=== PATIENT | male | born 1955 ===

== ENCOUNTER 2017-02-22 19:00 | Emergency (ER) | payer MEDICARE ==
[2017-02-22] MEDS ORDERED: Sodium Chloride 0.9% 1,000 ML IV STA (20:24)
--- NOTE | 2017-02-22 20:26 | ED PDOC ---
HPI: Neurologic - General Time Seen by Provider: 02/22/17 19:21 Chief Complaint (Nursing): Altered Mental Status Chief Complaint (Provider): Difficulty walking Source: patient, other (friend) Exam Limitations: no limitations - History of Present Illness Timing/Duration: other (5 days) Allergies/Adverse Reactions: Allergies No Known Allergies Allergy (Verified 11/29/15 18:47) Home Medications: Ambulatory Orders hydroCHLOROthiazide [Hydrodiuril] 25 mg PO DAILY #30 tab 11/29/15 Cephalexin [cephalexin] 500 mg PO BID #14 cap 04/05/16 Silver Sulfadiazine 1% (50 gm) [Thermazene] 1 appl TP DAILY #1 jar 04/05/16 Additional Complaint(s): Patient is a 62 y/o male with a past medical history of diabetes presenting to the emergency department for difficulty walking that has persisted for five days with associated shortness of breath, back pain, and a non-productive cough. Reports that due to his difficulty walking, he has not left the house for three days. His friend visited him and upon noticing that he seemed confused , advised him to go to ED but he refused. The following day, the friend visited the patient again and noted that the patient was trying to put both legs in one pant leg and he fell down and hurt his back. His back pain is currently resolved , but he has intractable hiccups. The friend finally convinced him to go to the ED to be evaluated. Denies history of a stroke or heart attack, complaints of chest pain, leg swelling, any focal weaknesses, drug or alcohol abuse, or other complaints. Admits that he hadn't taken his in diabetes meds because he has been feeling sick. PCP: Dr. Bloom (whom he has not seen for three months) Against Medical Advice - AMA Patient Left Against Medical Advice: The patient declines admission to the hospital and wishes to leave the Emergency Department. This action is against my medical advice. This decision was made with informed refusal. The patient was told that admission to the hospital is necessary. Explanation of the reasons why were discussed. The risks of leaving were explained to the patient and include, but are not limited to, worsening of known or currently unknown conditions, permanent disability and from undiagnosed or untreated conditions. The patient has the capacity to make this informed decision and understands my explanation of the current medical problem and risks of leaving. The patient voluntarily accepts these risks and signed an AMA form documenting our conversation. The patient was given the opportunity to ask questions and reconsider. The patient was encouraged to return to the Emergency Department at any time for further care. NIHSS Stroke Scale - Date/Time Evaluation Performed Date Performed: 02/22/17 Time Performed: 19:20 When Was NIHSS Performed: Baseline - How Severe is the Stroke Level of Consciousness: 0=Alert LOC to Questions: 1=One correct LOC to commands: 0=Obeys both correctly Best Gaze: 1=Partial gaze palsy Visual: 0=No visual loss Facial: 0=Normal Motor Arm - Left: 0=No drift Motor Arm - Right: 0=No drift Motor Leg - Left: 0=No drift Motor Leg - Right: 0=No drift Limb Ataxia: 1=Present Upper or Lower Sensory: 0=Normal Best Language: 1=Mild to moderate aphasia Dysarthia: 0=Normal articulation Extinction & Inattention (Neglect): 0=Normal, no object Score: 4 Past Medical History Reviewed: Historical Data, Nursing Documentation, Vital Signs Vital Signs: Last Vital Signs Temp 99.0 F 02/22/17 19:12 Pulse 80 02/22/17 19:12 Resp 16 02/22/17 19:12 BP 122/65 02/22/17 19:12 Pulse Ox 100 02/22/17 19:12 - Medical History PMH: Diabetes, HTN - Surgical History Other surgeries: 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, a colostomy, and then a reversal of the colostomy - Family History Family History: States: Stroke (brother) - Social History Current smoker - smoking cessation education provided: Yes Ex-Smoker (has not smoked in the last 12 months): No Alcohol: None Drugs: Denies - Home Medications Home Medications: Ambulatory Orders Medication Instructions Recorded hydroCHLOROthiazide [Hydrodiuril] 25 mg PO DAILY #30 tab 11/29/15 Cephalexin [cephalexin] 500 mg PO BID #14 cap 04/05/16 Silver Sulfadiazine 1% (50 gm) 1 appl TP DAILY #1 jar 04/05/16 [Thermazene] - Allergies Allergies/Adverse Reactions: Allergies Allergy/AdvReac Type Severity Reaction Status Date / Time No Known Allergies Allergy Verified 11/29/15 18:47 Review of Systems ROS Statement: Except As Marked, All Systems Reviewed And Found Negative Cardiovascular: Negative for: Chest Pain Respiratory: Positive for: Cough (non-productive), Shortness of Breath Musculoskeletal: Positive for: Back Pain (currently resolved). Negative for: Other (leg swelling) Neurological: Positive for: Other (difficulty walking) Physical Exam - Reviewed Nursing Documentation Reviewed: Yes Vital Signs Reviewed: Yes - Physical Exam Appears: Positive for: Uncomfortable, In Acute Distress Head Exam: Positive for: ATRAUMATIC, NORMOCEPHALIC Skin: Positive for: Warm, Dry Eye Exam: Positive for: PERRL. Negative for: EOMI (RIGHT eye: subtle palsy when looking LEFT, reports double vision) ENT: Positive for: Other (tacky mucus membranes) Neck: Positive for: Painless ROM, Supple Cardiovascular/Chest: Positive for: Regular Rate, Rhythm. Negative for: Murmur Respiratory: Positive for: Normal Breath Sounds. Negative for: Respiratory Distress Gastrointestinal/Abdominal: Positive for: Soft. Negative for: Tenderness, Mass , Distended, Guarding Back: Positive for: Normal Inspection. Negative for: Decreased ROM Neurologic/Psych: Positive for: Alert, Oriented (x3), Mood/Affect (mildly anxious), Cerebellar Tests (LEFT side: dysmetria with [id number]), Gait ( steady), Other (RIGHT eye subtle palsy). Negative for: Aphasia, Facial Droop - Laboratory Results Result Diagrams: 02/22/17 20:25 02/22/17 20:25 - ECG ECG Rhythm: Positive for: Sinus Rhythm, Nonspecific Changes O2 Sat by Pulse Oximetry: 100 (RA) Pulse Ox Interpretation: Normal - Critical Care Total Time (In Min): 30 Documented Critical Care: Time excludes all time spent performint seperately billable procedures Medical Decision Making Medical Decision Making: Time: 20:07 Initial Impression: Dystaxia and ocular-motor nerve palsy Differential diagnoses include but are not limited to stroke, metabolic encephalopathy, neuropathy, electrolyte abnormality, acute coronary syndrome, and syncope Initial Plan: Type and Screen Head CT without contrast EKG B-type Natriuretic Protein lab CMP Lipid panel Magnesium Phosphorous Troponin ED Urine Dipstick CBC Chest x-ray Certified Tower Climber IV Insertion Reevaluation EXAM: CT Head Without Intravenous Contrast CLINICAL HISTORY: 62 years old, male; Injury or trauma and signs and symptoms; Fall; Initial encounter; Concussion / head injury; Consciousness not specified; Other: Dystaxia; Additional info: Dystaxia and double vision. Sent phy. Doc. TECHNIQUE: Axial computed tomography images of the head/brain without intravenous contrast. All CT scans at this facility use one or more dose reduction techniques, viz.: automated exposure control; ma/kV adjustment per patient size (including targeted exams where dose is matched to indication; i.e. head); or iterative reconstruction technique. Coronal and sagittal reformatted images were created and reviewed. COMPARISON: No relevant prior studies available. FINDINGS: Brain: Cerebral and cerebellar atrophy. Small vessel ischemic/degenerative changes. Encephalomalacia right occipital lobe consistent with an old infarct. Encephalomalacia left frontal lobe consistent with old infarct. No hemorrhage. Ventricles: Unremarkable. No ventriculomegaly. Bones/joints: Unremarkable. No acute fracture. Soft tissues: Unremarkable. Vasculature: Intracranial arterial calcifications. Sinuses: Mucosal thickening left-sided ethmoid air cell. Mastoid air cells: Unremarkable as visualized. No mastoid effusion. IMPRESSION: 1. Cerebral and cerebellar atrophy. 2. Small vessel ischemic/degenerative changes. Thank you for allowing us to participate in the care of your patient. Dictated and Authenticated by: Roman Kraus MD 02/22/2017 8:57 PM Eastern Time ([place] & [place]) Markedly elevated glucose, with associated deranged electrolytes. IVF and Insulin ordered. DW pt findings and need to stay in hospital for full workup of CVA and to control diabetes. Pt refused. DW pt at length risk of or severe permanent disability if goes home but he wants to leave anyway. Advised that he can return to hospital at any time for the discussed plan. Scribe Attestation: Documented by Diane Thompson, acting as a scribe for Annabella Fabian MD. Provider Scribe Attestation: All medical record entries made by the Scribe were at my direction and personally dictated by me. I have reviewed the chart and agree that the record accurately reflects my personal performance of the history, physical exam, medical decision making, and the department course for this patient. I have also personally directed, reviewed, and agree with the discharge instructions and disposition. Disposition - Clinical Impression Clinical Impression: CVA (cerebral vascular accident), Hyperglycemia - Disposition Disposition: Against Medical Advice Disposition Time: 22:00 Condition: UNKNOWN
[2017-02-22 20:44] LABS: BASO % 0.3 % (0.0-2.0); EOS # 0.1 K/uL (0.0-0.7); EOS % 1.1 % (0.0-4.0); HEMOGLOBIN 14.3 g/dL (12.0-18.0); LYMPH # 1.1 K/uL (1.0-4.3); LYMPH % 11.7 % (20.0-40.0); MEAN CELL VOLUME 85.6 fl (80.0-94.0); MEAN CORPUSCULAR HEMOGLOBIN 28.5 pg (27.0-31.0); MEAN CORPUSCULAR HGB CONC 33.4 g/dL (33.0-37.0); MEAN PLATELET VOLUME 8.4 fl (7.2-11.7); MONO # 0.8 K/uL (0.0-0.8); MONO % 8.6 % (0.0-10.0); NEUT # 7.6 K/uL (1.8-7.0); NEUT % 78.3 % (50.0-75.0); RBC 5.01 Mil/uL (4.40-5.90); RED CELL DISTRIBUTION WIDTH 14.3 % (11.5-14.5); WHITE BLOOD COUNT 9.7 K/uL (4.8-10.8)
[2017-02-22 20:48] LABS: ABG ALLEN TEST YES; ARTERIAL BLOOD GAS HCO3 27.5 mmol/L (21-28); ARTERIAL BLOOD GAS O2 SAT 95.7 % (95-98); ARTERIAL BLOOD GAS PCO2 40 mm/Hg (35-45); ARTERIAL BLOOD GAS PH 7.45 (7.35-7.45); ARTERIAL BLOOD GAS PO2 60 mm/Hg (80-100)
[2017-02-22 20:53] LABS: PROTHROMBIN TIME 11.6 Seconds (9.8-13.1)
[2017-02-22 21:18] LABS: LDL CHOLESTEROL 113 mg/dL (0-129)
[2017-02-22 21:21] LABS: B-TYPE NATRIURETIC PEPTIDE 182 pg/ml (0-900)
[2017-02-22] MEDS ORDERED: Insulin Regular 100 units/ml SC STA (21:23)
[2017-02-22] MEDS ORDERED: Insulin Regular 100 units/ml IVP STA (21:24)
[2017-02-22] MEDS ORDERED: DiphenhydrAMINE 50 mg/ml Inj IVP STA (21:25)
[2017-02-22 21:30] LABS: ALB/GLOB RATIO 0.9 (1.0-2.1); ALBUMIN 3.2 g/dL (3.5-5.0); ALT/SGPT 35 U/L (21-72); AST/SGOT 17 U/L (17-59); BLOOD UREA NITROGEN 27 mg/dl (9-20); CALCIUM 7.9 mg/dL (8.4-10.2); GFR AFRICAN-AMERICAN > 60; GFR NON-AFRICAN AMERICAN > 60; HDL CHOLESTEROL 16 MG/DL (30-70); MAGNESIUM 2.1 MG/DL (1.6-2.3)
[2017-02-22] MEDS ORDERED: DiphenhydrAMINE 50 mg/ml Inj ONE (21:50)
[2017-02-22] MEDS ORDERED: Insulin Regular 100 units/ml ONE (21:53)
[2017-02-22 22:31] VITALS: BP 135/87; PULSE 89; RESP 18; TEMP 98
[2017-02-22 22:34] VITALS: O2SAT 100
--- NOTE | 2017-02-23 07:56 | RAD ---
HISTORY: fall, sob COMPARISON: Chest radiograph 08/03/2012. FINDINGS: LUNGS: An interval infiltrate is appreciate the right base laterally with none on the left. No pleural effusion bilaterally. No pneumothorax. Cardiomediastinal silhouette appears normal and there is no pulmonary vascular derangement appreciated. Trachea is midline. OSSEOUS STRUCTURES: No significant abnormalities. VISUALIZED UPPER ABDOMEN: Normal. OTHER FINDINGS: None. IMPRESSION: Limited infiltrate right base. No pleural effusion bilaterally or left-sided infiltrate.
--- NOTE | 2017-02-23 08:37 | CT ---
PROCEDURE: CT HEAD WITHOUT CONTRAST. HISTORY: dystaxia and double vision COMPARISON: None available. TECHNIQUE: Axial computed tomography images were obtained through the head/brain without intravenous contrast. Radiation dose: Total exam DLP = 926.36 mGy-cm. This CT exam was performed using one or more of the following dose reduction techniques: Automated exposure control, adjustment of the mA and/or kV according to patient size, and/or use of iterative reconstruction technique. FINDINGS: HEMORRHAGE: No intracranial hemorrhage. BRAIN: Chronic lobar infarctions are identified in the left frontal and right temporooccipital distribution medially. No definitive acute cortical edema is identified this time 6 cysts indicate a potential acute or subacute brain infarction. MRI is available for follow-up if clinically warranted however. Chronic right sided infarct described above may account for at least some of the patient's visual disturbance and clinical correlation is recommended further. Diffuse expansion of the ventriculosulcal and cisternal spaces is appreciated with white matter lucency compatible with diffuse cerebral atrophy and chronic microangiopathy. Posterior fossa contents and brainstem appear grossly nonfocal. VENTRICLES: Unremarkable. No hydrocephalus. CALVARIUM: Unremarkable. PARANASAL SINUSES: Multifocal ethmoid sinus disease is minimized to the mucosal surfaces diffusely without suspicious opacification. MASTOID AIR CELLS: Unremarkable as visualized. No inflammatory changes. OTHER FINDINGS: None. IMPRESSION: Chronic lobar infarct identified in the left frontal and right temporooccipital distribution. Clinically correlate as right temporooccipital chronic infarct may be least in part due the patient's visual disturbance. MRI is available follow-up if acute as clinically warranted. No intracranial hemorrhage or mass-effect. No cortical edema is identified at this time. Concordant preliminary report from [facility], 02/22/2017.
--- NOTE | 2017-02-23 18:27 | CARD ---
APPROVED REPORT EKG Measurement Heart [id number] <Conclusion> Normal sinus rhythm Left axis deviation Abnormal ECG
== END 2017-02-22 22:38 | disposition left against medical advice (07) ==
LOC: H.ER 19:00 → UNDOADMIN 21:45 → H.ERHOLD 21:45 → UNDODISIN 22:38
DX: H49.00 Third [oculomotor] nerve palsy, unspecified eye (principal)
CPT/HCPCS: 70450; 71010; 80053; 80061; 82550; 82803; 82948; 83036; 83735; 83880; 84100; 84484; 85025; 85610; 85730; 86850; 86900; 93005; 96374; 96375; 99285; J1200; J2765; J7040

== ENCOUNTER 2017-03-30 16:37 | Emergency (ER) | payer MEDICARE ==
[2017-03-30 16:43] VITALS: TEMP 97
[2017-03-30] MEDS ORDERED: Sodium Chloride 0.9% 1,000 ML IV STA (17:13)
[2017-03-30 17:39] LABS: SQUAMOUS EPITHIAL 1 /hpf (0-5); URINE BILIRUBIN NEGATIVE (NEGATIVE); URINE BLOOD SMALL (NEGATIVE); URINE CLARITY SLIGHTY-CLOUDY (Clear); URINE COLOR YELLOW (YELLOW); URINE GLUCOSE (UA) >=500 mg/dL (Normal); URINE LEUKOCYTE ESTERASE NEG Leu/uL (Negative); URINE NITRATE NEGATIVE (NEGATIVE); URINE PROTEIN 100 mg/dL (NEGATIVE); URINE UROBILINOGEN 0.2-1.0 mg/dL (0.2-1.0)
[2017-03-30 17:45] LABS: BASO # 0.1 K/uL (0.0-0.2); EOS # 0.4 K/uL (0.0-0.7); EOS % 3.8 % (0.0-4.0); HEMOGLOBIN 14.4 g/dL (12.0-18.0); MEAN CELL VOLUME 86.4 fl (80.0-94.0); MEAN CORPUSCULAR HEMOGLOBIN 29.3 pg (27.0-31.0); MEAN CORPUSCULAR HGB CONC 33.9 g/dL (33.0-37.0); MEAN PLATELET VOLUME 8.3 fl (7.2-11.7); MONO # 0.6 K/uL (0.0-0.8); MONO % 6.3 % (0.0-10.0); NEUT # 6.6 K/uL (1.8-7.0); NEUT % 67.9 % (50.0-75.0); NRBC % 0.1 % (0.0-0.0); RBC 4.93 Mil/uL (4.40-5.90); RED CELL DISTRIBUTION WIDTH 15.5 % (11.5-14.5); WHITE BLOOD COUNT 9.7 K/uL (4.8-10.8)
[2017-03-30 17:50] LABS: ALB/GLOB RATIO 1.1 (1.0-2.1); ALBUMIN 4.1 g/dL (3.5-5.0); CALCIUM 9.3 mg/dL (8.4-10.2); GFR AFRICAN-AMERICAN > 60; GFR NON-AFRICAN AMERICAN > 60
[2017-03-30 17:51] LABS: ALT/SGPT 28 U/L (21-72); AST/SGOT 23 U/L (17-59); BLOOD UREA NITROGEN 25 mg/dl (9-20)
--- NOTE | 2017-03-30 18:28 | CT ---
PROCEDURE: CT Lumbar Spine without contrast HISTORY: severe low back Pain. No history of recent/ related trauma provided COMPARISON: 07/14/2012 CT abdomen and pelvis TECHNIQUE: Axial computed tomography images were obtained of the lumbar spine without the use of intravenous contrast. Coronal and sagittal reformatted images were created and reviewed. Radiation dose: Total exam DLP = 1959.59 mGy-cm. This CT exam was performed using one or more of the following dose reduction techniques: Automated exposure control, adjustment of the mA and/or kV according to patient size, and/or use of iterative reconstruction technique. FINDINGS: VERTEBRAE: Loss of height of L2 vertebral body. The vertebral body is sclerotic suggesting pathologic fracture. Review of a prior CT scan the abdomen and pelvis 07/14/2012 and reveals a normal appearing L2 vertebral body at that time. Retropulsed fragments from the superior endplate of the vertebral body arm impressing upon the spinal canal, thecal sac. No additional sclerotic or lytic abnormalities are identified. DISCS/SPINAL CANAL/NEURAL FORAMINA: L1-2: The retropulsed fragment has produced canal stenosis at this level maximum AP diameter 10 mm. L2-3: Unremarkable. L3-4: Unremarkable. L4-5: Unremarkable. L5-S1: Mild bulging annulus. PARASPINAL SOFT TISSUES: UnremarkableNo appreciable paraspinal soft tissue mass associated with the L2 vertebral body abnormality. . OTHER FINDINGS: Multiple small renal cysts bilaterally. 2 mm calculus midpole region left kidney which is nonobstructing. IMPRESSION: L2 vertebral body fracture associate with sclerotic vertebral body. Retropulsed fragment has produced canal stenosis at this level. No additional lytic or sclerotic abnormalities. Additional benign and/or incidental findings described above. Communication of results: I discussed findings with the attending physician in the emergency department Dr. Nelson at the time of this interpretation 18:24.
--- NOTE | 2017-03-30 19:10 | ED PDOC ---
HPI: Back Time Seen by Provider: 03/30/17 17:06 Chief Complaint (Nursing): Back Pain Chief Complaint (Provider): Back Pain History Per: Patient History/Exam Limitations: no limitations Onset/Duration Of Symptoms: Days (x 2 weeks) Current Symptoms Are (Timing): Still Present Additional Complaint(s): 62 year old male iwth a past medical history of diabetes and hypertension presents to the ED complaining of ongoing lower back pain, onset 2 weeks ago. Patient states chronic neuropathy of lower extremities where they feel numb. Reports that he visited Dr. Arana today and was unable to see the physician. Denies urinary symptoms, fever, chest pain, chills, falls, and weakness. PMD: Dr. Jay Arana MD Past Medical History Reviewed: Historical Data, Nursing Documentation, Vital Signs Vital Signs: Last Vital Signs Temp 97 F L 03/30/17 16:40 Pulse 114 H 03/30/17 16:40 Resp 16 03/30/17 16:40 BP 136/91 H 03/30/17 16:40 Pulse Ox 99 03/30/17 16:40 - Medical History PMH: Diabetes, HTN - Surgical History Other surgeries: Colostomy with reversal - Family History Family History: States: Stroke (brother) - Social History Current smoker - smoking cessation education provided: No Alcohol: None Drugs: Denies - Home Medications Home Medications: Ambulatory Orders Medication Instructions Recorded hydroCHLOROthiazide [Hydrodiuril] 25 mg PO DAILY #30 tab 11/29/15 Cephalexin [cephalexin] 500 mg PO BID #14 cap 04/05/16 Silver Sulfadiazine 1% (50 gm) 1 appl TP DAILY #1 jar 04/05/16 [Thermazene] - Allergies Allergies/Adverse Reactions: Allergies Allergy/AdvReac Type Severity Reaction Status Date / Time No Known Allergies Allergy Verified 11/29/15 18:47 Review of Systems ROS Statement: Except As Marked, All Systems Reviewed And Found Negative Constitutional: Negative for: Fever, Chills, Weakness Cardiovascular: Negative for: Chest Pain Genitourinary Male: Negative for: Dysuria, Frequency, Incontinence, Hematuria Musculoskeletal: Positive for: Back Pain Neurological: Positive for: Numbness (lower extremities) Physical Exam - Reviewed Nursing Documentation Reviewed: Yes Vital Signs Reviewed: Yes - Physical Exam Appears: Positive for: Non-toxic, No Acute Distress Head Exam: Positive for: ATRAUMATIC, NORMOCEPHALIC Skin: Positive for: Normal Color, Warm, DRY Eye Exam: Positive for: EOMI, Normal appearance, PERRL Neck: Positive for: Normal, Painless ROM, Supple Cardiovascular/Chest: Positive for: Regular Rate, Rhythm. Negative for: Murmur Respiratory: Positive for: Normal Breath Sounds. Negative for: Respiratory Distress Gastrointestinal/Abdominal: Positive for: Normal Exam, Soft Back: Positive for: Vertebral Tenderness (lower back; including lumbar vertebrae ) Extremity: Positive for: Normal ROM. Negative for: Deformity Neurologic/Psych: Positive for: Alert, Oriented. Negative for: Motor/Sensory Deficits - Laboratory Results Result Diagrams: 03/30/17 17:37 03/30/17 17:37 - ECG O2 Sat by Pulse Oximetry: 99 (RA) Pulse Ox Interpretation: Normal Medical Decision Making Medical Decision Making: Time: 17:12 Impression: Lower back pain Initial Plan: --Lumbar spine CT --CMP --CBC --PSA free and total --Normal saline IV 1,000 mls/hr --Toradol 30 mg IV --Tylenol 650 mg PO --Urinalysis Patient was given Toradol for pain with improvement of symptoms. CT LS spine revealed the possibility of prostate malignancy. PSA added on because of age. Transfer of care endorsed to Dr. Clemens. Scribe Attestation: Documented by Regi Eddy, acting as a scribe for Roman Nelson III DO Provider Scribe Attestation: All medical record entries made by the Scribe were at my direction and personally dictated by me. I have reviewed the chart and agree that the record accurately reflects my personal performance of the history, physical exam, medical decision making, and the department course for this patient. I have also personally directed, reviewed, and agree with the discharge instructions and disposition. Disposition - Disposition
--- NOTE | 2017-03-30 19:42 | ED PDOC ---
- Laboratory Results Result Diagrams: 03/30/17 17:37 03/30/17 17:37 - ECG O2 Sat by Pulse Oximetry: 99 (RA) Pulse Ox Interpretation: Normal Medical Decision Making Medical Decision MakinPM Patient signed out to me by Dr. Nelson pending PSA result, however nurse Evelyn checked with lab and confirmed that PSA will be a send out at this time to [facility] , which will take 3-5 days. Urine shows no evidence of bacteria or ketones. Patient offered admission for condition concerning findings on CT, however patient is declining and wishes to go home and followup with Dr. Tony as outpatient. Patient states that he is feeling much better and admits that in the past 1-2 months he has fallen several times and his current symptoms have been there for over 2 weeks. Will also give patient referral for urology and orthopedics. Patient understands that his back lesion can be fuels sales representative of possible prostate cancer and metastases to the bone. Patient verbally understands this and understands the importance of urgent followup. Discussed need for better glycemic control as well. Discussed return precautions- worsening back pain, loss of bladder/bowel function, acutely worsening numbness/ disability of lower extremities, or other concerning symptoms. Copies of results given to patient. Patient neurologically intact upon discharge. Walking steadily without any issue. Disposition - Clinical Impression Clinical Impression: Vertebral fracture - POA Present On Arrival: None - Disposition Referrals: Jay Arana MD [Medical Doctor] - Armando Barclay III, MD [Staff Provider] - Roman Harrington Jr., MD [Staff Provider] - Disposition: Routine/Home Disposition Time: 19:44 Condition: STABLE Additional Instructions: Please followup with your primary care doctor to have your prostate checked. Please have Dr. Arana followup on your PSA level, as it was a send-out to another facility. Please followup with an orthopedic doctor regarding your vertebral body (spine) fracture. Prescriptions: Naproxen [Naprosyn] 500 mg PO BID #30 tablet Instructions: Thoracolumbar Fracture (ED), Acute Low Back Pain (ED) Forms: [employer] (Bengali)
[2017-03-30 19:55] VITALS: BP 137/84; PULSE 83; RESP 18
[2017-03-30 20:31] VITALS: O2SAT 99
[2017-03-31 10:51] LABS: TOTAL PSA 0.8 ng/mL (< or = 4.0)
== END 2017-03-30 20:10 | disposition home or self-care (01) ==
LOC: H.ER 16:37
DX: S32.029A Unspecified fracture of second lumbar vertebra, initial encounter for closed fracture (principal); Y92.89 Other specified places as the place of occurrence of the external cause; E11.9 Type 2 diabetes mellitus without complications; I10 Essential (primary) hypertension; M48.061 Spinal stenosis, lumbar region without neurogenic claudication
CPT/HCPCS: 72131; 80053; 81003; 82948; 84153; 84154; 85025; 96360; 99282; J1885; J7040

== ENCOUNTER 2017-10-18 14:15 | Inpatient (IN) | payer MEDICARE ==
--- NOTE | 2017-10-18 14:35 | ED PDOC ---
HPI:STROKE - Time Time: 14:25 - Historian Historian: Patient - Chief Complaint Chief Complaint: Weakness - Onset Onset: Days (2-3) - Timing Timing: Currently Symptomatic - Associated Symptoms Associated symptoms:: Dysarthria - Exacerbated by Exacerbated by:: Nothing - Relieved by Relieved by:: Nothing - TPA Positive for Contraindication: Yes Reason tPA is not being Administered: symptoms ongoing >2 days - Notes: Notes:: 62yo male hx DM, HTN, active smoker arrives to hospital via EMS when friend found him altered with facial assymmetry and decreased ability to walk or stand today. Per friend/neighbor, he was last seen [address] where he was also having falls, but did not want to come to hospital. In ED patient communicative denies headache, notes weakness and nausea. NIHSS Stroke Scale - Date/Time Evaluation Performed Date Performed: 10/18/17 Time Performed: 14:34 When Was NIHSS Performed: Baseline - How Severe is the Stroke Level of Consciousness: 0=Alert LOC to Questions: 0=Both comments correct LOC to commands: 0=Obeys both correctly Best Gaze: 0=Normal Visual: 0=No visual loss Facial: 2=Partial (lower face paralysis) Motor Arm - Left: 1=Drift noted before 10 sec Motor Arm - Right: 1=Drift noted before 10 sec Motor Leg - Left: 0=No drift Motor Leg - Right: 0=No drift Limb Ataxia: 0=Absent Sensory: 0=Normal Best Language: 0=No aphasia Dysarthia: 1=Mild to moderate slurring Extinction & Inattention (Neglect): 0=Normal, no object Score: 5 Severity Of Stroke: 5-15 = Moderate Stroke rTPA Inclusion/Exclusion - Refusal of Treatment Patient Refused Treatment: No - Inclusion Criteria for Altepase Patient is 18 years or Older: Yes The Clinical Diagnosis of Ischemic Stroke That is Causing a Potentially Disabling Neurological Deficit: Yes Time of Onset is Well Established to be Less Than 270 Minute Before Treatment Would Begin: No Risk/Benefit Discussed With Patient/Family Member Present: No - Exclusion Criteria for Altepase Evidence of an Intracranial Hemorrhage: No - Warning to TPA With Conditions Following Conditions Weighed Against Anticipated Benefit: Yes Past Medical History Reviewed: Historical Data, Nursing Documentation, Vital Signs Vital Signs: Last Vital Signs Temp 98.2 F 10/18/17 14:19 Pulse 106 H 10/18/17 14:19 Resp 20 10/18/17 14:19 BP 139/91 H 10/18/17 14:19 Pulse Ox 92 L 10/18/17 14:19 - Medical History PMH: Diabetes, HTN - Surgical History Other surgeries: hartmans procedure - Family History Family History: States: Stroke (brother) - Living Arrangements Living Arrangements: Alone - Social History Current smoker - smoking cessation education provided: Yes Alcohol: None - Home Medications Home Medications: Ambulatory Orders Medication Instructions Recorded Finasteride [Proscar] 5 mg PO QPM 10/18/17 Insulin Aspart, Recombinant 18 unit SC ACTID 10/18/17 [Novolog] Insulin Glargine,Hum.rec.anlog 40 unit SC HS 10/18/17 [Toujeo Solostar] MetFORMIN [glucoPHAGE] 1,000 mg PO BID 10/18/17 Pregabalin [Lyrica] 100 mg PO Q8 10/18/17 Tamsulosin [Flomax] 0.4 mg PO QPM 10/18/17 Zolpidem [Ambien] 10 mg PO HS PRN 10/18/17 traMADol [Ultram] 50 mg PO Q8 PRN 10/18/17 - Allergies Allergies/Adverse Reactions: Allergies Allergy/AdvReac Type Severity Reaction Status Date / Time No Known Allergies Allergy Verified 10/18/17 14:17 Review of Systems Review Of Systems: ROS cannot be obtained secondary to pt's inabilty to answer questions. (unrelaible historian) Physical Exam - Reviewed Nursing Documentation Reviewed: Yes Vital Signs Reviewed: Yes - Physical Exam Appears: Positive for: Non-toxic (+vomitus, facial assymetry speech mild dysarthria but fluent) Head Exam: Positive for: ATRAUMATIC, NORMAL INSPECTION, NORMOCEPHALIC Skin: Positive for: Normal Color, Warm, DRY Eye Exam: Positive for: EOMI, Normal appearance, PERRL ENT: Positive for: Normal ENT Inspection Neck: Positive for: Normal, Painless ROM Cardiovascular/Chest: Positive for: Regular Rate, Rhythm Respiratory: Positive for: CNT, Normal Breath Sounds Pulses-Radial (L): 2+ Pulses-Radial (R): 2+ Gastrointestinal/Abdominal: Positive for: Normal Exam, Soft Back: Positive for: Normal Inspection Extremity: Positive for: Normal ROM Neurologic/Psych: Positive for: Alert, Oriented, Motor/Sensory Deficits ( strength L side 4/5; R 5/5), Cerebellar Tests (slow), Gait (unable to assess), Facial Droop. Negative for: Aphasia - Laboratory Results Result Diagrams: 10/19/17 05:40 10/19/17 05:40 - ECG O2 Sat by Pulse Oximetry: 92 Medical Decision Making Medical Decision Making: stroke alert not activated as symptoms ongoing >[address] brain, labs, swallow eval ordered old charts reviewed, no recent visits PMD Bloom? (patient unsure) Accession No. : [id number] Patient Name / ID : FUENTES STARK / [id number] Exam Date : 10/18/2017 15:14:39 ( Approved ) Study Comment : Sex / Age : M / 62Y Creator : Gildardo Rodriguez MD Dictator : Gildardo Rodriguez MD Eviscerator : Supervisor [employer] : Gildardo Rodriguez MD Approver2 : Report Date : 10/18/2017 15:44:43 My Comment : Date of service: 10/18/2017 PROCEDURE: CT HEAD WITHOUT CONTRAST. HISTORY: L facial droop, falls/AMS COMPARISON: Noncontrast head CT 02/22/2017. TECHNIQUE: Axial computed tomography images were obtained through the head/brain without intravenous contrast. Radiation dose: Total exam DLP = 900.52 mGy-cm. This CT exam was performed using one or more of the following dose reduction techniques: Automated exposure control, adjustment of the mA and/or kV according to patient size, and/or use of iterative reconstruction technique. FINDINGS: HEMORRHAGE: No intracranial hemorrhage. BRAIN: There is interval lucency without definite mass effect identified at the right frontal lobe extending to the optic radiations. This may reflect a mid to late subacute ischemic infarct in the interval. Follow-up MRI is strongly advised for additional characterization. Chronic lobar infarctions in the left frontal and right temporooccipital distribution are appreciated as well as diffuse cerebral atrophy chronic microangiopathy. Posterior fossa contents are unremarkable including the brainstem. No suspicious extra-axial fluid collection. 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 CALVARIUM: Unremarkable. PARANASAL SINUSES: Unremarkable as visualized. No significant inflammatory changes. MASTOID AIR CELLS: Unremarkable as visualized. No inflammatory changes. OTHER FINDINGS: None. IMPRESSION: 1. Potential mid to late subacute ischemic infarct right frontal lobe in the interval. No mass-effect however. Follow-up MRI is advised for added characterization. 2. Chronic lobar infarctions left frontal lobe and right temporooccipital regions reiterated. 3. Age related neuro degenerative changes reiterated. ASA ordered rectal Admit sap pp consultant medicine Dr Marmolejo Case d/w Dr Portillo stroke neurologist also Disposition - Clinical Impression Clinical Impression: CVA (cerebral vascular accident), Hyperglycemia - Patient ED Disposition Is Patient to be Admitted: Yes Counseled Patient/Family Regarding: Studies Performed, Diagnosis, Need For Followup - Disposition Disposition Time: 15:35 Condition: GUARDED - Pt Status Changed To: Hospital Disposition Of: Inpatient - Admit Certification Admit to Inpatient:: After my assessment, the patient will require hospitalization for at least two midnights. This is because of the severity of symptoms shown, intensity of services needed, and/or the medical risk in this patient being treated as an outpatient. - POA Present On Arrival: Falls Or Trauma, Poor Glycemic Control
[2017-10-18] MEDS ORDERED: Sodium Chloride 0.9% 1,000 ML IV STA (14:39)
[2017-10-18 15:07] LABS: PROTHROMBIN TIME 10.7 Seconds (9.8-13.1)
[2017-10-18 15:08] LABS: BASO # 0.1 K/uL (0.0-0.2); BASO % 0.7 % (0.0-2.0); EOS # 0.3 K/uL (0.0-0.7); EOS % 3.8 % (0.0-4.0); HEMOGLOBIN 15.1 g/dL (12.0-18.0); LYMPH # 1.7 K/uL (1.0-4.3); LYMPH % 18.5 % (20.0-40.0); MEAN CELL VOLUME 86.3 fl (80.0-94.0); MEAN CORPUSCULAR HEMOGLOBIN 29.7 pg (27.0-31.0); MEAN CORPUSCULAR HGB CONC 34.4 g/dL (33.0-37.0); MEAN PLATELET VOLUME 8.7 fl (7.2-11.7); MONO # 0.6 K/uL (0.0-0.8); MONO % 6.7 % (0.0-10.0); NEUT # 6.3 K/uL (1.8-7.0); NEUT % 70.3 % (50.0-75.0); NRBC % 0.2 % (0.0-0.0); RBC 5.08 Mil/uL (4.40-5.90)
[2017-10-18 15:09] LABS: PARTIAL THROMBOPLASTIN TIME 29.1 Seconds (25.6-37.1)
[2017-10-18 15:14] LABS: ALB/GLOB RATIO 1.3 (1.0-2.1); ALBUMIN 4.3 g/dL (3.5-5.0); ALT/SGPT 26 U/L (21-72); AST/SGOT 15 U/L (17-59); BLOOD UREA NITROGEN 23 mg/dl (9-20); CALCIUM 9.2 mg/dL (8.4-10.2); GFR AFRICAN-AMERICAN > 60; GFR NON-AFRICAN AMERICAN > 60; HDL CHOLESTEROL 38 MG/DL (30-70)
[2017-10-18 15:25] LABS: LDL CHOLESTEROL 165 mg/dL (0-129)
--- NOTE | 2017-10-18 15:30 | RAD ---
Date of service: 10/18/2017 HISTORY: Code Stroke COMPARISON: 02/22/2017. FINDINGS: LUNGS: Resolution right lower lobe infiltrate PLEURA: No significant pleural effusion identified, no pneumothorax apparent. CARDIOVASCULAR: No radiographic findings to suggest acute or significant cardiovascular disease. OSSEOUS STRUCTURES: No significant abnormalities. VISUALIZED UPPER ABDOMEN: Normal. OTHER FINDINGS: None. IMPRESSION: No active disease.
--- NOTE | 2017-10-18 15:46 | CT ---
Date of service: 10/18/2017 PROCEDURE: CT HEAD WITHOUT CONTRAST. HISTORY: L facial droop, falls/AMS COMPARISON: Noncontrast head CT 02/22/2017. TECHNIQUE: Axial computed tomography images were obtained through the head/brain without intravenous contrast. Radiation dose: Total exam DLP = 900.52 mGy-cm. This CT exam was performed using one or more of the following dose reduction techniques: Automated exposure control, adjustment of the mA and/or kV according to patient size, and/or use of iterative reconstruction technique. FINDINGS: HEMORRHAGE: No intracranial hemorrhage. BRAIN: There is interval lucency without definite mass effect identified at the right frontal lobe extending to the optic radiations. This may reflect a mid to late subacute ischemic infarct in the interval. Follow-up MRI is strongly advised for additional characterization. Chronic lobar infarctions in the left frontal and right temporooccipital distribution are appreciated as well as diffuse cerebral atrophy chronic microangiopathy. Posterior fossa contents are unremarkable including the brainstem. No suspicious extra-axial fluid collection. 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 CALVARIUM: Unremarkable. PARANASAL SINUSES: Unremarkable as visualized. No significant inflammatory changes. MASTOID AIR CELLS: Unremarkable as visualized. No inflammatory changes. OTHER FINDINGS: None. IMPRESSION: 1. Potential mid to late subacute ischemic infarct right frontal lobe in the interval. No mass-effect however. Follow-up MRI is advised for added characterization. 2. Chronic lobar infarctions left frontal lobe and right temporooccipital regions reiterated. 3. Age related neuro degenerative changes reiterated.
[2017-10-18] MEDS ORDERED: Insulin Regular 100 units/ml SC ONE (16:05)
[2017-10-18] MEDS: Sodium Chloride 0.9% 1,000 ML IV SCH (22:01)
[2017-10-18] MEDS: Insulin Lispro (humaLOG) 100 Units/ml Inj SC SCH (22:57)
[2017-10-18] MEDS: Insulin Detemir 100 Units/ml Inj SC SCH (22:58)
[2017-10-19] MEDS ORDERED: Pneumococcal 23-Valent Vaccine IM ONE (06:00)
--- NOTE | 2017-10-19 06:11 | CARD ---
APPROVED REPORT Date of service: 10/18/2017 <Conclusion> Normal sinus rhythm Left axis deviation Abnormal ECG
[2017-10-19 06:35] LABS: HEMOGLOBIN 14.3 g/dL (12.0-18.0); MEAN CELL VOLUME 86.3 fl (80.0-94.0); MEAN CORPUSCULAR HEMOGLOBIN 29.8 pg (27.0-31.0); MEAN CORPUSCULAR HGB CONC 34.5 g/dL (33.0-37.0); RBC 4.81 Mil/uL (4.40-5.90); RED CELL DISTRIBUTION WIDTH 13.8 % (11.5-14.5)
[2017-10-19] MEDS: Insulin Lispro (humaLOG) 100 Units/ml Inj SC SCH ×6 (06:36→22:35)
[2017-10-19] MEDS: Sodium Chloride 0.9% 1,000 ML IV SCH ×2 (06:38→12:15)
[2017-10-19 06:57] LABS: LDL CHOLESTEROL 157 mg/dL (0-129)
[2017-10-19 07:20] LABS: ALB/GLOB RATIO 1.2 (1.0-2.1); ALBUMIN 3.8 g/dL (3.5-5.0); ALT/SGPT 27 U/L (21-72); AST/SGOT 19 U/L (17-59); BLOOD UREA NITROGEN 18 mg/dl (9-20); CALCIUM 8.8 mg/dL (8.4-10.2); GFR AFRICAN-AMERICAN > 60; GFR NON-AFRICAN AMERICAN > 60; HDL CHOLESTEROL 34 MG/DL (30-70)
--- NOTE | 2017-10-19 13:27 | CARD ---
APPROVED REPORT Date of service: 10/19/2017 EXAM: Two-dimensional and M-mode echocardiogram with Doppler and color Doppler. Other Information Quality : GoodRhythm : NSR INDICATION CVA/TIA 2D DIMENSIONS IVSd1.10 (0.7-1.1cm)LVDd3.50 (3.9-5.9cm) LVOT Diameter2.57 (1.8-2.4cm)PWd1.13 (0.7-1.1cm) IVSs1.49 (0.8-1.2cm)LVDs3.06 (2.5-4.0cm) FS (%) 9.4 %PWs1.19 (0.8-1.2cm) M-Mode DIMENSIONS Left Atrium (MM)4.20 (2.5-4.0cm)IVSd1.10 (0.7-1.1cm) Aortic Root3.81 (2.2-3.7cm)LVDd5.33 (4.0-5.6cm) Aortic Cusp Exc.2.15 (1.5-2.0cm)PWd1.13 (0.7-1.1cm) IVSs1.95 cmFS (%) 43 % LVDs3.04 (2.0-3.8cm)PWs1.75 cm Aortic Valve AoV Peak Ntckjvlh00.2cm/sAoV VTI15.3cmAO Peak GR.4mmHg LVOT Peak Juiywppm70.0cm/sLVOT VTI11.40cmAO Mean GR.2mmHg Mitral Valve MV E Fbpkyvtq65.7cm/sMV DECEL [id number] A Zdjbvrng88.8cm/s MV RQS83olZ/A ratio0.8MVA (PHT)5.38cm2 TDI Lateral E' Peak V8.56cm/sMedial E' Peak V6.36cm/sE/Lateral E'9.2 E/Medial E'12.4 Pulmonary Valve PV Peak Ikubicwq99.9cm/s LEFT VENTRICLE The left ventricle is normal size. There is normal left ventricular wall thickness. The left ventricular ejection fraction is within the normal range. The Ejection Fraction is 60-65%. No regional wall motion abnormalities noted.. Transmitral Doppler flow pattern is Grade I-abnormal relaxation pattern. No left ventricle thrombus noted on this study. There is no ventricular septal defect visualized. There is no mass noted in the left ventricle. RIGHT VENTRICLE The right ventricle is normal size. There is normal right ventricular wall thickness. The right ventricular systolic function is normal. ATRIA The left atrium size is mildly dilated The right atrium size is normal. The interatrial septum is intact with no evidence for an atrial septal defect. AORTIC VALVE The aortic valve is normal in structure. No aortic regurgitation is present. There is no aortic valvular stenosis. MITRAL VALVE The mitral valve is normal in structure. There is no mitral valve stenosis. There is no mitral valve regurgitation noted. TRICUSPID VALVE The tricuspid valve is normal in structure. There is no tricuspid valve regurgitation noted. PULMONIC VALVE The pulmonary valve is normal in structure. There is no pulmonic valvular regurgitation. GREAT VESSELS The aortic root is mildly dilated The ascending aorta is normal in size. The pulmonary artery is normal. The IVC is normal in size and collapses >50% with inspiration. PERICARDIAL EFFUSION There is no pericardial effusion. <Conclusion> Dilated aortic root Dilated left atrium Normal LV systolic function with doppler hemodynamics consistent with abnormal relaxation The Ejection Fraction is 60-65%. If clinically suspect intracardiac/ascending aortic source of embolus, consideration could be given towards BIPIN
--- NOTE | 2017-10-19 14:10 | CP.PCM.HP ---
History of Present Illness - History of Present Illness History of Present Illness: CC: Neurological deficit. 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 Pt lives alone, as per neighbor, he sawed when Pt fell in the street 2 days [employer]NAGER [employer] DEVEL[employer] and since, he noticed associated weakness, L facial droop, slurred speech and nausea, worsening on DOA. Worsening symptoms: Heavy smoker, decreased ability to walk or stand. Aggravated factor: Limited history 2nd to clinical condition. No: Fever, chills, vomiting, diarrhea, abdominal pain, painful urination, CP, palpitations, SOB, cough, sick contact, recent travel out of [facility]. CT Head: Potential mid to late subacute ischemic infarct R front lobe in the interval. Chronic lobar infarctions Left frontal lobe and right tempooccipital regions reiterated CXR: No active disease. Present on Admission - Present on Admission Any Indicators Present on Admission: No Review of Systems - Review of Systems Systems not reviewed;Unavailable: Acuity of Condition, Other (CVA) Past Patient History - Infectious Disease Hx of Infectious Diseases: None - Past Medical History & Family History Past Medical History?: Yes Pertinent Family History: Unknown - Past Social History Smoking Status: Heavy Smoker > 10 Cigarettes Daily Alcohol: None Drugs: Denies Home Situation {Lives}: Alone - CARDIAC Hx Cardiac Disorders: Yes Hx Hypertension: Yes - PULMONARY Hx Respiratory Disorders: No - NEUROLOGICAL Hx Neurological Disorder: Yes Other/Comment: neuropathy - HEENT Hx HEENT Problems: No - RENAL Hx Chronic Kidney Disease: No - ENDOCRINE/METABOLIC Hx Endocrine Disorders: Yes Hx Diabetes Mellitus Type 2: Yes - HEMATOLOGICAL/ONCOLOGICAL Hx AIDS: No Hx Blood Transfusions: No Hx Human Immunodeficiency Virus (HIV): No - INTEGUMENTARY Hx Dermatological Problems: No - MUSCULOSKELETAL/RHEUMATOLOGICAL Hx Musculoskeletal Disorders: Yes Hx Back Pain: Yes Hx Falls: Yes Hx Fractures: Yes (back) Hx Unsteady Gait: Yes - GASTROINTESTINAL Hx Gastrointestinal Disorders: Yes Hx Colostomy: Yes - GENITOURINARY/GYNECOLOGICAL Hx Genitourinary Disorders: Yes Hx Prostate Problems: Yes - PSYCHIATRIC Hx Substance Use: No - SURGICAL HISTORY Hx Surgeries: Yes Other/Comment: COLOSTOMY 2013 - ANESTHESIA Hx Anesthesia: Yes Hx Anesthesia Reactions: No Meds Allergies/Adverse Reactions: Allergies Allergy/AdvReac Type Severity Reaction Status Date / Time No Known Allergies Allergy Verified 10/18/17 14:17 Physical Exam - Constitutional Appears: No Acute Distress - Head Exam Head Exam: NORMAL INSPECTION - Eye Exam Eye Exam: PERRL - ENT Exam ENT Exam: Normal Exam - Neck Exam Neck exam: Positive for: Normal Inspection - Respiratory Exam Respiratory Exam: NORMAL BREATHING PATTERN - Cardiovascular Exam Cardiovascular Exam: REGULAR RHYTHM - GI/Abdominal Exam GI & Abdominal Exam: Normal Bowel Sounds, Soft - Extremities Exam Extremities exam: Positive for: normal inspection - Back Exam Back exam: NORMAL INSPECTION - Neurological Exam Neurological exam: Alert, Oriented x3 Additional comments: L side facial droop, mild slurring of speech, obeys commands, weakness, - Psychiatric Exam Psychiatric exam: Normal Mood - Skin Skin Exam: Warm Results - Vital Signs Recent Vital Signs: Last Vital Signs Temp 97.4 F L 10/19/17 12:33 Pulse 105 H 10/19/17 12:33 Resp 20 10/19/17 12:33 BP 137/88 10/19/17 12:33 Pulse Ox 96 10/19/17 12:33 reviewed Ban - Labs Result Diagrams: 10/19/17 05:40 10/19/17 05:40 Labs: Laboratory Results - last 24 hr 10/18/17 10/18/17 10/18/17 11:48 14:26 14:50 WBC 9.0 RBC 5.08 Hgb 15.1 Hct 43.8 MCV 86.3 MCH 29.7 MCHC 34.4 RDW 14.0 Plt Count 244 MPV 8.7 Neut % (Auto) 70.3 Lymph % (Auto) 18.5 L Ward % (Auto) 6.7 Eos % (Auto) 3.8 Baso % (Auto) 0.7 Neut # (Auto) 6.3 Lymph # (Auto) 1.7 Ward # (Auto) 0.6 Eos # (Auto) 0.3 Baso # (Auto) 0.1 PT INR APTT Sodium Potassium Chloride Carbon Dioxide Anion Gap BUN Creatinine Est GFR ( Amer) Est GFR (Non-Af Amer) POC Glucose (mg/dL) 336 H Random Glucose Hemoglobin A1c Calcium Total Bilirubin AST ALT Alkaline Phosphatase Total Creatine Kinase Troponin I Total Protein Albumin Globulin Albumin/Globulin Ratio Triglycerides Cholesterol LDL Cholesterol Direct HDL Cholesterol TSH 3rd Generation Blood Type B POSITIVE Antibody Screen Negative BBK History Checked Patient has bt 10/18/17 10/18/17 10/18/17 14:50 14:50 21:53 WBC RBC Hgb Hct MCV MCH MCHC RDW Plt Count MPV Neut % (Auto) Lymph % (Auto) Ward % (Auto) Eos % (Auto) Baso % (Auto) Neut # (Auto) Lymph # (Auto) Ward # (Auto) Eos # (Auto) Baso # (Auto) PT 10.7 INR 1.0 APTT 29.1 Sodium 138 Potassium 4.4 Chloride 102 Carbon Dioxide 23 Anion Gap 17 BUN 23 H Creatinine 1.2 Est GFR ( Amer) > 60 Est GFR (Non-Af Amer) > 60 POC Glucose (mg/dL) 201 H Random Glucose 378 H Hemoglobin A1c Calcium 9.2 Total Bilirubin 0.6 AST 15 L D ALT 26 Alkaline Phosphatase 81 Total Creatine Kinase 112 Troponin I < 0.0120 Total Protein 7.6 Albumin 4.3 Globulin 3.3 Albumin/Globulin Ratio 1.3 Triglycerides 303 H Cholesterol 237 H LDL Cholesterol Direct 165 H HDL Cholesterol 38 TSH 3rd Generation Blood Type Antibody Screen BBK History Checked 10/19/17 10/19/17 10/19/17 05:29 05:40 05:40 WBC 9.0 RBC 4.81 Hgb 14.3 Hct 41.5 MCV 86.3 MCH 29.8 MCHC 34.5 RDW 13.8 Plt Count 244 MPV Neut % (Auto) Lymph % (Auto) Ward % (Auto) Eos % (Auto) Baso % (Auto) Neut # (Auto) Lymph # (Auto) Ward # (Auto) Eos # (Auto) Baso # (Auto) PT INR APTT Sodium Potassium Chloride Carbon Dioxide Anion Gap BUN Creatinine Est GFR ( Amer) Est GFR (Non-Af Amer) POC Glucose (mg/dL) 162 H Random Glucose Hemoglobin A1c 11.8 H Calcium Total Bilirubin AST ALT Alkaline Phosphatase Total Creatine Kinase Troponin I Total Protein Albumin Globulin Albumin/Globulin Ratio Triglycerides Cholesterol LDL Cholesterol Direct HDL Cholesterol TSH 3rd Generation Blood Type Antibody Screen BBK History Checked 10/19/17 05:40 WBC RBC Hgb Hct MCV MCH MCHC RDW Plt Count MPV Neut % (Auto) Lymph % (Auto) Ward % (Auto) Eos % (Auto) Baso % (Auto) Neut # (Auto) Lymph # (Auto) Ward # (Auto) Eos # (Auto) Baso # (Auto) PT INR APTT Sodium 140 Potassium 3.9 Chloride 106 Carbon Dioxide 27 Anion Gap 11 BUN 18 Creatinine 1.0 Est GFR ( Amer) > 60 Est GFR (Non-Af Amer) > 60 POC Glucose (mg/dL) Random Glucose 170 H Hemoglobin A1c Calcium 8.8 Total Bilirubin 0.5 AST 19 ALT 27 Alkaline Phosphatase 64 Total Creatine Kinase Troponin I Total Protein 6.9 Albumin 3.8 Globulin 3.1 Albumin/Globulin Ratio 1.2 Triglycerides 264 H Cholesterol 222 H LDL Cholesterol Direct 157 H HDL Cholesterol 34 TSH 3rd Generation 1.28 Blood Type Antibody Screen BBK History Checked reviewed J.P. - EKG Data EKG comments: reviewed J.P. - Imaging and Cardiology CT scan - head Status: Report reviewed by me (Ban) Chest x-ray Status: Report reviewed by me (Ban) Assessment & Plan (1) CVA (cerebral vascular accident) Status: Acute Priority: High (2) Hyperglycemia due to type 2 diabetes mellitus Status: Acute Priority: High (3) Dyslipidemia Status: Chronic Priority: High (4) BPH (benign prostatic hyperplasia) Status: Chronic Priority: Medium (5) Hx of fall Status: Chronic Priority: High (6) Weakness Status: Chronic Priority: High - Assessment and Plan (Free Text) Plan: F/UEcho, Brain MRI, Neck MRA, Head MRA, continue ASA, Humalog, Levemir, Lipitor , Sodium Chl and rest of Tx. Neurology consult. - Date & Time Date: 10/19/17 Time: 12:00
[2017-10-19] MEDS ORDERED: Sodium Chloride 0.9% 50 ML IV ONE (17:52)
[2017-10-19] MEDS ORDERED: Gadodiamide 287 MG/ML VIAL (15ML) IV ONE (17:52)
[2017-10-19] MEDS: Insulin Detemir 100 Units/ml Inj SC SCH (22:32)
--- NOTE | 2017-10-20 00:06 | CP.PCM.CON ---
History of Present Illness - History of Present Illness History of Present Illness: Mr. Mendosa is a 62yo male hx DM, HTN, who was last seen well about 2 days ago , when he was having frequent falls in the street. Today, he was found to have left sided facial weakness and left leg weakness by his friend, symptoms that patient says have been ongoing for several days. For this reason, he is not a TPA candidate. NIH stroke scale initially was 6/10 and it is still the same on examination today, with no improvement. Patient denies headache, nausea, vomiting, confusion, or visual difficulties. PMH/PSH: as above FH/SH: smokes 1 ppd for many years. No etoh. All: nkda, ON exam: aaox3. PERRL. VFF. Cn 2-12 normal. speech is dysarthric, but naming and repetition are intact. Left facial droop. Left arm is 3/5, left leg is 4/5, right arm and right leg is 5/5. Sensory: intact ft, pin, +2 dtr ull and bll. Gait is hemiplegic. Past Patient History - Infectious Disease Hx of Infectious Diseases: None - Past Medical History & Family History Past Medical History?: Yes - Past Social History Smoking Status: Heavy Smoker > 10 Cigarettes Daily Alcohol: None Drugs: Denies Home Situation {Lives}: Alone - CARDIAC Hx Cardiac Disorders: Yes Hx Hypertension: Yes - PULMONARY Hx Respiratory Disorders: No - NEUROLOGICAL Hx Neurological Disorder: Yes Other/Comment: neuropathy - HEENT Hx HEENT Problems: No - RENAL Hx Chronic Kidney Disease: No - ENDOCRINE/METABOLIC Hx Endocrine Disorders: Yes Hx Diabetes Mellitus Type 2: Yes - HEMATOLOGICAL/ONCOLOGICAL Hx AIDS: No Hx Blood Transfusions: No Hx Human Immunodeficiency Virus (HIV): No - INTEGUMENTARY Hx Dermatological Problems: No - MUSCULOSKELETAL/RHEUMATOLOGICAL Hx Musculoskeletal Disorders: Yes Hx Back Pain: Yes Hx Falls: Yes Hx Fractures: Yes (back) Hx Unsteady Gait: Yes - GASTROINTESTINAL Hx Gastrointestinal Disorders: Yes Hx Colostomy: Yes - GENITOURINARY/GYNECOLOGICAL Hx Genitourinary Disorders: Yes Hx Prostate Problems: Yes - PSYCHIATRIC Hx Substance Use: No - SURGICAL HISTORY Hx Surgeries: Yes Other/Comment: COLOSTOMY 2013 - ANESTHESIA Hx Anesthesia: Yes Hx Anesthesia Reactions: No Meds Allergies/Adverse Reactions: Allergies Allergy/AdvReac Type Severity Reaction Status Date / Time No Known Allergies Allergy Verified 10/18/17 14:17 - Medications Medications: Current Medications Aspirin (Aspirin) 325 mg PO DAILY [facility] Last Admin: 10/19/17 08:14 Dose: 325 mg Atorvastatin Calcium (Lipitor) 40 mg PO DAILY [facility] Last Admin: 10/19/17 22:31 Dose: 40 mg Finasteride (Proscar) 5 mg PO QPM [facility] Last Admin: 10/19/17 17:03 Dose: 5 mg Sodium Chloride (Sodium Chloride 0.9%) 1,000 mls @ 100 mls/hr IV .Q10H [facility] Last Admin: 10/19/17 12:15 Dose: 100 mls/hr Insulin Detemir (Levemir) 40 units SC HS [facility] Last Admin: 10/19/17 22:32 Dose: 40 units Insulin Human Lispro (Humalog) 18 units SC ACTID [facility] Last Admin: 10/19/17 13:23 Dose: 18 units Insulin Human Lispro (Humalog) 0 units SC ACHS [facility] PRN Reason: Protocol Last Admin: 10/19/17 22:35 Dose: Not Given Tamsulosin HCl (Flomax) 0.4 mg PO QPM [facility] Last Admin: 10/19/17 17:03 Dose: 0.4 mg Tramadol HCl (Ultram) 50 mg PO Q8 PRN PRN Reason: Pain, severe (8-10) Zolpidem Tartrate (Ambien) 5 mg PO HS PRN PRN Reason: Insomnia Last Admin: 10/18/17 23:21 Dose: 5 mg Results - Vital Signs Recent Vital Signs: Last Vital Signs Temp 98.3 F 10/19/17 16:02 Pulse 108 H 10/19/17 16:02 Resp 20 10/19/17 16:02 BP 125/83 10/19/17 16:02 Pulse Ox 95 10/19/17 16:02 - Labs Result Diagrams: 10/19/17 05:40 10/19/17 05:40 Labs: Laboratory Results - last 24 hr 10/19/17 10/19/17 10/19/17 05:29 05:40 05:40 WBC 9.0 RBC 4.81 Hgb 14.3 Hct 41.5 MCV 86.3 MCH 29.8 MCHC 34.5 RDW 13.8 Plt Count 244 Sodium Potassium Chloride Carbon Dioxide Anion Gap BUN Creatinine Est GFR ( Amer) Est GFR (Non-Af Amer) POC Glucose (mg/dL) 162 H Random Glucose Hemoglobin A1c 11.8 H Calcium Total Bilirubin AST ALT Alkaline Phosphatase Total Protein Albumin Globulin Albumin/Globulin Ratio Triglycerides Cholesterol LDL Cholesterol Direct HDL Cholesterol TSH 3rd Generation 10/19/17 10/19/17 05:40 11:25 WBC RBC Hgb Hct MCV MCH MCHC RDW Plt Count Sodium 140 Potassium 3.9 Chloride 106 Carbon Dioxide 27 Anion Gap 11 BUN 18 Creatinine 1.0 Est GFR ( Amer) > 60 Est GFR (Non-Af Amer) > 60 POC Glucose (mg/dL) 189 H Random Glucose 170 H Hemoglobin A1c Calcium 8.8 Total Bilirubin 0.5 AST 19 ALT 27 Alkaline Phosphatase 64 Total Protein 6.9 Albumin 3.8 Globulin 3.1 Albumin/Globulin Ratio 1.2 Triglycerides 264 H Cholesterol 222 H LDL Cholesterol Direct 157 H HDL Cholesterol 34 TSH 3rd Generation 1.28 Assessment & Plan - Assessment and Plan (Free Text) Assessment: 62 yr old male with likely new onset right mca stroke, who is now undergoing stroke workup. Plan: 1. Admit to telemetry 2. Keep BP at 180-190/90 3. aspirin 325 mg po day 4. CTA head and neck. 5. MRI brain 6. PT ST OT 7. venodynes 8.Lipid profile Thank you Dr Portillo
[2017-10-20] MEDS: Sodium Chloride 0.9% 1,000 ML IV SCH (03:59)
[2017-10-20] MEDS: Insulin Lispro (humaLOG) 100 Units/ml Inj SC SCH ×8 (09:19→21:36)
[2017-10-20] MEDS ORDERED: Iodixanol 320 MG/ML 100 ML BOTTLE IV ONE (12:15)
--- NOTE | 2017-10-20 19:33 | CP.PCM.PN ---
Subjective - Date & Time of Evaluation Date of Evaluation: 10/20/17 Time of Evaluation: 11:50 - Subjective Subjective: F/U CVA Pt alert, follows commands, tolerating puree diet well. Objective - Vital Signs/Intake and Output Vital Signs (last 24 hours): Temp Pulse Resp BP Pulse Ox 98.2 F 83 20 129/76 96 10/20/17 16:13 10/20/17 16:13 10/20/17 16:13 10/20/17 16:13 10/20/17 16:13 - Medications Medications: Current Medications Aspirin (Aspirin) 325 mg PO DAILY [facility] Last Admin: 10/20/17 09:17 Dose: 325 mg Atorvastatin Calcium (Lipitor) 40 mg PO DAILY [facility] Last Admin: 10/20/17 09:21 Dose: 40 mg Finasteride (Proscar) 5 mg PO QPM [facility] Last Admin: 10/20/17 17:53 Dose: 5 mg Sodium Chloride (Sodium Chloride 0.9%) 1,000 mls @ 100 mls/hr IV .Q10H [facility] Last Admin: 10/20/17 03:59 Dose: 100 mls/hr Insulin Detemir (Levemir) 40 units SC HS [facility] Last Admin: 10/19/17 22:32 Dose: 40 units Insulin Human Lispro (Humalog) 18 units SC ACTID [facility] Last Admin: 10/20/17 17:58 Dose: 18 units Insulin Human Lispro (Humalog) 0 units SC ACHS [facility] PRN Reason: Protocol Last Admin: 10/20/17 17:57 Dose: 20 unit Tamsulosin HCl (Flomax) 0.4 mg PO QPM [facility] Last Admin: 10/20/17 17:53 Dose: 0.4 mg Tramadol HCl (Ultram) 50 mg PO Q8 PRN PRN Reason: Pain, severe (8-10) Zolpidem Tartrate (Ambien) 5 mg PO HS PRN PRN Reason: Insomnia Last Admin: 10/20/17 01:35 Dose: 5 mg - Labs Labs: 10/19/17 05:40 10/19/17 05:40 PT 10.7 Seconds (9.8-13.1) 10/18/17 14:50 INR 1.0 10/18/17 14:50 APTT 29.1 Seconds (25.6-37.1) 10/18/17 14:50 - Constitutional Appears: No Acute Distress - Head Exam Head Exam: NORMAL INSPECTION - Eye Exam Eye Exam: PERRL - ENT Exam ENT Exam: Normal Exam - Neck Exam Neck Exam: Normal Inspection - Respiratory Exam Respiratory Exam: NORMAL BREATHING PATTERN - Cardiovascular Exam Cardiovascular Exam: REGULAR RHYTHM - GI/Abdominal Exam GI & Abdominal Exam: Soft, Normal Bowel Sounds - Extremities Exam Extremities Exam: Normal Inspection - Back Exam Back Exam: NORMAL INSPECTION - Neurological Exam Neurological Exam: Alert, Oriented x3 Additional comments: L facial droop, mild slurring of speech, obeys commands, weakness. - Psychiatric Exam Psychiatric exam: Normal Mood - Skin Skin Exam: Warm Assessment and Plan (1) CVA (cerebral vascular accident) Status: Acute (2) Hyperglycemia due to type 2 diabetes mellitus Status: Acute (3) Dyslipidemia Status: Chronic (4) BPH (benign prostatic hyperplasia) Status: Chronic (5) Hx of fall Status: Chronic (6) Weakness Status: Chronic - Assessment and Plan (Free Text) Plan: Continue ASA, Lipitor, Humalog, Levemir
[2017-10-20] MEDS: Insulin Detemir 100 Units/ml Inj SC SCH (21:37)
--- NOTE | 2017-10-21 07:53 | CP.PCM.PN ---
Subjective - Date & Time of Evaluation Date of Evaluation: 10/21/17 Time of Evaluation: 07:46 - Subjective Subjective: Mr. Mendosa was seen and examined at the bedside. He is alert, oriented in all spheres, but is aware with occassional forgetfullness.. He has dysarythria with left facial droop, left side weakness. He denies any headache, dizziness, lightheadedness, nausea, or vomiting. He further claims of able to tolerate po intake. He is able to follow simple commands. MRI of the brain showed acute infacrtion in the right MCA.There was no untoward events overnight. Objective - Vital Signs/Intake and Output Vital Signs (last 24 hours): Temp Pulse Resp BP Pulse Ox 98 F 89 18 160/91 H 97 10/21/17 01:00 10/21/17 01:00 10/21/17 01:00 10/21/17 01:00 10/21/17 01:00 - Medications Medications: Current Medications Aspirin (Aspirin) 325 mg PO DAILY [facility] Last Admin: 10/20/17 09:17 Dose: 325 mg Atorvastatin Calcium (Lipitor) 40 mg PO DAILY [facility] Last Admin: 10/20/17 09:21 Dose: 40 mg Finasteride (Proscar) 5 mg PO QPM [facility] Last Admin: 10/20/17 17:53 Dose: 5 mg Insulin Detemir (Levemir) 40 units SC HS [facility] Last Admin: 10/20/17 21:37 Dose: 40 units Insulin Human Lispro (Humalog) 18 units SC ACTID [facility] Last Admin: 10/20/17 17:58 Dose: 18 units Insulin Human Lispro (Humalog) 0 units SC ACHS [facility] PRN Reason: Protocol Last Admin: 10/20/17 21:36 Dose: Not Given Tamsulosin HCl (Flomax) 0.4 mg PO QPM [facility] Last Admin: 10/20/17 17:53 Dose: 0.4 mg Tramadol HCl (Ultram) 50 mg PO Q8 PRN PRN Reason: Pain, severe (8-10) Zolpidem Tartrate (Ambien) 5 mg PO HS PRN PRN Reason: Insomnia Last Admin: 10/20/17 22:19 Dose: 5 mg - Labs Labs: 10/19/17 05:40 10/19/17 05:40 PT 10.7 Seconds (9.8-13.1) 10/18/17 14:50 INR 1.0 10/18/17 14:50 APTT 29.1 Seconds (25.6-37.1) 10/18/17 14:50 - Constitutional Appears: No Acute Distress - Head Exam Head Exam: NORMAL INSPECTION - Eye Exam Pupil Exam: PERRL - Neurological Exam Neurological Exam: Alert, Awake, Oriented x3 Neuro motor strength exam: Left Upper Extremity: 3, Right Upper Extremity: 4, Left Lower Extremity: 3, Right Lower Extremity: 4 Additional comments: alert, awake, follows simple commands, sensation is intact. Assessment and Plan (1) CVA (cerebral vascular accident) Assessment & Plan: Case discussed with Dr. Tovar, continue current medical, physical, occupational , and speech therapies. Recommend hydration, blood pressure and glycemic control , keep head of bed elevated at least 30 degrees while in bed, and acute rehab for possible discharge planning. Status: Acute
[2017-10-21] MEDS: Insulin Lispro (humaLOG) 100 Units/ml Inj SC SCH ×7 (09:59→22:35)
--- NOTE | 2017-10-21 13:41 | CP.PCM.PN ---
Subjective - Date & Time of Evaluation Date of Evaluation: 10/21/17 Time of Evaluation: 14:00 - Subjective Subjective: F/U CVA No A/D, n/c. Objective - Vital Signs/Intake and Output Vital Signs (last 24 hours): Temp Pulse Resp BP Pulse Ox 97.8 F 79 18 153/89 H 97 10/21/17 12:00 10/21/17 12:00 10/21/17 12:00 10/21/17 12:00 10/21/17 12:00 - Medications Medications: Current Medications Aspirin (Aspirin Chewable) 81 mg PO DAILY [facility] Last Admin: 10/21/17 09:56 Dose: 81 mg Atorvastatin Calcium (Lipitor) 40 mg PO DAILY [facility] Last Admin: 10/21/17 09:57 Dose: 40 mg Clopidogrel Bisulfate (Plavix) 75 mg PO DAILY [facility] Last Admin: 10/21/17 09:57 Dose: 75 mg Finasteride (Proscar) 5 mg PO QPM [facility] Last Admin: 10/20/17 17:53 Dose: 5 mg Insulin Detemir (Levemir) 40 units SC HS [facility] Last Admin: 10/20/17 21:37 Dose: 40 units Insulin Human Lispro (Humalog) 18 units SC ACTID [facility] Last Admin: 10/21/17 10:00 Dose: 18 units Insulin Human Lispro (Humalog) 0 units SC ACHS [facility] PRN Reason: Protocol Last Admin: 10/21/17 09:59 Dose: 1 unit Tamsulosin HCl (Flomax) 0.4 mg PO QPM [facility] Last Admin: 10/20/17 17:53 Dose: 0.4 mg Tramadol HCl (Ultram) 50 mg PO Q8 PRN PRN Reason: Pain, severe (8-10) Zolpidem Tartrate (Ambien) 5 mg PO HS PRN PRN Reason: Insomnia Last Admin: 10/20/17 22:19 Dose: 5 mg - Labs Labs: 10/19/17 05:40 10/19/17 05:40 PT 10.7 Seconds (9.8-13.1) 10/18/17 14:50 INR 1.0 10/18/17 14:50 APTT 29.1 Seconds (25.6-37.1) 10/18/17 14:50 - Constitutional Appears: No Acute Distress - Head Exam Head Exam: NORMAL INSPECTION - Eye Exam Eye Exam: PERRL - ENT Exam ENT Exam: Normal Exam - Neck Exam Neck Exam: Normal Inspection - Respiratory Exam Respiratory Exam: NORMAL BREATHING PATTERN - Cardiovascular Exam Cardiovascular Exam: REGULAR RHYTHM - GI/Abdominal Exam GI & Abdominal Exam: Soft, Normal Bowel Sounds - Extremities Exam Extremities Exam: Normal Inspection - Back Exam Back Exam: NORMAL INSPECTION - Neurological Exam Neurological Exam: Alert, Awake, Oriented x3 Additional comments: L side facial droop, mild slurring of speech, obeys commands, weakness. - Psychiatric Exam Psychiatric exam: Normal Mood - Skin Skin Exam: Warm Assessment and Plan (1) CVA (cerebral vascular accident) Status: Acute (2) Hyperglycemia due to type 2 diabetes mellitus Status: Acute (3) Dyslipidemia Status: Chronic (4) BPH (benign prostatic hyperplasia) Status: Chronic (5) Hx of fall Status: Chronic (6) Weakness Status: Chronic - Assessment and Plan (Free Text) Plan: Continue ASA, lipitor, Plavix, Insulin and rest of Tx.
--- NOTE | 2017-10-21 17:55 | CT ---
Date of service: 10/20/2017 PROCEDURE: CT Angiography of the neck and brain t with contrast HISTORY: Stroke COMPARISON: Comparison made with prior CT scan brain 10/18/2017 as well as MRI of the brain and MRA neck 10/19/2017. TECHNIQUE: Contiguous helical/transaxial images of the neck were obtained from the level of the skull vertex to the superior mediastinum in the arteriographic phase of enhancement. Coronal and sagittal reformats or also generated. IV contrast dose: 99 cc Visipaque 320 Radiation Dose - DLP: 488.94 mGy-cm This CT exam was performed using one or more of the following dose reduction techniques: Automated exposure control, adjustment of the mA and/or kV according to patient size, and/or use of iterative reconstruction technique. FINDINGS: There are minor partially calcified atherosclerotic plaque changes seen along the aortic arch. Minor calcified and soft plaque seen at the origins of the left subclavian and left carotid artery. There also mild soft plaque changes seen along both common carotid artery's more so on the left side with partially calcified and soft plaque at the level of both carotid bifurcations extending into the proximal margins of both internal carotid artery's. Soft plaque noted along the proximal margin of the right external carotid artery. The remaining internal carotid arteries including the petrous cavernous and supraclinoid segments are patent. Some very minimal calcified plaque seen along the right cavernous carotid segment however no evidence of occlusion or significant stenosis. There is asymmetry of the vertebral arteries of right-sided which is larger in caliber/more dominant than the left side. Basilar artery is patent. There is minor asymmetry of the A1 segments left-sided which is larger in caliber/ more dominant than the right side. There is a minor asymmetry of the distal middle cerebral artery branches on the right side of which is somewhat diminished compared to the left side corresponding to a acute infarct involving branches of the right middle cerebral artery. Note that this infarct is seen to much better advantage on prior MRI of the brain. . No evidence of large aneurysm nor vascular malformation so far as can be seen. IMPRESSION: There are mild soft plaque changes seen both common carotid arteries soft and partially calcified atherosclerotic plaque both carotid bifurcations with some extension into the proximal margins of both internal carotid arteries as well as the right external carotid artery. There is asymmetry of the distal branches of the right middle cerebral artery which exhibits a paucity compared to the left side corresponding to infarct involving distal branches of the right middle cerebral artery. Note that this infarct is seen to much better advantage on prior MRI of the brain.
[2017-10-21] MEDS: Insulin Detemir 100 Units/ml Inj SC SCH (22:37)
[2017-10-22] MEDS ORDERED: Labetalol 5 mg/ml Inj 20ML IVP STA (05:13)
--- NOTE | 2017-10-22 05:22 | PCM.RRT ---
<Zabrina Lovelace - Last Filed: 10/22/17 05:51> AWNING HANGER HELPER Nurse Assessment - Situation AWNING HANGER HELPER Responder Arrival Time: 05:02 I.Reason for AWNING HANGER HELPER - A) Acute Change in Patient: Subjective: AWNING HANGER HELPER: time:5: 02 AM AWNING HANGER HELPER arrival time :5:03 AM AWNING HANGER HELPER vitals: 183/101 HR: 86 S: AWNING HANGER HELPER was called by RN when patient who was admitted for a CVA was found to have elevated blood pressure of 183/101. Patient otherwise has no complaints. Denies any headache, dizziness, chest pain, SOB, palpitation. Patient is seen resting comfortably watching tv. Patient has dysarthria and left sided facial droop and left sided weakness from the stroke. O: Gen: NAD CVS: S1S2 heard no M/R/G ResP CTAB no W/R/R Neuro: AAO x3, patient following simple commands. LEft sided facial droop from before AWNING HANGER HELPER intervention - Labetolol 20 mg IVP [employer]ING [employer]ANGER HELPER end vitals: 151/86 HR:80 A/P 62 yr old male with right mca stroke, had an AWNING HANGER HELPER called because of an elevated BP. 1) Continue telemetry 2) Continue current medical treatment AWNING HANGER HELPER steam cleaner: Dr. Jacklyn Salcedo AWNING HANGER HELPER resident: Michelle Lovelace PGY-3 <Angela Salcedo - Last Filed: 10/22/17 06:45> Attending/Attestation - Attestation I have personally seen and examined this patient.: Yes I have fully participated in the care of the patient.: Yes I have reviewed all pertinent clinical information, including history, physical exam and plan: Yes Notes (Text): 10/22/17 06:45 seen examined discussed with Resident Dr. Lovelace. Agree with findings and plan as above.
[2017-10-22] MEDS: Insulin Lispro (humaLOG) 100 Units/ml Inj SC SCH ×7 (06:38→22:41)
--- NOTE | 2017-10-22 08:41 | CP.PCM.PN ---
Subjective - Date & Time of Evaluation Date of Evaluation: 10/22/17 Time of Evaluation: 08:38 - Subjective Subjective: Mr. Mednosa was seen and examined at the bedside. He is awake, confused, restless with attempts to remove his hospital gown. He is able to answer questions, but with episode of agitation, redirected accordingly. He denies any headache, dizziness, unable to follow simple commands, but able to move his right side spontaneously. He remains with left side weakness and left facial droop. He had episode of hypertension early this am, which [employer] was called. Labetalol was given. Objective - Vital Signs/Intake and Output Vital Signs (last 24 hours): Temp Pulse Resp BP Pulse Ox 96.5 F L 92 H 18 183/101 H 96 10/22/17 05:09 10/22/17 05:09 10/22/17 05:09 10/22/17 05:09 10/22/17 05:09 - Medications Medications: Current Medications Aspirin (Aspirin Chewable) 81 mg PO DAILY [facility] Last Admin: 10/21/17 09:56 Dose: 81 mg Atorvastatin Calcium (Lipitor) 40 mg PO DAILY [facility] Last Admin: 10/21/17 09:57 Dose: 40 mg Clopidogrel Bisulfate (Plavix) 75 mg PO DAILY [facility] Last Admin: 10/21/17 09:57 Dose: 75 mg Finasteride (Proscar) 5 mg PO QPM [facility] Last Admin: 10/21/17 17:45 Dose: 5 mg Insulin Detemir (Levemir) 40 units SC HS [facility] Last Admin: 10/21/17 22:37 Dose: 40 units Insulin Human Lispro (Humalog) 18 units SC ACTID [facility] Last Admin: 10/21/17 17:44 Dose: Not Given Insulin Human Lispro (Humalog) 0 units SC ACHS [facility] PRN Reason: Protocol Last Admin: 10/22/17 06:38 Dose: 1 unit Tamsulosin HCl (Flomax) 0.4 mg PO QPM [facility] Last Admin: 10/21/17 17:45 Dose: 0.4 mg Tramadol HCl (Ultram) 50 mg PO Q8 PRN PRN Reason: Pain, severe (8-10) Zolpidem Tartrate (Ambien) 5 mg PO HS PRN PRN Reason: Insomnia Last Admin: 10/20/17 22:19 Dose: 5 mg - Labs Labs: 10/19/17 05:40 10/19/17 05:40 PT 10.7 Seconds (9.8-13.1) 10/18/17 14:50 INR 1.0 10/18/17 14:50 APTT 29.1 Seconds (25.6-37.1) 10/18/17 14:50 - Constitutional Appears: No Acute Distress - Head Exam Head Exam: NORMAL INSPECTION - Neurological Exam Neurological Exam: Awake Neuro motor strength exam: Left Upper Extremity: 2/1, Right Upper Extremity: 3, Left Lower Extremity: 2/1, Right Lower Extremity: 3 Additional comments: awake, confused, restless, refused to cooperate during assessment. Assessment and Plan (1) CVA (cerebral vascular accident) Assessment & Plan: Case discussed with Dr. Tovar, continue current medical, physical, occupational , and speech therapies. Recommend repeat CT scan of the head due to change of mental status from previous examination, hydration, blood pressure and glycemic control, keep head of bed elevated at least 30 degrees while in bed, and acute rehab for possible discharge planning. Status: Acute
--- NOTE | 2017-10-22 10:34 | MRI ---
Date of service: 10/19/2017 PROCEDURE: MRI BRAIN WITHOUT CONTRAST HISTORY: CVA COMPARISON: Noncontrast head CT from 10/18/2017. TECHNIQUE: Multiplanar, multisequence MR images of the brain were obtained without intravenous contrast enhancement. FINDINGS: HEMORRHAGE: None DWI: There are multifocal areas of restricted diffusion in the right border zone territory and angela radiate are extending to the subinsular white matter. BRAIN PARENCHYMA: There is T2/Flair abnormal signal corresponding to the areas of restricted diffusion. There is cystic encephalomalacia and gliosis in the right occipital lobe. There is an old infarction gliosis in the left anterior parietal lobe. There are moderate chronic microangiopathic changes. There is no mass, mass effect or abnormal extra-axial fluid collection. The midline sagittal structures are normal. VENTRICLES: There is mild age-related global parenchymal volume loss and proportionate enlargement of the ventricles and cortical sulci. CRANIUM: There is normal bone marrow signal pattern. ORBITS: Grossly unremarkable. PARANASAL SINUSES/MASTOIDS: Clear predominantly clear. VASCULAR SYSTEM: There are normal signal voids in the larger intracranial arteries. OTHER FINDINGS: None. IMPRESSION: Multifocal right MCA territory infarctions involving the border zone territory and angela radiata. Cystic encephalomalacia and gliosis in the right occipital lobe, sequela of remote [employer]AR[employer] territory infarction. Old left MCA territory infarction involving the anterior parietal lobe. Moderate chronic microangiopathic changes and mild age-related global parenchymal volume loss. A preliminary report was provided by [facility] services.
--- NOTE | 2017-10-22 10:50 | MRI ---
Date of service: 10/19/2017 PROCEDURE: Magnetic Resonance Angiography Brain HISTORY: weakness COMPARISON: CTA head and neck from 10/20/2017 TECHNIQUE: 3D time of flight MR angiography of the intracranial arteries was performed. Rotating maximum intensity projection images were generated. FINDINGS: INTERNAL CAROTID ARTERIES: Normal flow related signal. The skull base, petrous, cavernous and supraclinoid segments are bilaterally widely patient. ANTERIOR CEREBRAL ARTERIES: The right A1 segment is hypoplastic, an anatomic variant. A1 and A2 segments are widely patent. Smaller distal branches unremarkable, as visualized. MIDDLE CEREBRAL ARTERIES: There is severe segmental narrowing of the distal right M1 segment. There is absent flow related signal in the superior division of the right MCA and in the distal sylvian branches. The left M1 and M2 segments are widely patent. Perisylvian branches grossly symmetric. POSTERIOR CIRCULATION: Basilar Artery: Normal in caliber. Distal Vertebral Arteries: Normal in caliber. Posterior Cerebral Arteries: Normal in caliber. Posterior Inferior Cerebellar Arteries: Normal in caliber. ANEURYSM/ VASCULAR MALFORMATIONS: None. OTHER FINDINGS: None. IMPRESSION: Acute occlusion in the superior division of the right MCA with asymmetric attenuation of distal sylvian branches. Severe segmental narrowing in the distal right M1 segment which may be related to severe stenosis or thrombosis. A preliminary report was provided by [employer].
--- NOTE | 2017-10-22 11:03 | MRI ---
Date of service: 10/19/2017 PROCEDURE: MR Angiography of the neck with and without contrast HISTORY: Weakness COMPARISON: CTA head and neck from 10/20/2017. TECHNIQUE: Contrast enhanced and [id number] angiography of the neck was performed. Rotating 3D maximum intensity projection images of the cervical carotid and vertebral arteries were generated. 20 mL Omniscan was injected intravenously. FINDINGS: RIGHT CAROTID ARTERIES: Common Carotid Artery: Normal. Carotid Bifurcation: Normal. Internal Carotid Artery:There is short-segment approximately 50 % stenosis at the origin. External Carotid Artery (proximal branches): Normal. LEFT CAROTID ARTERIES: Common Carotid Artery: Normal. Carotid Bifurcation: Normal. Internal Carotid Artery:Normal. External Carotid Artery (proximal branches): Normal. VERTEBRAL ARTERIES: Right Vertebral Artery: Normal. Left Vertebral Artery: Patent. Hypoplastic, an anatomic variant. OTHER FINDINGS: None. IMPRESSION: Short-segment approximately 50 % stenosis at the right ICA origin. No evidence of hemodynamically significant stenosis in the internal carotid arteries. Patent bilateral vertebral arteries, the left vertebral artery is hypoplastic, an anatomic variant.
[2017-10-22 11:40] LABS: HEMOGLOBIN 13.2 g/dL (12.0-18.0); MEAN CELL VOLUME 86.3 fl (80.0-94.0); MEAN CORPUSCULAR HEMOGLOBIN 29.4 pg (27.0-31.0); RBC 4.5 Mil/uL (4.40-5.90); RED CELL DISTRIBUTION WIDTH 13.4 % (11.5-14.5); WHITE BLOOD COUNT 8.4 K/uL (4.8-10.8)
[2017-10-22 11:51] LABS: ALB/GLOB RATIO 1.2 (1.0-2.1); ALBUMIN 3.6 g/dL (3.5-5.0); ALT/SGPT 20 U/L (21-72); AST/SGOT 18 U/L (17-59); BLOOD UREA NITROGEN 14 mg/dl (9-20); CALCIUM 8.6 mg/dL (8.4-10.2); GFR AFRICAN-AMERICAN > 60; GFR NON-AFRICAN AMERICAN > 60
--- NOTE | 2017-10-22 15:14 | CP.PCM.PN ---
Subjective - Date & Time of Evaluation Date of Evaluation: 10/22/17 Time of Evaluation: 13:30 - Subjective Subjective: F/U CVA INSEAM LEVELER earlier for high BP, had Labetalol there after BP more stable, confused, restless, on 1:1 Objective - Vital Signs/Intake and Output Vital Signs (last 24 hours): Temp Pulse Resp BP Pulse Ox 97.2 F L 90 18 166/98 H 96 10/22/17 13:00 10/22/17 13:00 10/22/17 13:00 10/22/17 13:00 10/22/17 08:40 - Medications Medications: Current Medications Aspirin (Aspirin Chewable) 81 mg PO DAILY [facility] Last Admin: 10/22/17 09:17 Dose: 81 mg Atorvastatin Calcium (Lipitor) 40 mg PO DAILY [facility] Last Admin: 10/22/17 09:17 Dose: 40 mg Clopidogrel Bisulfate (Plavix) 75 mg PO DAILY [facility] Last Admin: 10/22/17 09:16 Dose: 75 mg Finasteride (Proscar) 5 mg PO QPM [facility] Last Admin: 10/21/17 17:45 Dose: 5 mg Insulin Detemir (Levemir) 40 units SC HS [facility] Last Admin: 10/21/17 22:37 Dose: 40 units Insulin Human Lispro (Humalog) 18 units SC ACTID [facility] Last Admin: 10/22/17 09:17 Dose: 18 units Insulin Human Lispro (Humalog) 0 units SC ACHS [facility] PRN Reason: Protocol Last Admin: 10/22/17 06:38 Dose: 1 unit Tamsulosin HCl (Flomax) 0.4 mg PO QPM [facility] Last Admin: 10/21/17 17:45 Dose: 0.4 mg Tramadol HCl (Ultram) 50 mg PO Q8 PRN PRN Reason: Pain, severe (8-10) Zolpidem Tartrate (Ambien) 5 mg PO HS PRN PRN Reason: Insomnia Last Admin: 10/20/17 22:19 Dose: 5 mg - Labs Labs: 10/22/17 11:16 10/22/17 11:16 PT 10.7 Seconds (9.8-13.1) 10/18/17 14:50 INR 1.0 10/18/17 14:50 APTT 29.1 Seconds (25.6-37.1) 10/18/17 14:50 - Constitutional Appears: No Acute Distress - Head Exam Head Exam: NORMAL INSPECTION - Eye Exam Eye Exam: PERRL - ENT Exam ENT Exam: Normal Exam - Neck Exam Neck Exam: Normal Inspection - Respiratory Exam Respiratory Exam: NORMAL BREATHING PATTERN - Cardiovascular Exam Cardiovascular Exam: REGULAR RHYTHM - GI/Abdominal Exam GI & Abdominal Exam: Soft, Normal Bowel Sounds - Extremities Exam Extremities Exam: Normal Inspection - Back Exam Back Exam: NORMAL INSPECTION - Neurological Exam Neurological Exam: Alert Additional comments: confused, L facial droop, mild slurring of speech, obeys commands, L hemiparesia - Psychiatric Exam Psychiatric exam: Normal Mood - Skin Skin Exam: Warm Assessment and Plan (1) CVA (cerebral vascular accident) Status: Acute (2) Hyperglycemia due to type 2 diabetes mellitus Status: Acute (3) Dyslipidemia Status: Chronic (4) BPH (benign prostatic hyperplasia) Status: Chronic (5) Hx of fall Status: Chronic (6) Weakness Status: Chronic - Assessment and Plan (Free Text) Plan: BP control, f/u CT head, PT, OT, 1:1, Plavix, Lipitor and rest of treatment
[2017-10-22] MEDS: Insulin Detemir 100 Units/ml Inj SC SCH (21:50)
[2017-10-23] MEDS: Insulin Lispro (humaLOG) 100 Units/ml Inj SC SCH ×7 (08:55→21:33)
--- NOTE | 2017-10-23 12:50 | CT ---
Date of service: 10/23/2017 PROCEDURE: CT HEAD WITHOUT CONTRAST. HISTORY: Change in mental status. COMPARISON: 10/19/2017 MRI brain. Summary of findings on the comparison examination: Multifocal right MCA territory infarctions involving the border zone territory and angela radiata. Cystic encephalomalacia and gliosis right occipital lobe. Old left MCA territory infarction. 10/18/2017 CT head TECHNIQUE: Axial computed tomography images were obtained through the head/brain without intravenous contrast. Coronal and sagittal reconstructed images. Radiation dose: Total exam DLP = 926.04 mGy-cm. This CT exam was performed using one or more of the following dose reduction techniques: Automated exposure control, adjustment of the mA and/or kV according to patient size, and/or use of iterative reconstruction technique. FINDINGS: HEMORRHAGE: No intracranial hemorrhage. BRAIN: No mass effect or edema. No acute interval changes. Right occipital and left frontal areas of infarction. Considerable periventricular small vessel disease VENTRICLES: Unremarkable. No hydrocephalus. CALVARIUM: Unremarkable. PARANASAL SINUSES: Unremarkable as visualized. No significant inflammatory changes. MASTOID AIR CELLS: Unremarkable as visualized. No inflammatory changes. . OTHER FINDINGS: None. IMPRESSION: No acute intracranial abnormalities. No interval changes compared to the prior CT 10/18/2017. .
--- NOTE | 2017-10-23 16:51 | CP.PCM.PN ---
Subjective - Date & Time of Evaluation Date of Evaluation: 10/23/17 Time of Evaluation: 11:50 - Subjective Subjective: F/U CVA Patient fell from a chair, confused , on 1:1 Objective - Vital Signs/Intake and Output Vital Signs (last 24 hours): Temp Pulse Resp BP Pulse Ox 97.9 F 93 H 17 133/84 97 10/23/17 16:01 10/23/17 16:01 10/23/17 16:01 10/23/17 16:01 10/23/17 16:01 - Medications Medications: Current Medications Aspirin (Aspirin Chewable) 81 mg PO DAILY [facility] Last Admin: 10/23/17 08:53 Dose: 81 mg Atorvastatin Calcium (Lipitor) 40 mg PO DAILY [facility] Last Admin: 10/23/17 08:57 Dose: 40 mg Clopidogrel Bisulfate (Plavix) 75 mg PO DAILY [facility] Last Admin: 10/23/17 08:58 Dose: 75 mg Finasteride (Proscar) 5 mg PO QPM [facility] Last Admin: 10/22/17 17:32 Dose: 5 mg Insulin Detemir (Levemir) 40 units SC HS [facility] Last Admin: 10/22/17 21:50 Dose: 40 units Insulin Human Lispro (Humalog) 18 units SC ACTID [facility] Last Admin: 10/23/17 08:55 Dose: 18 units Insulin Human Lispro (Humalog) 0 units SC ACHS [facility] PRN Reason: Protocol Last Admin: 10/23/17 08:56 Dose: Not Given Tamsulosin HCl (Flomax) 0.4 mg PO QPM [facility] Last Admin: 10/22/17 17:32 Dose: 0.4 mg Tramadol HCl (Ultram) 50 mg PO Q8 PRN PRN Reason: Pain, severe (8-10) Zolpidem Tartrate (Ambien) 5 mg PO HS PRN PRN Reason: Insomnia Last Admin: 10/20/17 22:19 Dose: 5 mg - Labs Labs: 10/22/17 11:16 10/22/17 11:16 PT 10.7 Seconds (9.8-13.1) 10/18/17 14:50 INR 1.0 10/18/17 14:50 APTT 29.1 Seconds (25.6-37.1) 10/18/17 14:50 - Constitutional Appears: No Acute Distress - Head Exam Head Exam: NORMAL INSPECTION - Eye Exam Eye Exam: PERRL - ENT Exam ENT Exam: Normal Exam - Neck Exam Neck Exam: Normal Inspection - Respiratory Exam Respiratory Exam: NORMAL BREATHING PATTERN - Cardiovascular Exam Cardiovascular Exam: REGULAR RHYTHM - GI/Abdominal Exam GI & Abdominal Exam: Soft, Normal Bowel Sounds - Extremities Exam Extremities Exam: Normal Inspection - Back Exam Back Exam: NORMAL INSPECTION - Neurological Exam Neurological Exam: Alert Additional comments: L facial droop, mild slurring of speech, confused, not following commands, L hemiparesia - Psychiatric Exam Psychiatric exam: Normal Mood - Skin Skin Exam: Warm Assessment and Plan (1) CVA (cerebral vascular accident) Status: Acute (2) Hyperglycemia due to type 2 diabetes mellitus Status: Acute (3) Dyslipidemia Status: Chronic (4) BPH (benign prostatic hyperplasia) Status: Chronic (5) Hx of fall Status: Chronic (6) Weakness Status: Chronic - Assessment and Plan (Free Text) Plan: continue 1:1, Humalog, Levemir, Plavix , Lipitor and rest of treatment, PT recommended LAURIE
[2017-10-23] MEDS: Insulin Detemir 100 Units/ml Inj SC SCH (21:30)
[2017-10-24] MEDS: Insulin Lispro (humaLOG) 100 Units/ml Inj SC SCH ×7 (08:47→21:46)
--- NOTE | 2017-10-24 09:01 | CP.PCM.PN ---
Subjective - Date & Time of Evaluation Date of Evaluation: 10/24/17 Time of Evaluation: 08:58 - Subjective Subjective: Mr. Mendosa was seen and examined at the bedside. He is alert, oriented more coopeartive, denies any headache, dizziness, lightheadedness. He is able to follow simple commands with left side weakness. He remains with left facial droop, but claims of able to tolerate regulate po intake. He had an episode of agitation and restlessness which he was medicated early this am. He remains on 1 :1 sitter for patient safety. Repeat CT scan of the head showed No acute intracranial abnormalities. No interval changes compared to the prior CT 2017. Objective - Vital Signs/Intake and Output Vital Signs (last 24 hours): Temp Pulse Resp BP Pulse Ox 98.1 F 91 H 18 131/81 95 10/24/17 08:00 10/24/17 08:00 10/24/17 08:00 10/24/17 08:00 10/24/17 08:00 - Medications Medications: Current Medications Aspirin (Aspirin Chewable) 81 mg PO DAILY [facility] Last Admin: 10/24/17 08:46 Dose: 81 mg Atorvastatin Calcium (Lipitor) 40 mg PO DAILY [facility] Last Admin: 10/24/17 08:47 Dose: 40 mg Clopidogrel Bisulfate (Plavix) 75 mg PO DAILY [facility] Last Admin: 10/24/17 08:46 Dose: 75 mg Finasteride (Proscar) 5 mg PO QPM [facility] Last Admin: 10/23/17 18:39 Dose: 5 mg Insulin Detemir (Levemir) 40 units SC HS [facility] Last Admin: 10/23/17 21:30 Dose: 40 units Insulin Human Lispro (Humalog) 18 units SC ACTID [facility] Last Admin: 10/24/17 08:48 Dose: 18 units Insulin Human Lispro (Humalog) 0 units SC ACHS [facility] PRN Reason: Protocol Last Admin: 10/24/17 08:47 Dose: Not Given Tamsulosin HCl (Flomax) 0.4 mg PO QPM [facility] Last Admin: 10/23/17 18:35 Dose: 0.4 mg Tramadol HCl (Ultram) 50 mg PO Q8 PRN PRN Reason: Pain, severe (8-10) Zolpidem Tartrate (Ambien) 5 mg PO HS PRN PRN Reason: Insomnia Last Admin: 10/23/17 23:56 Dose: 5 mg - Labs Labs: 10/22/17 11:16 10/22/17 11:16 PT 10.7 Seconds (9.8-13.1) 10/18/17 14:50 INR 1.0 10/18/17 14:50 APTT 29.1 Seconds (25.6-37.1) 10/18/17 14:50 - Constitutional Appears: No Acute Distress - Head Exam Head Exam: NORMAL INSPECTION - Eye Exam Pupil Exam: PERRL - Neurological Exam Neurological Exam: Alert, Awake Neuro motor strength exam: Left Upper Extremity: 3, Right Upper Extremity: 4, Left Lower Extremity: 3, Right Lower Extremity: 4 Additional comments: alert, awake, follows commands with episode of confusion.sensation is intact Assessment and Plan (1) CVA (cerebral vascular accident) Assessment & Plan: Continue all current medical, physical, occupational, and speech therapies. Recommend hydration, blood pressure and glycemic control, and recommend acute rehab for discharge placement. Status: Acute
--- NOTE | 2017-10-24 15:07 | CP.PCM.PN ---
Subjective - Date & Time of Evaluation Date of Evaluation: 10/24/17 Time of Evaluation: 11:10 - Subjective Subjective: F/U CVA confused, off 1:1 Objective - Vital Signs/Intake and Output Vital Signs (last 24 hours): Temp Pulse Resp BP Pulse Ox 98.3 F 96 H 20 153/93 H 96 10/24/17 12:00 10/24/17 12:00 10/24/17 12:00 10/24/17 12:00 10/24/17 12:00 - Medications Medications: Current Medications Aspirin (Aspirin Chewable) 81 mg PO DAILY [facility] Last Admin: 10/24/17 08:46 Dose: 81 mg Atorvastatin Calcium (Lipitor) 40 mg PO DAILY [facility] Last Admin: 10/24/17 08:47 Dose: 40 mg Clopidogrel Bisulfate (Plavix) 75 mg PO DAILY [facility] Last Admin: 10/24/17 08:46 Dose: 75 mg Finasteride (Proscar) 5 mg PO QPM [facility] Last Admin: 10/23/17 18:39 Dose: 5 mg Insulin Detemir (Levemir) 40 units SC HS [facility] Last Admin: 10/23/17 21:30 Dose: 40 units Insulin Human Lispro (Humalog) 18 units SC ACTID [facility] Last Admin: 10/24/17 12:27 Dose: 18 units Insulin Human Lispro (Humalog) 0 units SC ACHS [facility] PRN Reason: Protocol Last Admin: 10/24/17 12:28 Dose: 2 unit Metformin HCl (Glucophage) 1,000 mg PO BIDWM [facility] Tamsulosin HCl (Flomax) 0.4 mg PO QPM [facility] Last Admin: 10/23/17 18:35 Dose: 0.4 mg Tramadol HCl (Ultram) 50 mg PO Q8 PRN PRN Reason: Pain, severe (8-10) Zolpidem Tartrate (Ambien) 5 mg PO HS PRN PRN Reason: Insomnia Last Admin: 10/23/17 23:56 Dose: 5 mg - Labs Labs: 10/22/17 11:16 10/22/17 11:16 PT 10.7 Seconds (9.8-13.1) 10/18/17 14:50 INR 1.0 10/18/17 14:50 APTT 29.1 Seconds (25.6-37.1) 10/18/17 14:50 - Constitutional Appears: No Acute Distress - Head Exam Head Exam: NORMAL INSPECTION - Eye Exam Eye Exam: PERRL - ENT Exam ENT Exam: Normal Exam - Neck Exam Neck Exam: Normal Inspection - Respiratory Exam Respiratory Exam: NORMAL BREATHING PATTERN - Cardiovascular Exam Cardiovascular Exam: REGULAR RHYTHM - GI/Abdominal Exam GI & Abdominal Exam: Soft, Normal Bowel Sounds - Extremities Exam Extremities Exam: Normal Inspection - Back Exam Back Exam: NORMAL INSPECTION - Neurological Exam Neurological Exam: Awake Additional comments: L facial droop/mild slurring of speech, obeys commands, Left hemiparesia - Psychiatric Exam Psychiatric exam: Normal Mood - Skin Skin Exam: Warm Assessment and Plan (1) CVA (cerebral vascular accident) Status: Acute (2) Hyperglycemia due to type 2 diabetes mellitus Status: Acute (3) Dyslipidemia Status: Chronic (4) BPH (benign prostatic hyperplasia) Status: Chronic (5) Hx of fall Assessment & Plan: continue ASA, Lipitor, Plavix , BS controlled , continue Humalog, Levemir , Glucophage and rest of treatment. PT recommended LAURIE Status: Chronic (6) Weakness Status: Chronic
[2017-10-24] MEDS: Insulin Detemir 100 Units/ml Inj SC SCH (21:47)
[2017-10-25] MEDS: Insulin Lispro (humaLOG) 100 Units/ml Inj SC SCH ×5 (07:30→13:12)
[2017-10-25 08:16] VITALS: RESP 20
--- NOTE | 2017-10-25 08:36 | CP.PCM.PN ---
Subjective - Date & Time of Evaluation Date of Evaluation: 10/25/17 Time of Evaluation: 08:36 - Subjective Subjective: Mr. Mendosa was seen and examined at the bedside. He is alert, oriented more cooperative, denies any headache, dizziness, lightheadedness. He is able to follow simple commands with left side weakness. He remains with left facial droop, but claims of able to tolerate regulate po intake. He had an episode of attempting to stand up by himself, but was weak. He was found kneeling bedside his bed, x-ray was done. He is able to move all extremities. He remains on 1:1 sitter for patient safety. Objective - Vital Signs/Intake and Output Vital Signs (last 24 hours): Temp Pulse Resp BP Pulse Ox 98.3 F 100 H 20 138/85 100 10/25/17 08:00 10/25/17 08:00 10/25/17 08:00 10/25/17 08:00 10/25/17 08:00 - Medications Medications: Current Medications Aspirin (Aspirin Chewable) 81 mg PO DAILY [facility] Last Admin: 10/24/17 08:46 Dose: 81 mg Atorvastatin Calcium (Lipitor) 40 mg PO DAILY [facility] Last Admin: 10/24/17 08:47 Dose: 40 mg Clopidogrel Bisulfate (Plavix) 75 mg PO DAILY [facility] Last Admin: 10/24/17 08:46 Dose: 75 mg Finasteride (Proscar) 5 mg PO QPM [facility] Last Admin: 10/24/17 17:04 Dose: 5 mg Insulin Detemir (Levemir) 40 units SC HS [facility] Last Admin: 10/24/17 21:47 Dose: 40 units Insulin Human Lispro (Humalog) 18 units SC ACTID [facility] Last Admin: 10/24/17 16:54 Dose: 18 units Insulin Human Lispro (Humalog) 0 units SC ACHS [facility] PRN Reason: Protocol Last Admin: 10/24/17 21:46 Dose: Not Given Metformin HCl (Glucophage) 1,000 mg PO BIDWM [facility] Last Admin: 10/24/17 16:55 Dose: 1,000 mg Tamsulosin HCl (Flomax) 0.4 mg PO QPM [facility] Last Admin: 10/24/17 17:04 Dose: 0.4 mg Tramadol HCl (Ultram) 50 mg PO Q8 PRN PRN Reason: Pain, severe (8-10) Zolpidem Tartrate (Ambien) 5 mg PO HS PRN PRN Reason: Insomnia Last Admin: 10/24/17 22:08 Dose: 5 mg - Labs Labs: 10/22/17 11:16 10/22/17 11:16 PT 10.7 Seconds (9.8-13.1) 10/18/17 14:50 INR 1.0 10/18/17 14:50 APTT 29.1 Seconds (25.6-37.1) 10/18/17 14:50 - Constitutional Appears: No Acute Distress - Head Exam Head Exam: NORMAL INSPECTION - Eye Exam Pupil Exam: PERRL - Neurological Exam Neurological Exam: Alert, Awake, Oriented x3 Neuro motor strength exam: Left Upper Extremity: 3, Right Upper Extremity: 5, Left Lower Extremity: 3, Right Lower Extremity: 5 Additional comments: neurological unchanged from previous examination. Assessment and Plan (1) CVA (cerebral vascular accident) Assessment & Plan: Continue all current medical, physical, occupational, and speech therapies. Recommend hydration, blood pressure and glycemic control, and recommend acute rehab for discharge placement. Status: Acute
[2017-10-25] MEDS ORDERED: Insulin Lispro (humaLOG) 100 Units/ml Inj SC ONE (09:30)
[2017-10-25 12:19] VITALS: BP 145/89; PULSE 84; TEMP 97.6; O2SAT 96
[2017-10-25 13:59] LABS: BASO # 0.1 K/uL (0.0-0.2); BASO % 0.9 % (0.0-2.0); EOS # 1.2 K/uL (0.0-0.7); EOS % 12.4 % (0.0-4.0); LYMPH # 2.3 K/uL (1.0-4.3); LYMPH % 23.8 % (20.0-40.0); MEAN CELL VOLUME 85.6 fl (80.0-94.0); MEAN CORPUSCULAR HEMOGLOBIN 29.4 pg (27.0-31.0); MEAN CORPUSCULAR HGB CONC 34.3 g/dL (33.0-37.0); MEAN PLATELET VOLUME 8.2 fl (7.2-11.7); MONO # 0.9 K/uL (0.0-0.8); MONO % 9.8 % (0.0-10.0); NEUT % 53.1 % (50.0-75.0); NRBC % 0.1 % (0.0-0.0); RBC 5.1 Mil/uL (4.40-5.90); RED CELL DISTRIBUTION WIDTH 13.7 % (11.5-14.5); WHITE BLOOD COUNT 9.5 K/uL (4.8-10.8)
[2017-10-25 14:27] LABS: LDL CHOLESTEROL 63 mg/dL (0-129)
[2017-10-25 14:31] LABS: T4 7.32 ug/dl (5.5-11.0)
[2017-10-25 14:37] LABS: ALB/GLOB RATIO 1.3 (1.0-2.1); ALBUMIN 4.2 g/dL (3.5-5.0); ALT/SGPT 22 U/L (21-72); AST/SGOT 21 U/L (17-59); BLOOD UREA NITROGEN 20 mg/dl (9-20); CALCIUM 9.3 mg/dL (8.4-10.2); GFR AFRICAN-AMERICAN > 60; GFR NON-AFRICAN AMERICAN > 60; HDL CHOLESTEROL 35 MG/DL (30-70)
== END 2017-10-25 14:59 | DRG 65 ==
LOC: H.ER 14:15 → H.ERHOLD 15:56 → H.TEL 22:29
PROVIDERS: ADMIT Internal Medicine Pulmonary Disease; ATTEND Internal Medicine Pulmonary Disease
PROC: 3E0234Z Introduction of Serum, Toxoid and Vaccine into Muscle, Percutaneous Approach (ICD-10-PCS; principal; 2017-10-19)
DX: I63.511 Cerebral infarction due to unspecified occlusion or stenosis of right middle cerebral artery (principal); G81.94 Hemiplegia, unspecified affecting left nondominant side; E11.65 Type 2 diabetes mellitus with hyperglycemia; E78.5 Hyperlipidemia, unspecified; F17.210 Nicotine dependence, cigarettes, uncomplicated; I10 Essential (primary) hypertension; N40.0 Benign prostatic hyperplasia without lower urinary tract symptoms; R29.810 Facial weakness; E11.42 Type 2 diabetes mellitus with diabetic polyneuropathy; Z23 Encounter for immunization; R47.1 Dysarthria and anarthria; Z93.3 Colostomy status

== ENCOUNTER 2017-12-27 10:25 | Emergency (ER) | payer MEDICARE ==
[2017-12-27 10:29] VITALS: RESP 18; TEMP 98.8; O2SAT 100
--- NOTE | 2017-12-27 11:00 | ED PDOC ---
HPI:Nausea, Vomiting, Diarrhea Time Seen by Provider: 12/27/17 10:52 Chief Complaint (Nursing): Abdominal Pain History Per: Patient Onset/Duration Of Symptoms: Days (1) Current Symptoms Are (Timing): Still Present Pain Scale Rating Of: 0 Associated Symptoms: Nausea, Vomiting. denies: Fever, Diarrhea, Back Pain, Urinary Symptoms Exacerbating Factors: None Alleviating Factors: None Additional Complaint(s): Nausea and vomiting since last night. Denies abd p[ain. No diarrhea. Passing gas per rectum. Denies fever. denies blood in vomitus Past Medical History Vital Signs: Last Vital Signs Temp 98.8 F 12/27/17 10:28 Pulse 78 12/27/17 10:28 Resp 18 12/27/17 10:28 BP 144/84 12/27/17 10:28 Pulse Ox 100 12/27/17 10:28 - Medical History PMH: CVA, Diabetes, Fractures (back), HTN, Hypercholesterolemia Denies: HIV, Chronic Kidney Disease - Family History Family History: States: Stroke (brother) - Home Medications Home Medications: Ambulatory Orders Medication Instructions Recorded Finasteride [Proscar] 5 mg PO QPM 10/18/17 Insulin Aspart, Recombinant 18 unit SC ACTID 10/18/17 [Novolog] Insulin Glargine,Hum.rec.anlog 40 unit SC HS 10/18/17 [Toumaria teresa Solostar] MetFORMIN [glucoPHAGE] 1,000 mg PO BID 10/18/17 Pregabalin [Lyrica] 100 mg PO Q8 10/18/17 Tamsulosin [Flomax] 0.4 mg PO QPM 10/18/17 Zolpidem [Ambien] 10 mg PO HS PRN 10/18/17 traMADol [Ultram] 50 mg PO Q8 PRN 10/18/17 Aspirin [Aspirin Chewable] 81 mg PO DAILY chew 10/25/17 Atorvastatin [Lipitor] 40 mg PO DAILY tab 10/25/17 Clopidogrel [Plavix] 75 mg PO DAILY tab 10/25/17 MetFORMIN [glucoPHAGE] 1,000 mg PO BIDWM tab 10/25/17 Metoclopramide [Reglan] 10 mg PO Q8 #10 tab 12/27/17 Ondansetron [Zofran] 4 mg PO Q8H #10 tab 12/27/17 - Allergies Allergies/Adverse Reactions: Allergies Allergy/AdvReac Type Severity Reaction Status Date / Time No Known Allergies Allergy Verified 10/18/17 14:17 Review of Systems ROS Statement: Except As Marked, All Systems Reviewed And Found Negative Constitutional: Negative for: Fever Gastrointestinal: Positive for: Nausea, Vomiting. Negative for: Abdominal Pain, Diarrhea, Hematochezia, Hematemesis Physical Exam - Reviewed Nursing Documentation Reviewed: Yes Vital Signs Reviewed: Yes - Physical Exam Appears: Positive for: Non-toxic, No Acute Distress Head Exam: Positive for: ATRAUMATIC, NORMAL INSPECTION, NORMOCEPHALIC Skin: Positive for: Normal Color, Warm, DRY Eye Exam: Positive for: EOMI, Normal appearance, PERRL ENT: Positive for: Normal ENT Inspection Neck: Positive for: Normal, Painless ROM Cardiovascular/Chest: Positive for: Regular Rate, Rhythm Respiratory: Positive for: CNT, Normal Breath Sounds Gastrointestinal/Abdominal: Positive for: Bowel Sounds, Soft. Negative for: Tenderness Back: Positive for: Normal Inspection Extremity: Positive for: Normal ROM Neurologic/Psych: Positive for: Alert, Oriented - Laboratory Results Result Diagrams: 12/27/17 11:50 12/27/17 11:50 - ECG O2 Sat by Pulse Oximetry: 100 - Progress Re-evaluation Time: 13:17 Condition: Improved (Tolerated PO) Disposition - Clinical Impression Clinical Impression: Diabetic gastroparesis - Patient ED Disposition Is Patient to be Admitted: No Counseled Patient/Family Regarding: Studies Performed, Diagnosis, Need For Followup, Rx Given - Disposition Referrals: [facility] [Outside] Disposition: Routine/Home Disposition Time: 13:18 Condition: FAIR Prescriptions: Metoclopramide [Reglan] 10 mg PO Q8 #10 tab Ondansetron [Zofran] 4 mg PO Q8H #10 tab Instructions: Gastroparesis (Delayed Gastric Emptying) Forms: [employer] (Italian)
[2017-12-27] MEDS: Sodium Chloride 0.9% 1,000 ML IV STA (11:43)
[2017-12-27 11:53] LABS: BASO # 0.1 K/uL (0.0-0.2); BASO % 0.8 % (0.0-2.0); EOS # 0.3 K/uL (0.0-0.7); HEMOGLOBIN 10.8 g/dL (12.0-18.0); LYMPH # 1.2 K/uL (1.0-4.3); LYMPH % 15.1 % (20.0-40.0); MEAN CELL VOLUME 89.6 fl (80.0-94.0); MEAN CORPUSCULAR HGB CONC 33.5 g/dL (33.0-37.0); MEAN PLATELET VOLUME 7.4 fl (7.2-11.7); MONO # 0.6 K/uL (0.0-0.8); MONO % 7.1 % (0.0-10.0); NEUT # 5.7 K/uL (1.8-7.0); RBC 3.59 Mil/uL (4.40-5.90); RED CELL DISTRIBUTION WIDTH 15.8 % (11.5-14.5); WHITE BLOOD COUNT 7.8 K/uL (4.8-10.8)
[2017-12-27 12:11] LABS: ALBUMIN 3.9 g/dL (3.5-5.0); ALT/SGPT 29 U/L (21-72); AST/SGOT 22 U/L (17-59); BLOOD UREA NITROGEN 14 mg/dl (9-20); CALCIUM 9.1 mg/dL (8.4-10.2); GFR NON-AFRICAN AMERICAN > 60
[2017-12-27 14:45] VITALS: BP 140/80; PULSE 74
--- NOTE | 2017-12-27 17:00 | CARD ---
APPROVED REPORT Date of service: 12/27/2017 EKG Measurement Heart [id number] <Conclusion> Normal sinus rhythm Normal Electrocardiogram
== END 2017-12-27 14:00 | disposition home or self-care (01) ==
LOC: H.ER 10:25
DX: E11.43 Type 2 diabetes mellitus with diabetic autonomic (poly)neuropathy (principal); E78.00 Pure hypercholesterolemia, unspecified; I10 Essential (primary) hypertension; Z79.4 Long term (current) use of insulin; Z86.73 Personal history of transient ischemic attack (TIA), and cerebral infarction without residual deficits
CPT/HCPCS: 80053; 85025; 93005; 96374; 96375; 99283; J2405; J2765; J7030

== ENCOUNTER 2018-06-28 18:20 | Inpatient (IN) | payer MEDICARE ==
--- NOTE | 2018-06-28 19:16 | ED PDOC ---
HPI:STROKE - Time Time: 19:00 - Historian Historian: Patient - Chief Complaint Chief Complaint: Arm weakness (LEFT), Leg weakness (LEFT) - Onset Date: 06/28/18 Time: 08:00 - Timing Timing: Currently Symptomatic - TPA Positive for Contraindication: Yes - Notes: Notes:: Woke up this morning and fell because of severe weakness to LEFT leg. Unable to get up. Finally helped by a friend at 2pm and went to sleep and woke up and tried to walk again and fell. Has h/o weakness of LEFT arm and leg from previous stroke, but seems worse than usual today Admits to feeling very sleepy due to taking gabapentin. PMD Dr Costa NIHSS Stroke Scale - Date/Time Evaluation Performed Date Performed: 06/28/18 Time Performed: 18:45 When Was NIHSS Performed: Baseline - How Severe is the Stroke Level of Consciousness: 0=Alert LOC to Questions: 0=Both comments correct LOC to commands: 0=Obeys both correctly Best Gaze: 0=Normal Visual: 0=No visual loss Facial: 0=Normal Motor Arm - Left: 1=Drift noted before 10 sec Motor Arm - Right: 0=No drift Motor Leg - Left: 1=Drift before 5 sec Motor Leg - Right: 0=No drift Limb Ataxia: 0=Absent Sensory: 0=Normal Best Language: 0=No aphasia Dysarthia: 0=Normal articulation Extinction & Inattention (Neglect): 0=Normal, no object Score: 2 rTPA Inclusion/Exclusion - Refusal of Treatment Patient Refused Treatment: No - Inclusion Criteria for Altepase All of the below criteria for inclusion were reviewed: Yes Patient is 18 years or Older: Yes The Clinical Diagnosis of Ischemic Stroke That is Causing a Potentially Disabling Neurological Deficit: Yes Time of Onset is Well Established to be Less Than 270 Minute Before Treatment Would Begin: Yes Risk/Benefit Discussed With Patient/Family Member Present: Yes Past Medical History Reviewed: Historical Data, Nursing Documentation, Vital Signs Vital Signs: Last Vital Signs Temp 99.6 F 06/28/18 18:21 Pulse 79 06/28/18 18:21 Resp 16 06/28/18 18:21 BP 110/78 06/28/18 18:21 Pulse Ox 100 06/28/18 18:21 - Medical History PMH: CVA, Diabetes, Fractures (back), HTN, Hypercholesterolemia Denies: HIV, Chronic Kidney Disease - Surgical History Other surgeries: "Intestinal gangrene" resection - Family History Family History: States: Stroke (brother) - Living Arrangements Living Arrangements: Alone - Social History Current smoker - smoking cessation education provided: No - Home Medications Home Medications: Ambulatory Orders Medication Instructions Recorded Finasteride [Proscar] 5 mg PO QPM 10/18/17 Insulin Aspart, Recombinant 18 unit SC ACTID 10/18/17 [Novolog] Insulin Glargine,Hum.rec.anlog 40 unit SC HS 10/18/17 [Toujeo Solostar] MetFORMIN [glucoPHAGE] 1,000 mg PO BID 10/18/17 Pregabalin [Lyrica] 100 mg PO Q8 10/18/17 Tamsulosin [Flomax] 0.4 mg PO QPM 10/18/17 Zolpidem [Ambien] 10 mg PO HS PRN 10/18/17 Aspirin [Aspirin Chewable] 81 mg PO DAILY chew 10/25/17 Atorvastatin [Lipitor] 40 mg PO DAILY tab 10/25/17 Melatonin 1 cap PO HS 06/30/18 - Allergies Allergies/Adverse Reactions: Allergies Allergy/AdvReac Type Severity Reaction Status Date / Time No Known Allergies Allergy Verified 10/18/17 14:17 Review of Systems ROS Statement: Except As Marked, All Systems Reviewed And Found Negative (and as per HPI) Constitutional: Positive for: Weakness, Malaise Neurological: Positive for: Weakness, Incoordination, Dizziness Physical Exam - Reviewed Nursing Documentation Reviewed: Yes Vital Signs Reviewed: Yes - Physical Exam Appears: Positive for: No Acute Distress (appears chronically ill) Head Exam: Positive for: ATRAUMATIC, NORMOCEPHALIC Skin: Positive for: Warm, Dry, Pallor Eye Exam: Positive for: EOMI, PERRL ENT: Positive for: Other (dry mucus membranes) Neck: Positive for: Painless ROM, Supple Cardiovascular/Chest: Positive for: Regular Rate, Rhythm. Negative for: Murmur Respiratory: Positive for: Normal Breath Sounds. Negative for: Respiratory Distress Gastrointestinal/Abdominal: Positive for: Soft. Negative for: Tenderness Back: Positive for: Normal Inspection. Negative for: Vertebral Tenderness Extremity: Positive for: Other (LEFT hemiparesis). Negative for: Deformity Lymphatic: Negative for: Adenopathy Neurological/Psych: Positive for: Awake, Alert, Motor/Sensory Deficits - Laboratory Results Result Diagrams: 06/30/18 04:30 06/30/18 04:30 - ECG O2 Sat by Pulse Oximetry: 100 - Progress ED Course And Treament: Name: MI DILL Exam Date: Jun 28, 2018 7:42:23 PM EDT Modality Type: CT Description: CT - BRAIN WITH CORONAL AND SAGITTAL MPRS Gender: M Laterality: Not applicable : 59 Referring Physician: Annabella Fabian EXAM: CT Head Without IV contrast. CLINICAL HISTORY: Left sided weakness h/o cva TECHNIQUE: Axial computed tomography images of the head/brain without intravenous contrast. COMPARISON: CT\\SD\\SR - HEAD W/O CONTRAST - 10/23/2017 09:13 AM EDT FINDINGS: BRAIN: Chronic periventricular and subcortical microvascular disease is seen. Encephalomalacia involving right occipital and left frontal lobes, compatible with old infarcts. No acute intracranial pathology. VENTRICLES: There is generalized parenchymal atrophy noted as demonstrated by symmetrical dilatation of ventricles and sulci. ORBITS: The orbits are unremarkable. SINUSES AND MASTOIDS: The paranasal sinuses and mastoid air cells are clear. BONES: No fracture. SOFT TISSUES: Unremarkable. IMPRESSION: 1. There is generalized parenchymal atrophy noted as demonstrated by symmetrical dilatation of ventricles and sulci. 2. Chronic periventricular and subcortical microvascular disease is seen. 3. Encephalomalacia involving right occipital and left frontal lobes, compatible with old infarcts. 4. No acute intracranial pathology. No significant change. Electronically signed on Jun 28, 2018 8:02:48 PM EDT by: Gildardo Pearson M.D., M.B.A., Certified By [employer] Trained MRI and CT Specialist Re-evaluation Time: 21:00 Condition: Unchanged Disposition - Clinical Impression Clinical Impression: Weakness of one side of body, Hx of fall Discussed With : Gomez Castle Doctor Will See Patient In The: Hospital Counseled Patient/Family Regarding: Studies Performed, Diagnosis - Disposition Disposition Time: 21:00 Condition: FAIR - Pt Status Changed To: Hospital Disposition Of: Inpatient - Admit Certification Admit to Inpatient:: After my assessment, the patient will require hospitalizati on for at least two midnights. This is because of the severity of symptoms shown, intensity of services needed, and/or the medical risk in this patient being treated as an outpatient. - POA Present On Arrival: Falls Or Trauma, Poor Glycemic Control
[2018-06-28] MEDS ORDERED: Sodium Chloride 0.9% 500 ML IV STA (19:17)
[2018-06-28] MEDS ORDERED: Sodium Chloride 0.9% 1,000 ML IV STA (19:18)
[2018-06-28 20:24] LABS: BASO # 0.1 K/uL (0.0-0.2); BASO % 0.7 % (0.0-2.0); EOS # 0.6 K/uL (0.0-0.7); EOS % 7.1 % (0.0-4.0); HEMOGLOBIN 13.8 g/dL (12.0-18.0); LYMPH # 1.7 K/uL (1.0-4.3); LYMPH % 21.3 % (20.0-40.0); MEAN CELL VOLUME 85.4 fl (80.0-94.0); MEAN CORPUSCULAR HGB CONC 33.9 g/dL (33.0-37.0); MEAN PLATELET VOLUME 8.9 fl (7.2-11.7); MONO # 0.7 K/uL (0.0-0.8); MONO % 8.8 % (0.0-10.0); NEUT # 4.8 K/uL (1.8-7.0); NEUT % 62.1 % (50.0-75.0); NRBC % 0.1 % (0.0-0.0); RBC 4.76 Mil/uL (4.40-5.90); RED CELL DISTRIBUTION WIDTH 14.2 % (11.5-14.5); WHITE BLOOD COUNT 7.8 K/uL (4.8-10.8)
[2018-06-28 20:27] LABS: INR 0.9; PROTHROMBIN TIME 10.7 Seconds (9.8-13.1)
[2018-06-28 20:30] LABS: PARTIAL THROMBOPLASTIN TIME 28.1 Seconds (25.6-37.1)
[2018-06-28 20:44] LABS: ALB/GLOB RATIO 1.3 (1.0-2.1); ALBUMIN 4.1 g/dL (3.5-5.0); ALT/SGPT 22 U/L (21-72); AST/SGOT 15 U/L (17-59); BLOOD UREA NITROGEN 22 mg/dl (9-20); CALCIUM 9.5 mg/dL (8.4-10.2); GFR NON-AFRICAN AMERICAN > 60
[2018-06-28 20:45] LABS: B-TYPE NATRIURETIC PEPTIDE 174 pg/ml (0-900)
[2018-06-28] MEDS ORDERED: Insulin Regular 100 units/ml IVP STA (20:50)
[2018-06-28] MEDS ORDERED: Insulin Regular 100 units/ml SC STA (20:50)
[2018-06-28 21:16] LABS: VENOUS BLOOD GAS BASE EXCESS 0.6 mmol/L (0.0-2.0); VENOUS BLOOD GAS PCO2 52 mmHg (40-60); VENOUS BLOOD GAS PO2 40 mm/Hg (30-55); VENOUS BLOOD PH 7.33 (7.32-7.43)
[2018-06-28] MEDS ORDERED: Aspirin 325 mg EC Tablets PO STA (21:50)
[2018-06-28] MEDS ORDERED: Insulin Regular 100 units/ml ONE (21:55)
[2018-06-29 06:47] VITALS: BMI 25.9
[2018-06-29] MEDS ORDERED: Insulin Regular 100 units/ml SC SCH (07:00)
[2018-06-29] MEDS ORDERED: Insulin Lispro (humaLOG) 100 Units/ml Inj SC SCH (07:30)
--- NOTE | 2018-06-29 09:25 | CARD ---
APPROVED REPORT Date of service: 06/28/2018 EKG Measurement Heart [id number] <Conclusion> Normal sinus rhythm Normal ECG
[2018-06-29] MEDS: Enoxaparin 40 mg Syringe SC SCH (10:30)
--- NOTE | 2018-06-29 11:12 | CT ---
Date of service: 06/28/2018 PROCEDURE: CT HEAD WITHOUT CONTRAST. HISTORY: LEFT sided weakness h/o CVA COMPARISON: 10/23/2017 TECHNIQUE: Axial computed tomography images were obtained through the head/brain without intravenous contrast. Radiation dose: Total exam DLP = 924.76 mGy-cm. This CT exam was performed using one or more of the following dose reduction techniques: Automated exposure control, adjustment of the mA and/or kV according to patient size, and/or use of iterative reconstruction technique. FINDINGS: HEMORRHAGE: No appreciable intracranial hemorrhage. BRAIN: Diffuse cerebral cortical atrophy. Chronic areas of encephalomalacia are seen in the right occipital lobe lesser degree in the left frontal lobe. Moderate scattered small vessel changes and other smaller scattered lacunar infarcts are seen elsewhere. No new cortical effacement is seen. VENTRICLES: Stable in size. CALVARIUM: Unremarkable. PARANASAL SINUSES: Unremarkable as visualized. No significant inflammatory changes. MASTOID AIR CELLS: Unremarkable as visualized. No inflammatory changes. OTHER FINDINGS: None. IMPRESSION: No evidence of recent infarct or intracranial hemorrhage. Chronic infarcts and microvascular small-vessel changes elsewhere.
[2018-06-29] MEDS: Insulin Lispro (humaLOG) 100 Units/ml Inj SC SCH ×5 (11:58→21:09)
--- NOTE | 2018-06-29 15:17 | CP.PCM.CON ---
History of Present Illness - History of Present Illness History of Present Illness: Neurology Consultation Note: Consult requested by Dr. Castle Mr. Mendosa is a 63-year-old man with a past medical history of HTN, DM, HLD, previous right parietal/occipital lobe infarct with residual left side weakness, states that he was having left lower extremity pain in the morning yesterday and he took neurontin 300 mg. Afterward, he noted worsening left side weakness and was unable to get out of bed. He is usually able to ambulate, but could not do so any longer. His friend assisted him, and he presented to the ED last night. Today, he continues to be weaker on the left than usual, but has no other notable deficits or new territory weakness. Review of Systems - Constitutional Constitutional: As Per HPI - EENT Eyes: absent: As Per HPI, Blind Spots, Blurred Vision, Change in Vision, Decreased Night Vision, Diplopia, Discharge, Dry Eye, Exophthalmos, Floaters, Irritation, Itchy Eyes, Loss of Peripheral Vision, Pain, Photophobia, Requires Corrective Lenses, Sees Flashes, Spots in Vision, Tunnel Vision, Other Visual Disturbances, Loss of Vision, Other Ears: absent: As Per HPI, Decreased Hearing, Ear Discharge, Ear Pain, Tinnitus, Abnormal Hearing, Disequilibrium, Dizziness, Other Nose/Mouth/Throat: absent: As Per HPI, Epistaxis, Nasal Congestion, Nasal Disc harge, Nasal Obstruction, Nasal Trauma, Nose Pain, Post Nasal Drip, Sinus Pain, Sinus Pressure, Bleeding Gums, Change in Voice, Dental Pain, Dry Mouth, Dysphagia, Halitosis, Hoarsness, Lip Swelling, Mouth Lesions, Mouth Pain, Odynophagia, Sore Throat, Throat Swelling, Tongue Swelling, Facial Pain, Neck Pain, Neck Mass, Other - Cardiovascular Cardiovascular: absent: As Per HPI, Acrocyanosis, Chest Pain, Chest Pain at Rest, Chest Pain with Activity, Claudication, Diaphoresis, Dyspnea, Dyspnea on Exertion, Edema, Irregular Heart Rhythm, Pain Radiating to Arm/Neck/Jaw, Leg Edema, Leg Ulcers, Lightheadedness, Orthopnea, Palpitations, Paroxysmal Nocturnal Dyspnea, Pedal Edema, Radiating Pain, Rapid Heart Rate, Slow Heart Rate, Syncope, Other - Respiratory Respiratory: absent: As Per HPI, Cough, Dyspnea, Hemoptysis, Dyspnea on Exertion, Wheezing, Snoring, Stridor, Pain on Inspiration, Chest Congestion, Excessive Mucous Production, Change in Mucous Color, Pain with Coughing, Other - Gastrointestinal Gastrointestinal: absent: As Per HPI, Abdominal Pain, Belching, Bloating, Change in Bowel Habits, Change in Stool Character, Coffee Ground Emesis, Constipation, Cramping, Diarrhea, Dyspepsia, Dysphagia, Early Satiety, Excessive Flatus, Fecal Incontinence, Heartburn, Hematemesis, Hematochezia, Loose Stools, Melena, Nausea, Odynophagia, Temesmus, Vomiting, Other - Musculoskeletal Musculoskeletal: absent: As Per HPI, Abnormal Gait, Arthralgias, Atrophy, Back Pain, Deformity, Joint Swelling, Limited Range of Motion, Loss of Height, Muscle Cramps, Muscle Weakness, Myalgias, Neck Pain, Numbness, Radiating Pain into Limb, Stiffness, Tingling, Other - Neurological Neurological: As Per HPI - Psychiatric Psychiatric: absent: As Per HPI, Abnormal Sleep Pattern, Anhedonia, Anxiety, Auditory Hallucinations, Behavioral Changes, Change in Appetite, Change in Sosa attila, Confusion, Depression, Difficulty Concentrating, Hallucinations, Homicidal Ideation, Hopelessness, Irritability, Memory Loss, Mood Swings, Panic Attacks, Paranoia, Suicidal Ideation, Visual Hallucinations, Tactile Hallucinations, Other - Endocrine Endocrine: absent: As Per HPI, Change in Body Appearance, Change in Libido, Cold Intolorance, Deepening of Voice, Excessive Sweating, Fatigue, Flushing, Heat Intolorance, Increase in Ring/Shoe/Hat Size, Palpitations, Polydipsia, Polyphagia, Polyuria, Other - Hematologic/Lymphatic Hematologic: absent: As Per HPI, Easy Bleeding, Easy Bruising, Lymphadenopathy, Other Past Patient History - Infectious Disease Hx of Infectious Diseases: None - Past Medical History & Family History Past Medical History?: Yes - Past Social History Smoking Status: Heavy Smoker > 10 Cigarettes Daily - CARDIAC Hx Cardiac Disorders: Yes Hx Hypercholesterolemia: Yes Hx Hypertension: Yes - PULMONARY Hx Respiratory Disorders: No - NEUROLOGICAL Hx Neurological Disorder: Yes HX Cerebrovascular Accident: Yes (10/22/17) Other/Comment: neuropathy - HEENT Hx HEENT Problems: No - RENAL Hx Chronic Kidney Disease: No - ENDOCRINE/METABOLIC Hx Endocrine Disorders: Yes Hx Diabetes Mellitus Type 2: Yes - HEMATOLOGICAL/ONCOLOGICAL Hx Blood Disorders: No Hx Human Immunodeficiency Virus (HIV): No - INTEGUMENTARY Hx Dermatological Problems: No - MUSCULOSKELETAL/RHEUMATOLOGICAL Hx Musculoskeletal Disorders: Yes Hx Falls: Yes Hx Fractures: Yes () - GASTROINTESTINAL Hx Gastrointestinal Disorders: Yes Hx Colostomy: Yes (2012) - GENITOURINARY/GYNECOLOGICAL Hx Genitourinary Disorders: Yes Hx Prostate Problems: Yes - PSYCHIATRIC Hx Psychophysiologic Disorder: No Hx Substance Use: No - SURGICAL HISTORY Hx Surgeries: Yes Other/Comment: COLOSTOMY 2013 - ANESTHESIA Hx Anesthesia: Yes Hx Anesthesia Reactions: No Hx Malignant Hyperthermia: No Meds Allergies/Adverse Reactions: Allergies Allergy/AdvReac Type Severity Reaction Status Date / Time No Known Allergies Allergy Verified 10/18/17 14:17 - Medications Medications: Current Medications Aspirin (Aspirin Chewable) 81 mg PO DAILY [facility] Last Admin: 06/29/18 09:20 Dose: 81 mg Atorvastatin Calcium (Lipitor) 40 mg PO DAILY [facility] Last Admin: 06/29/18 10:30 Dose: 40 mg Enoxaparin Sodium (Lovenox) 40 mg SC DAILY [facility]; Protocol Last Admin: 06/29/18 10:30 Dose: 40 mg Finasteride (Proscar) 5 mg PO QPM [facility] Insulin Detemir (Levemir) 44 units SC HS [facility] Insulin Human Lispro (Humalog) 20 units SC ACTID [facility] Last Admin: 06/29/18 11:58 Dose: 20 units Insulin Human Lispro (Humalog) 0 units SC ACHS [facility] Last Admin: 06/29/18 11:58 Dose: 3 units Metformin HCl (Glucophage) 1,000 mg PO BID [facility] Last Admin: 06/29/18 10:30 Dose: 1,000 mg Pregabalin (Lyrica) 100 mg PO Q8 [facility] Last Admin: 06/29/18 09:20 Dose: 100 mg Tamsulosin HCl (Flomax) 0.4 mg PO QPM [facility] Zolpidem Tartrate (Ambien) 5 mg PO HS PRN PRN Reason: Insomnia Physical Exam - Constitutional Appears: Well - Head Exam Head Exam: ATRAUMATIC, NORMAL INSPECTION, NORMOCEPHALIC - Eye Exam Eye Exam: EOMI, Normal appearance, PERRL Pupil Exam: NORMAL ACCOMODATION, PERRL - ENT Exam ENT Exam: Mucous Membranes Moist, Normal Exam - Neck Exam Neck exam: Positive for: Normal Inspection - Respiratory Exam Respiratory Exam: Clear to Auscultation Bilateral, NORMAL BREATHING PATTERN - Cardiovascular Exam Cardiovascular Exam: REGULAR RHYTHM, +S1, +S2 - GI/Abdominal Exam GI & Abdominal Exam: Normal Bowel Sounds, Soft. absent: Tenderness - Extremities Exam Extremities exam: Positive for: normal inspection - Back Exam Back exam: NORMAL INSPECTION - Neurological Exam Neurological exam: Abnormal Gait, Alert, CN II-XII Intact, Oriented x3 Additional comments: Left facial droop noted, slight dysarthria noted, no aphasia. Reflexes are brisk on the left, sensation is intact to LT/P but decreased on the left relative to the right side, strength is 3/5 in both upper and lower extremities on the left. He is able to maintain both left upper and lower extremities anti-gravity for at least 10 seconds. NIHSS= 4 - Psychiatric Exam Psychiatric exam: Normal Affect, Normal Mood - Skin Skin Exam: Dry, Intact, Normal Color, Warm Results - Vital Signs Recent Vital Signs: Last Vital Signs Temp 97.4 F L 06/29/18 13:49 Pulse 66 06/29/18 13:49 Resp 18 06/29/18 13:49 BP 123/73 06/29/18 13:49 Pulse Ox 97 06/29/18 13:49 - Labs Result Diagrams: 06/28/18 20:10 06/28/18 20:10 Labs: Laboratory Results - last 24 hr 06/28/18 06/28/18 06/28/18 20:10 20:10 20:10 WBC 7.8 RBC 4.76 Hgb 13.8 D Hct 40.6 MCV 85.4 D MCH 29.0 MCHC 33.9 RDW 14.2 Plt Count 249 D MPV 8.9 Neut % (Auto) 62.1 Lymph % (Auto) 21.3 Davis % (Auto) 8.8 Eos % (Auto) 7.1 H Baso % (Auto) 0.7 Neut # (Auto) 4.8 Lymph # (Auto) 1.7 Davis # (Auto) 0.7 Eos # (Auto) 0.6 Baso # (Auto) 0.1 PT 10.7 INR 0.9 APTT 28.1 pO2 VBG pH VBG pCO2 VBG HCO3 VBG Total CO2 VBG O2 Sat (Calc) VBG Base Excess VBG Potassium Glucose Lactate FiO2 Crit Value Called To Crit Value Called By Crit Value Read Back Blood Gas Notified Time Sodium 137 Potassium 4.8 Chloride 99 Carbon Dioxide 32 H Anion Gap 11 BUN 22 H Creatinine 1.2 Est GFR ( Amer) > 60 Est GFR (Non-Af Amer) > 60 POC Glucose (mg/dL) Random Glucose 435 H* D Lactic Acid Calcium 9.5 Phosphorus 4.3 Magnesium 2.0 Total Bilirubin 0.3 AST 15 L D ALT 22 Alkaline Phosphatase 99 Total Creatine Kinase 104 Troponin I < 0.0120 NT-Pro-B Natriuret Pep 174 Total Protein 7.2 Albumin 4.1 Globulin 3.1 Albumin/Globulin Ratio 1.3 Venous Blood Potassium Alcohol, Quantitative < 10 Blood Type Antibody Screen BBK History Checked 06/28/18 06/28/18 06/28/18 20:10 20:10 20:22 WBC RBC Hgb Hct MCV MCH MCHC RDW Plt Count MPV Neut % (Auto) Lymph % (Auto) Davis % (Auto) Eos % (Auto) Baso % (Auto) Neut # (Auto) Lymph # (Auto) Davis # (Auto) Eos # (Auto) Baso # (Auto) PT INR APTT pO2 VBG pH VBG pCO2 VBG HCO3 VBG Total CO2 VBG O2 Sat (Calc) VBG Base Excess VBG Potassium Glucose Lactate FiO2 Crit Value Called To Crit Value Called By Crit Value Read Back Blood Gas Notified Time Sodium Potassium Chloride Carbon Dioxide Anion Gap BUN Creatinine Est GFR ( Amer) Est GFR (Non-Af Amer) POC Glucose (mg/dL) 493 H* Random Glucose Lactic Acid 1.2 Calcium Phosphorus Magnesium Total Bilirubin AST ALT Alkaline Phosphatase Total Creatine Kinase Troponin I NT-Pro-B Natriuret Pep Total Protein Albumin Globulin Albumin/Globulin Ratio Venous Blood Potassium Alcohol, Quantitative Blood Type B POSITIVE Antibody Screen Negative BBK History Checked Patient has bt 06/28/18 06/28/18 06/29/18 21:05 23:39 05:11 WBC RBC Hgb Hct MCV MCH MCHC RDW Plt Count MPV Neut % (Auto) Lymph % (Auto) Davis % (Auto) Eos % (Auto) Baso % (Auto) Neut # (Auto) Lymph # (Auto) Davis # (Auto) Eos # (Auto) Baso # (Auto) PT INR APTT pO2 40 VBG pH 7.33 VBG pCO2 52 VBG HCO3 24.7 VBG Total CO2 29.0 H VBG O2 Sat (Calc) 81.9 H VBG Base Excess 0.6 VBG Potassium 4.6 Glucose 431 H* D Lactate 1.6 FiO2 21.0 Crit Value Called To Dr yolis santos Crit Value Called By Silvia iverson rt Crit Value Read Back Y Blood Gas Notified Time 2115 Sodium 135.0 Potassium Chloride 101.0 Carbon Dioxide Anion Gap BUN Creatinine Est GFR ( Amer) Est GFR (Non-Af Amer) POC Glucose (mg/dL) 230 H 229 H Random Glucose Lactic Acid Calcium Phosphorus Magnesium Total Bilirubin AST ALT Alkaline Phosphatase Total Creatine Kinase Troponin I NT-Pro-B Natriuret Pep Total Protein Albumin Globulin Albumin/Globulin Ratio Venous Blood Potassium 4.6 Alcohol, Quantitative Blood Type Antibody Screen BBK History Checked 06/29/18 11:19 WBC RBC Hgb Hct MCV MCH MCHC RDW Plt Count MPV Neut % (Auto) Lymph % (Auto) Davis % (Auto) Eos % (Auto) Baso % (Auto) Neut # (Auto) Lymph # (Auto) Davis # (Auto) Eos # (Auto) Baso # (Auto) PT INR APTT pO2 VBG pH VBG pCO2 VBG HCO3 VBG Total CO2 VBG O2 Sat (Calc) VBG Base Excess VBG Potassium Glucose Lactate FiO2 Crit Value Called To Crit Value Called By Crit Value Read Back Blood Gas Notified Time Sodium Potassium Chloride Carbon Dioxide Anion Gap BUN Creatinine Est GFR ( Amer) Est GFR (Non-Af Amer) POC Glucose (mg/dL) 342 H Random Glucose Lactic Acid Calcium Phosphorus Magnesium Total Bilirubin AST ALT Alkaline Phosphatase Total Creatine Kinase Troponin I NT-Pro-B Natriuret Pep Total Protein Albumin Globulin Albumin/Globulin Ratio Venous Blood Potassium Alcohol, Quantitative Blood Type Antibody Screen BBK History Checked Assessment & Plan (1) CVA (cerebral vascular accident) Assessment and Plan: The patient may have had resurgence of the previous stroke symptoms due to suppressive effects of Neurontin. However, a new stroke is possible. PT/OT eval is recommended and treat if needed. Continue secondary stroke prevention with aspirin 81 mg daily. Will add plavix 75 mg daily for 21 days. Then, stop aspirin 81 mg daily and continue only Plavix 75 mg daily (monotherapy, indefinitely. Continue lipitor 40 mg daily, and adequate hydration, risk factor modification and management per the primary team. Will order MRI brain and MRA of the head/neck to evaluate for a new infarct or significant cerebrovascular disease. Thank you for this consultation. Status: Acute Priority: High
--- NOTE | 2018-06-29 19:36 | HP ---
CHIEF COMPLAINT: Left-sided weakness. HISTORY OF PRESENT ILLNESS: This is a 63-year-old male with history of CVA with left hemiparesis, who lives at his home, had a fall and was no able to get up from severe weakness and finally after a few hours with the help of the patient's friend, the patient finally woke up but felt extremely weak and slept and then tried to walk again and fell again and was brought to the emergency room and was admitted for further management. PAST MEDICAL HISTORY: Significant for diabetes, hypertension, elevated cholesterol and history of CVA. PAST SURGICAL HISTORY: Remarkable for some intraabdominal intestinal operation. PERSONAL HISTORY: The patient is currently a nonsmoker, nondrinker. No substance abuse. MEDICATIONS: The patient is on multiple medications including Proscar, , Glucophage, Lyrica, Flomax, Ambien, Ultram, aspirin, Lipitor, Plavix, Reglan and Zofran. ALLERGIES: THE PATIENT IS NOT ALLERGIC TO ANY MEDICATIONS. FAMILY HISTORY: Noncontributory. REVIEW OF SYSTEMS: Positive for profound generalized weakness but left-sided weakness according to the patient more than his usual weakness secondary to hemiparesis. PHYSICAL EXAMINATION: GENERAL: Well built, well nourished male in no acute distress.. VITAL SIGNS: Stable. Temperature 97.6, pulse 72, respirations 18, blood pressure 164/85 and saturation 97%. HEENT: Pupils are reacting to light. No JVD. No thyromegaly. No lymphadenopathy. No nystagmus. Normocephalic. Atraumatic skull. HEART: S1 and S2; normal and regular. No significant murmur, gallop, or rub. LUNGS: Shows good bilateral air exchange. No rales or rhonchi. ABDOMEN: Soft, nontender. No organomegaly. No fluid. Bowel sounds are present and normal. EXTREMITIES: No edema, no calf swelling, no tenderness. No acute ischemia. CENTRAL NERVOUS SYSTEM: Examination is consistent with the left hemiparesis, acute changes that is difficult to determine. DIAGNOSTIC DATA: Available diagnostic data reviewed. Telemetry monitoring does not reveal significant edema. WBC 7.8, hemoglobin 13.8, hematocrit 40.6, platelets 249. Sodium 137, potassium 4.8, chloride 99, bicarbonate 32, BUN 22, creatinine 1.2, SMA-12 unremarkable. Accu-Cheks are 435, 493, 230 and 229. Alcohol level is negative. CAT scan does not reveal any acute bleed or any acute territorial stroke. EKG shows normal sinus rhythm without any acute SVT changes. ADMITTING IMPRESSION: Transient ischemic attack versus cerebrovascular accident. Left hemiparesis. Type 2 diabetes with hyperglycemia, hypertension, uncontrolled. Elevated cholesterol. Generalized weakness. PLAN: As ordered. Gomez Castle MD
[2018-06-29] MEDS: Insulin Detemir 100 Units/ml Inj SC SCH (21:10)
[2018-06-29] MEDS ORDERED: [UNRECOGNIZED DRUG - OTHER] SC SCH (22:00)
--- NOTE | 2018-06-30 05:30 | CON ---
DATE: 06/29/2018 ENDOCRINOLOGY CONSULT LOCATION: In room 406. HISTORY OF PRESENT ILLNESS: This is a 63-year-old male with known history of type 2 insulin-requiring diabetes, presenting here with a sudden onset of left-sided weakness and evaluated to have an acute CVA and is now being referred for diabetic evaluation because of hyperglycemic accelerations as noted thereof. PAST MEDICAL HISTORY: As mentioned above, history of type 2 insulin-requiring diabetes, on a combination of Humalog given as 18 units t.i.d. with meals and Toujeo given as basal insulin at 40 units subcu at bedtime daily as given with metformin given as 1 g b.i.d. as ordered. He also has hypertension and dyslipidemia. Moreover, he had a previous CVA with mild left-sided weakness as noted. History of peripheral arterial vasculopathy also was noted. FAMILY HISTORY: Positive for diabetes, hypertension. SOCIAL HISTORY: The patient has a supportive family. No known substance use. REVIEW OF SYSTEMS: Admits to generalized body weakness with sudden onset of dizziness and lightheadedness with bifrontal headaches. No recent visual changes noted. No chest pains or palpitations or PND. His oral intake has been variable with occasional nausea and dyspepsia and vague upper abdominal pains. Also admits to recent polyuria and nocturia with lower extremity paresthesias as noted. PHYSICAL EXAMINATION: GENERAL: This is an average built male in no apparent distress. VITAL SIGNS: Blood pressure 150/90, pulse of 100 beats per minute and regular, temperature 99, respirations 20, height is 5 feet 11 inches. Weight is 186 pounds. HEENT: Head normocephalic. Eyes anicteric with pink conjunctivae. Funduscopy not possible at this time. Ears, nose and throat otherwise normal. NECK: Supple. Thyroid gland is normal in size. No carotid bruits or cervical adenopathy. CARDIOPULMONARY: Some adynamic precordium. S1, S2. Rapid and regular. Lungs are clear to auscultation. ABDOMEN: Flat, soft with positive bowel sounds. EXTREMITIES: No peripheral edema. Pulses are +2 bilaterally. LABORATORY DATA: Chemistries: BUN of 22, sodium 137, potassium 4.7, chloride 99, CO2 of 32, glucose 435 and creatinine 1.2. His glucose levels have ranged from 229 to 493 mg/dL. ASSESSMENT: This is a 63-year-old male with uncontrolled and decompensated type 2 insulin-requiring diabetes with marked hyperglycemic accelerations, presenting here with an acute cerebrovascular accident with left-sided hemiparesis and is now being referred for diabetic evaluation and management. He also has diabetic macrovascular complications of coronary artery disease and peripheral vasculopathy as noted. PLAN OF MANAGEMENT: We will modify his current basal and bolus insulin regimen and switch him to basal insulin given as Levemir 44 units subcu at bedtime daily to start tonight. We will also modify his Humalog to 20 units t.i.d. before meals to start today as ordered. We will modify the coverage scale to a very low-dose algorithm using Humalog insulin to obviate hypoglycemia and detailed orders have been given. We will obtain a hemoglobin A1c to confirm his prior glycemic control and baseline thyroid function studies will be ordered and also a lipid panel will be added. We will follow and advise accordingly. Antonieta Mcarthur MD
[2018-06-30 06:41] LABS: HEMOGLOBIN 13.4 g/dL (12.0-18.0); MEAN CELL VOLUME 85.9 fl (80.0-94.0); MEAN CORPUSCULAR HEMOGLOBIN 29.3 pg (27.0-31.0); MEAN CORPUSCULAR HGB CONC 34.1 g/dL (33.0-37.0); RBC 4.56 Mil/uL (4.40-5.90); RED CELL DISTRIBUTION WIDTH 13.7 % (11.5-14.5); WHITE BLOOD COUNT 8.6 K/uL (4.8-10.8)
[2018-06-30 06:49] LABS: ALB/GLOB RATIO 1.1 (1.0-2.1); ALBUMIN 3.3 g/dL (3.5-5.0); ALT/SGPT 27 U/L (21-72); AST/SGOT 13 U/L (17-59); BLOOD UREA NITROGEN 21 mg/dl (9-20); CALCIUM 8.8 mg/dL (8.4-10.2); GFR NON-AFRICAN AMERICAN > 60
[2018-06-30] MEDS: Insulin Lispro (humaLOG) 100 Units/ml Inj SC SCH ×7 (08:52→22:24)
[2018-06-30] MEDS: Enoxaparin 40 mg Syringe SC SCH (08:53)
--- NOTE | 2018-06-30 09:22 | PN ---
DATE: 06/30/2018 SUBJECTIVE: The patient is seen and examined. Interim events noted. Consults noted and appreciated. The patient remains in progressive care unit on telemetry monitoring. The patient is awake, responsive, feels okay. Denies any specific compliant. No chest pain or shortness of breath. Complains of generalized weakness. PHYSICAL EXAMINATION: GENERAL: The patient is in no acute distress. VITAL SIGNS: Stable. HEART: S1 and S2. Normal and regular. LUNGS: Good bilateral air exchange. ABDOMEN: Soft and nontender. EXTREMITIES: No edema. No calf swelling. No tenderness. No acute ischemia. CENTRAL NERVOUS SYSTEM: Essentially unchanged. DIAGNOSTIC DATA: Available diagnostic data reviewed. Telemetry monitoring does not show any significant arrhythmia. Neurology consult was noted and appreciated. The patient is for MRI and MRA. ASSESSMENT AND PLAN: Overall, the patient is medically stable. Plan as ordered. Case and plan discussed with the patient. Gomez Castle MD
[2018-06-30] MEDS: Insulin Detemir 100 Units/ml Inj SC SCH (22:19)
[2018-07-01 05:28] LABS: HEMOGLOBIN 12.8 g/dL (12.0-18.0); MEAN CELL VOLUME 85.5 fl (80.0-94.0); MEAN CORPUSCULAR HEMOGLOBIN 28.9 pg (27.0-31.0); MEAN CORPUSCULAR HGB CONC 33.8 g/dL (33.0-37.0); RBC 4.41 Mil/uL (4.40-5.90); RED CELL DISTRIBUTION WIDTH 13.8 % (11.5-14.5); WHITE BLOOD COUNT 8.4 K/uL (4.8-10.8)
[2018-07-01 06:02] LABS: ALB/GLOB RATIO 1.1 (1.0-2.1); ALBUMIN 3.2 g/dL (3.5-5.0); ALT/SGPT 17 U/L (21-72); AST/SGOT 13 U/L (17-59); BLOOD UREA NITROGEN 27 mg/dl (9-20); CALCIUM 8.9 mg/dL (8.4-10.2); GFR NON-AFRICAN AMERICAN > 60
[2018-07-01] MEDS: Insulin Lispro (humaLOG) 100 Units/ml Inj SC SCH ×7 (06:41→21:12)
--- NOTE | 2018-07-01 08:13 | CON ---
DATE: 06/30/2018 ENDOCRINOLOGY CONSULT LOCATION: Room 406. HISTORY OF PRESENT ILLNESS: This is a 63-year-old male with recent uncontrolled type 2 insulin-requiring diabetes presenting here with sudden left-sided weakness and evaluate to have an acute CVA and is now being followed closely for metabolic management. His oral intake remains variable and his glycemic levels also have been noted overnight with glucose values ranging from 196-266 mg/dL. It was 111 at bedtime last night. LABORATORY DATA: His chemistry showed a BUN of 21, sodium 138, potassium 3.9, chloride 107, CO2 of 25, glucose 168 and creatinine 1. ASSESSMENT: This is a 63-year-old male with uncontrolled type 2 insulin-requiring diabetes with recent hyperglycemic accelerations and is now being followed closely for metabolic management. He also has significant history of diabetic macrovascular disease with a previous CVA and also concomitant coronary artery disease with peripheral arterial disease and vasculopathy. PLAN OF MANAGEMENT: We will continue the same basal and bolus insulin regimen to allow for dose equilibration and keep him on the Humalog given as 20 units t.i.d. before meals as ordered. We will continue the Levemir given as 44 units subcutaneous at bedtime daily as given. We will titrate incrementally as indicated to optimize metabolic control. We will obtain serial chemistries and supplement accordingly as needed. We will follow. Antonieta Mcarthur MD
[2018-07-01] MEDS: Enoxaparin 40 mg Syringe SC SCH (09:21)
--- NOTE | 2018-07-01 11:27 | MRI ---
Date of service: 07/01/2018 PROCEDURE: MRI BRAIN WITHOUT CONTRAST HISTORY: ischemic stroke COMPARISON: CT head without contrast from 06/28/2018. TECHNIQUE: Multiplanar, multisequence MR images of the brain were obtained without intravenous contrast enhancement. FINDINGS: HEMORRHAGE: None DWI: There is focal restricted diffusion in the right posterior limb of internal capsule. BRAIN PARENCHYMA: There is focal T2/FLAIR hyperintense signal corresponding to the area of restricted diffusion in the right posterior limb of internal capsule. There is cystic encephalomalacia and gliosis in the right occipital lobe with volume loss and ex vacuo dilatation of the right occipital horn of lateral ventricle. There is a chronic infarction in the left posterior frontal and anterior parietal lobe. There are multiple chronic lacunar infarctions in left anterior angela radiata, right angela radiata, right basal ganglia and right posterior thalamus. There are moderate chronic microangiopathic changes. There is no mass, mass effect or abnormal extra-axial fluid collection. VENTRICLES: There is mild age-related global parenchymal volume loss and proportionate enlargement of the ventricles and cortical sulci. CRANIUM: There is normal bone marrow signal pattern. ORBITS: Grossly unremarkable. PARANASAL SINUSES/MASTOIDS: There is mild mucosal thickening in the paranasal sinuses and trace left mastoid effusion. VASCULAR SYSTEM: There are normal signal voids in the larger intracranial arteries. OTHER FINDINGS: None. IMPRESSION: 1. Late acute/early subacute infarction in the right posterior limb of internal capsule. 2. Cystic encephalomalacia and gliosis in the right occipital lobe, sequela of remote ZYGLO INSPECTOR territory infarction. 3. Chronic lacunar infarctions in bilateral angela radiata and right basal ganglia, and chronic left MCA territory infarction in the left frontoparietal lobe. 4. Moderate chronic microangiopathic changes and mild age-related global parenchymal volume loss. Important findings were discussed with Dr. Raman Tovar on 07/01/2018 at 11:20 a.m.
--- NOTE | 2018-07-01 12:32 | MRI ---
Date of service: 07/01/2018 PROCEDURE: Magnetic Resonance Angiography Brain HISTORY: ischemic stroke COMPARISON: MRA 10/19/2017 TECHNIQUE: 3D time of flight MR angiography of the intracranial arteries was performed. Rotating maximum intensity projection images were generated. FINDINGS: INTERNAL CAROTID ARTERIES: Unremarkable. The skull base, petrous, cavernous and supraclinoid segments are bilaterally widely patient. ANTERIOR CEREBRAL ARTERIES: Unremarkable. A1 and A2 segments are widely patent. Smaller distal branches unremarkable, as visualized. MIDDLE CEREBRAL ARTERIES: As noted previously there is absence of flow in the superior branches of the right middle cerebral artery. This pattern is unchanged. The left middle cerebral artery is unremarkable POSTERIOR CIRCULATION: Basilar Artery: Unremarkable. Distal Vertebral Arteries: Unremarkable. Posterior Cerebral Arteries: Unremarkable. Posterior Inferior Cerebellar Arteries: Unremarkable. ANEURYSM/ VASCULAR MALFORMATIONS: None. OTHER FINDINGS: None. IMPRESSION: As noted previously there is absence of flow in the superior branches of the right middle cerebral artery. This pattern is unchanged. The left middle cerebral artery is unremarkable
--- NOTE | 2018-07-01 12:34 | MRI ---
Date of service: 07/01/2018 PROCEDURE: MR Angiography of the neck without contrast HISTORY: ischemic stroke COMPARISON: None available. TECHNIQUE: 3D [id number] angiography of the neck was performed. Rotating maximum intensity projection images of the cervical carotid and vertebral arteries were generated. The origins of the common carotid arteries were not visualized, which is a limitation inherent to the non-contrast time of flight technique. FINDINGS: RIGHT CAROTID ARTERIES: No significant stenosis LEFT CAROTID ARTERIES: No significant stenosis VERTEBRAL ARTERIES: Right Vertebral Artery: Dominant Left Vertebral Artery: Normal. OTHER FINDINGS: None. IMPRESSION: No significant stenosis
--- NOTE | 2018-07-01 12:46 | PCM.STROKE ---
Interval History Stroke Date: 06/28/18 No other interval changes in current, PMHx, FHx, SocHx, ROS: other than on note by: (initial neuro H&P) - Treatment DVT Prophylaxis: Lovenox Antiplatelet: Acetylsalicylic acid (ASA), Plavix Statin: Atrovastatin - Education Written Stroke Education provided regarding: personal risk factors, stroke warning sign/symptoms, how to activate emergency medical services, need to follow up after discharge Hx Atrial Fibrillation: No Hx Atrial Flutter: No - Therapy Notes I have reviewed care of the patient with: Dr. Portillo NIHSS Stroke Scale - Date/Time Evaluation Performed Date Performed: 07/01/18 Time Performed: 12:55 When Was NIHSS Performed: Re-evaluation - How Severe is the Stroke Level of Consciousness: 0=Alert LOC to Questions: 0=Both comments correct LOC to commands: 0=Obeys both correctly Best Gaze: 0=Normal Visual: 0=No visual loss Facial: 0=Normal Motor Arm - Left: 1=Drift noted before 10 sec Motor Arm - Right: 0=No drift Motor Leg - Left: 1=Drift before 5 sec Motor Leg - Right: 0=No drift Limb Ataxia: 0=Absent Sensory: 0=Normal Best Language: 0=No aphasia Dysarthia: 0=Normal articulation Extinction & Inattention (Neglect): 0=Normal, no object Score: 2 Exam - Vital Sign Vital Signs: Temp Pulse Resp BP Pulse Ox 97.1 F L 83 20 131/75 97 07/01/18 11:57 07/01/18 11:57 07/01/18 11:57 07/01/18 11:57 07/01/18 11:57 Constitutional: No distress, Normal appearing Ophthalmoscopic: absent: papilledema, hemorrhage Right Pupil: Reactive Right Pupil Size (in mm): 2 Left Pupil: Reactive Left Pupil Size (in mm): 2 Cardiovascular: Regular rate & rhythm Mental Status: Normal: Orientation, Memory, Attention, Language, Fund of Knowledge Cranial Nerve: Normal: Visual Oliver, Extraocular movement intact, Facial Sensa tion, Facial Strength, Hearing, Palate/Tongue Movement, Shoulder Strength Motor: Tone, Bulk Neuro motor strength exam: Left Upper Extremity: 3 (distal 3/5), Right Upper Extremity: 5 (distal 5/5), Left Lower Extremity: 3 (distal 3/5), Right Lower Extremity: 5 (distal 5/5) Sensation: absent: Intact to pin (decreased sensation to LUE and LLE compared to right side; no facial sensory deficits.) DTR: Patellar Left: 1+, Patellar Right: 1+ Flexor Plantar Reflex: Normal Coordination: absent: Finger/nose (abnormal left), Heel/Massey (abnormal left) Gait: Other (not assessed; pt fall risk) Vascular Risk: Hypertension, Diabetes Mellitus - Data reviewed Laboratory results: 07/01/18 04:55 07/01/18 04:55 Assessment and Plan (1) CVA (cerebral vascular accident) Assessment & Plan: Imaging reviewed: -MRA Neck (07/01/18): No significant stenosis -MRA Head (07/01/18): As noted previously there is absence of flow in the superior branches of the right middle cerebral artery. This pattern is unchanged. The left middle cerebral artery is unremarkable. -MRI Brain (07/01/18): 1. Late acute/early subacute infarction in the right posterior limb of internal capsule. 2. 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 3. Chronic lacunar infarctions in bilateral angela radiata and right basal ganglia, and chronic left MCA territory infarction in the left frontoparietal lobe. 4. Moderate chronic microangiopathic changes and mild age-related global parenchymal volume loss. -CT Head (06/28/18): No evidence of recent infarct or intracranial hemorrhage. Chronic infarcts and microvascular small-vessel changes elsewhere. -ECHO w Bubble study ordered to r/o ASD, PFO---will f/u with results. -CTA Head and Neck ordered to further evaluate Right MCA occlusion---will f/u with results. -Neuro IR to be consulted pending CTA report--I have already notified Dr. Gutierrez of consultation. Will f/u with recommendations. -Continue ASA, Plavix, Statin. -PT/OT/ST -Continue tele. -Will add lipid panel and hgba1c to labs. -Notify neuro of any acute changes in pt's condition. Shannon Chou, DNP, [employer] SCREW[employer] d/w Dr. Portillo Status: Acute
[2018-07-01 13:36] LABS: HDL CHOLESTEROL 29 MG/DL (30-70)
[2018-07-01 13:47] LABS: LDL CHOLESTEROL 87 mg/dL (0-129)
--- NOTE | 2018-07-01 17:31 | PN ---
DATE: 07/01/2018 ENDOCRINOLOGY FOLLOWUP NOTE LOCATION: Room 406. SUBJECTIVE: This is a 63-year-old male with known recent history of uncontrolled type 2 insulin-requiring diabetes, presenting here with an acute CVA with residual left hemiparesis and is now undergoing neurological evaluation and management and also being followed closely for metabolic management. His glycemic levels are fluctuating but improved and the glucose values overnight have been elevated though and range from 175 to 282 and 413 mg/dL. LABORATORY DATA: His chemistry showed a BUN of 27, sodium 139, potassium 3.8, chloride 105, CO2 of 24, glucose 257, and creatinine 1.2. His hemoglobin A1c has not yet been reported as noted. ASSESSMENT: This is a 63-year-old male with uncontrolled and decompensated type 2 insulin-requiring diabetes with marked hyperglycemic accelerations, presenting here with an acute cerebrovascular accident with residual left hemiparesis and is now being followed closely for metabolic management. PLAN OF MANAGEMENT: We will modify once again basal and bolus insulin regimen and increase the Levemir to 50 units subcu at bedtime daily to start tonight. We will titrate incrementally as indicated to optimize metabolic control. We will also continue the low-dose correction scale using Humalog insulin as given. We will increase and titrate his Humalog given for mealtime requirements to a higher dosing of 24 units subcu t.i.d. before meals to start today as ordered. We will obtain serial chemistries and supplement accordingly. We will follow. Antonieta Mcarthur MD
[2018-07-01] MEDS ORDERED: Sodium Chloride 0.9% 50 ML IV ONE (18:14)
[2018-07-01] MEDS ORDERED: Iodixanol 320 MG/ML 100 ML BOTTLE IV ONE (18:14)
--- NOTE | 2018-07-01 19:34 | CARD ---
APPROVED REPORT Date of service: 07/01/2018 EXAM: Two-dimensional and M-mode echocardiogram with Doppler and color Doppler. Other Information Quality : GoodRhythm : NSR INDICATION 2D DIMENSIONS IVSd1.60 (0.7-1.1cm)LVDd3.67 (3.9-5.9cm) LVOT Diameter2.39 (1.8-2.4cm)PWd1.42 (0.7-1.1cm) IVSs1.91 (0.8-1.2cm)LA Nvhmdp57 (18-58mL) LVDs2.63 (2.5-4.0cm)FS (%) 28.3 % PWs0.79 (0.8-1.2cm) M-Mode DIMENSIONS Left Atrium (MM)4.52 (2.5-4.0cm)Aortic Root3.27 (2.2-3.7cm) Aortic Cusp Exc.1.92 (1.5-2.0cm) Aortic Valve AoV Peak Nnurqqro697.1cm/sAoV VTI22.4cmAO Peak GR.7mmHg LVOT Peak Ecqenrmb373.0cm/sLVOT VTI20.11cmAO Mean GR.4mmHg MEAGHAN (VMAX)1.18qt7LQT (VTI)1.97cm2 Mitral Valve MV E Wqczsrng98.1cm/sMV E Peak Gr.28mmHgMV DECEL KVKZ122zz MV A Ftklkkqy06.9cm/sMV KZM36vnD/A ratio1.1 MVA (PHT)2.84cm2 TDI Lateral E' Peak V7.58cm/sMedial E' Peak V6.11cm/sE/Lateral E'10.8 E/Medial E'13.4 Pulmonary Valve PV Peak Ytezafmz64.8cm/s Tricuspid Valve RAP [id number] LEFT VENTRICLE The left ventricle is normal size. There is mild concentric left ventricular hypertrophy. The left ventricular systolic function is normal. The estimated ejection fraction is 55-60% No regional wall motion abnormalities noted.. Transmitral Doppler flow pattern is Grade I-abnormal relaxation pattern. No left ventricle thrombus noted on this study. There is no ventricular septal defect visualized. There is no left ventricular aneurysm. There is no mass noted in the left ventricle. RIGHT VENTRICLE The right ventricle is normal size. There is normal right ventricular wall thickness. The right ventricular systolic function is normal. ATRIA The left atrium size is normal. The right atrium size is normal. The interatrial septum is intact with no evidence for an atrial septal defect. AORTIC VALVE The aortic valve is normal in structure. No aortic regurgitation is present. There is no aortic valvular stenosis. There is no aortic valvular vegetation. MITRAL VALVE The mitral valve is normal in structure. There is no evidence of mitral valve prolapse. There is no mitral valve stenosis. There is mild mitral valve regurgitation noted. TRICUSPID VALVE The tricuspid valve is normal in structure. There is no tricuspid valve regurgitation noted. There is no tricuspid valve prolapse or vegetation. There is no tricuspid valve stenosis. PULMONIC VALVE The pulmonary valve is normal in structure. There is no pulmonic valvular regurgitation. There is no pulmonic valvular stenosis. GREAT VESSELS The aortic root is normal in size. The ascending aorta is normal in size. The pulmonary artery is normal. The IVC is normal in size and collapses >50% with inspiration. PERICARDIAL EFFUSION There is no pericardial effusion. There is no pleural effusion. <Conclusion> Technically difficult study as patient was uncooperative. There is mild concentric left ventricular hypertrophy. The estimated ejection fraction is 55-60% Transmitral Doppler flow pattern is Grade I-abnormal relaxation pattern. The left atrium size is normal. There is mild mitral valve regurgitation noted. There is no tricuspid valve regurgitation noted. The interatrial septum is intact with no evidence for an atrial septal defect on bubble study.
--- NOTE | 2018-07-01 20:15 | PN ---
DATE: 07/01/2018 SUBJECTIVE: The patient seen and examined. Interim events noted. Consults noted and appreciated. Neurology followup and intervention noted and appreciated. The patient remains in progressive care with telemetry monitoring. The patient feels okay. Denies any specific complaint. No chest pain, no shortness of breath, no new weakness. No specific issue reported by nursing staff. PHYSICAL EXAMINATION: GENERAL: The patient is in no acute distress. VITAL SIGNS: Stable. HEART: S1, S2 normal and regular. LUNGS: Good bilateral air exchange. ABDOMEN: Soft, nontender. EXTREMITIES: No edema. No calf swelling. No tenderness. No acute ischemia. CENTRAL NERVOUS SYSTEM: Exam is essentially unchanged. DIAGNOSTIC DATA: Available diagnostic data reviewed. MRI result shows late acute or early subacute infarction in the right posterior limb, cystic encephalomalacia, chronic lacunar infarctions, microangiopathic changes. MRI of head shows absence of flow in superior branches of right middle cerebellar artery, which is essentially unchanged. Neck MRI shows no significant stenosis. Accu-Cheks are 493, triglycerides are 249, cholesterol 142, LDL 87 and HDL 29. WBC 8.4, hemoglobin 12.8, hematocrit 37.7, platelets 213. Sodium 139, potassium 3.8, chloride 105, bicarb 24, BUN 27, creatinine 1.2. ASSESSMENT AND PLAN: Overall, the patient is medically stable. All the Accu-Cheks remain high. Plan as ordered. Gomez Castle MD
[2018-07-01] MEDS ORDERED: Insulin Detemir 100 Units/ml Inj SC SCH (22:00)
[2018-07-01] MEDS ORDERED: MELATONIN PO SCH (22:00)
[2018-07-02 06:05] LABS: HEMOGLOBIN 13.5 g/dL (12.0-18.0); MEAN CELL VOLUME 85.5 fl (80.0-94.0); MEAN CORPUSCULAR HEMOGLOBIN 28.7 pg (27.0-31.0); MEAN CORPUSCULAR HGB CONC 33.6 g/dL (33.0-37.0); RBC 4.71 Mil/uL (4.40-5.90); RED CELL DISTRIBUTION WIDTH 13.9 % (11.5-14.5)
[2018-07-02 06:10] LABS: ALB/GLOB RATIO 1.2 (1.0-2.1); ALBUMIN 3.7 g/dL (3.5-5.0); ALT/SGPT 15 U/L (21-72); AST/SGOT 13 U/L (17-59); BLOOD UREA NITROGEN 19 mg/dl (9-20); CALCIUM 8.6 mg/dL (8.4-10.2); GFR NON-AFRICAN AMERICAN > 60
--- NOTE | 2018-07-02 06:11 | PN ---
DATE: 07/02/2018 ENDOCRINOLOGY FOLLOWUP NOTE LOCATION: Room 403. SUBJECTIVE: This is a 63-year-old male with recent uncontrolled type 2 insulin-requiring diabetes presenting here with an acute CVA and is now being followed closely for metabolic management. His glycemic levels are fluctuating but improved, and the glucose levels have ranged from 126 to 282 mg/dL, it was 303 at bedtime last night. His A1c is a extremely elevated at 11.3% indicative of suboptimal metabolic control of his diabetic condition even prior to this admission. His chemistry showed a BUN of 27, sodium 139, potassium 3.8, chloride 105, CO2 of 24, glucose 257, and creatinine 1.2. ASSESSMENT: This is a 63-year-old with uncontrolled and decompensated type 2 insulin-requiring diabetes with marked hyperglycemic accelerations, presenting here with an acute cerebrovascular accident with left-sided hemiparesis. PLAN OF MANAGEMENT: We will modify the current basal and bolus insulin regimen and increase the Levemir to 50 units subcu at bedtime daily to start tonight. We will also titrate and increase his prandial insulin with Humalog to be given as 24 units subcu t.i.d. before meals as ordered. We will continue the low-dose correction scale using Humalog insulin as given. We will titrate incrementally as indicated to optimize metabolic control. We will follow. Antonieta Mcarthur MD
[2018-07-02] MEDS: Insulin Lispro (humaLOG) 100 Units/ml Inj SC SCH ×4 (09:21→11:33)
[2018-07-02] MEDS: Enoxaparin 40 mg Syringe SC SCH (09:23)
--- NOTE | 2018-07-02 10:52 | PCM.STROKE ---
Interval History Stroke Date: 06/28/18 No other interval changes in current, PMHx, FHx, SocHx, ROS: other than on note by: (initial neuro H&P) - Treatment DVT Prophylaxis: Lovenox Antiplatelet: Acetylsalicylic acid (ASA), Plavix Statin: Atrovastatin - Education Written Stroke Education provided regarding: personal risk factors, stroke warning sign/symptoms, how to activate emergency medical services, need to follow up after discharge Hx Atrial Fibrillation: No Hx Atrial Flutter: No - Therapy Notes Physical therapy notes date reviewed: 07/02/18 Occupational therapy notes date reviewed: 07/02/18 Speech therapy notes date reviewed: 07/02/18 I have reviewed care of the patient with: Dr. Portillo NIHSS Stroke Scale - Date/Time Evaluation Performed Date Performed: 07/02/18 Time Performed: 11:28 When Was NIHSS Performed: Re-evaluation - How Severe is the Stroke Level of Consciousness: 0=Alert LOC to Questions: 0=Both comments correct LOC to commands: 0=Obeys both correctly Best Gaze: 0=Normal Visual: 0=No visual loss Facial: 1=Minor asymmetry (from old CVA; has not worsened since new stroke) Motor Arm - Left: 1=Drift noted before 10 sec Motor Arm - Right: 0=No drift Motor Leg - Left: 1=Drift before 5 sec Motor Leg - Right: 0=No drift Limb Ataxia: 0=Absent Sensory: 0=Normal Best Language: 0=No aphasia Dysarthia: 0=Normal articulation Extinction & Inattention (Neglect): 0=Normal, no object Score: 3 Exam - Vital Sign Vital Signs: Temp Pulse Resp BP Pulse Ox 97.8 F 72 20 139/78 97 07/02/18 08:00 07/02/18 08:00 07/02/18 08:00 07/02/18 08:00 07/02/18 08:00 Constitutional: No distress, Normal appearing Ophthalmoscopic: absent: papilledema, hemorrhage Right Pupil: Reactive Right Pupil Size (in mm): 2 Left Pupil: Reactive Left Pupil Size (in mm): 2 Cardiovascular: Regular rate & rhythm Mental Status: Normal: Orientation, Memory, Attention, Language, Fund of Knowledge Cranial Nerve: Normal: Visual Oliver, Extraocular movement intact, Facial Sensation, Facial Strength, Hearing, Palate/Tongue Movement, Shoulder Strength Motor: Tone, Bulk Neuro motor strength exam: Left Upper Extremity: 3 (distal 4/5), Right Upper Extremity: 5 (distal 5/5), Left Lower Extremity: 3 (distal 3/5), Right Lower Extremity: 5 (distal 5/5) Sensation: absent: Intact to pin (still decreased to LUE and LLE; no deficits to left side face) DTR: Patellar Left: 1+, Patellar Right: 1+ Flexor Plantar Reflex: Normal Coordination: absent: Finger/nose (abnormal left), Heel/Massey (abnormal left) Vascular Risk: Hypertension, Diabetes Mellitus - Data reviewed Laboratory results: 07/02/18 05:15 07/02/18 05:15 Triglycerides 249 mg/DL (0-149) H D 07/01/18 13:03 Cholesterol 142 mg/dL (0-199) 07/01/18 13:03 LDL Cholesterol Direct 87 mg/dL (0-129) 07/01/18 13:03 HDL Cholesterol 29 MG/DL (30-70) L 07/01/18 13:03 Hemoglobin A1c 11.3 % (4.2-6.5) H 07/01/18 13:03 Assessment and Plan (1) CVA (cerebral vascular accident) Assessment & Plan: Imaging reviewed: -CTA Head and neck (prelim report, 07/01/18): Approx 7.0 mm segment of occlusion of the right m1-m2 junction segment of the MCA; distal M3 branches of the right MCA appear diminished; atheromatous calcific plaquing noted posterior carotid bulbs b/l slightly more pronounced on the right; minimal degenerative arthritis noted in the atlanto-dens interval. -Echo w/ Bubble (07/01/18): no ASD, EF 55-60%. -MRA Neck (07/01/18): No significant stenosis -MRA Head (07/01/18): As noted previously there is absence of flow in the superior branches of the right middle cerebral artery. This pattern is unchanged. The left middle cerebral artery is unremarkable. -MRI Brain (07/01/18): 1. Late acute/early subacute infarction in the right posterior limb of internal capsule. 2. Cystic encephalomalacia and gliosis in the right occipital lobe, sequela of remote BREAD WRAPPER territory infarction. 3. Chronic lacunar infarctions in bilateral angela radiata and right basal ganglia, and chronic left MCA territory infarction in the left frontoparietal lobe. 4. Moderate chronic microangiopathic changes and mild age-related global parenchymal volume loss. -CT Head (06/28/18): No evidence of recent infarct or intracranial hemorrhage. Chronic infarcts and microvascular small-vessel changes elsewhere. -CTA Head and Neck prelim report reviewed--will f/u with the official report. -Neuro IR consulted for right MCA occlusion on MRA---will f/u with recommendations. -Continue ASA, Plavix, Statin. -Continue rehab services. -Continue management of risk factors for secondary stroke prevention. -Will order CT head non-contrast for tomorrow morning to r/o hemorrhagic conversion of new stroke. -Notify neuro of any acute changes in pt's condition. Shannon Chou, KARTHIK, MECHANOTHERAPIST d/w Dr. Portillo Status: Acute
--- NOTE | 2018-07-02 11:45 | CP.PCM.DIS ---
Provider - Provider Date of Admission: 06/28/18 21:46 Attending physician: Gomez Castle MD Primary care physician: Dr Costa Consults: 06/28/18 21:47 Neurology Consult Stat Comment: Consulting Provider: Joselito Tovar Consulting Physician: Joselito Tovar Reason for Consult: LEFT sided weakness h/o CVA 06/29/18 05:10 Case Management Referral Routine Comment: Physician Instructions: Reason For Exam: Needs assistance at home. Reason for Referral: Discharge Planning Social Work Referral Routine Comment: Needs asistance Physician Instructions: Reason For Exam: Lives alone 06/29/18 06:17 Endocrinology Consult Routine Comment: Consulting Provider: Antonieta Mcarthur Consulting Physician: Antonieta Mcarthur Reason for Consult: Uncontrolled DM 06/29/18 06:20 Nursing Referral for Wound Care Routine Comment: Physician Instructions: Reason For Exam: wound 07/02/18 10:59 Physician Consult Routine Comment: Consulting Provider: Curt Gutierrez Consulting Physician: Curt Gutierrez Reason for Consult: right mca occlussion on MRA; new cva; 2nd cva w/in 8 months. Additional Comments: pending cta official report. Time Spent in preparation of Discharge (in minutes): 35 Diagnosis - Discharge Diagnosis (1) Left-sided weakness Status: Acute Comment: --Due to acute CVA vs suppressive effects of Neurontin (2) History of CVA with residual deficit Status: Acute (3) Hyperglycemia due to type 2 diabetes mellitus Status: Acute Priority: High Hospital Course - Lab Results Lab Results: Most Recent Lab Values WBC 10.0 K/uL (4.8-10.8) 07/02/18 05:15 RBC 4.71 Mil/uL (4.40-5.90) 07/02/18 05:15 Hgb 13.5 g/dL (12.0-18.0) 07/02/18 05:15 Hct 40.3 % (35.0-51.0) 07/02/18 05:15 MCV 85.5 fl (80.0-94.0) 07/02/18 05:15 MCH 28.7 pg (27.0-31.0) 07/02/18 05:15 MCHC 33.6 g/dL (33.0-37.0) 07/02/18 05:15 RDW 13.9 % (11.5-14.5) 07/02/18 05:15 Plt Count 224 K/uL (130-400) 07/02/18 05:15 MPV 8.9 fl (7.2-11.7) 06/28/18 20:10 Neut % (Auto) 62.1 % (50.0-75.0) 06/28/18 20:10 Lymph % (Auto) 21.3 % (20.0-40.0) 06/28/18 20:10 Pepin % (Auto) 8.8 % (0.0-10.0) 06/28/18 20:10 Eos % (Auto) 7.1 % (0.0-4.0) H 06/28/18 20:10 Baso % (Auto) 0.7 % (0.0-2.0) 06/28/18 20:10 Neut # (Auto) 4.8 K/uL (1.8-7.0) 06/28/18 20:10 Lymph # (Auto) 1.7 K/uL (1.0-4.3) 06/28/18 20:10 Pepin # (Auto) 0.7 K/uL (0.0-0.8) 06/28/18 20:10 Eos # (Auto) 0.6 K/uL (0.0-0.7) 06/28/18 20:10 Baso # (Auto) 0.1 K/uL (0.0-0.2) 06/28/18 20:10 PT 10.7 Seconds (9.8-13.1) 06/28/18 20:10 INR 0.9 06/28/18 20:10 APTT 28.1 Seconds (25.6-37.1) 06/28/18 20:10 pO2 40 mm/Hg (30-55) 06/28/18 21:05 VBG pH 7.33 (7.32-7.43) 06/28/18 21:05 VBG pCO2 52 mmHg (40-60) 06/28/18 21:05 VBG HCO3 24.7 mmol/L 06/28/18 21:05 VBG Total CO2 29.0 mmol/L (22-28) H 06/28/18 21:05 VBG O2 Sat (Calc) 81.9 % (40-65) H 06/28/18 21:05 VBG Base Excess 0.6 mmol/L (0.0-2.0) 06/28/18 21:05 VBG Potassium 4.6 mmol/L (3.6-5.2) 06/28/18 21:05 Sodium 135.0 mmol/L (132-148) 06/28/18 21:05 Chloride 101.0 mmol/L (98-107) 06/28/18 21:05 Glucose 431 mg/dL (75-110) H* D 06/28/18 21:05 Lactate 1.6 mmol/L (0.7-2.1) 06/28/18 21:05 FiO2 21.0 % 06/28/18 21:05 Crit Value Called To Dr yolis santos 06/28/18 21:05 Crit Value Called By Silvia iverson rt 06/28/18 21:05 Crit Value Read Back Y 06/28/18 21:05 Blood Gas Notified Time 211506/28/18 21:05 Sodium 142 mmol/l (132-148) 07/02/18 05:15 Potassium 3.7 MMOL/L (3.6-5.0) 07/02/18 05:15 Chloride 107 mmol/L (98-107) 07/02/18 05:15 Carbon Dioxide 27 mmol/L (22-30) 07/02/18 05:15 Anion Gap 12 (10-20) 07/02/18 05:15 BUN 19 mg/dl (9-20) 07/02/18 05:15 Creatinine 1.0 mg/dl (0.8-1.5) 07/02/18 05:15 Est GFR ( Amer) > 60 07/02/18 05:15 Est GFR (Non-Af Amer) > 60 07/02/18 05:15 POC Glucose (mg/dL) 242 mg/dL (65-110) H 07/02/18 10:54 Random Glucose 160 mg/dL (75-110) H 07/02/18 05:15 Hemoglobin A1c 11.3 % (4.2-6.5) H 07/01/18 13:03 Lactic Acid 1.2 mmol/L (0.7-2.1) 06/28/18 20:10 Calcium 8.6 mg/dL (8.4-10.2) 07/02/18 05:15 Phosphorus 3.8 mg/dl (2.5-4.5) 07/02/18 05:15 Magnesium 1.7 MG/DL (1.6-2.3) 07/02/18 05:15 Total Bilirubin 0.2 mg/dl (0.2-1.3) 07/02/18 05:15 AST 13 U/L (17-59) L 07/02/18 05:15 ALT 15 U/L (21-72) L 07/02/18 05:15 Alkaline Phosphatase 86 U/L (38-126) 07/02/18 05:15 Total Creatine Kinase 104 U/L (55-170) 06/28/18 20:10 Troponin I < 0.0120 ng/mL (0.00-0.120) 06/28/18 20:10 NT-Pro-B Natriuret Pep 174 pg/ml (0-900) 06/28/18 20:10 Total Protein 6.7 G/DL (6.3-8.2) 07/02/18 05:15 Albumin 3.7 g/dL (3.5-5.0) 07/02/18 05:15 Globulin 3.0 gm/dL (2.2-3.9) 07/02/18 05:15 Albumin/Globulin Ratio 1.2 (1.0-2.1) 07/02/18 05:15 Triglycerides 249 mg/DL (0-149) H D 07/01/18 13:03 Cholesterol 142 mg/dL (0-199) 07/01/18 13:03 LDL Cholesterol Direct 87 mg/dL (0-129) 07/01/18 13:03 HDL Cholesterol 29 MG/DL (30-70) L 07/01/18 13:03 Venous Blood Potassium 4.6 mmol/L (3.6-5.2) 06/28/18 21:05 Alcohol, Quantitative < 10 mg/dl (0-10) 06/28/18 20:10 Blood Type B POSITIVE 06/28/18 20:10 Antibody Screen Negative 06/28/18 20:10 BBK History Checked Patient has bt 06/28/18 20:10 - Hospital Course Hospital Course: 63y/o M with a PMHx of HTN, DM, HLD, previous right parietal/occipital lobe infarct with residual left side weakness was admitted for evalaution of aggravating L sided weakness. Pt states that he was having left lower extremity pain in the morning yesterday and he took neurontin 300 mg; the, he noted worsening left side weakness and was unable to get out of bed. Neurology was consulter, Dr Tovar, who recommended to continue aspirin 81 mg daily, add plavix 75 mg daily for 21 days; then, stop aspirin 81 mg daily and continue only Plavix 75 mg daily as monotherapy. Continue lipitor 40 mg daily. --CTA Head and neck (prelim report, 07/01/18): Approx 7.0 mm segment of occlusion of the right m1-m2 junction segment of the MCA; distal M3 branches of the right MCA appear diminished; atheromatous calcific plaquing noted posterior carotid bulbs b/l slightly more pronounced on the right; minimal degenerative arthritis noted in the atlanto-dens interval. --Echo w/ Bubble (07/01/18): no ASD, EF 55-60%. --MRA Neck (07/01/18): No significant stenosis --MRA Head (07/01/18): As noted previously there is absence of flow in the superior branches of the right middle cerebral artery. This pattern is unchanged. The left middle cerebral artery is unremarkable. --MRI Brain (07/01/18): 1. Late acute/early subacute infarction in the right posterior limb of internal capsule. 2. 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 3. Chronic lacunar infarctions in bilateral angela radiata and right basal ganglia, and chronic left MCA territory infarction in the left frontoparietal lobe. 4. Moderate chronic microangiopathic changes and mild age-related global parenchymal volume loss. -CT Head (06/28/18): No evidence of recent infarct or intracranial hemorrhage. Chronic infarcts and microvascular small-vessel changes elsewhere. >Today, pt was seen and examined by bedside with Dr Castle. Pt reported improvement in his symptoms. Pt afebrile, tolerating PO. Pt is stable to be discharged to rehabilitation facility and continue management. Discharge Exam - Head Exam Head Exam: ATRAUMATIC, NORMOCEPHALIC - Eye Exam Eye Exam: EOMI, Normal appearance, PERRL - ENT Exam ENT Exam: Mucous Membranes Moist - Neck Exam Neck exam: Normal Inspection - Respiratory Exam Respiratory Exam: NORMAL BREATHING PATTERN. absent: Rhonchi, Wheezes, Respiratory Distress, Stridor - Cardiovascular Exam Cardiovascular Exam: REGULAR RHYTHM, +S1, +S2 - GI/Abdominal Exam GI & Abdominal Exam: Soft. absent: Distended, Guarding, Rebound, Tenderness - Extremities Exam Extremities exam: normal inspection - Neurological Exam Neurological exam: Alert, Oriented x3 Additional comments: Left sided facial palsy noticed; however, residual from previous CVA. Left extremities: Strenght 3/5, SILT, ROM is limited, not full abduction or flexion of L upper and lower extremities. Discharge Plan - Follow Up Plan Condition: FAIR Disposition: REHAB FACILITY/REHAB UNIT Referrals: Gomez Castle MD [Staff Provider] - Joselito Tovar MD [Medical Doctor] -
--- NOTE | 2018-07-02 13:36 | CT ---
Date of service: 07/01/2018 PROCEDURE: CTA HEAD AND NECK WITH CONTRAST HISTORY: right MCA occlusion on MRA; new stroke COMPARISON: MRA HEAD AND NECK FROM 07/01/2018. TECHNIQUE: Initial noncontrast head CT was performed. Subsequently, CT angiogram of the head and neck were performed after the intravenous administration of 80 mL of Omnipaque 350. Contiguous 1.5mm thick images were obtained in the axial plane of the neck. 2-D coronal and sagittal MPR images were obtained. Imaging postprocessing was performed with 3-D images also obtained. A delayed contrast head CT was also obtained. This CT exam was performed using one or more of the following dose reduction techniques: Automated exposure control, adjustment of the mA and/or kV according to patient size, and/or use of iterative reconstruction technique. Contrast dose: 90 mL Visipaque Radiation dose: Total exam DLP = 446.76 mGy-cm. FINDINGS: HEAD: Right: There is occlusion of the superior division the right M2 segment. The right M1 segment and inferior division are patent. There is attenuation of the superior division perisylvian branches. The intracranial internal carotid artery and anterior cerebral arteries are widely patent. Left: The intracranial internal carotid artery, and anterior and middle cerebral arteries are widely patent. Posterior circulation: The visualized intracranial right vertebral artery, basilar artery and posterior cerebral arteries are widely patent. There is multifocal narrowing in the left V4 segment of the vertebral artery. There is no endoluminal filling defect to suggest thrombus. There is no intracranial saccular aneurysm. NECK: There is a three vessel aortic arch. There is no stenosis at the origins of the great vessels at the level of the aortic arch. There are calcified and noncalcified atherosclerotic plaques in the proximal internal carotid arteries. Right Carotid: On the right, the common carotid, internal carotid and external carotid arteries are widely patent. There is no hemodynamically significant stenosis in the internal carotid artery by NASCET criteria. Left Carotid: On the left, the common carotid, internal carotid and external carotid arteries are widely patent. There is no hemodynamically significant stenosis in the internal carotid artery by NASCET criteria. The vertebral arteries are widely patent. IMPRESSION: 1. Occlusion of superior division of the right middle cerebral artery with attenuation of the distal branches. Patent M1 segment and inferior divisions. 2. Patent bilateral intracranial internal carotid arteries, bilateral anterior cerebral, left middle cerebral, posterior cerebral, basilar and right vertebral arteries. Multifocal narrowing in the left V4 segment of the vertebral artery. 2. No evidence of hemodynamically significant stenosis in the internal carotid arteries. 3. Patent bilateral cervical segment of vertebral arteries. A preliminary report was provided by [facility].
[2018-07-02 16:18] VITALS: BP 119/64; PULSE 80; RESP 16; TEMP 98; O2SAT 95
== END 2018-07-02 16:25 | DRG 65 ==
LOC: H.ER 18:20 → H.ERHOLD 21:46 → H.TEL 23:18
PROVIDERS: ADMIT Internal Medicine; ATTEND Internal Medicine
DX: I63.539 Cerebral infarction due to unspecified occlusion or stenosis of unspecified posterior cerebral artery (principal); I69.354 Hemiplegia and hemiparesis following cerebral infarction affecting left non-dominant side; E11.65 Type 2 diabetes mellitus with hyperglycemia; Z79.82 Long term (current) use of aspirin; E11.51 Type 2 diabetes mellitus with diabetic peripheral angiopathy without gangrene; E78.00 Pure hypercholesterolemia, unspecified; E78.5 Hyperlipidemia, unspecified; G93.89 Other specified disorders of brain; I10 Essential (primary) hypertension; I25.10 Atherosclerotic heart disease of native coronary artery without angina pectoris; Z79.02 Long term (current) use of antithrombotics/antiplatelets; Z79.4 Long term (current) use of insulin; Z79.899 Other long term (current) drug therapy; Z82.3 Family history of stroke; F17.210 Nicotine dependence, cigarettes, uncomplicated; Z93.3 Colostomy status; G62.9 Polyneuropathy, unspecified; Z79.84 Long term (current) use of oral hypoglycemic drugs; R29.704 NIHSS score 4; Z91.81 History of falling

== ENCOUNTER 2018-07-02 12:57 | Inpatient (IN) | payer MEDICARE, OTHER ==
[2018-07-02 16:42] VITALS: BMI 27.0
[2018-07-02] MEDS: Bismuth Subsalicylate 262 mg/15 ml Sus (240 ml) PO PRN (19:01)
[2018-07-02] MEDS ORDERED: Atropine-Diphenoxylate 0.025-2.5 mg Tab PO ONE ×2 (19:51→23:41)
[2018-07-02] MEDS: Insulin Lispro (humaLOG) 100 Units/ml Inj SC SCH (21:49)
[2018-07-02] MEDS: Insulin Detemir 100 Units/ml Inj SC SCH (22:33)
[2018-07-03] MEDS: Nasal Spray(Ocean spray) NAS PRN ×2 (00:26→08:05)
[2018-07-03] MEDS: Insulin Lispro (humaLOG) 100 Units/ml Inj SC SCH ×7 (06:37→22:17)
[2018-07-03] MEDS ORDERED: Atropine-Diphenoxylate 0.025-2.5 mg Tab PO PRN (07:54)
[2018-07-03] MEDS: Enoxaparin 40 mg Syringe SC SCH (07:59)
[2018-07-03] MEDS: Pantoprazole 40 mg EC Tab PO SCH (08:01)
--- NOTE | 2018-07-03 08:28 | CP.PCM.HP ---
<Gil Hendrix - Last Filed: 07/03/18 10:56> History of Present Illness - History of Present Illness History of Present Illness: 63y/o M with a PMHx of HTN, DM, HLD, previous right parietal/occipital lobe infarct with residual left side is admitted to acute rehabilitation after worsening of L side weakness episode on 06/28/18, and possible new stroke. Pt was evaluated and examined by bedside today with Dr Castle. Pt reports feeling OK, eager to complete physical therapy. Watery diarrhea episode overnight. Pt afebrile, tolerating PO. Pt denies headache, dizziness, chest pain, SOB, abdominal pain, N/V/D. PMD: Dr Julissa TAO PMHx: HTN, DM, HLD, CVA PSHx: unspecified abdominal surgery. SHx: Denies tobacco, alcohol or rec drugs. Present on Admission - Present on Admission Any Indicators Present on Admission: No Review of Systems - Constitutional Constitutional: absent: Chills, Fever - EENT Eyes: absent: Change in Vision Nose/Mouth/Throat: absent: Sore Throat, Neck Pain, Neck Mass - Cardiovascular Cardiovascular: absent: Chest Pain, Claudication, Dyspnea - Respiratory Respiratory: absent: Cough, Dyspnea, Hemoptysis - Gastrointestinal Gastrointestinal: absent: Abdominal Pain, Diarrhea, Hematemesis, Nausea, Vomiting - Genitourinary Genitourinary: absent: Difficulty Urinating, Dysuria, Flank Pain, Hematuria, Urinary Incontinence - Musculoskeletal Musculoskeletal: absent: Myalgias Past Patient History - Infectious Disease Hx of Infectious Diseases: None - Past Medical History & Family History Past Medical History?: Yes - Past Social History Smoking Status: Heavy Smoker > 10 Cigarettes Daily - CARDIAC Hx Atrial Fibrillation: No - PULMONARY Hx Respiratory Disorders: No - NEUROLOGICAL Hx Neurological Disorder: Yes HX Cerebrovascular Accident: Yes (10/22/17) Other/Comment: neuropathy - HEENT Hx HEENT Problems: No - RENAL Hx Chronic Kidney Disease: No - ENDOCRINE/METABOLIC Hx Endocrine Disorders: Yes Hx Diabetes Mellitus Type 2: Yes - HEMATOLOGICAL/ONCOLOGICAL Hx Human Immunodeficiency Virus (HIV): No - INTEGUMENTARY Hx Dermatological Problems: No - MUSCULOSKELETAL/RHEUMATOLOGICAL Hx Falls: Yes - GASTROINTESTINAL Hx Gastrointestinal Disorders: Yes Hx Colostomy: Yes (2012) - GENITOURINARY/GYNECOLOGICAL Hx Genitourinary Disorders: Yes Hx Prostate Problems: Yes - PSYCHIATRIC Hx Substance Use: No - SURGICAL HISTORY Hx Surgeries: Yes Other/Comment: COLOSTOMY 2013 - ANESTHESIA Hx Anesthesia: Yes Hx Anesthesia Reactions: No Hx Malignant Hyperthermia: No Meds Allergies/Adverse Reactions: Allergies Allergy/AdvReac Type Severity Reaction Status Date / Time No Known Allergies Allergy Verified 10/18/17 14:17 Physical Exam - Additional Findings Additional findings: - Head Exam Head Exam: ATRAUMATIC, NORMOCEPHALIC - Eye Exam Eye Exam: EOMI, Normal appearance, PERRL - ENT Exam ENT Exam: Mucous Membranes Moist - Neck Exam Neck exam: Normal Inspection - Respiratory Exam Respiratory Exam: NORMAL BREATHING PATTERN. absent: Rhonchi, Wheezes, Respiratory Distress, Stridor - Cardiovascular Exam Cardiovascular Exam: REGULAR RHYTHM, +S1, +S2 - GI/Abdominal Exam GI & Abdominal Exam: Soft. absent: Distended, Guarding, Rebound, Tenderness - Extremities Exam Extremities exam: normal inspection - Neurological Exam Neurological exam: Alert, Oriented x3 Additional comments: Left sided facial palsy noticed; however, residual from previous CVA. Left extremities: Strenght 3/5, SILT, ROM is limited, not full abduction or flexion of L upper and lower extremities. Results - Vital Signs Recent Vital Signs: Last Vital Signs Temp 97.2 F L 07/03/18 07:28 Pulse 91 H 07/03/18 07:28 Resp 20 07/03/18 07:28 BP 139/77 07/03/18 07:28 Pulse Ox 96 07/03/18 07:28 - Labs Labs: Laboratory Results - last 24 hr 07/02/18 07/02/18 07/03/18 18:32 21:05 06:37 POC Glucose (mg/dL) 149 H 158 H 97 Assessment & Plan - Assessment and Plan (Free Text) Assessment: 63y/o M with a PMHx of HTN, DM, HLD, previous CVA with residual left side weakness was admitted to rehabilitation unit due to aggravating L sided weakness. PLAN: >Left sided weakness --Stable, L weakness improved. --Physical therapy as tolerated. --Neurology on board, Dr Portillo. --On secondary prevention: aspirin, clopidogrel ans lipitor. --Continue management as ordered. >Diarrhea --Lomotil ordered PRN --Considering C.Diff antigen test if persistent. >HTN --Home meds resumed --heart healthy diet. >DM --Home meds resumed --Insulin sliding scale and hypoglycemia protocol. >HLD --Home meds resumed. >DVT Prophylaxis --Lovenox Sc daily. Case discussed with Dr Corrine Hendrix PGY-2 <Gomez Castle - Last Filed: 07/03/18 12:23> Results - Vital Signs Recent Vital Signs: Last Vital Signs Temp 97.2 F L 07/03/18 07:28 Pulse 91 H 07/03/18 07:28 Resp 20 07/03/18 07:28 BP 139/77 07/03/18 07:28 Pulse Ox 96 07/03/18 07:28 - Labs Labs: Laboratory Results - last 24 hr 07/02/18 07/02/18 07/03/18 18:32 21:05 06:37 POC Glucose (mg/dL) 149 H 158 H 97 Assessment & Plan - Assessment and Plan (Free Text) Assessment: Patient was personally seen and examined by me in rounds with residents. Available labs and diagnostic data reviewed. Case, Patient's condition and management plan discussed with residents in rounds. Agree with resident's progress note. Plan: As ordered.
[2018-07-03] MEDS ORDERED: Glucagon Recombinant 1 mg Inj IM PRN (11:45)
[2018-07-03] MEDS ORDERED: Dextrose 50% SYRINGE Inj (50 ml) IV PRN (11:45)
--- NOTE | 2018-07-03 17:51 | PCM.OPOC ---
Physiatry Overall Plan of Care - Overall Plan of Care Estimated Length of Stay in Weeks: 3 Rehab Impairment: Mobility, Gait, Cognition, Speech, Balance, Coordination Etiologic Diagnosis: Cerebrovascular Accident Rehab/Medical Prognosis: Fair - Anticipated Interventions Physical Therapy:: Yes Number of Hours: 1.5 Number of times per week: 6 Number of Week(s) Duration: 3 Occupational Therapy:: Yes Number of Hours: 1.5 Number of times per week: 6 Number of Week(s) Duration: 3 Speech Therapy:: Yes Number of Hours: 0.5 Number of times per week: 5 Number of Week(s) Duration: 3 Recreational Therapy:: Yes Number of Hours: 0.5 Number of times per week: 5 Number of Week(s) Duration: 3 - Therapy Goals Bed Mobility: Supervision Ambulation: Minimal Assistance Functional Positional Changes:: Supervision - Functional Status Prior to Admission: independent Current Status: requires assistance for ADLs and ambulation - Functional Outcomes Functional Outcomes: To be assessed - Discharge Plan Identification of Barriers to Discharge: Cognition, Home Situation Discharge Destination: Subacute
--- NOTE | 2018-07-03 17:54 | PCM.CPAPS ---
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 He also appears to have a history of dementia and is noted to shy Review of Systems - Constitutional Constitutional: absent: Chills - EENT Eyes: absent: Change in Vision Ears: absent: Ear Discharge, Ear Pain Nose/Mouth/Throat: absent: Nasal Congestion, Nasal Discharge - Cardiovascular Cardiovascular: absent: Chest Pain - Respiratory Respiratory: absent: Dyspnea, Hemoptysis, Chest Congestion - Gastrointestinal Gastrointestinal: absent: Belching, Constipation - Musculoskeletal Musculoskeletal: absent: Back Pain - Integumentary Integumentary: absent: Bleeding Lesions - Neurological Neurological: absent: Abnormal Movements, Dizziness - Psychiatric Psychiatric: Confusion, Irritability Past Patient History - Infectious Disease Hx of Infectious Diseases: None - Past Medical History & Family History Past Medical History?: Yes - Past Social History Smoking Status: Heavy Smoker > 10 Cigarettes Daily Home Situation {Lives}: Alone (3rd floor) - CARDIAC Hx Atrial Fibrillation: No - PULMONARY Hx Respiratory Disorders: No - NEUROLOGICAL Hx Neurological Disorder: Yes HX Cerebrovascular Accident: Yes (10/22/17) Other/Comment: neuropathy - HEENT Hx HEENT Problems: No - RENAL Hx Chronic Kidney Disease: No - ENDOCRINE/METABOLIC Hx Endocrine Disorders: Yes Hx Diabetes Mellitus Type 2: Yes - HEMATOLOGICAL/ONCOLOGICAL Hx Human Immunodeficiency Virus (HIV): No - INTEGUMENTARY Hx Dermatological Problems: No - MUSCULOSKELETAL/RHEUMATOLOGICAL Hx Falls: Yes - GASTROINTESTINAL Hx Gastrointestinal Disorders: Yes Hx Colostomy: Yes (2012) - GENITOURINARY/GYNECOLOGICAL Hx Genitourinary Disorders: Yes Hx Prostate Problems: Yes - PSYCHIATRIC Hx Substance Use: No - SURGICAL HISTORY Hx Surgeries: Yes Other/Comment: COLOSTOMY 2012 - ANESTHESIA Hx Anesthesia: Yes Hx Anesthesia Reactions: No Hx Malignant Hyperthermia: No Meds Allergies/Adverse Reactions: Allergies Allergy/AdvReac Type Severity Reaction Status Date / Time No Known Allergies Allergy Verified 10/18/17 14:17 - Medications Medications: Current Medications Acetaminophen (Tylenol 325mg Tab) 650 mg PO Q6 PRN PRN Reason: Other Last Admin: 07/02/18 19:02 Dose: 650 mg Aspirin (Aspirin Chewable) 81 mg PO DAILY [facility] Last Admin: 07/03/18 08:01 Dose: 81 mg Atorvastatin Calcium (Lipitor) 40 mg PO DAILY [facility] Last Admin: 07/03/18 08:04 Dose: 40 mg Bismuth Subsalicylate (Pepto-Bismol) 524 mg PO Q6 PRN PRN Reason: Loose stools Last Admin: 07/02/18 19:01 Dose: 524 mg Clopidogrel Bisulfate (Plavix) 75 mg PO DAILY [facility] Last Admin: 07/03/18 08:00 Dose: 75 mg Dextrose (Dextrose 50% Inj) 0 ml IV STAT PRN; Protocol PRN Reason: Hypoglycemia Protocol Dextrose (Glutose 15) 0 gm PO ONCE PRN; Protocol PRN Reason: Hypoglycemia Protocol Diphenoxylate HCl/Atropine (Lomotil 0.025-2.5 Mg Tablet) 1 tab PO Q12 PRN PRN Reason: Diarrhea Enoxaparin Sodium (Lovenox) 40 mg SC DAILY [facility]; Protocol Last Admin: 07/03/18 07:59 Dose: 40 mg Finasteride (Proscar) 5 mg PO QPM [facility] Last Admin: 07/03/18 17:35 Dose: 5 mg Glucagon (Glucagen Diagnostic Kit) 0 mg IM STAT PRN; Protocol PRN Reason: Hypoglycemia Protocol Insulin Detemir (Levemir) 50 units SC HS [facility] Last Admin: 07/02/18 22:33 Dose: 50 units Insulin Human Lispro (Humalog) 24 units SC ACTID [facility] Last Admin: 07/03/18 17:36 Dose: 24 units Insulin Human Lispro (Humalog) 0 units SC ACHS [facility] Last Admin: 07/03/18 17:37 Dose: Not Given Metformin HCl (Glucophage) 1,000 mg PO BID [facility] Last Admin: 07/03/18 17:35 Dose: 1,000 mg Nicotine (Nicoderm Cq) 1 patch TD DAILY [facility] Pantoprazole Sodium (Protonix Ec Tab) 40 mg PO DAILY [facility] Last Admin: 07/03/18 08:01 Dose: 40 mg Pregabalin (Lyrica) 100 mg PO Q8 [facility] Last Admin: 07/03/18 13:49 Dose: 100 mg Sodium Chloride ([place] Nasal [place]) 1 sprays LIANNE Q4 PRN PRN Reason: Nasal congestion Last Admin: 07/03/18 08:05 Dose: 1 spr Tamsulosin HCl (Flomax) 0.4 mg PO QPM [facility] Last Admin: 07/03/18 17:35 Dose: 0.4 mg Zolpidem Tartrate (Ambien) 5 mg PO HS PRN PRN Reason: Insomnia Physical Exam - Constitutional Appears: Non-toxic - Head Exam Head Exam: ATRAUMATIC, NORMAL INSPECTION, NORMOCEPHALIC - Eye Exam Eye Exam: EOMI - ENT Exam ENT Exam: Mucous Membranes Moist - Respiratory Exam Respiratory Exam: NORMAL BREATHING PATTERN - Cardiovascular Exam Cardiovascular Exam: REGULAR RHYTHM - GI/Abdominal Exam GI & Abdominal Exam: absent: Distended - Extremities Exam Extremities exam: Negative for: calf tenderness - Neurological Exam Neurological exam: Alert - Psychiatric Exam Psychiatric exam: Agitated - Skin Skin Exam: Warm Results - Vital Signs Recent Vital Signs: Last Vital Signs Temp 97.2 F L 07/03/18 07:28 Pulse 93 H 07/03/18 11:24 Resp 20 07/03/18 07:28 BP 139/77 07/03/18 07:28 Pulse Ox 98 07/03/18 11:24 - Labs Labs: Laboratory Results - last 24 hr 07/02/18 07/02/18 07/03/18 18:32 21:05 06:37 POC Glucose (mg/dL) 149 H 158 H 97 07/03/18 07/03/18 11:09 16:24 POC Glucose (mg/dL) 135 H 83 Assessment & Plan - Assessment and Plan (Free Text) Assessment: 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 Will get consult Patient is an excellent acute rehabilitation candidate and will have focused speech, PT, OT and recreational therapy to help facilitate a safe and appropriate d/c plan - Functional Status Prior to Admission: independent Current Status: requires assistance with ADLs, ambulating and memory Impairment Code: 01.1
[2018-07-03] MEDS ORDERED: Insulin Detemir 100 Units/ml Inj SC ONE (22:00)
[2018-07-03] MEDS: Insulin Detemir 100 Units/ml Inj SC SCH (22:08)
[2018-07-04] MEDS: Insulin Lispro (humaLOG) 100 Units/ml Inj SC SCH ×7 (06:47→21:47)
--- NOTE | 2018-07-04 08:40 | CP.PCM.PN ---
<Gil Henrdix - Last Filed: 07/04/18 08:34> Subjective - Date & Time of Evaluation Date of Evaluation: 07/04/18 Time of Evaluation: 07:10 - Subjective Subjective: 63 y/o M was seen and examined by bedside with Dr Castle. Pt reports feeling well. Pt afebrile, tolerating PO. Pt had low serum glucose level last night, long-acti ng insulin dose reduced only for last night. This morning's glucose level 205. Objective - Vital Signs/Intake and Output Vital Signs (last 24 hours): Temp Pulse Resp BP Pulse Ox 97.2 F L 79 20 149/86 97 07/04/18 07:57 07/04/18 07:57 07/04/18 07:57 07/04/18 07:57 07/04/18 07:57 - Medications Medications: Current Medications Acetaminophen (Tylenol 325mg Tab) 650 mg PO Q6 PRN PRN Reason: Other Last Admin: 07/02/18 19:02 Dose: 650 mg Aspirin (Aspirin Chewable) 81 mg PO DAILY [facility] Last Admin: 07/03/18 08:01 Dose: 81 mg Atorvastatin Calcium (Lipitor) 40 mg PO DAILY [facility] Last Admin: 07/03/18 08:04 Dose: 40 mg Bismuth Subsalicylate (Pepto-Bismol) 524 mg PO Q6 PRN PRN Reason: Loose stools Last Admin: 07/02/18 19:01 Dose: 524 mg Clopidogrel Bisulfate (Plavix) 75 mg PO DAILY [facility] Last Admin: 07/03/18 08:00 Dose: 75 mg Dextrose (Dextrose 50% Inj) 0 ml IV STAT PRN; Protocol PRN Reason: Hypoglycemia Protocol Dextrose (Glutose 15) 0 gm PO ONCE PRN; Protocol PRN Reason: Hypoglycemia Protocol Diphenoxylate HCl/Atropine (Lomotil 0.025-2.5 Mg Tablet) 1 tab PO Q12 PRN PRN Reason: Diarrhea Enoxaparin Sodium (Lovenox) 40 mg SC DAILY [facility]; Protocol Last Admin: 07/03/18 07:59 Dose: 40 mg Finasteride (Proscar) 5 mg PO QPM [facility] Last Admin: 07/03/18 17:35 Dose: 5 mg Glucagon (Glucagen Diagnostic Kit) 0 mg IM STAT PRN; Protocol PRN Reason: Hypoglycemia Protocol Insulin Detemir (Levemir) 50 units SC HS [facility] Last Admin: 07/03/18 22:08 Dose: Not Given Insulin Human Lispro (Humalog) 24 units SC ACTID [facility] Last Admin: 07/03/18 17:36 Dose: 24 units Insulin Human Lispro (Humalog) 0 units SC ACHS [facility] Last Admin: 07/04/18 06:47 Dose: Not Given Metformin HCl (Glucophage) 1,000 mg PO BID [facility] Last Admin: 07/03/18 17:35 Dose: 1,000 mg Nicotine (Nicoderm Cq) 1 patch TD DAILY [facility] Pantoprazole Sodium (Protonix Ec Tab) 40 mg PO DAILY [facility] Last Admin: 07/03/18 08:01 Dose: 40 mg Pregabalin (Lyrica) 100 mg PO Q8 [facility] Last Admin: 07/04/18 06:41 Dose: 100 mg Sodium Chloride ([place] Nasal [place]) 1 sprays LIANNE Q4 PRN PRN Reason: Nasal congestion Last Admin: 07/03/18 08:05 Dose: 1 spr Tamsulosin HCl (Flomax) 0.4 mg PO QPM [facility] Last Admin: 07/03/18 17:35 Dose: 0.4 mg Zolpidem Tartrate (Ambien) 5 mg PO HS PRN PRN Reason: Insomnia Last Admin: 07/03/18 22:15 Dose: 5 mg - Additional Findings Additional findings: - Head Exam Head Exam: ATRAUMATIC, NORMOCEPHALIC - Eye Exam Eye Exam: EOMI, Normal appearance, PERRL - ENT Exam ENT Exam: Mucous Membranes Moist - Neck Exam Neck exam: Normal Inspection - Respiratory Exam Respiratory Exam: NORMAL BREATHING PATTERN. absent: Rhonchi, Wheezes, Respir atory Distress, Stridor - Cardiovascular Exam Cardiovascular Exam: +S1, +S2 - GI/Abdominal Exam GI & Abdominal Exam: Soft. absent: Distended, Guarding, Rebound, Tenderness - Extremities Exam Extremities exam: normal inspection - Neurological Exam Neurological exam: Alert, Oriented x3 Additional comments: Left sided facial palsy noticed; however, residual from previous CVA. Left extremities: Strenght 3/5, SILT, ROM is limited, not full abduction or flexion of L upper and lower extremities. Assessment and Plan - Assessment and Plan (Free Text) Assessment: 63y/o M with a PMHx of HTN, DM, HLD, previous CVA with residual left side weakness was admitted to rehabilitation unit due to aggravating L sided weakness. PLAN: >Left sided weakness --Stable, L weakness improving. --Continue with physical therapy as tolerated. --Neurology on board, Dr Portillo. --Continue management as ordered. >HTN --Home meds resumed --Heart healthy diet. >DM --Home meds resumed. --Accucheck ACHS --Insulin sliding scale and hypoglycemia protocol. >HLD --Home meds resumed. >Diarrhea --Resolved. --Lomotil ordered PRN >DVT Prophylaxis --Lovenox Sc daily. Case discussed with Dr Corrine Hendrix PGY-2 <Gomez Castle - Last Filed: 07/07/18 11:37> Objective - Vital Signs/Intake and Output Vital Signs (last 24 hours): Temp Pulse Resp BP Pulse Ox 97.2 F L 77 20 132/73 97 07/07/18 07:40 07/07/18 07:40 07/07/18 07:40 07/07/18 07:40 07/07/18 07:40 - Medications Medications: Current Medications Acetaminophen (Tylenol 325mg Tab) 650 mg PO Q6 PRN PRN Reason: Other Last Admin: 07/02/18 19:02 Dose: 650 mg Aspirin (Aspirin Chewable) 81 mg PO DAILY [facility] Last Admin: 07/07/18 08:42 Dose: 81 mg Atorvastatin Calcium (Lipitor) 40 mg PO DAILY [facility] Last Admin: 07/07/18 08:43 Dose: 40 mg Bismuth Subsalicylate (Pepto-Bismol) 524 mg PO Q6 PRN PRN Reason: Loose stools Last Admin: 07/02/18 19:01 Dose: 524 mg Clopidogrel Bisulfate (Plavix) 75 mg PO DAILY [facility] Last Admin: 07/07/18 08:43 Dose: 75 mg Dextrose (Dextrose 50% Inj) 0 ml IV STAT PRN; Protocol PRN Reason: Hypoglycemia Protocol Dextrose (Glutose 15) 0 gm PO ONCE PRN; Protocol PRN Reason: Hypoglycemia Protocol Enoxaparin Sodium (Lovenox) 40 mg SC DAILY [facility]; Protocol Last Admin: 07/07/18 08:43 Dose: 40 mg Finasteride (Proscar) 5 mg PO QPM [facility] Last Admin: 07/06/18 17:05 Dose: 5 mg Glucagon (Glucagen Diagnostic Kit) 0 mg IM STAT PRN; Protocol PRN Reason: Hypoglycemia Protocol Guaifenesin (Robitussin) 100 mg PO Q6 PRN PRN Reason: Cough Insulin Detemir (Levemir) 50 units SC HS [facility] Last Admin: 07/06/18 21:53 Dose: 50 units Insulin Human Lispro (Humalog) 24 units SC ACTID [facility] Last Admin: 07/07/18 08:40 Dose: 24 units Insulin Human Lispro (Humalog) 0 units SC ACHS [facility] Last Admin: 07/07/18 06:30 Dose: Not Given Metformin HCl (Glucophage) 1,000 mg PO BID [facility] Last Admin: 07/07/18 08:42 Dose: 1,000 mg Nicotine (Nicoderm Cq) 1 patch TD DAILY [facility] Last Admin: 07/07/18 08:41 Dose: 1 patch Pantoprazole Sodium (Protonix Ec Tab) 40 mg PO DAILY [facility] Last Admin: 07/07/18 08:43 Dose: 40 mg Pregabalin (Lyrica) 100 mg PO Q8 [facility] Last Admin: 07/07/18 05:46 Dose: 100 mg Sertraline HCl (Zoloft) 25 mg PO DAILY [facility] Last Admin: 07/07/18 08:43 Dose: 25 mg Sodium Chloride ([place] Nasal [place]) 1 sprays LIANNE Q4 PRN PRN Reason: Nasal congestion Last Admin: 07/03/18 08:05 Dose: 1 spr Tamsulosin HCl (Flomax) 0.4 mg PO QPM [facility] Last Admin: 07/06/18 17:04 Dose: 0.4 mg Zolpidem Tartrate (Ambien) 5 mg PO HS PRN PRN Reason: Insomnia Last Admin: 07/05/18 21:59 Dose: 5 mg - Labs Labs: 07/05/18 05:10 07/05/18 05:45 Assessment and Plan - Assessment and Plan (Free Text) Assessment: Patient was personally seen and examined by me in rounds with residents. Available labs and diagnostic data reviewed. Case, Patient's condition and management plan discussed with residents in rounds. Agree with resident's progress note. Plan: As ordered.
[2018-07-04] MEDS: Enoxaparin 40 mg Syringe SC SCH (08:48)
[2018-07-04] MEDS: Pantoprazole 40 mg EC Tab PO SCH (08:48)
[2018-07-04] MEDS ORDERED: POLYETHYLENE GLYCOL 3350 17 GM/Dose PACKET PO ONE (10:00)
--- NOTE | 2018-07-04 10:48 | CP.PCM.CON ---
History of Present Illness - History of Present Illness History of Present Illness: consult requested for depression pt is a 63y/o M with a PMHx of HTN, DM, HLD, is admitted to acute rehabilitation after worsening of L side weakness episode on 06/28/18, and possible new stroke. 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 after he suffered from stroke, since then pt has been increasingly depressed due to feeling bored , missing his work and his limited physical abilities, pt reported he even became more depressed after he lost his mother past august, pt stated since then he has poor sleep with early insomnia, increased appetite , episodes of crying and feelings of worthlessness , low energy and poor motivation, pt reported passive suicidal ideation feeling his life has no meaning but no active suicidal plan, denied perceptual disturbance, denied homicidal ideation Past Patient History - Infectious Disease Hx of Infectious Diseases: None - Past Medical History & Family History Past Medical History?: Yes - Past Social History Smoking Status: Heavy Smoker > 10 Cigarettes Daily Home Situation {Lives}: Alone (3rd floor) - CARDIAC Hx Atrial Fibrillation: No - PULMONARY Hx Respiratory Disorders: No - NEUROLOGICAL Hx Neurological Disorder: Yes HX Cerebrovascular Accident: Yes (10/22/17) Other/Comment: neuropathy - HEENT Hx HEENT Problems: No - RENAL Hx Chronic Kidney Disease: No - ENDOCRINE/METABOLIC Hx Endocrine Disorders: Yes Hx Diabetes Mellitus Type 2: Yes - HEMATOLOGICAL/ONCOLOGICAL Hx Human Immunodeficiency Virus (HIV): No - INTEGUMENTARY Hx Dermatological Problems: No - MUSCULOSKELETAL/RHEUMATOLOGICAL Hx Falls: Yes - GASTROINTESTINAL Hx Gastrointestinal Disorders: Yes Hx Colostomy: Yes (2012) - GENITOURINARY/GYNECOLOGICAL Hx Genitourinary Disorders: Yes Hx Prostate Problems: Yes - PSYCHIATRIC Hx Substance Use: No - SURGICAL HISTORY Hx Surgeries: Yes Other/Comment: COLOSTOMY 2012 - ANESTHESIA Hx Anesthesia: Yes Hx Anesthesia Reactions: No Hx Malignant Hyperthermia: No Meds Allergies/Adverse Reactions: Allergies Allergy/AdvReac Type Severity Reaction Status Date / Time No Known Allergies Allergy Verified 10/18/17 14:17 - Medications Medications: Current Medications Acetaminophen (Tylenol 325mg Tab) 650 mg PO Q6 PRN PRN Reason: Other Last Admin: 07/02/18 19:02 Dose: 650 mg Aspirin (Aspirin Chewable) 81 mg PO DAILY [facility] Last Admin: 07/04/18 08:49 Dose: 81 mg Atorvastatin Calcium (Lipitor) 40 mg PO DAILY [facility] Last Admin: 07/04/18 08:48 Dose: 40 mg Bismuth Subsalicylate (Pepto-Bismol) 524 mg PO Q6 PRN PRN Reason: Loose stools Last Admin: 07/02/18 19:01 Dose: 524 mg Clopidogrel Bisulfate (Plavix) 75 mg PO DAILY [facility] Last Admin: 07/04/18 08:48 Dose: 75 mg Dextrose (Dextrose 50% Inj) 0 ml IV STAT PRN; Protocol PRN Reason: Hypoglycemia Protocol Dextrose (Glutose 15) 0 gm PO ONCE PRN; Protocol PRN Reason: Hypoglycemia Protocol Diphenoxylate HCl/Atropine (Lomotil 0.025-2.5 Mg Tablet) 1 tab PO Q12 PRN PRN Reason: Diarrhea Docusate Sodium (Colace) 100 mg PO BID [facility] Enoxaparin Sodium (Lovenox) 40 mg SC DAILY [facility]; Protocol Last Admin: 07/04/18 08:48 Dose: 40 mg Finasteride (Proscar) 5 mg PO QPM [facility] Last Admin: 07/03/18 17:35 Dose: 5 mg Glucagon (Glucagen Diagnostic Kit) 0 mg IM STAT PRN; Protocol PRN Reason: Hypoglycemia Protocol Insulin Detemir (Levemir) 50 units SC HS [facility] Last Admin: 07/03/18 22:08 Dose: Not Given Insulin Human Lispro (Humalog) 24 units SC ACTID [facility] Last Admin: 07/04/18 08:49 Dose: 24 units Insulin Human Lispro (Humalog) 0 units SC ACHS [facility] Last Admin: 07/04/18 06:47 Dose: Not Given Metformin HCl (Glucophage) 1,000 mg PO BID [facility] Last Admin: 07/04/18 08:48 Dose: 1,000 mg Nicotine (Nicoderm Cq) 1 patch TD DAILY [facility] Last Admin: 07/04/18 08:48 Dose: 1 patch Pantoprazole Sodium (Protonix Ec Tab) 40 mg PO DAILY [facility] Last Admin: 07/04/18 08:48 Dose: 40 mg Pregabalin (Lyrica) 100 mg PO Q8 [facility] Last Admin: 07/04/18 06:41 Dose: 100 mg Sodium Chloride ([place] Nasal [place]) 1 sprays LIANNE Q4 PRN PRN Reason: Nasal congestion Last Admin: 07/03/18 08:05 Dose: 1 spr Tamsulosin HCl (Flomax) 0.4 mg PO QPM [facility] Last Admin: 07/03/18 17:35 Dose: 0.4 mg Zolpidem Tartrate (Ambien) 5 mg PO HS PRN PRN Reason: Insomnia Last Admin: 07/03/18 22:15 Dose: 5 mg Physical Exam - Psychiatric Exam Additional comments: pt seen in bed , good eye contact cooperative , speech normal, thought form coherent reported mood sad and depressed affect tearful, reported passive suicidal ideation without active plan denied homicidal ideation' alert awake oriented x3, good insight and judgment Results - Vital Signs Recent Vital Signs: Last Vital Signs Temp 97.2 F L 07/04/18 07:57 Pulse 79 07/04/18 07:57 Resp 20 07/04/18 07:57 BP 149/86 07/04/18 07:57 Pulse Ox 97 07/04/18 07:57 - Labs Labs: Laboratory Results - last 24 hr 07/03/18 07/03/18 07/03/18 11:09 16:24 20:40 POC Glucose (mg/dL) 135 H 83 86 07/04/18 06:44 POC Glucose (mg/dL) 205 H Assessment & Plan - Assessment and Plan (Free Text) Assessment: post stroke depression Plan: start zoloft 25mg po daily continue with ambien 5mg qhs prn for insomnia pt would benefit from admission to geriatric psychiatry for further stabilization
[2018-07-04] MEDS: Insulin Detemir 100 Units/ml Inj SC SCH (21:53)
[2018-07-05 06:28] LABS: MEAN CELL VOLUME 85.8 fl (80.0-94.0); MEAN CORPUSCULAR HEMOGLOBIN 28.4 pg (27.0-31.0); MEAN CORPUSCULAR HGB CONC 33.1 g/dL (33.0-37.0); RBC 4.57 Mil/uL (4.40-5.90); RED CELL DISTRIBUTION WIDTH 13.7 % (11.5-14.5); WHITE BLOOD COUNT 10.1 K/uL (4.8-10.8)
[2018-07-05] MEDS: Insulin Lispro (humaLOG) 100 Units/ml Inj SC SCH ×7 (06:48→21:00)
[2018-07-05 06:55] LABS: ALB/GLOB RATIO 1.1 (1.0-2.1); ALBUMIN 3.7 g/dL (3.5-5.0); ALT/SGPT 15 U/L (21-72); AST/SGOT 19 U/L (17-59); BLOOD UREA NITROGEN 26 mg/dl (9-20); CALCIUM 9.3 mg/dL (8.4-10.2); GFR NON-AFRICAN AMERICAN 56
[2018-07-05] MEDS: Enoxaparin 40 mg Syringe SC SCH (08:07)
[2018-07-05] MEDS: Pantoprazole 40 mg EC Tab PO SCH (08:08)
--- NOTE | 2018-07-05 09:04 | CP.PCM.PN ---
<Gil Hendrix - Last Filed: 07/05/18 08:59> Subjective - Date & Time of Evaluation Date of Evaluation: 07/05/18 Time of Evaluation: 07:00 - Subjective Subjective: 63 y/o M was seen and examined by bedside with Dr Castle. Pt reports feeling well. Pt afebrile, tolerating PO. No acute events overnight. Some BP measurements were elevated overnight. Some diarrhea late afternoon yesterday. Objective - Vital Signs/Intake and Output Vital Signs (last 24 hours): Temp Pulse Resp BP Pulse Ox 97.3 F L 84 20 130/80 97 07/05/18 07:49 07/05/18 07:49 07/05/18 07:49 07/05/18 07:49 07/05/18 07:49 - Medications Medications: Current Medications Acetaminophen (Tylenol 325mg Tab) 650 mg PO Q6 PRN PRN Reason: Other Last Admin: 07/02/18 19:02 Dose: 650 mg Aspirin (Aspirin Chewable) 81 mg PO DAILY [facility] Last Admin: 07/05/18 08:08 Dose: 81 mg Atorvastatin Calcium (Lipitor) 40 mg PO DAILY [facility] Last Admin: 07/05/18 08:30 Dose: 40 mg Bismuth Subsalicylate (Pepto-Bismol) 524 mg PO Q6 PRN PRN Reason: Loose stools Last Admin: 07/02/18 19:01 Dose: 524 mg Clopidogrel Bisulfate (Plavix) 75 mg PO DAILY [facility] Last Admin: 07/05/18 08:07 Dose: 75 mg Dextrose (Dextrose 50% Inj) 0 ml IV STAT PRN; Protocol PRN Reason: Hypoglycemia Protocol Dextrose (Glutose 15) 0 gm PO ONCE PRN; Protocol PRN Reason: Hypoglycemia Protocol Diphenoxylate HCl/Atropine (Lomotil 0.025-2.5 Mg Tablet) 1 tab PO Q12 PRN PRN Reason: Diarrhea Last Admin: 07/05/18 08:16 Dose: 1 tab Docusate Sodium (Colace) 100 mg PO BID [facility] Last Admin: 07/05/18 08:10 Dose: Not Given Enoxaparin Sodium (Lovenox) 40 mg SC DAILY [facility]; Protocol Last Admin: 07/05/18 08:07 Dose: 40 mg Finasteride (Proscar) 5 mg PO QPM [facility] Last Admin: 07/04/18 17:09 Dose: 5 mg Glucagon (Glucagen Diagnostic Kit) 0 mg IM STAT PRN; Protocol PRN Reason: Hypoglycemia Protocol Insulin Detemir (Levemir) 50 units SC HS [facility] Last Admin: 07/04/18 21:53 Dose: 50 units Insulin Human Lispro (Humalog) 24 units SC ACTID [facility] Last Admin: 07/05/18 08:12 Dose: 24 units Insulin Human Lispro (Humalog) 0 units SC ACHS [facility] Last Admin: 07/05/18 06:48 Dose: Not Given Metformin HCl (Glucophage) 1,000 mg PO BID [facility] Last Admin: 07/05/18 08:07 Dose: 1,000 mg Nicotine (Nicoderm Cq) 1 patch TD DAILY [facility] Last Admin: 07/05/18 08:08 Dose: 1 patch Pantoprazole Sodium (Protonix Ec Tab) 40 mg PO DAILY [facility] Last Admin: 07/05/18 08:08 Dose: 40 mg Pregabalin (Lyrica) 100 mg PO Q8 [facility] Last Admin: 07/05/18 06:05 Dose: 100 mg Sertraline HCl (Zoloft) 25 mg PO DAILY [facility] Last Admin: 07/05/18 08:07 Dose: 25 mg Sodium Chloride ([place] Nasal [place]) 1 sprays LIANNE Q4 PRN PRN Reason: Nasal congestion Last Admin: 07/03/18 08:05 Dose: 1 spr Tamsulosin HCl (Flomax) 0.4 mg PO QPM [facility] Last Admin: 07/04/18 17:10 Dose: 0.4 mg Zolpidem Tartrate (Ambien) 5 mg PO HS PRN PRN Reason: Insomnia Last Admin: 07/04/18 21:46 Dose: 5 mg - Labs Labs: 07/05/18 05:10 07/05/18 05:45 - Constitutional Appears: No Acute Distress - Head Exam Head Exam: ATRAUMATIC, NORMAL INSPECTION - Eye Exam Eye Exam: EOMI - ENT Exam ENT Exam: Mucous Membranes Moist - Neck Exam Neck Exam: Full ROM, Normal Inspection - Respiratory Exam Respiratory Exam: Clear to Ausculation Bilateral, NORMAL BREATHING PATTERN - Cardiovascular Exam Cardiovascular Exam: REGULAR RHYTHM, +S1, +S2 - GI/Abdominal Exam GI & Abdominal Exam: Soft. absent: Firm, Guarding, Rigid, Tenderness - Extremities Exam Extremities Exam: absent: Pedal Edema, Tenderness Additional comments: Left extremities: Strenght 3/5, SILT, ROM is limited, ROM seems to be improving. - Back Exam Back Exam: absent: CVA tenderness (L), CVA tenderness (R) - Neurological Exam Neurological Exam: Alert, Awake Assessment and Plan - Assessment and Plan (Free Text) Assessment: 63y/o M with a PMHx of HTN, DM, HLD, previous CVA with residual left side weakness was admitted to rehabilitation unit due to aggravating L sided weakness. PLAN: >Left sided weakness, Hx of CVA --Stable, L weakness improving. --Continue with physical therapy as tolerated. --Neurology on board, Dr Portillo. --Continue management as ordered. >Post-stroke depression --Psychiatry on board, Dr Wellington --Zoloft was initiated. >HTN --Heart healthy diet. --Due to a few elevated BP, considering starting Ramipril 2.5mg PO daily. >DM --Home meds resumed. --Accucheck ACHS --Insulin sliding scale and hypoglycemia protocol. >HLD --Home meds resumed. >Chronic Diarrhea --Lomotil ordered PRN >DVT Prophylaxis --Lovenox Sc daily. Case discussed with Dr Corrine Hendrix PGY-2 <Gomez Castle - Last Filed: 07/07/18 11:36> Objective - Vital Signs/Intake and Output Vital Signs (last 24 hours): Temp Pulse Resp BP Pulse Ox 97.2 F L 77 20 132/73 97 07/07/18 07:40 07/07/18 07:40 07/07/18 07:40 07/07/18 07:40 07/07/18 07:40 - Medications Medications: Current Medications Acetaminophen (Tylenol 325mg Tab) 650 mg PO Q6 PRN PRN Reason: Other Last Admin: 07/02/18 19:02 Dose: 650 mg Aspirin (Aspirin Chewable) 81 mg PO DAILY [facility] Last Admin: 07/07/18 08:42 Dose: 81 mg Atorvastatin Calcium (Lipitor) 40 mg PO DAILY [facility] Last Admin: 07/07/18 08:43 Dose: 40 mg Bismuth Subsalicylate (Pepto-Bismol) 524 mg PO Q6 PRN PRN Reason: Loose stools Last Admin: 07/02/18 19:01 Dose: 524 mg Clopidogrel Bisulfate (Plavix) 75 mg PO DAILY [facility] Last Admin: 07/07/18 08:43 Dose: 75 mg Dextrose (Dextrose 50% Inj) 0 ml IV STAT PRN; Protocol PRN Reason: Hypoglycemia Protocol Dextrose (Glutose 15) 0 gm PO ONCE PRN; Protocol PRN Reason: Hypoglycemia Protocol Enoxaparin Sodium (Lovenox) 40 mg SC DAILY [facility]; Protocol Last Admin: 07/07/18 08:43 Dose: 40 mg Finasteride (Proscar) 5 mg PO QPM [facility] Last Admin: 07/06/18 17:05 Dose: 5 mg Glucagon (Glucagen Diagnostic Kit) 0 mg IM STAT PRN; Protocol PRN Reason: Hypoglycemia Protocol Guaifenesin (Robitussin) 100 mg PO Q6 PRN PRN Reason: Cough Insulin Detemir (Levemir) 50 units SC HS [facility] Last Admin: 07/06/18 21:53 Dose: 50 units Insulin Human Lispro (Humalog) 24 units SC ACTID [facility] Last Admin: 07/07/18 08:40 Dose: 24 units Insulin Human Lispro (Humalog) 0 units SC ACHS [facility] Last Admin: 07/07/18 06:30 Dose: Not Given Metformin HCl (Glucophage) 1,000 mg PO BID [facility] Last Admin: 07/07/18 08:42 Dose: 1,000 mg Nicotine (Nicoderm Cq) 1 patch TD DAILY [facility] Last Admin: 07/07/18 08:41 Dose: 1 patch Pantoprazole Sodium (Protonix Ec Tab) 40 mg PO DAILY [facility] Last Admin: 07/07/18 08:43 Dose: 40 mg Pregabalin (Lyrica) 100 mg PO Q8 [facility] Last Admin: 07/07/18 05:46 Dose: 100 mg Sertraline HCl (Zoloft) 25 mg PO DAILY [facility] Last Admin: 07/07/18 08:43 Dose: 25 mg Sodium Chloride ([place] Nasal [place]) 1 sprays LIANNE Q4 PRN PRN Reason: Nasal congestion Last Admin: 07/03/18 08:05 Dose: 1 spr Tamsulosin HCl (Flomax) 0.4 mg PO QPM [facility] Last Admin: 07/06/18 17:04 Dose: 0.4 mg Zolpidem Tartrate (Ambien) 5 mg PO HS PRN PRN Reason: Insomnia Last Admin: 07/05/18 21:59 Dose: 5 mg - Labs Labs: 07/05/18 05:10 07/05/18 05:45 Assessment and Plan - Assessment and Plan (Free Text) Assessment: Patient was personally seen and examined by me in rounds with residents. Available labs and diagnostic data reviewed. Case, Patient's condition and management plan discussed with residents in rounds. Agree with resident's progress note. Plan: As ordered.
--- NOTE | 2018-07-05 14:50 | CP.PCM.PN ---
Subjective - Date & Time of Evaluation Date of Evaluation: 07/05/18 Time of Evaluation: 14:49 - Subjective Subjective: Patient seen in the gym now doing ok more calm at this point sundowning is an issue psych involved continue current care Objective - Vital Signs/Intake and Output Vital Signs (last 24 hours): Temp Pulse Resp BP Pulse Ox 97.3 F L 94 H 20 140/84 100 07/05/18 07:49 07/05/18 08:40 07/05/18 07:49 07/05/18 08:40 07/05/18 08:40 - Medications Medications: Current Medications Acetaminophen (Tylenol 325mg Tab) 650 mg PO Q6 PRN PRN Reason: Other Last Admin: 07/02/18 19:02 Dose: 650 mg Aspirin (Aspirin Chewable) 81 mg PO DAILY [facility] Last Admin: 07/05/18 08:08 Dose: 81 mg Atorvastatin Calcium (Lipitor) 40 mg PO DAILY [facility] Last Admin: 07/05/18 08:30 Dose: 40 mg Bismuth Subsalicylate (Pepto-Bismol) 524 mg PO Q6 PRN PRN Reason: Loose stools Last Admin: 07/02/18 19:01 Dose: 524 mg Clopidogrel Bisulfate (Plavix) 75 mg PO DAILY [facility] Last Admin: 07/05/18 08:07 Dose: 75 mg Dextrose (Dextrose 50% Inj) 0 ml IV STAT PRN; Protocol PRN Reason: Hypoglycemia Protocol Dextrose (Glutose 15) 0 gm PO ONCE PRN; Protocol PRN Reason: Hypoglycemia Protocol Diphenoxylate HCl/Atropine (Lomotil 0.025-2.5 Mg Tablet) 1 tab PO Q12 PRN PRN Reason: Diarrhea Last Admin: 07/05/18 08:16 Dose: 1 tab Enoxaparin Sodium (Lovenox) 40 mg SC DAILY [facility]; Protocol Last Admin: 07/05/18 08:07 Dose: 40 mg Finasteride (Proscar) 5 mg PO QPM [facility] Last Admin: 07/04/18 17:09 Dose: 5 mg Glucagon (Glucagen Diagnostic Kit) 0 mg IM STAT PRN; Protocol PRN Reason: Hypoglycemia Protocol Insulin Detemir (Levemir) 50 units SC HS [facility] Last Admin: 07/04/18 21:53 Dose: 50 units Insulin Human Lispro (Humalog) 24 units SC ACTID [facility] Last Admin: 07/05/18 11:51 Dose: 24 units Insulin Human Lispro (Humalog) 0 units SC ACHS [facility] Last Admin: 07/05/18 11:50 Dose: Not Given Metformin HCl (Glucophage) 1,000 mg PO BID [facility] Last Admin: 07/05/18 08:07 Dose: 1,000 mg Nicotine (Nicoderm Cq) 1 patch TD DAILY [facility] Last Admin: 07/05/18 08:08 Dose: 1 patch Pantoprazole Sodium (Protonix Ec Tab) 40 mg PO DAILY [facility] Last Admin: 07/05/18 08:08 Dose: 40 mg Pregabalin (Lyrica) 100 mg PO Q8 [facility] Last Admin: 07/05/18 14:48 Dose: 100 mg Sertraline HCl (Zoloft) 25 mg PO DAILY [facility] Last Admin: 07/05/18 08:07 Dose: 25 mg Sodium Chloride ([place] Nasal [place]) 1 sprays LIANNE Q4 PRN PRN Reason: Nasal congestion Last Admin: 07/03/18 08:05 Dose: 1 spr Tamsulosin HCl (Flomax) 0.4 mg PO QPM [facility] Last Admin: 07/04/18 17:10 Dose: 0.4 mg Zolpidem Tartrate (Ambien) 5 mg PO HS PRN PRN Reason: Insomnia Last Admin: 07/04/18 21:46 Dose: 5 mg - Labs Labs: 07/05/18 05:10 07/05/18 05:45
[2018-07-05] MEDS: Insulin Detemir 100 Units/ml Inj SC SCH (21:53)
[2018-07-06] MEDS: Insulin Lispro (humaLOG) 100 Units/ml Inj SC SCH ×7 (06:30→21:00)
[2018-07-06] MEDS: Enoxaparin 40 mg Syringe SC SCH (08:32)
[2018-07-06] MEDS: Pantoprazole 40 mg EC Tab PO SCH (08:35)
--- NOTE | 2018-07-06 10:00 | PN ---
DATE: 07/06/2018 SUBJECTIVE: The patient seen and examined. Interim events noted. Laserist's intervention noted and appreciated. The patient remains in acute rehab unit, breathing, arousable, denies any specific complaint. . PHYSICAL EXAMINATION: GENERAL: The patient is in no acute distress. VITAL SIGNS: Stable. HEART: S1, S2 normal, regular. LUNGS: Good bilateral air exchange. ABDOMEN: Soft, nontender. EXTREMITIES: No edema. No calf swelling. No tenderness. No acute ischemia. CENTRAL NERVOUS SYSTEM: Essentially unchanged. DIAGNOSTIC DATA: Available diagnostic data reviewed. ASSESSMENT AND PLAN: Overall, the patient's general medical condition is stable. Plan as ordered. Gomez Castle MD
[2018-07-06] MEDS: Insulin Detemir 100 Units/ml Inj SC SCH (21:53)
[2018-07-06] MEDS ORDERED: guaiFENesin 100 mg/5 ml Syrup UD PO ONE (22:11)
[2018-07-07] MEDS: Insulin Lispro (humaLOG) 100 Units/ml Inj SC SCH ×7 (06:30→21:00)
[2018-07-07] MEDS: Pantoprazole 40 mg EC Tab PO SCH (08:43)
[2018-07-07] MEDS: Enoxaparin 40 mg Syringe SC SCH (08:43)
--- NOTE | 2018-07-07 11:30 | PN ---
DATE: 07/07/2018 SUBJECTIVE: The patient seen and examined. Interim events noted. . PHYSICAL EXAMINATION: GENERAL: The patient is in no acute distress. VITAL SIGNS: Stable. Physical exam is essentially unchanged. DIAGNOSTIC DATA: Available diagnostic data reviewed. ASSESSMENT AND PLAN: According to nursing, the patient's diarrhea had stopped. Overall, the patient is clinically stable. Plan as ordered. Gomez Castle MD
[2018-07-07] MEDS: Insulin Detemir 100 Units/ml Inj SC SCH (21:38)
[2018-07-08] MEDS: Nasal Spray(Ocean spray) NAS PRN (04:15)
[2018-07-08] MEDS: guaiFENesin 100 mg/5 ml Syrup UD PO PRN (05:42)
[2018-07-08] MEDS: Insulin Lispro (humaLOG) 100 Units/ml Inj SC SCH ×7 (06:30→21:28)
[2018-07-08 06:56] LABS: HEMOGLOBIN 12.3 g/dL (12.0-18.0); MEAN CELL VOLUME 85.3 fl (80.0-94.0); MEAN CORPUSCULAR HEMOGLOBIN 27.9 pg (27.0-31.0); MEAN CORPUSCULAR HGB CONC 32.8 g/dL (33.0-37.0); RBC 4.4 Mil/uL (4.40-5.90); RED CELL DISTRIBUTION WIDTH 13.8 % (11.5-14.5); WHITE BLOOD COUNT 8.8 K/uL (4.8-10.8)
[2018-07-08 07:07] LABS: BLOOD UREA NITROGEN 23 mg/dl (9-20); CALCIUM 8.7 mg/dL (8.4-10.2); GFR NON-AFRICAN AMERICAN 56
[2018-07-08] MEDS: Enoxaparin 40 mg Syringe SC SCH (08:26)
[2018-07-08] MEDS: Pantoprazole 40 mg EC Tab PO SCH (08:28)
[2018-07-08] MEDS ORDERED: FLUTICASONE PROPION/SALMETEROL 232-14 INHALER INH SCH (09:00)
--- NOTE | 2018-07-08 16:31 | CP.PCM.CON ---
History of Present Illness - History of Present Illness History of Present Illness: Pt is a 63 year old male admitted to [facility] and referred to the medical underwriter for evaluation. Pt known to the medical underwriter from his previous rehab at the [facility] following his first CVA. See medical record for complete medical history and medication list. Social History: pt lives alone. Pt never and has no children. He reported no family support and assistance from one friend in his building who he sees daily. Ed/Voc: pt born in [place], graduated college and has a PH.D in humanities. Pt reported disability since a colostomy years ago. Pt denied a psych history. Pt recalled meeting with the medical underwriter at the [facility]. Pt negative for a history of alc/substance abuse. He reported smoking prior to admission and feeling "Bored and lonely." He spoke of depression since his past CVA with reduction in activity/participation. MSE: Pt alert, oriented x3, relevant/coherent, no psychosis, affect full in range. Staff reports increased irritablity and disregulation in the evening. psych consult completed, no si no hi ideation. Dx: Depression Plan: Continued Sup therapy Past Patient History - Infectious Disease Hx of Infectious Diseases: None - Past Medical History & Family History Past Medical History?: Yes - Past Social History Smoking Status: Heavy Smoker > 10 Cigarettes Daily Home Situation {Lives}: Alone (3rd floor) - CARDIAC Hx Atrial Fibrillation: No - PULMONARY Hx Respiratory Disorders: No - NEUROLOGICAL Hx Neurological Disorder: Yes HX Cerebrovascular Accident: Yes (10/22/17) Other/Comment: neuropathy - HEENT Hx HEENT Problems: No - RENAL Hx Chronic Kidney Disease: No - ENDOCRINE/METABOLIC Hx Endocrine Disorders: Yes Hx Diabetes Mellitus Type 2: Yes - HEMATOLOGICAL/ONCOLOGICAL Hx Human Immunodeficiency Virus (HIV): No - INTEGUMENTARY Hx Dermatological Problems: No - MUSCULOSKELETAL/RHEUMATOLOGICAL Hx Falls: Yes - GASTROINTESTINAL Hx Gastrointestinal Disorders: Yes Hx Colostomy: Yes (2012) - GENITOURINARY/GYNECOLOGICAL Hx Genitourinary Disorders: Yes Hx Prostate Problems: Yes - PSYCHIATRIC Hx Substance Use: No - SURGICAL HISTORY Hx Surgeries: Yes Other/Comment: COLOSTOMY 2012 - ANESTHESIA Hx Anesthesia: Yes Hx Anesthesia Reactions: No Hx Malignant Hyperthermia: No Meds Allergies/Adverse Reactions: Allergies Allergy/AdvReac Type Severity Reaction Status Date / Time No Known Allergies Allergy Verified 10/18/17 14:17 - Medications Medications: Current Medications Acetaminophen (Tylenol 325mg Tab) 650 mg PO Q6 PRN PRN Reason: Other Last Admin: 07/02/18 19:02 Dose: 650 mg Aspirin (Aspirin Chewable) 81 mg PO DAILY [facility] Last Admin: 07/08/18 08:26 Dose: 81 mg Atorvastatin Calcium (Lipitor) 40 mg PO DAILY [facility] Last Admin: 07/08/18 08:25 Dose: 40 mg Bismuth Subsalicylate (Pepto-Bismol) 524 mg PO Q6 PRN PRN Reason: Loose stools Last Admin: 07/02/18 19:01 Dose: 524 mg Clopidogrel Bisulfate (Plavix) 75 mg PO DAILY [facility] Last Admin: 07/08/18 08:25 Dose: 75 mg Dextrose (Dextrose 50% Inj) 0 ml IV STAT PRN; Protocol PRN Reason: Hypoglycemia Protocol Dextrose (Glutose 15) 0 gm PO ONCE PRN; Protocol PRN Reason: Hypoglycemia Protocol Finasteride (Proscar) 5 mg PO QPM [facility] Last Admin: 07/07/18 17:47 Dose: 5 mg Fluticasone Propionate (Flonase) 1 spr LIANNE DAILY [facility] Last Admin: 07/08/18 09:42 Dose: 1 spr Glucagon (Glucagen Diagnostic Kit) 0 mg IM STAT PRN; Protocol PRN Reason: Hypoglycemia Protocol Guaifenesin (Robitussin) 100 mg PO Q6 PRN PRN Reason: Cough Last Admin: 07/08/18 05:42 Dose: 100 mg Insulin Detemir (Levemir) 50 units SC HS [facility] Last Admin: 07/07/18 21:38 Dose: 50 units Insulin Human Lispro (Humalog) 24 units SC ACTID [facility] Last Admin: 07/08/18 12:15 Dose: 24 units Insulin Human Lispro (Humalog) 0 units SC ACHS [facility] Last Admin: 07/08/18 12:04 Dose: Not Given Loratadine (Claritin) 10 mg PO DAILY [facility] Last Admin: 07/08/18 09:41 Dose: 10 mg Metformin HCl (Glucophage) 1,000 mg PO BID [facility] Last Admin: 07/08/18 08:25 Dose: 1,000 mg Nicotine (Nicoderm Cq) 1 patch TD DAILY [facility] Last Admin: 07/08/18 09:45 Dose: 1 patch Pantoprazole Sodium (Protonix Ec Tab) 40 mg PO DAILY [facility] Last Admin: 07/08/18 08:28 Dose: 40 mg Pregabalin (Lyrica) 100 mg PO Q8 [facility] Last Admin: 07/08/18 13:57 Dose: 100 mg Ramipril (Altace) 2.5 mg PO DAILY [facility] Last Admin: 07/08/18 08:25 Dose: 2.5 mg Sertraline HCl (Zoloft) 25 mg PO DAILY [facility] Last Admin: 07/08/18 08:26 Dose: 25 mg Tamsulosin HCl (Flomax) 0.4 mg PO QPM [facility] Last Admin: 07/07/18 17:47 Dose: 0.4 mg Zolpidem Tartrate (Ambien) 5 mg PO HS PRN PRN Reason: Insomnia Last Admin: 07/07/18 21:38 Dose: 5 mg Results - Vital Signs Recent Vital Signs: Last Vital Signs Temp 97.9 F 07/08/18 08:01 Pulse 97 H 07/08/18 15:12 Resp 21 07/08/18 08:01 BP 119/66 07/08/18 08:25 Pulse Ox 95 07/08/18 08:01 - Labs Result Diagrams: 07/08/18 05:50 07/08/18 05:50 Labs: Laboratory Results - last 24 hr 07/07/18 07/08/18 07/08/18 21:00 05:39 05:50 WBC 8.8 RBC 4.40 Hgb 12.3 Hct 37.5 MCV 85.3 MCH 27.9 MCHC 32.8 L RDW 13.8 Plt Count 244 Sodium Potassium Chloride Carbon Dioxide Anion Gap BUN Creatinine Est GFR ( Amer) Est GFR (Non-Af Amer) POC Glucose (mg/dL) 190 H 174 H Random Glucose Calcium 07/08/18 07/08/18 07/08/18 05:50 11:45 15:50 WBC RBC Hgb Hct MCV MCH MCHC RDW Plt Count Sodium 140 Potassium 4.4 Chloride 104 Carbon Dioxide 29 Anion Gap 11 BUN 23 H Creatinine 1.3 Est GFR ( Amer) > 60 Est GFR (Non-Af Amer) 56 POC Glucose (mg/dL) 89 169 H Random Glucose 194 H Calcium 8.7
--- NOTE | 2018-07-08 18:04 | CP.PCM.PN ---
Subjective - Date & Time of Evaluation Date of Evaluation: 07/08/18 Time of Evaluation: 18:03 - Subjective Subjective: Patient has been better behaved conservsant with me now denies GIRARD/CP/SOB HRT: tachy Abd: distended non-tender continue current care Objective - Vital Signs/Intake and Output Vital Signs (last 24 hours): Temp Pulse Resp BP Pulse Ox 97.9 F 97 H 21 119/66 95 07/08/18 08:01 07/08/18 15:12 07/08/18 08:01 07/08/18 08:25 07/08/18 08:01 - Medications Medications: Current Medications Acetaminophen (Tylenol 325mg Tab) 650 mg PO Q6 PRN PRN Reason: Other Last Admin: 07/02/18 19:02 Dose: 650 mg Aspirin (Aspirin Chewable) 81 mg PO DAILY [facility] Last Admin: 07/08/18 08:26 Dose: 81 mg Atorvastatin Calcium (Lipitor) 40 mg PO DAILY [facility] Last Admin: 07/08/18 08:25 Dose: 40 mg Bismuth Subsalicylate (Pepto-Bismol) 524 mg PO Q6 PRN PRN Reason: Loose stools Last Admin: 07/02/18 19:01 Dose: 524 mg Clopidogrel Bisulfate (Plavix) 75 mg PO DAILY [facility] Last Admin: 07/08/18 08:25 Dose: 75 mg Dextrose (Dextrose 50% Inj) 0 ml IV STAT PRN; Protocol PRN Reason: Hypoglycemia Protocol Dextrose (Glutose 15) 0 gm PO ONCE PRN; Protocol PRN Reason: Hypoglycemia Protocol Finasteride (Proscar) 5 mg PO QPM [facility] Last Admin: 07/07/18 17:47 Dose: 5 mg Fluticasone Propionate (Flonase) 1 spr LIANNE DAILY [facility] Last Admin: 07/08/18 09:42 Dose: 1 spr Glucagon (Glucagen Diagnostic Kit) 0 mg IM STAT PRN; Protocol PRN Reason: Hypoglycemia Protocol Guaifenesin (Robitussin) 100 mg PO Q6 PRN PRN Reason: Cough Last Admin: 07/08/18 05:42 Dose: 100 mg Insulin Detemir (Levemir) 50 units SC HS [facility] Last Admin: 07/07/18 21:38 Dose: 50 units Insulin Human Lispro (Humalog) 24 units SC ACTID [facility] Last Admin: 07/08/18 16:25 Dose: 24 units Insulin Human Lispro (Humalog) 0 units SC ACHS [facility] Last Admin: 07/08/18 16:26 Dose: Not Given Loratadine (Claritin) 10 mg PO DAILY [facility] Last Admin: 07/08/18 09:41 Dose: 10 mg Metformin HCl (Glucophage) 1,000 mg PO BID [facility] Last Admin: 07/08/18 16:26 Dose: 1,000 mg Nicotine (Nicoderm Cq) 1 patch TD DAILY [facility] Last Admin: 07/08/18 09:45 Dose: 1 patch Pantoprazole Sodium (Protonix Ec Tab) 40 mg PO DAILY [facility] Last Admin: 07/08/18 08:28 Dose: 40 mg Pregabalin (Lyrica) 100 mg PO Q8 [facility] Last Admin: 07/08/18 13:57 Dose: 100 mg Ramipril (Altace) 2.5 mg PO DAILY [facility] Last Admin: 07/08/18 08:25 Dose: 2.5 mg Sertraline HCl (Zoloft) 25 mg PO DAILY [facility] Last Admin: 07/08/18 08:26 Dose: 25 mg Tamsulosin HCl (Flomax) 0.4 mg PO QPM [facility] Last Admin: 07/07/18 17:47 Dose: 0.4 mg Zolpidem Tartrate (Ambien) 5 mg PO HS PRN PRN Reason: Insomnia Last Admin: 07/07/18 21:38 Dose: 5 mg - Labs Labs: 07/08/18 05:50 07/08/18 05:50
[2018-07-08] MEDS: Atropine-Diphenoxylate 0.025-2.5 mg Tab PO PRN (20:08)
[2018-07-08] MEDS: Insulin Detemir 100 Units/ml Inj SC SCH (21:27)
[2018-07-09] MEDS: Insulin Lispro (humaLOG) 100 Units/ml Inj SC SCH ×7 (08:03→21:17)
[2018-07-09] MEDS: Pantoprazole 40 mg EC Tab PO SCH (08:05)
--- NOTE | 2018-07-09 10:10 | CP.PCM.PN ---
<Gil Hendrix - Last Filed: 07/09/18 10:08> Subjective - Date & Time of Evaluation Date of Evaluation: 07/09/18 Time of Evaluation: 07:17 - Subjective Subjective: 63 y/o M was seen and examined by bedside with Dr Castle. Pt reports feeling well. Pt afebrile, tolerating PO. No acute events overnight. Some BP measurements were elevated overnight. Watery stools yesterday. Objective - Vital Signs/Intake and Output Vital Signs (last 24 hours): Temp Pulse Resp BP Pulse Ox 97.4 F L 79 22 131/68 96 07/09/18 08:21 07/09/18 08:21 07/09/18 08:21 07/09/18 08:21 07/09/18 08:21 - Medications Medications: Current Medications Acetaminophen (Tylenol 325mg Tab) 650 mg PO Q6 PRN PRN Reason: Other Last Admin: 07/02/18 19:02 Dose: 650 mg Aspirin (Aspirin Chewable) 81 mg PO DAILY [facility] Last Admin: 07/09/18 08:06 Dose: 81 mg Atorvastatin Calcium (Lipitor) 40 mg PO DAILY [facility] Last Admin: 07/09/18 08:06 Dose: 40 mg Bismuth Subsalicylate (Pepto-Bismol) 524 mg PO Q6 PRN PRN Reason: Loose stools Last Admin: 07/02/18 19:01 Dose: 524 mg Clopidogrel Bisulfate (Plavix) 75 mg PO DAILY [facility] Last Admin: 07/09/18 08:04 Dose: 75 mg Dextrose (Dextrose 50% Inj) 0 ml IV STAT PRN; Protocol PRN Reason: Hypoglycemia Protocol Dextrose (Glutose 15) 0 gm PO ONCE PRN; Protocol PRN Reason: Hypoglycemia Protocol Diphenoxylate HCl/Atropine (Lomotil 0.025-2.5 Mg Tablet) 1 tab PO Q12 PRN PRN Reason: Diarrhea Last Admin: 07/08/18 20:08 Dose: 1 tab Finasteride (Proscar) 5 mg PO QPM [facility] Last Admin: 07/08/18 18:07 Dose: 5 mg Fluticasone Propionate (Flonase) 1 spr LIANNE DAILY [facility] Last Admin: 07/09/18 08:02 Dose: 1 spr Glucagon (Glucagen Diagnostic Kit) 0 mg IM STAT PRN; Protocol PRN Reason: Hypoglycemia Protocol Guaifenesin (Robitussin) 100 mg PO Q6 PRN PRN Reason: Cough Last Admin: 07/08/18 05:42 Dose: 100 mg Insulin Detemir (Levemir) 50 units SC HS [facility] Last Admin: 07/08/18 21:27 Dose: 50 units Insulin Human Lispro (Humalog) 24 units SC ACTID [facility] Last Admin: 07/09/18 08:04 Dose: 24 units Insulin Human Lispro (Humalog) 0 units SC ACHS [facility] Last Admin: 07/09/18 08:03 Dose: Not Given Loratadine (Claritin) 10 mg PO DAILY [facility] Last Admin: 07/09/18 08:05 Dose: 10 mg Metformin HCl (Glucophage) 1,000 mg PO BID [facility] Last Admin: 07/09/18 08:02 Dose: 1,000 mg Nicotine (Nicoderm Cq) 1 patch TD DAILY [facility] Last Admin: 07/09/18 08:07 Dose: 1 patch Pantoprazole Sodium (Protonix Ec Tab) 40 mg PO DAILY [facility] Last Admin: 07/09/18 08:05 Dose: 40 mg Pregabalin (Lyrica) 100 mg PO Q8 [facility] Last Admin: 07/09/18 06:50 Dose: 100 mg Ramipril (Altace) 2.5 mg PO DAILY [facility] Last Admin: 07/09/18 08:08 Dose: 2.5 mg Sertraline HCl (Zoloft) 25 mg PO DAILY [facility] Last Admin: 07/09/18 08:06 Dose: 25 mg Tamsulosin HCl (Flomax) 0.4 mg PO QPM [facility] Last Admin: 07/08/18 18:07 Dose: 0.4 mg Zolpidem Tartrate (Ambien) 5 mg PO HS PRN PRN Reason: Insomnia Last Admin: 07/08/18 21:55 Dose: 5 mg - Labs Labs: 07/08/18 05:50 07/08/18 05:50 - Constitutional Appears: No Acute Distress, Chronically Ill - Head Exam Head Exam: ATRAUMATIC, NORMAL INSPECTION - Eye Exam Eye Exam: EOMI - Neck Exam Neck Exam: Full ROM, Normal Inspection - Respiratory Exam Respiratory Exam: NORMAL BREATHING PATTERN. absent: Rhonchi, Wheezes, Respiratory Distress - Cardiovascular Exam Cardiovascular Exam: +S1, +S2 - GI/Abdominal Exam GI & Abdominal Exam: Soft. absent: Distended, Guarding, Tenderness - Extremities Exam Extremities Exam: absent: Tenderness - Neurological Exam Neurological Exam: Alert, Awake Assessment and Plan - Assessment and Plan (Free Text) Assessment: 63y/o M with a PMHx of HTN, DM, HLD, previous CVA with residual left side weakness was admitted to rehabilitation unit due to aggravating L sided weakness. PLAN: >Left sided weakness, Hx of CVA --Stable, L weakness improving. --Continue with physical therapy as tolerated. --Neurology on board, Dr Portillo. --Continue management as ordered. >Persistent Diarrhea --Lomotil ordered PRN --Unknown wtiology --GI consult. --Stool studies ordered. >Post-stroke depression --Psychiatry on board, Dr Wellington --On Zoloft. >HTN --Heart healthy diet. --Due to a few elevated BP, considering starting Ramipril 2.5mg PO daily. >DM --Home meds resumed. --Accucheck ACHS --Insulin sliding scale and hypoglycemia protocol. >HLD --Home meds resumed. >DVT Prophylaxis --Lovenox Sc daily. Case discussed with Dr Corrine Hendrix PGY-2 <Gomez Castle - Last Filed: 07/11/18 08:44> Objective - Vital Signs/Intake and Output Vital Signs (last 24 hours): Temp Pulse Resp BP Pulse Ox 97.4 F L 76 20 128/83 98 07/10/18 20:01 07/10/18 20:01 07/10/18 20:01 07/11/18 08:32 07/10/18 20:01 - Medications Medications: Current Medications Acetaminophen (Tylenol 325mg Tab) 650 mg PO Q6 PRN PRN Reason: Other Last Admin: 07/02/18 19:02 Dose: 650 mg Aspirin (Aspirin Chewable) 81 mg PO DAILY [facility] Last Admin: 07/11/18 08:32 Dose: 81 mg Atorvastatin Calcium (Lipitor) 40 mg PO DAILY [facility] Last Admin: 07/11/18 08:32 Dose: 40 mg Bismuth Subsalicylate (Pepto-Bismol) 524 mg PO Q6 PRN PRN Reason: Loose stools Last Admin: 07/02/18 19:01 Dose: 524 mg Clopidogrel Bisulfate (Plavix) 75 mg PO DAILY [facility] Last Admin: 07/11/18 08:32 Dose: 75 mg Dextrose (Dextrose 50% Inj) 0 ml IV STAT PRN; Protocol PRN Reason: Hypoglycemia Protocol Dextrose (Glutose 15) 0 gm PO ONCE PRN; Protocol PRN Reason: Hypoglycemia Protocol Diphenoxylate HCl/Atropine (Lomotil 0.025-2.5 Mg Tablet) 1 tab PO Q6 PRN PRN Reason: Diarrhea Finasteride (Proscar) 5 mg PO QPM [facility] Last Admin: 07/10/18 17:02 Dose: 5 mg Fluticasone Propionate (Flonase) 1 spr LIANNE DAILY [facility] Last Admin: 07/11/18 08:33 Dose: 1 spr Glucagon (Glucagen Diagnostic Kit) 0 mg IM STAT PRN; Protocol PRN Reason: Hypoglycemia Protocol Guaifenesin (Robitussin) 100 mg PO Q6 PRN PRN Reason: Cough Last Admin: 07/08/18 05:42 Dose: 100 mg Insulin Detemir (Levemir) 50 units SC HS [facility] Last Admin: 07/10/18 21:51 Dose: 50 units Insulin Human Lispro (Humalog) 24 units SC ACTID [facility] Last Admin: 07/11/18 08:31 Dose: 24 units Insulin Human Lispro (Humalog) 0 units SC ACHS [facility] Last Admin: 07/11/18 06:30 Dose: Not Given Loratadine (Claritin) 10 mg PO DAILY [facility] Last Admin: 07/11/18 08:32 Dose: 10 mg Metformin HCl (Glucophage) 1,000 mg PO BID [facility] Last Admin: 07/11/18 08:32 Dose: 1,000 mg Nicotine (Nicoderm Cq) 1 patch TD DAILY [facility] Last Admin: 07/11/18 08:33 Dose: 1 patch Pantoprazole Sodium (Protonix Ec Tab) 40 mg PO DAILY [facility] Last Admin: 07/11/18 08:33 Dose: 40 mg Pregabalin (Lyrica) 100 mg PO Q8 [facility] Last Admin: 07/11/18 06:17 Dose: 100 mg Ramipril (Altace) 2.5 mg PO DAILY [facility] Last Admin: 07/11/18 08:32 Dose: 2.5 mg Sertraline HCl (Zoloft) 25 mg PO DAILY [facility] Last Admin: 07/11/18 08:32 Dose: 25 mg Tamsulosin HCl (Flomax) 0.4 mg PO QPM [facility] Last Admin: 07/10/18 17:02 Dose: 0.4 mg Zolpidem Tartrate (Ambien) 5 mg PO HS PRN PRN Reason: Insomnia Last Admin: 07/10/18 21:51 Dose: 5 mg - Labs Labs: 07/11/18 07:00 07/11/18 07:00 Assessment and Plan - Assessment and Plan (Free Text) Assessment: Patient was personally seen and examined by me in rounds with residents. Available labs and diagnostic data reviewed. Case, Patient's condition and management plan discussed with residents in rounds. Agree with resident's progress note. Plan: As ordered.
--- NOTE | 2018-07-09 13:19 | PCM.PSYTMC ---
Acute Rehab Team Conference - - Vital Signs: Vital Signs (Last 8 Hours): Vital Signs 07/09/18 07/09/18 07/09/18 08:08 08:21 11:12 Temperature 97.4 F L 97.4 F L Pulse Rate 79 79 Respiratory 22 22 Rate Blood Pressure 131/68 131/68 131/68 O2 Sat by Pulse 96 Oximetry Pain: 0 - Precautions: Precautions: Fall Prevention - Medications/Other Issues: Comment: c/o watery stools last night none noted this am continue to monitor. GI Consult Dr Mclaughlin ordered stool for O&P. continue to monitor - Consults: Comment: Dr Wellington seen patient started on Zoloft 07/04. was c/o feelingg 'depressesed and frustrated with current status with bouts of irritabilty at night time. Mood since has been better no irrital outbursts. Dr Hernandez for suipportive therapy - Toileting: Toileting: Maximal Assistance - Bladder Management: Bladder Pattern: Normal Voiding Method: Bedside Commode, Urinal Bladder Management: Modified Independent - Transfers: Transfers: Minimal Assistance - ADL's: ADL's: Moderate Assistance - Pain Management: Other Intervention:: No c/o pain reassess every 8 hours and prn - Patient/Family Teaching: Other Intervention:: Medication management/teaching. Safety Precautions. Hand Hygiene - Goals/Time Frame: Comment: as per POC - Provider: Registered Nurse:: Leena Caldwell Physical Therapy - Bed Mobility Bed Mobility: Minimal Assistance - Transfers Wheelchair to Mat: Verbal Cues, Minimal Assistance Sit to Stand: Verbal Cues, Minimal Assistance - Ambulation Level of Assistance: Minimal Assistance Distance (ft.): 75 Assistive Devices: Wide base quad cane Orthoses: L ankle air cast for improved ankle stability - Standing Balance Static Stand: Moderate Assistance - Pain Pain (assessed during therapy session): 0 - Insight/Carryover Insight/Carryover: Good - Patient/Family Education Comment: CVA recovery, safety, POC - Assessment/Plan Assessment: Pt participating in PT tx session focusing on BLE strengthening exercises, endurance activities, and functional mobility training. Pt requires min A for functional transfers; able to progress to CGA/min A for ambulation with WBQC. Pt will continue to benefit from skilled PT interventions to address deficits, reduce fall risk, and maximize funcitonal independence. - Goals Timeframe: 2 weeks Goals: sit < > supine with supervision. All functional transfers with supervision using NBQC. Pt will ambulate 200 ft with NBQC and close S. Pt will negotiate flight of stairs with handrail and min A - Provider Physical Therapist:: Claudia Gee License Number:: [id number] Occupational Therapy - Arousal/Attention/Orientation Level of Consciousness: Awake, Alert, Forgetful Patient Orientation: Person, Place, Time Assessment Comment: +poor safety awareness. +impaired problem solving , executive functioning - ADL/IADL Self Feeding: Supervision, Verbal Cues, Set-up Help Grooming: Supervision, Verbal Cues, Set-up Help Bathing-Upper Ext: Minimal Assistance Bathing-Lower Ext: Minimal Assistance Dressing-Upper Ext: Moderate Assistance Dressing-Lower Ext: Maximum Assistance - Sitting Balance Static Sitting: Supervision Dynamic Sitting: Reaches out of base of support, Requires supervision, Contact Guard Assist - Transfers Wheelchair to Bed Transfers: Minimal Assistance Toilet Transfers: Minimal Assistance Tub Transfers: Minimal Assistance Comment: +L air cast donned during transfers - Wheelchair Management Level of Assistance: Minimal Assistance Distance (ft.): 75 - Upper Extremity Status Right Upper Extremity Comment: WFLs Left Upper Extremity Comment: -impaired gross/FM coordination. -impaired opposition between digits. -impaired grasp stregth. -flexion/synergy pattern - Pain Pain (assessed during therapy session): 0 - Insight/Carryover Insight/Carryover: Fair - Patient/Family Education Comment: CVA recovery, dme/ae education, role of OT, goals of therapy, d/c planning/plan of care - Assessment/Plan Assessment: Patient is a 63 year old male presenting s/p acute CVA. patient presents with impaired strength LUE/LLE, impaired dynamic standing balance/unsteadiness on feet, impaired activity tolerance , impaired safety awareness/insight and impaired knowledge of adaptive/compensatory techniques. These aforementioned defecits impact pt's ability to complete adls, transfers, mobility and iadls safely and effectively. Pt is noted to be making gains in therapy. Pt completed UB ADLs with mod A using samara dressing tech, LB ADLs with max A using samara dressing technique and transfers/mobility with overall min A using LLE air cast. Goal: intermittent at home with adls/iadls - Goals Timeframe: 2 weeks Comment: Goal: intermittent Supervision at home with adls/iadls - Provider Occupational Therapist:: Bridgette Mascorro License Number: [id number] Speech Therapy - Consult Information Patient on Program: No Medical Diagnosis: CVA Treatment Diagnosis: Cognitive Communication Imairment - Assessment Problem Solving Impairment: Moderate Memory Impairment: Moderate - Plan Assessment: Mr Mendosa currently presents with a moderate cognitive communication impairment characterized by deficits in the areas of executive function, memory, problem solving, and recall. No dysphagia noted. Continued ST services warranted to improve ability to complete ADLS at [facility] Plan: Continue Speech/Language Therapy Frequency: 3-5 times per week Duration: 1 week - Provider Therapist: Olga Pop License Number: [id number] Recreational Therapy - Participation Participation: Participates in Individual and/or Group Sessions - Attendance Attendance: 3-5 times per week - Socialization Level of Socialization: Initiates/interacts freely with care givers and peer - Diversional Time Diversional Time: participating in recreation therapy, socializing with peers, reading - Assessment Assessment/Plan: Pt is agreeable to participate in 1:1 and group recreation therapy sessions throughout his stay on unit. Pt requires min-mod A with leisure tasks 2' decrease carryover of problem solving strategies and error recognition cues as pt would initiate same errors repeatedly. Pt is oriented to connect four, jigsaw puzzle task, and bingo. Pt carries over purpose of task rules. Pt attended stroke education group and engaged in discussion with peers. Pt continues to require re-education. Pt's mood is stable-positive and will continue to benefit from participating in recreation therapy sessions throughout stay on unit. Problems Currently Limiting Participation: L side UE and LE weakness, impaired safety awareness, impaired problem solving Goals and Time Frame: Pt will require 50% of verbal cues to complete leisure task at supervision level by date of discharge. - Provider Therapist: Ade Estrada Nutrition - Current Diet Current Diet/Supplement/Feedings: Moderate consistent CHO heart healthy diet - Appetite Percent Meal Consumed: 75-100% - Assessment/Goals/Time Frame Assessments/Goals/Time Frame: Pt at high nutritional risk. goals: 1. Pt to consume 75-100% of meals. 2. Blood glucoses to be between 70-180 mg/dl(HgbA1C to trend downward over next few months). Follow-up due on 07/10/2018 - Provider Provider: Ilda Zambrano Case Management - Psychosocial Assessment Support Systems: Roberto Mendosa (brother) - [phone] Psychological Interventions/Needs: Patient is AAO with intermittent confusion and has been periodically sundowning. Discharge Concerns: Patient was previously living alone with minimal family support. Patient becomes agitated when he experiences episodes of sundowning and can be unsafe. Patient/Family Meeting: CM met with patient and rehab team. Intervention/Goal/Outcome: 1. Goal: 24hr supervision 2. Plan: [facility]? 3. begin referral process for [facility] 4. continued acute rehab auth 5. continued emotional support - Discharge Plan Discharge Plan: Subacute care - Provider Provider: Louisa Casey License Number: [id number] Rehabilitation Plan - Treatment Plan Treatment Plan: Physical Therapy, Occupational Therapy, Speech, Dietary, Patient/Family Education - Discharge Plan Estimated Date of Discharge: 07/25/18 Discharge to: Subacute
--- NOTE | 2018-07-09 13:51 | CP.PCM.PN ---
Subjective - Date & Time of Evaluation Date of Evaluation: 07/09/18 Time of Evaluation: 13:50 - Subjective Subjective: Ranjeet Mendosa, born 1955, who has been admitted to [facility] for acute inpatient rehabilitation following a second CVA with left HP. He also appears to have a history of dementia and is noted to sundown, but this has greatly improved with psych consult and medications. Objective - Vital Signs/Intake and Output Vital Signs (last 24 hours): Temp Pulse Resp BP Pulse Ox 97.4 F L 79 22 131/68 96 07/09/18 11:12 07/09/18 11:12 07/09/18 11:12 07/09/18 11:12 07/09/18 08:21 - Medications Medications: Current Medications Acetaminophen (Tylenol 325mg Tab) 650 mg PO Q6 PRN PRN Reason: Other Last Admin: 07/02/18 19:02 Dose: 650 mg Aspirin (Aspirin Chewable) 81 mg PO DAILY [facility] Last Admin: 07/09/18 08:06 Dose: 81 mg Atorvastatin Calcium (Lipitor) 40 mg PO DAILY [facility] Last Admin: 07/09/18 08:06 Dose: 40 mg Bismuth Subsalicylate (Pepto-Bismol) 524 mg PO Q6 PRN PRN Reason: Loose stools Last Admin: 07/02/18 19:01 Dose: 524 mg Clopidogrel Bisulfate (Plavix) 75 mg PO DAILY [facility] Last Admin: 07/09/18 08:04 Dose: 75 mg Dextrose (Dextrose 50% Inj) 0 ml IV STAT PRN; Protocol PRN Reason: Hypoglycemia Protocol Dextrose (Glutose 15) 0 gm PO ONCE PRN; Protocol PRN Reason: Hypoglycemia Protocol Diphenoxylate HCl/Atropine (Lomotil 0.025-2.5 Mg Tablet) 1 tab PO Q12 PRN PRN Reason: Diarrhea Last Admin: 07/08/18 20:08 Dose: 1 tab Finasteride (Proscar) 5 mg PO QPM [facility] Last Admin: 07/08/18 18:07 Dose: 5 mg Fluticasone Propionate (Flonase) 1 spr LIANNE DAILY [facility] Last Admin: 07/09/18 08:02 Dose: 1 spr Glucagon (Glucagen Diagnostic Kit) 0 mg IM STAT PRN; Protocol PRN Reason: Hypoglycemia Protocol Guaifenesin (Robitussin) 100 mg PO Q6 PRN PRN Reason: Cough Last Admin: 07/08/18 05:42 Dose: 100 mg Insulin Detemir (Levemir) 50 units SC HS [facility] Last Admin: 07/08/18 21:27 Dose: 50 units Insulin Human Lispro (Humalog) 24 units SC ACTID [facility] Last Admin: 07/09/18 12:06 Dose: 24 units Insulin Human Lispro (Humalog) 0 units SC ACHS [facility] Last Admin: 07/09/18 12:06 Dose: Not Given Loratadine (Claritin) 10 mg PO DAILY [facility] Last Admin: 07/09/18 08:05 Dose: 10 mg Metformin HCl (Glucophage) 1,000 mg PO BID [facility] Last Admin: 07/09/18 08:02 Dose: 1,000 mg Nicotine (Nicoderm Cq) 1 patch TD DAILY [facility] Last Admin: 07/09/18 08:07 Dose: 1 patch Pantoprazole Sodium (Protonix Ec Tab) 40 mg PO DAILY [facility] Last Admin: 07/09/18 08:05 Dose: 40 mg Pregabalin (Lyrica) 100 mg PO Q8 [facility] Last Admin: 07/09/18 06:50 Dose: 100 mg Ramipril (Altace) 2.5 mg PO DAILY [facility] Last Admin: 07/09/18 08:08 Dose: 2.5 mg Sertraline HCl (Zoloft) 25 mg PO DAILY [facility] Last Admin: 07/09/18 08:06 Dose: 25 mg Tamsulosin HCl (Flomax) 0.4 mg PO QPM [facility] Last Admin: 07/08/18 18:07 Dose: 0.4 mg Zolpidem Tartrate (Ambien) 5 mg PO HS PRN PRN Reason: Insomnia Last Admin: 07/08/18 21:55 Dose: 5 mg - Labs Labs: 07/08/18 05:50 07/08/18 05:50 - Constitutional Appears: Non-toxic, No Acute Distress - Head Exam Head Exam: ATRAUMATIC, NORMAL INSPECTION, NORMOCEPHALIC - Eye Exam Eye Exam: EOMI - ENT Exam ENT Exam: Mucous Membranes Moist - Respiratory Exam Respiratory Exam: NORMAL BREATHING PATTERN - Cardiovascular Exam Cardiovascular Exam: REGULAR RHYTHM - GI/Abdominal Exam GI & Abdominal Exam: absent: Distended, Guarding - Extremities Exam Extremities Exam: absent: Calf Tenderness - Neurological Exam Neurological Exam: Alert - Psychiatric Exam Psychiatric exam: Normal Affect, Normal Mood - Skin Skin Exam: Warm Assessment and Plan - Assessment and Plan (Free Text) Assessment: PT/OT to continue to help increase functional independence Team conference for d/c planning Pain: controlled Vascular: no evidence of DVT GI: No evidence of constipation or diarrhea Patient continues to be an excellent acute rehabilitation candidate and will have continued focused speech, PT, OT and recreational therapy to help facilitate a safe and appropriate d/c plan The patients plan was discussed in great detail in team conference. This was then discussed with the patient at length. The discussions directly impact on the patients plan of care. Please see the note for more details
[2018-07-09] MEDS: Insulin Detemir 100 Units/ml Inj SC SCH (21:16)
--- NOTE | 2018-07-09 21:56 | CP.PCM.CON ---
History of Present Illness - History of Present Illness History of Present Illness: 63 yo male with h/o DM, HLD, and CVA admitted to rehab after experiencing increased right sided tenderness. Was noted last night to have multiple loose bowel movements last nights. Had been started on prn lomotil yesterday and today bowel movements are normal. Had colonoscopy about a year ago and was told that it was essentially normal. Review of Systems - Constitutional Constitutional: absent: Chills - EENT Eyes: absent: Blurred Vision Ears: absent: Ear Pain Nose/Mouth/Throat: absent: Nasal Congestion - Cardiovascular Cardiovascular: absent: Chest Pain - Respiratory Respiratory: absent: Dyspnea - Gastrointestinal Gastrointestinal: absent: Abdominal Pain - Genitourinary Genitourinary: absent: Change in Urinary Stream Past Patient History - Infectious Disease Hx of Infectious Diseases: None - Past Medical History & Family History Past Medical History?: Yes - Past Social History Smoking Status: Heavy Smoker > 10 Cigarettes Daily Home Situation {Lives}: Alone (3rd floor) - CARDIAC Hx Atrial Fibrillation: No - PULMONARY Hx Respiratory Disorders: No - NEUROLOGICAL Hx Neurological Disorder: Yes HX Cerebrovascular Accident: Yes (10/22/17) Other/Comment: neuropathy - HEENT Hx HEENT Problems: No - RENAL Hx Chronic Kidney Disease: No - ENDOCRINE/METABOLIC Hx Endocrine Disorders: Yes Hx Diabetes Mellitus Type 2: Yes - HEMATOLOGICAL/ONCOLOGICAL Hx Human Immunodeficiency Virus (HIV): No - INTEGUMENTARY Hx Dermatological Problems: No - MUSCULOSKELETAL/RHEUMATOLOGICAL Hx Falls: Yes - GASTROINTESTINAL Hx Gastrointestinal Disorders: Yes Hx Colostomy: Yes (2012) - GENITOURINARY/GYNECOLOGICAL Hx Genitourinary Disorders: Yes Hx Prostate Problems: Yes - PSYCHIATRIC Hx Substance Use: No - SURGICAL HISTORY Hx Surgeries: Yes Other/Comment: COLOSTOMY 2012 - ANESTHESIA Hx Anesthesia: Yes Hx Anesthesia Reactions: No Hx Malignant Hyperthermia: No Meds Allergies/Adverse Reactions: Allergies Allergy/AdvReac Type Severity Reaction Status Date / Time No Known Allergies Allergy Verified 10/18/17 14:17 - Medications Medications: Current Medications Acetaminophen (Tylenol 325mg Tab) 650 mg PO Q6 PRN PRN Reason: Other Last Admin: 07/02/18 19:02 Dose: 650 mg Aspirin (Aspirin Chewable) 81 mg PO DAILY [facility] Last Admin: 07/09/18 08:06 Dose: 81 mg Atorvastatin Calcium (Lipitor) 40 mg PO DAILY [facility] Last Admin: 07/09/18 08:06 Dose: 40 mg Bismuth Subsalicylate (Pepto-Bismol) 524 mg PO Q6 PRN PRN Reason: Loose stools Last Admin: 07/02/18 19:01 Dose: 524 mg Clopidogrel Bisulfate (Plavix) 75 mg PO DAILY [facility] Last Admin: 07/09/18 08:04 Dose: 75 mg Dextrose (Dextrose 50% Inj) 0 ml IV STAT PRN; Protocol PRN Reason: Hypoglycemia Protocol Dextrose (Glutose 15) 0 gm PO ONCE PRN; Protocol PRN Reason: Hypoglycemia Protocol Diphenoxylate HCl/Atropine (Lomotil 0.025-2.5 Mg Tablet) 1 tab PO Q12 PRN PRN Reason: Diarrhea Last Admin: 07/08/18 20:08 Dose: 1 tab Finasteride (Proscar) 5 mg PO QPM [facility] Last Admin: 07/09/18 17:04 Dose: 5 mg Fluticasone Propionate (Flonase) 1 spr LIANNE DAILY [facility] Last Admin: 07/09/18 08:02 Dose: 1 spr Glucagon (Glucagen Diagnostic Kit) 0 mg IM STAT PRN; Protocol PRN Reason: Hypoglycemia Protocol Guaifenesin (Robitussin) 100 mg PO Q6 PRN PRN Reason: Cough Last Admin: 07/08/18 05:42 Dose: 100 mg Insulin Detemir (Levemir) 50 units SC HS [facility] Last Admin: 07/09/18 21:16 Dose: 50 units Insulin Human Lispro (Humalog) 24 units SC ACTID [facility] Last Admin: 07/09/18 17:02 Dose: 24 units Insulin Human Lispro (Humalog) 0 units SC ACHS [facility] Last Admin: 07/09/18 21:17 Dose: Not Given Loratadine (Claritin) 10 mg PO DAILY [facility] Last Admin: 07/09/18 08:05 Dose: 10 mg Metformin HCl (Glucophage) 1,000 mg PO BID [facility] Last Admin: 07/09/18 17:03 Dose: 1,000 mg Nicotine (Nicoderm Cq) 1 patch TD DAILY [facility] Last Admin: 07/09/18 08:07 Dose: 1 patch Pantoprazole Sodium (Protonix Ec Tab) 40 mg PO DAILY [facility] Last Admin: 07/09/18 08:05 Dose: 40 mg Pregabalin (Lyrica) 100 mg PO Q8 [facility] Last Admin: 07/09/18 21:16 Dose: 100 mg Ramipril (Altace) 2.5 mg PO DAILY [facility] Last Admin: 07/09/18 08:08 Dose: 2.5 mg Sertraline HCl (Zoloft) 25 mg PO DAILY [facility] Last Admin: 07/09/18 08:06 Dose: 25 mg Tamsulosin HCl (Flomax) 0.4 mg PO QPM [facility] Last Admin: 07/09/18 17:04 Dose: 0.4 mg Zolpidem Tartrate (Ambien) 5 mg PO HS PRN PRN Reason: Insomnia Last Admin: 07/09/18 21:16 Dose: 5 mg Physical Exam - Constitutional Appears: No Acute Distress - Head Exam Head Exam: NORMAL INSPECTION - Eye Exam Eye Exam: Normal appearance - ENT Exam ENT Exam: Mucous Membranes Moist - Neck Exam Neck exam: Positive for: Normal Inspection - Respiratory Exam Respiratory Exam: Clear to Auscultation Bilateral - Cardiovascular Exam Cardiovascular Exam: REGULAR RHYTHM, +S1, +S2 - GI/Abdominal Exam GI & Abdominal Exam: Normal Bowel Sounds, Soft. absent: Tenderness Results - Vital Signs Recent Vital Signs: Last Vital Signs Temp 97.7 F 07/09/18 20:24 Pulse 79 07/09/18 20:24 Resp 20 07/09/18 20:24 BP 133/70 07/09/18 20:24 Pulse Ox 96 07/09/18 20:24 - Labs Result Diagrams: 07/08/18 05:50 07/08/18 05:50 Labs: Laboratory Results - last 24 hr 07/08/18 07/08/18 07/09/18 18:30 21:20 05:46 POC Glucose (mg/dL) 105 115 H 93 07/09/18 07/09/18 07/09/18 11:00 16:14 19:16 POC Glucose (mg/dL) 112 H 123 H 59 L 07/09/18 20:34 POC Glucose (mg/dL) 110 Assessment & Plan (1) Diarrhea Assessment and Plan: Clnically better today after lomotil started yesterday. Will follow with you. Status: Acute
[2018-07-10] MEDS: Insulin Lispro (humaLOG) 100 Units/ml Inj SC SCH ×7 (06:48→21:14)
[2018-07-10] MEDS: Pantoprazole 40 mg EC Tab PO SCH (08:31)
--- NOTE | 2018-07-10 10:30 | CP.PCM.PN ---
<Keli Lozano - Last Filed: 07/10/18 10:28> Subjective - Date & Time of Evaluation Date of Evaluation: 07/10/18 Time of Evaluation: 07:30 - Subjective Subjective: Patient seen and examined this morning with Dr. Castle. No acute event reported by nursing staff overnight, improved diarrhea, only one normal BM overnight. Denies any pain, reports improved strength. Objective - Vital Signs/Intake and Output Vital Signs (last 24 hours): Temp Pulse Resp BP Pulse Ox 97.0 F L 72 19 128/83 98 07/10/18 08:27 07/10/18 08:27 07/10/18 08:27 07/10/18 08:30 07/10/18 08:27 - Medications Medications: Current Medications Acetaminophen (Tylenol 325mg Tab) 650 mg PO Q6 PRN PRN Reason: Other Last Admin: 07/02/18 19:02 Dose: 650 mg Aspirin (Aspirin Chewable) 81 mg PO DAILY [facility] Last Admin: 07/10/18 08:30 Dose: 81 mg Atorvastatin Calcium (Lipitor) 40 mg PO DAILY [facility] Last Admin: 07/10/18 08:30 Dose: 40 mg Bismuth Subsalicylate (Pepto-Bismol) 524 mg PO Q6 PRN PRN Reason: Loose stools Last Admin: 07/02/18 19:01 Dose: 524 mg Clopidogrel Bisulfate (Plavix) 75 mg PO DAILY [facility] Last Admin: 07/10/18 08:30 Dose: 75 mg Dextrose (Dextrose 50% Inj) 0 ml IV STAT PRN; Protocol PRN Reason: Hypoglycemia Protocol Dextrose (Glutose 15) 0 gm PO ONCE PRN; Protocol PRN Reason: Hypoglycemia Protocol Diphenoxylate HCl/Atropine (Lomotil 0.025-2.5 Mg Tablet) 1 tab PO Q12 PRN PRN Reason: Diarrhea Last Admin: 07/08/18 20:08 Dose: 1 tab Finasteride (Proscar) 5 mg PO QPM [facility] Last Admin: 07/09/18 17:04 Dose: 5 mg Fluticasone Propionate (Flonase) 1 spr LIANNE DAILY [facility] Last Admin: 07/10/18 08:32 Dose: 1 spr Glucagon (Glucagen Diagnostic Kit) 0 mg IM STAT PRN; Protocol PRN Reason: Hypoglycemia Protocol Guaifenesin (Robitussin) 100 mg PO Q6 PRN PRN Reason: Cough Last Admin: 07/08/18 05:42 Dose: 100 mg Insulin Detemir (Levemir) 50 units SC HS [facility] Last Admin: 07/09/18 21:16 Dose: 50 units Insulin Human Lispro (Humalog) 24 units SC ACTID [facility] Last Admin: 07/10/18 08:32 Dose: 24 units Insulin Human Lispro (Humalog) 0 units SC ACHS [facility] Last Admin: 07/10/18 06:48 Dose: Not Given Loratadine (Claritin) 10 mg PO DAILY [facility] Last Admin: 07/10/18 08:30 Dose: 10 mg Metformin HCl (Glucophage) 1,000 mg PO BID [facility] Last Admin: 07/10/18 08:30 Dose: 1,000 mg Nicotine (Nicoderm Cq) 1 patch TD DAILY [facility] Last Admin: 07/10/18 08:31 Dose: 1 patch Pantoprazole Sodium (Protonix Ec Tab) 40 mg PO DAILY [facility] Last Admin: 07/10/18 08:31 Dose: 40 mg Pregabalin (Lyrica) 100 mg PO Q8 [facility] Last Admin: 07/10/18 06:38 Dose: 100 mg Ramipril (Altace) 2.5 mg PO DAILY [facility] Last Admin: 07/10/18 08:30 Dose: 2.5 mg Sertraline HCl (Zoloft) 25 mg PO DAILY [facility] Last Admin: 07/10/18 08:30 Dose: 25 mg Tamsulosin HCl (Flomax) 0.4 mg PO QPM [facility] Last Admin: 07/09/18 17:04 Dose: 0.4 mg Zolpidem Tartrate (Ambien) 5 mg PO HS PRN PRN Reason: Insomnia Last Admin: 07/09/18 21:16 Dose: 5 mg - Labs Labs: 07/08/18 05:50 07/08/18 05:50 - Constitutional Appears: No Acute Distress, Other (Left facial droop ) - Head Exam Head Exam: NORMAL INSPECTION - Eye Exam Eye Exam: Normal appearance - ENT Exam ENT Exam: Mucous Membranes Moist - Respiratory Exam Respiratory Exam: Clear to Ausculation Bilateral, NORMAL BREATHING PATTERN - Cardiovascular Exam Cardiovascular Exam: REGULAR RHYTHM, +S1, +S2 - GI/Abdominal Exam GI & Abdominal Exam: Soft, Normal Bowel Sounds. absent: Tenderness - Extremities Exam Extremities Exam: absent: Pedal Edema, Tenderness - Back Exam Back Exam: NORMAL INSPECTION - Neurological Exam Neurological Exam: Alert, Awake, Oriented x3 Neuro motor strength exam: Left Upper Extremity: 3, Right Upper Extremity: 4, Left Lower Extremity: 3, Right Lower Extremity: 4 - Psychiatric Exam Psychiatric exam: Normal Affect - Skin Skin Exam: Normal Color Assessment and Plan - Assessment and Plan (Free Text) Assessment: A/P: 63y/o M with a PMHx of HTN, DM, HLD, previous CVA with residual left side weakness was admitted to rehabilitation unit due to aggravating L sided weakness. Left sided weakness, Hx of CVA --Neurology on board, Dr Portillo. --Continue PT and management as per acute rehab --c/w ASA and Lipitor Diarrhea --Improved --c/w Lomotil --GI consult, recommendations appreciated --f/u Stool studies Post-stroke depression --Psychiatry on board, Dr Wellington --On Zoloft. HTN --Controlled --Heart healthy diet. --Ramipril 2.5mg PO daily DM --Home meds resumed. --Accucheck ACHS --Insulin sliding scale and hypoglycemia protocol. HLD --Home meds resumed. DVT Prophylaxis --Lovenox Sc daily Case discussed with Dr. Castle, Agrees with plan <Gomez Castle - Last Filed: 07/11/18 08:42> Objective - Vital Signs/Intake and Output Vital Signs (last 24 hours): Temp Pulse Resp BP Pulse Ox 97.4 F L 76 20 128/83 98 07/10/18 20:01 07/10/18 20:01 07/10/18 20:01 07/11/18 08:32 07/10/18 20:01 - Medications Medications: Current Medications Acetaminophen (Tylenol 325mg Tab) 650 mg PO Q6 PRN PRN Reason: Other Last Admin: 07/02/18 19:02 Dose: 650 mg Aspirin (Aspirin Chewable) 81 mg PO DAILY [facility] Last Admin: 07/11/18 08:32 Dose: 81 mg Atorvastatin Calcium (Lipitor) 40 mg PO DAILY [facility] Last Admin: 07/11/18 08:32 Dose: 40 mg Bismuth Subsalicylate (Pepto-Bismol) 524 mg PO Q6 PRN PRN Reason: Loose stools Last Admin: 07/02/18 19:01 Dose: 524 mg Clopidogrel Bisulfate (Plavix) 75 mg PO DAILY [facility] Last Admin: 07/11/18 08:32 Dose: 75 mg Dextrose (Dextrose 50% Inj) 0 ml IV STAT PRN; Protocol PRN Reason: Hypoglycemia Protocol Dextrose (Glutose 15) 0 gm PO ONCE PRN; Protocol PRN Reason: Hypoglycemia Protocol Diphenoxylate HCl/Atropine (Lomotil 0.025-2.5 Mg Tablet) 1 tab PO Q6 PRN PRN Reason: Diarrhea Finasteride (Proscar) 5 mg PO QPM [facility] Last Admin: 07/10/18 17:02 Dose: 5 mg Fluticasone Propionate (Flonase) 1 spr LIANNE DAILY [facility] Last Admin: 07/11/18 08:33 Dose: 1 spr Glucagon (Glucagen Diagnostic Kit) 0 mg IM STAT PRN; Protocol PRN Reason: Hypoglycemia Protocol Guaifenesin (Robitussin) 100 mg PO Q6 PRN PRN Reason: Cough Last Admin: 07/08/18 05:42 Dose: 100 mg Insulin Detemir (Levemir) 50 units SC HS [facility] Last Admin: 07/10/18 21:51 Dose: 50 units Insulin Human Lispro (Humalog) 24 units SC ACTID [facility] Last Admin: 07/11/18 08:31 Dose: 24 units Insulin Human Lispro (Humalog) 0 units SC ACHS [facility] Last Admin: 07/11/18 06:30 Dose: Not Given Loratadine (Claritin) 10 mg PO DAILY [facility] Last Admin: 07/11/18 08:32 Dose: 10 mg Metformin HCl (Glucophage) 1,000 mg PO BID [facility] Last Admin: 07/11/18 08:32 Dose: 1,000 mg Nicotine (Nicoderm Cq) 1 patch TD DAILY [facility] Last Admin: 07/11/18 08:33 Dose: 1 patch Pantoprazole Sodium (Protonix Ec Tab) 40 mg PO DAILY [facility] Last Admin: 07/11/18 08:33 Dose: 40 mg Pregabalin (Lyrica) 100 mg PO Q8 [facility] Last Admin: 07/11/18 06:17 Dose: 100 mg Ramipril (Altace) 2.5 mg PO DAILY [facility] Last Admin: 07/11/18 08:32 Dose: 2.5 mg Sertraline HCl (Zoloft) 25 mg PO DAILY [facility] Last Admin: 07/11/18 08:32 Dose: 25 mg Tamsulosin HCl (Flomax) 0.4 mg PO QPM [facility] Last Admin: 07/10/18 17:02 Dose: 0.4 mg Zolpidem Tartrate (Ambien) 5 mg PO HS PRN PRN Reason: Insomnia Last Admin: 07/10/18 21:51 Dose: 5 mg - Labs Labs: 07/11/18 07:00 07/11/18 07:00 Assessment and Plan - Assessment and Plan (Free Text) Assessment: Patient was personally seen and examined by me in rounds with residents. Available labs and diagnostic data reviewed. Case, Patient's condition and management plan discussed with residents in rounds. Agree with resident's progress note. Plan: As ordered.
[2018-07-10] MEDS: Atropine-Diphenoxylate 0.025-2.5 mg Tab PO PRN (17:31)
[2018-07-10] MEDS: Insulin Detemir 100 Units/ml Inj SC SCH (21:51)
[2018-07-11] MEDS ORDERED: Atropine-Diphenoxylate 0.025-2.5 mg Tab PO ONE (00:06)
[2018-07-11] MEDS: Insulin Lispro (humaLOG) 100 Units/ml Inj SC SCH ×7 (06:30→21:10)
[2018-07-11 07:27] LABS: HEMOGLOBIN 12.3 g/dL (12.0-18.0); MEAN CELL VOLUME 85.7 fl (80.0-94.0); MEAN CORPUSCULAR HGB CONC 32.7 g/dL (33.0-37.0); RBC 4.37 Mil/uL (4.40-5.90); RED CELL DISTRIBUTION WIDTH 13.3 % (11.5-14.5); WHITE BLOOD COUNT 9.2 K/uL (4.8-10.8)
[2018-07-11 07:48] LABS: BLOOD UREA NITROGEN 29 mg/dl (9-20); CALCIUM 8.7 mg/dL (8.4-10.2); GFR NON-AFRICAN AMERICAN > 60
--- NOTE | 2018-07-11 08:08 | CP.PCM.PN ---
<Keli Lozano - Last Filed: 07/11/18 08:11> Subjective - Date & Time of Evaluation Date of Evaluation: 07/11/18 Time of Evaluation: 08:06 - Subjective Subjective: Patient seen and examined this morning with Dr. Castle. Reported worsening diarrhea overnight by nursing staff, patient denies any abdominal pain. + for multiple NB watery loose diarrhea overnight. Objective - Vital Signs/Intake and Output Vital Signs (last 24 hours): Temp Pulse Resp BP Pulse Ox 97.4 F L 76 20 134/76 98 07/10/18 20:01 07/10/18 20:01 07/10/18 20:01 07/10/18 20:01 07/10/18 20:01 - Medications Medications: Current Medications Acetaminophen (Tylenol 325mg Tab) 650 mg PO Q6 PRN PRN Reason: Other Last Admin: 07/02/18 19:02 Dose: 650 mg Aspirin (Aspirin Chewable) 81 mg PO DAILY [facility] Last Admin: 07/10/18 08:30 Dose: 81 mg Atorvastatin Calcium (Lipitor) 40 mg PO DAILY [facility] Last Admin: 07/10/18 08:30 Dose: 40 mg Bismuth Subsalicylate (Pepto-Bismol) 524 mg PO Q6 PRN PRN Reason: Loose stools Last Admin: 07/02/18 19:01 Dose: 524 mg Clopidogrel Bisulfate (Plavix) 75 mg PO DAILY [facility] Last Admin: 07/10/18 08:30 Dose: 75 mg Dextrose (Dextrose 50% Inj) 0 ml IV STAT PRN; Protocol PRN Reason: Hypoglycemia Protocol Dextrose (Glutose 15) 0 gm PO ONCE PRN; Protocol PRN Reason: Hypoglycemia Protocol Diphenoxylate HCl/Atropine (Lomotil 0.025-2.5 Mg Tablet) 1 tab PO Q6 PRN PRN Reason: Diarrhea Finasteride (Proscar) 5 mg PO QPM [facility] Last Admin: 07/10/18 17:02 Dose: 5 mg Fluticasone Propionate (Flonase) 1 spr LIANNE DAILY [facility] Last Admin: 07/10/18 08:32 Dose: 1 spr Glucagon (Glucagen Diagnostic Kit) 0 mg IM STAT PRN; Protocol PRN Reason: Hypoglycemia Protocol Guaifenesin (Robitussin) 100 mg PO Q6 PRN PRN Reason: Cough Last Admin: 07/08/18 05:42 Dose: 100 mg Insulin Detemir (Levemir) 50 units SC HS [facility] Last Admin: 07/10/18 21:51 Dose: 50 units Insulin Human Lispro (Humalog) 24 units SC ACTID [facility] Last Admin: 07/10/18 17:03 Dose: 24 units Insulin Human Lispro (Humalog) 0 units SC ACHS [facility] Last Admin: 07/11/18 06:30 Dose: Not Given Loratadine (Claritin) 10 mg PO DAILY [facility] Last Admin: 07/10/18 08:30 Dose: 10 mg Metformin HCl (Glucophage) 1,000 mg PO BID [facility] Last Admin: 07/10/18 17:02 Dose: 1,000 mg Nicotine (Nicoderm Cq) 1 patch TD DAILY [facility] Last Admin: 07/10/18 08:31 Dose: 1 patch Pantoprazole Sodium (Protonix Ec Tab) 40 mg PO DAILY [facility] Last Admin: 07/10/18 08:31 Dose: 40 mg Pregabalin (Lyrica) 100 mg PO Q8 [facility] Last Admin: 07/11/18 06:17 Dose: 100 mg Ramipril (Altace) 2.5 mg PO DAILY [facility] Last Admin: 07/10/18 08:30 Dose: 2.5 mg Sertraline HCl (Zoloft) 25 mg PO DAILY [facility] Last Admin: 07/10/18 08:30 Dose: 25 mg Tamsulosin HCl (Flomax) 0.4 mg PO QPM [facility] Last Admin: 07/10/18 17:02 Dose: 0.4 mg Zolpidem Tartrate (Ambien) 5 mg PO HS PRN PRN Reason: Insomnia Last Admin: 07/10/18 21:51 Dose: 5 mg - Labs Labs: 07/11/18 07:00 07/11/18 07:00 - Constitutional Appears: No Acute Distress (left facial droop) - Head Exam Head Exam: NORMAL INSPECTION - Eye Exam Eye Exam: Normal appearance - ENT Exam ENT Exam: Mucous Membranes Moist - Respiratory Exam Respiratory Exam: Clear to Ausculation Bilateral, NORMAL BREATHING PATTERN - Cardiovascular Exam Cardiovascular Exam: REGULAR RHYTHM, +S1, +S2 - GI/Abdominal Exam GI & Abdominal Exam: Soft, Normal Bowel Sounds. absent: Tenderness - Extremities Exam Extremities Exam: absent: Tenderness - Back Exam Back Exam: NORMAL INSPECTION - Neurological Exam Neurological Exam: Alert, Awake Neuro motor strength exam: Left Upper Extremity: 3, Right Upper Extremity: 4, Left Lower Extremity: 3, Right Lower Extremity: 4 - Psychiatric Exam Psychiatric exam: Normal Affect - Skin Skin Exam: Normal Color Assessment and Plan - Assessment and Plan (Free Text) Assessment: A/P: 63 y/o M with a PMHx of HTN, DM, HLD, previous CVA with residual left side weakness was admitted to rehabilitation unit due to aggravating L sided weakness. Left sided weakness, Hx of CVA --Neurology on board, Dr Portillo. 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 HTN --Controlled --Heart healthy diet. --Ramipril 2.5mg PO daily DM-II --Home meds resumed. --Accucheck ACHS --Insulin sliding scale and hypoglycemia protocol. HLD --Home meds resumed. DVT Prophylaxis --Lovenox Sc daily Case discussed with Dr. Castle, Agrees with plan <Gomez Castle - Last Filed: 07/11/18 08:40> Objective - Vital Signs/Intake and Output Vital Signs (last 24 hours): Temp Pulse Resp BP Pulse Ox 97.4 F L 76 20 128/83 98 07/10/18 20:01 07/10/18 20:01 07/10/18 20:01 07/11/18 08:32 07/10/18 20:01 - Medications Medications: Current Medications Acetaminophen (Tylenol 325mg Tab) 650 mg PO Q6 PRN PRN Reason: Other Last Admin: 07/02/18 19:02 Dose: 650 mg Aspirin (Aspirin Chewable) 81 mg PO DAILY [facility] Last Admin: 07/11/18 08:32 Dose: 81 mg Atorvastatin Calcium (Lipitor) 40 mg PO DAILY [facility] Last Admin: 07/11/18 08:32 Dose: 40 mg Bismuth Subsalicylate (Pepto-Bismol) 524 mg PO Q6 PRN PRN Reason: Loose stools Last Admin: 07/02/18 19:01 Dose: 524 mg Clopidogrel Bisulfate (Plavix) 75 mg PO DAILY [facility] Last Admin: 07/11/18 08:32 Dose: 75 mg Dextrose (Dextrose 50% Inj) 0 ml IV STAT PRN; Protocol PRN Reason: Hypoglycemia Protocol Dextrose (Glutose 15) 0 gm PO ONCE PRN; Protocol PRN Reason: Hypoglycemia Protocol Diphenoxylate HCl/Atropine (Lomotil 0.025-2.5 Mg Tablet) 1 tab PO Q6 PRN PRN Reason: Diarrhea Finasteride (Proscar) 5 mg PO QPM [facility] Last Admin: 07/10/18 17:02 Dose: 5 mg Fluticasone Propionate (Flonase) 1 spr LIANNE DAILY [facility] Last Admin: 07/11/18 08:33 Dose: 1 spr Glucagon (Glucagen Diagnostic Kit) 0 mg IM STAT PRN; Protocol PRN Reason: Hypoglycemia Protocol Guaifenesin (Robitussin) 100 mg PO Q6 PRN PRN Reason: Cough Last Admin: 07/08/18 05:42 Dose: 100 mg Insulin Detemir (Levemir) 50 units SC HS [facility] Last Admin: 07/10/18 21:51 Dose: 50 units Insulin Human Lispro (Humalog) 24 units SC ACTID [facility] Last Admin: 07/11/18 08:31 Dose: 24 units Insulin Human Lispro (Humalog) 0 units SC ACHS [facility] Last Admin: 07/11/18 06:30 Dose: Not Given Loratadine (Claritin) 10 mg PO DAILY [facility] Last Admin: 07/11/18 08:32 Dose: 10 mg Metformin HCl (Glucophage) 1,000 mg PO BID [facility] Last Admin: 07/11/18 08:32 Dose: 1,000 mg Nicotine (Nicoderm Cq) 1 patch TD DAILY [facility] Last Admin: 07/11/18 08:33 Dose: 1 patch Pantoprazole Sodium (Protonix Ec Tab) 40 mg PO DAILY [facility] Last Admin: 07/11/18 08:33 Dose: 40 mg Pregabalin (Lyrica) 100 mg PO Q8 [facility] Last Admin: 07/11/18 06:17 Dose: 100 mg Ramipril (Altace) 2.5 mg PO DAILY [facility] Last Admin: 07/11/18 08:32 Dose: 2.5 mg Sertraline HCl (Zoloft) 25 mg PO DAILY [facility] Last Admin: 07/11/18 08:32 Dose: 25 mg Tamsulosin HCl (Flomax) 0.4 mg PO QPM [facility] Last Admin: 07/10/18 17:02 Dose: 0.4 mg Zolpidem Tartrate (Ambien) 5 mg PO HS PRN PRN Reason: Insomnia Last Admin: 07/10/18 21:51 Dose: 5 mg - Labs Labs: 07/11/18 07:00 07/11/18 07:00 Assessment and Plan - Assessment and Plan (Free Text) Assessment: Patient was personally seen and examined by me in rounds with residents. Available labs and diagnostic data reviewed. Case, Patient's condition and management plan discussed with residents in rounds. Agree with resident's progress note. Plan: As ordered.
[2018-07-11] MEDS: Pantoprazole 40 mg EC Tab PO SCH (08:33)
[2018-07-11] MEDS: Atropine-Diphenoxylate 0.025-2.5 mg Tab PO PRN ×2 (15:27→21:40)
--- NOTE | 2018-07-11 17:49 | CP.PCM.PN ---
Subjective - Date & Time of Evaluation Date of Evaluation: 07/11/18 Time of Evaluation: 17:49 - Subjective Subjective: Patient is doing well no sob/cp continues with therapies no cyanosis or jaundice continue current care Objective - Vital Signs/Intake and Output Vital Signs (last 24 hours): Temp Pulse Resp BP Pulse Ox 97.8 F 73 19 136/77 99 07/11/18 08:49 07/11/18 08:49 07/11/18 08:49 07/11/18 08:49 07/11/18 08:49 - Medications Medications: Current Medications Acetaminophen (Tylenol 325mg Tab) 650 mg PO Q6 PRN PRN Reason: Other Last Admin: 07/02/18 19:02 Dose: 650 mg Aspirin (Aspirin Chewable) 81 mg PO DAILY [facility] Last Admin: 07/11/18 08:32 Dose: 81 mg Atorvastatin Calcium (Lipitor) 40 mg PO DAILY [facility] Last Admin: 07/11/18 08:32 Dose: 40 mg Bismuth Subsalicylate (Pepto-Bismol) 524 mg PO Q6 PRN PRN Reason: Loose stools Last Admin: 07/02/18 19:01 Dose: 524 mg Clopidogrel Bisulfate (Plavix) 75 mg PO DAILY [facility] Last Admin: 07/11/18 08:32 Dose: 75 mg Dextrose (Dextrose 50% Inj) 0 ml IV STAT PRN; Protocol PRN Reason: Hypoglycemia Protocol Dextrose (Glutose 15) 0 gm PO ONCE PRN; Protocol PRN Reason: Hypoglycemia Protocol Diphenoxylate HCl/Atropine (Lomotil 0.025-2.5 Mg Tablet) 1 tab PO Q6 PRN PRN Reason: Diarrhea Last Admin: 07/11/18 15:27 Dose: 1 tab Finasteride (Proscar) 5 mg PO QPM [facility] Last Admin: 07/10/18 17:02 Dose: 5 mg Fluticasone Propionate (Flonase) 1 spr LIANNE DAILY [facility] Last Admin: 07/11/18 08:33 Dose: 1 spr Glucagon (Glucagen Diagnostic Kit) 0 mg IM STAT PRN; Protocol PRN Reason: Hypoglycemia Protocol Guaifenesin (Robitussin) 100 mg PO Q6 PRN PRN Reason: Cough Last Admin: 07/08/18 05:42 Dose: 100 mg Insulin Detemir (Levemir) 50 units SC HS [facility] Last Admin: 07/10/18 21:51 Dose: 50 units Insulin Human Lispro (Humalog) 24 units SC ACTID [facility] Last Admin: 07/11/18 16:38 Dose: 24 units Insulin Human Lispro (Humalog) 0 units SC ACHS [facility] Last Admin: 07/11/18 16:38 Dose: Not Given Loratadine (Claritin) 10 mg PO DAILY [facility] Last Admin: 07/11/18 08:32 Dose: 10 mg Metformin HCl (Glucophage) 1,000 mg PO BID [facility] Last Admin: 07/11/18 08:32 Dose: 1,000 mg Nicotine (Nicoderm Cq) 1 patch TD DAILY [facility] Last Admin: 07/11/18 08:33 Dose: 1 patch Pantoprazole Sodium (Protonix Ec Tab) 40 mg PO DAILY [facility] Last Admin: 07/11/18 08:33 Dose: 40 mg Pregabalin (Lyrica) 100 mg PO Q8 [facility] Last Admin: 07/11/18 13:53 Dose: 100 mg Ramipril (Altace) 2.5 mg PO DAILY [facility] Last Admin: 07/11/18 08:32 Dose: 2.5 mg Sertraline HCl (Zoloft) 25 mg PO DAILY [facility] Last Admin: 07/11/18 08:32 Dose: 25 mg Tamsulosin HCl (Flomax) 0.4 mg PO QPM [facility] Last Admin: 07/10/18 17:02 Dose: 0.4 mg Zolpidem Tartrate (Ambien) 5 mg PO HS PRN PRN Reason: Insomnia Last Admin: 07/10/18 21:51 Dose: 5 mg - Labs Labs: 07/11/18 07:00 07/11/18 07:00
--- NOTE | 2018-07-11 18:47 | CP.PCM.CON ---
History of Present Illness - History of Present Illness History of Present Illness: Podiatry Consult Note - Dr. Rivera 63M PMHx HTN, DM, HLD, CVA seen and evaluated for elongated nails and left 4th digit redness. Patient requests his nails to be trimmed today as they cause discomfort and get caught in his socks. Patient denies any pain to his feet. Patient states he is unable to trim his nails himself 2/2 hx of CVA. No other lower extremity complaints. Review of Systems - Review of Systems All systems: reviewed and no additional remarkable complaints except (as per HPI) Past Patient History - Infectious Disease Hx of Infectious Diseases: None - Past Medical History & Family History Past Medical History?: Yes - Past Social History Smoking Status: Heavy Smoker > 10 Cigarettes Daily Home Situation {Lives}: Alone (3rd floor) - CARDIAC Hx Atrial Fibrillation: No - PULMONARY Hx Respiratory Disorders: No - NEUROLOGICAL Hx Neurological Disorder: Yes HX Cerebrovascular Accident: Yes (10/22/17) Other/Comment: neuropathy - HEENT Hx HEENT Problems: No - RENAL Hx Chronic Kidney Disease: No - ENDOCRINE/METABOLIC Hx Endocrine Disorders: Yes Hx Diabetes Mellitus Type 2: Yes - HEMATOLOGICAL/ONCOLOGICAL Hx Human Immunodeficiency Virus (HIV): No - INTEGUMENTARY Hx Dermatological Problems: No - MUSCULOSKELETAL/RHEUMATOLOGICAL Hx Falls: Yes - GASTROINTESTINAL Hx Gastrointestinal Disorders: Yes Hx Colostomy: Yes (2012) - GENITOURINARY/GYNECOLOGICAL Hx Genitourinary Disorders: Yes Hx Prostate Problems: Yes - PSYCHIATRIC Hx Substance Use: No - SURGICAL HISTORY Hx Surgeries: Yes Other/Comment: COLOSTOMY 2012 - ANESTHESIA Hx Anesthesia: Yes Hx Anesthesia Reactions: No Hx Malignant Hyperthermia: No Meds Allergies/Adverse Reactions: Allergies Allergy/AdvReac Type Severity Reaction Status Date / Time No Known Allergies Allergy Verified 10/18/17 14:17 - Medications Medications: Current Medications Acetaminophen (Tylenol 325mg Tab) 650 mg PO Q6 PRN PRN Reason: Other Last Admin: 07/02/18 19:02 Dose: 650 mg Aspirin (Aspirin Chewable) 81 mg PO DAILY [facility] Last Admin: 07/11/18 08:32 Dose: 81 mg Atorvastatin Calcium (Lipitor) 40 mg PO DAILY [facility] Last Admin: 07/11/18 08:32 Dose: 40 mg Bismuth Subsalicylate (Pepto-Bismol) 524 mg PO Q6 PRN PRN Reason: Loose stools Last Admin: 07/02/18 19:01 Dose: 524 mg Clopidogrel Bisulfate (Plavix) 75 mg PO DAILY [facility] Last Admin: 07/11/18 08:32 Dose: 75 mg Dextrose (Dextrose 50% Inj) 0 ml IV STAT PRN; Protocol PRN Reason: Hypoglycemia Protocol Dextrose (Glutose 15) 0 gm PO ONCE PRN; Protocol PRN Reason: Hypoglycemia Protocol Diphenoxylate HCl/Atropine (Lomotil 0.025-2.5 Mg Tablet) 1 tab PO Q6 PRN PRN Reason: Diarrhea Last Admin: 07/11/18 15:27 Dose: 1 tab Finasteride (Proscar) 5 mg PO QPM [facility] Last Admin: 07/11/18 18:06 Dose: 5 mg Fluticasone Propionate (Flonase) 1 spr LIANNE DAILY [facility] Last Admin: 07/11/18 08:33 Dose: 1 spr Glucagon (Glucagen Diagnostic Kit) 0 mg IM STAT PRN; Protocol PRN Reason: Hypoglycemia Protocol Guaifenesin (Robitussin) 100 mg PO Q6 PRN PRN Reason: Cough Last Admin: 07/08/18 05:42 Dose: 100 mg Insulin Detemir (Levemir) 50 units SC HS [facility] Last Admin: 07/10/18 21:51 Dose: 50 units Insulin Human Lispro (Humalog) 24 units SC ACTID [facility] Last Admin: 07/11/18 16:38 Dose: 24 units Insulin Human Lispro (Humalog) 0 units SC ACHS [facility] Last Admin: 07/11/18 16:38 Dose: Not Given Loratadine (Claritin) 10 mg PO DAILY [facility] Last Admin: 07/11/18 08:32 Dose: 10 mg Metformin HCl (Glucophage) 1,000 mg PO BID [facility] Last Admin: 07/11/18 18:06 Dose: 1,000 mg Nicotine (Nicoderm Cq) 1 patch TD DAILY [facility] Last Admin: 07/11/18 08:33 Dose: 1 patch Pantoprazole Sodium (Protonix Ec Tab) 40 mg PO DAILY [facility] Last Admin: 07/11/18 08:33 Dose: 40 mg Pregabalin (Lyrica) 100 mg PO Q8 [facility] Last Admin: 07/11/18 13:53 Dose: 100 mg Ramipril (Altace) 2.5 mg PO DAILY [facility] Last Admin: 07/11/18 08:32 Dose: 2.5 mg Sertraline HCl (Zoloft) 25 mg PO DAILY [facility] Last Admin: 07/11/18 08:32 Dose: 25 mg Tamsulosin HCl (Flomax) 0.4 mg PO QPM [facility] Last Admin: 07/11/18 18:06 Dose: 0.4 mg Zolpidem Tartrate (Ambien) 5 mg PO HS PRN PRN Reason: Insomnia Last Admin: 07/10/18 21:51 Dose: 5 mg Physical Exam - Constitutional Appears: Non-toxic, No Acute Distress - Extremities Exam Additional comments: VASC: DP and PT pulses palpable 2/4. CFT <3 seconds to all digits x5 b/l. Temperature gradient warm to warm. No edema noted. NEURO: Light touch and protective sensation diminished b/l. DERM: Nails 1-5 b/l thickened, elongated, and dystrophic with the presence of subungual debris. Erythema noted to 4th digit. No drainage, purulence, fluctuanc e noted to left 4th digit. ORTHO: No gross deformities present. No pain on palpation noted to left 4th digit. - Neurological Exam Neurological exam: Alert, Oriented x3 - Psychiatric Exam Psychiatric exam: Normal Affect, Normal Mood Results - Vital Signs Recent Vital Signs: Last Vital Signs Temp 97.8 F 07/11/18 08:49 Pulse 73 07/11/18 08:49 Resp 19 07/11/18 08:49 BP 136/77 07/11/18 08:49 Pulse Ox 99 07/11/18 08:49 - Labs Result Diagrams: 07/11/18 07:00 07/11/18 07:00 Labs: Laboratory Results - last 24 hr 07/10/18 07/11/18 07/11/18 21:14 06:05 07:00 WBC 9.2 RBC 4.37 L Hgb 12.3 Hct 37.5 MCV 85.7 MCH 28.0 MCHC 32.7 L RDW 13.3 Plt Count 236 Sodium Potassium Chloride Carbon Dioxide Anion Gap BUN Creatinine Est GFR ( Amer) Est GFR (Non-Af Amer) POC Glucose (mg/dL) 155 H 169 H Random Glucose Calcium 07/11/18 07/11/18 07/11/18 07:00 11:35 16:09 WBC RBC Hgb Hct MCV MCH MCHC RDW Plt Count Sodium 138 Potassium 4.2 Chloride 103 Carbon Dioxide 26 Anion Gap 13 BUN 29 H Creatinine 1.2 Est GFR ( Amer) > 60 Est GFR (Non-Af Amer) > 60 POC Glucose (mg/dL) 183 H 89 Random Glucose 173 H Calcium 8.7 Assessment & Plan - Assessment and Plan (Free Text) Assessment: 63M PMHx HTN, DM, HLD, CVA with onychomycosis Plan: Patient seen and evaluated Nails debrided in thickness and length Erythema noted to 4th digit likely due to irritation from long 4th digit nail, will continue to monitor Podiatry will continue to follow Further recs per Dr. Rivera Thank you for the consult
[2018-07-11] MEDS: Insulin Detemir 100 Units/ml Inj SC SCH (22:23)
[2018-07-12] MEDS: Atropine-Diphenoxylate 0.025-2.5 mg Tab PO PRN (05:09)
[2018-07-12] MEDS: Insulin Lispro (humaLOG) 100 Units/ml Inj SC SCH ×7 (06:30→21:00)
--- NOTE | 2018-07-12 08:06 | CP.PCM.CON ---
History of Present Illness - History of Present Illness History of Present Illness: Pt seen for supportive therapy today 7:42-8. Pt spoke of plan for LAURIE, discussed comfort with the above and understanding of need for continued rehab with living situation. Pt spoke of optimism, denied depression, denied anxiety, spoke of positive treatment by others and positive care helpful to his mood. Pt denied distress at present, adjusting incresingly well. plan: continued Sup therapy Past Patient History - Infectious Disease Hx of Infectious Diseases: None - Past Medical History & Family History Past Medical History?: Yes - Past Social History Smoking Status: Heavy Smoker > 10 Cigarettes Daily Home Situation {Lives}: Alone (3rd floor) - CARDIAC Hx Atrial Fibrillation: No - PULMONARY Hx Respiratory Disorders: No - NEUROLOGICAL Hx Neurological Disorder: Yes HX Cerebrovascular Accident: Yes (10/22/17) Other/Comment: neuropathy - HEENT Hx HEENT Problems: No - RENAL Hx Chronic Kidney Disease: No - ENDOCRINE/METABOLIC Hx Endocrine Disorders: Yes Hx Diabetes Mellitus Type 2: Yes - HEMATOLOGICAL/ONCOLOGICAL Hx Human Immunodeficiency Virus (HIV): No - INTEGUMENTARY Hx Dermatological Problems: No - MUSCULOSKELETAL/RHEUMATOLOGICAL Hx Falls: Yes - GASTROINTESTINAL Hx Gastrointestinal Disorders: Yes Hx Colostomy: Yes (2012) - GENITOURINARY/GYNECOLOGICAL Hx Genitourinary Disorders: Yes Hx Prostate Problems: Yes - PSYCHIATRIC Hx Substance Use: No - SURGICAL HISTORY Hx Surgeries: Yes Other/Comment: COLOSTOMY 2012 - ANESTHESIA Hx Anesthesia: Yes Hx Anesthesia Reactions: No Hx Malignant Hyperthermia: No Meds Allergies/Adverse Reactions: Allergies Allergy/AdvReac Type Severity Reaction Status Date / Time No Known Allergies Allergy Verified 10/18/17 14:17 - Medications Medications: Current Medications Acetaminophen (Tylenol 325mg Tab) 650 mg PO Q6 PRN PRN Reason: Other Last Admin: 07/02/18 19:02 Dose: 650 mg Aspirin (Aspirin Chewable) 81 mg PO DAILY [facility] Last Admin: 07/11/18 08:32 Dose: 81 mg Atorvastatin Calcium (Lipitor) 40 mg PO DAILY [facility] Last Admin: 07/11/18 08:32 Dose: 40 mg Bismuth Subsalicylate (Pepto-Bismol) 524 mg PO Q6 PRN PRN Reason: Loose stools Last Admin: 07/02/18 19:01 Dose: 524 mg Clopidogrel Bisulfate (Plavix) 75 mg PO DAILY [facility] Last Admin: 07/11/18 08:32 Dose: 75 mg Dextrose (Dextrose 50% Inj) 0 ml IV STAT PRN; Protocol PRN Reason: Hypoglycemia Protocol Dextrose (Glutose 15) 0 gm PO ONCE PRN; Protocol PRN Reason: Hypoglycemia Protocol Diphenoxylate HCl/Atropine (Lomotil 0.025-2.5 Mg Tablet) 1 tab PO Q6 PRN PRN Reason: Diarrhea Last Admin: 07/12/18 05:09 Dose: 1 tab Finasteride (Proscar) 5 mg PO QPM [facility] Last Admin: 07/11/18 18:06 Dose: 5 mg Fluticasone Propionate (Flonase) 1 spr LIANNE DAILY [facility] Last Admin: 07/11/18 08:33 Dose: 1 spr Glucagon (Glucagen Diagnostic Kit) 0 mg IM STAT PRN; Protocol PRN Reason: Hypoglycemia Protocol Guaifenesin (Robitussin) 100 mg PO Q6 PRN PRN Reason: Cough Last Admin: 07/08/18 05:42 Dose: 100 mg Insulin Detemir (Levemir) 50 units SC HS [facility] Last Admin: 07/11/18 22:23 Dose: 50 units Insulin Human Lispro (Humalog) 24 units SC ACTID [facility] Last Admin: 07/11/18 16:38 Dose: 24 units Insulin Human Lispro (Humalog) 0 units SC ACHS [facility] Last Admin: 07/12/18 06:30 Dose: Not Given Loratadine (Claritin) 10 mg PO DAILY [facility] Last Admin: 07/11/18 08:32 Dose: 10 mg Metformin HCl (Glucophage) 500 mg PO BID [facility] Nicotine (Nicoderm Cq) 1 patch TD DAILY [facility] Last Admin: 07/11/18 08:33 Dose: 1 patch Pantoprazole Sodium (Protonix Ec Tab) 40 mg PO DAILY [facility] Last Admin: 07/11/18 08:33 Dose: 40 mg Pregabalin (Lyrica) 100 mg PO Q8 [facility] Last Admin: 07/12/18 05:09 Dose: 100 mg Ramipril (Altace) 2.5 mg PO DAILY [facility] Last Admin: 07/11/18 08:32 Dose: 2.5 mg Sertraline HCl (Zoloft) 25 mg PO DAILY [facility] Last Admin: 07/11/18 08:32 Dose: 25 mg Tamsulosin HCl (Flomax) 0.4 mg PO QPM [facility] Last Admin: 07/11/18 18:06 Dose: 0.4 mg Zolpidem Tartrate (Ambien) 5 mg PO HS PRN PRN Reason: Insomnia Last Admin: 07/10/18 21:51 Dose: 5 mg Results - Vital Signs Recent Vital Signs: Last Vital Signs Temp 96.4 F L 07/12/18 07:33 Pulse 66 07/12/18 07:33 Resp 18 07/12/18 07:33 BP 126/72 07/12/18 07:33 Pulse Ox 97 07/12/18 07:33 - Labs Result Diagrams: 07/11/18 07:00 07/11/18 07:00 Labs: Laboratory Results - last 24 hr 07/11/18 07/11/18 07/11/18 11:35 16:09 21:10 POC Glucose (mg/dL) 183 H 89 136 H 07/12/18 06:00 POC Glucose (mg/dL) 131 H
[2018-07-12] MEDS: Pantoprazole 40 mg EC Tab PO SCH (08:50)
--- NOTE | 2018-07-12 09:21 | CP.PCM.PN ---
<Keli Lozano - Last Filed: 07/12/18 09:24> Subjective - Date & Time of Evaluation Date of Evaluation: 07/12/18 Time of Evaluation: 07:10 - Subjective Subjective: Patient seen and examined this morning with Dr. Castle. Improved diarrhea overnight. Reports good progress with PT/Exercise. Objective - Vital Signs/Intake and Output Vital Signs (last 24 hours): Temp Pulse Resp BP Pulse Ox 96.4 F L 78 18 103/60 99 07/12/18 07:33 07/12/18 09:09 07/12/18 07:33 07/12/18 08:49 07/12/18 09:09 - Medications Medications: Current Medications Acetaminophen (Tylenol 325mg Tab) 650 mg PO Q6 PRN PRN Reason: Other Last Admin: 07/02/18 19:02 Dose: 650 mg Aspirin (Aspirin Chewable) 81 mg PO DAILY [facility] Last Admin: 07/12/18 08:51 Dose: 81 mg Atorvastatin Calcium (Lipitor) 40 mg PO DAILY [facility] Last Admin: 07/12/18 08:52 Dose: 40 mg Bismuth Subsalicylate (Pepto-Bismol) 524 mg PO Q6 PRN PRN Reason: Loose stools Last Admin: 07/02/18 19:01 Dose: 524 mg Clopidogrel Bisulfate (Plavix) 75 mg PO DAILY [facility] Last Admin: 07/12/18 08:48 Dose: 75 mg Dextrose (Dextrose 50% Inj) 0 ml IV STAT PRN; Protocol PRN Reason: Hypoglycemia Protocol Dextrose (Glutose 15) 0 gm PO ONCE PRN; Protocol PRN Reason: Hypoglycemia Protocol Diphenoxylate HCl/Atropine (Lomotil 0.025-2.5 Mg Tablet) 1 tab PO Q6 PRN PRN Reason: Diarrhea Last Admin: 07/12/18 05:09 Dose: 1 tab Finasteride (Proscar) 5 mg PO QPM [facility] Last Admin: 07/11/18 18:06 Dose: 5 mg Fluticasone Propionate (Flonase) 1 spr LIANNE DAILY [facility] Last Admin: 07/12/18 08:49 Dose: 1 spr Glucagon (Glucagen Diagnostic Kit) 0 mg IM STAT PRN; Protocol PRN Reason: Hypoglycemia Protocol Guaifenesin (Robitussin) 100 mg PO Q6 PRN PRN Reason: Cough Last Admin: 07/08/18 05:42 Dose: 100 mg Insulin Detemir (Levemir) 50 units SC HS [facility] Last Admin: 07/11/18 22:23 Dose: 50 units Insulin Human Lispro (Humalog) 24 units SC ACTID [facility] Last Admin: 07/12/18 08:51 Dose: 24 units Insulin Human Lispro (Humalog) 0 units SC ACHS [facility] Last Admin: 07/12/18 06:30 Dose: Not Given Loratadine (Claritin) 10 mg PO DAILY [facility] Last Admin: 07/12/18 08:50 Dose: 10 mg Metformin HCl (Glucophage) 500 mg PO BID [facility] Last Admin: 07/12/18 08:49 Dose: 500 mg Nicotine (Nicoderm Cq) 1 patch TD DAILY [facility] Last Admin: 07/12/18 08:53 Dose: 1 patch Pantoprazole Sodium (Protonix Ec Tab) 40 mg PO DAILY [facility] Last Admin: 07/12/18 08:50 Dose: 40 mg Pregabalin (Lyrica) 100 mg PO Q8 [facility] Last Admin: 07/12/18 05:09 Dose: 100 mg Ramipril (Altace) 2.5 mg PO DAILY [facility] Last Admin: 07/12/18 08:49 Dose: 2.5 mg Sertraline HCl (Zoloft) 25 mg PO DAILY [facility] Last Admin: 07/12/18 08:50 Dose: 25 mg Tamsulosin HCl (Flomax) 0.4 mg PO QPM [facility] Last Admin: 07/11/18 18:06 Dose: 0.4 mg Zolpidem Tartrate (Ambien) 5 mg PO HS PRN PRN Reason: Insomnia Last Admin: 07/10/18 21:51 Dose: 5 mg - Labs Labs: 07/11/18 07:00 07/11/18 07:00 - Constitutional Appears: No Acute Distress (left facial droop ) - Head Exam Head Exam: NORMAL INSPECTION - Eye Exam Eye Exam: Normal appearance - ENT Exam ENT Exam: Mucous Membranes Moist - Neck Exam Neck Exam: Normal Inspection - Respiratory Exam Respiratory Exam: Clear to Ausculation Bilateral, NORMAL BREATHING PATTERN - Cardiovascular Exam Cardiovascular Exam: REGULAR RHYTHM, +S1, +S2 - GI/Abdominal Exam GI & Abdominal Exam: Soft, Normal Bowel Sounds. absent: Tenderness - Extremities Exam Extremities Exam: absent: Tenderness - Back Exam Back Exam: NORMAL INSPECTION - Neurological Exam Neurological Exam: Alert, Awake, Oriented x3 Neuro motor strength exam: Left Upper Extremity: 3, Right Upper Extremity: 4, Left Lower Extremity: 3, Right Lower Extremity: 4 - Psychiatric Exam Psychiatric exam: Normal Affect - Skin Skin Exam: Normal Color Assessment and Plan - Assessment and Plan (Free Text) Assessment: A/P: 63 y/o M with a PMHx of HTN, DM, HLD, previous CVA with residual left side weakness was admitted to rehabilitation unit due to aggravating L sided weakness. Left sided weakness, Hx of CVA --Neurology on board, Dr Portillo. 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 HTN --Controlled --Heart healthy diet. --Ramipril 2.5mg PO daily DM-II --Home meds resumed. --Accucheck ACHS --Insulin sliding scale and hypoglycemia protocol. HLD --Home meds resumed. DVT Prophylaxis --Lovenox Sc daily Case discussed with Dr. Castle, Agrees with plan <Gomez Castle - Last Filed: 07/13/18 10:36> Objective - Vital Signs/Intake and Output Vital Signs (last 24 hours): Temp Pulse Resp BP Pulse Ox 97.3 F L 67 19 128/64 95 07/13/18 08:08 07/13/18 08:08 07/13/18 08:08 07/13/18 08:08 07/13/18 08:08 - Medications Medications: Current Medications Acetaminophen (Tylenol 325mg Tab) 650 mg PO Q6 PRN PRN Reason: Other Last Admin: 07/02/18 19:02 Dose: 650 mg Aspirin (Aspirin Chewable) 81 mg PO DAILY [facility] Last Admin: 07/13/18 08:01 Dose: 81 mg Atorvastatin Calcium (Lipitor) 40 mg PO DAILY [facility] Last Admin: 07/12/18 08:52 Dose: 40 mg Bismuth Subsalicylate (Pepto-Bismol) 524 mg PO Q6 PRN PRN Reason: Loose stools Last Admin: 07/02/18 19:01 Dose: 524 mg Clopidogrel Bisulfate (Plavix) 75 mg PO DAILY [facility] Last Admin: 07/13/18 08:00 Dose: 75 mg Dextrose (Dextrose 50% Inj) 0 ml IV STAT PRN; Protocol PRN Reason: Hypoglycemia Protocol Dextrose (Glutose 15) 0 gm PO ONCE PRN; Protocol PRN Reason: Hypoglycemia Protocol Diphenoxylate HCl/Atropine (Lomotil 0.025-2.5 Mg Tablet) 1 tab PO Q6 PRN PRN Reason: Diarrhea Last Admin: 07/12/18 05:09 Dose: 1 tab Finasteride (Proscar) 5 mg PO QPM [facility] Last Admin: 07/12/18 18:01 Dose: 5 mg Fluticasone Propionate (Flonase) 1 spr LIANNE DAILY [facility] Last Admin: 07/13/18 08:02 Dose: 1 spr Glucagon (Glucagen Diagnostic Kit) 0 mg IM STAT PRN; Protocol PRN Reason: Hypoglycemia Protocol Guaifenesin (Robitussin) 100 mg PO Q6 PRN PRN Reason: Cough Last Admin: 07/08/18 05:42 Dose: 100 mg Insulin Detemir (Levemir) 50 units SC HS [facility] Last Admin: 07/12/18 21:31 Dose: Not Given Insulin Human Lispro (Humalog) 24 units SC ACTID [facility] Last Admin: 07/12/18 17:56 Dose: 24 units Insulin Human Lispro (Humalog) 0 units SC ACHS [facility] Last Admin: 07/13/18 06:33 Dose: Not Given Loratadine (Claritin) 10 mg PO DAILY [facility] Last Admin: 07/13/18 08:00 Dose: 10 mg Metformin HCl (Glucophage) 500 mg PO BID [facility] Last Admin: 07/13/18 07:59 Dose: 500 mg Nicotine (Nicoderm Cq) 1 patch TD DAILY [facility] Last Admin: 07/13/18 07:59 Dose: 1 patch Pantoprazole Sodium (Protonix Ec Tab) 40 mg PO DAILY [facility] Last Admin: 07/13/18 07:59 Dose: 40 mg Pregabalin (Lyrica) 100 mg PO Q8 [facility] Last Admin: 07/13/18 06:46 Dose: 100 mg Ramipril (Altace) 2.5 mg PO DAILY [facility] Last Admin: 07/13/18 08:00 Dose: 2.5 mg Sertraline HCl (Zoloft) 25 mg PO DAILY [facility] Last Admin: 07/13/18 08:01 Dose: 25 mg Tamsulosin HCl (Flomax) 0.4 mg PO QPM [facility] Last Admin: 07/12/18 17:50 Dose: 0.4 mg Zolpidem Tartrate (Ambien) 5 mg PO HS PRN PRN Reason: Insomnia Last Admin: 07/10/18 21:51 Dose: 5 mg - Labs Labs: 07/11/18 07:00 07/11/18 07:00 Assessment and Plan - Assessment and Plan (Free Text) Assessment: Patient was personally seen and examined by me in rounds with residents. Available labs and diagnostic data reviewed. Case, Patient's condition and management plan discussed with residents in rounds. Agree with resident's progress note. Plan: As ordered.
--- NOTE | 2018-07-12 16:05 | CP.PCM.PN ---
Subjective - Date & Time of Evaluation Date of Evaluation: 07/12/18 Time of Evaluation: 09:00 - Subjective Subjective: Patient with multiple loose bowel movements yesterday. Has been better this morning Objective - Vital Signs/Intake and Output Vital Signs (last 24 hours): Temp Pulse Resp BP Pulse Ox 96.4 F L 78 18 103/60 99 07/12/18 07:33 07/12/18 09:09 07/12/18 07:33 07/12/18 08:49 07/12/18 09:09 - Medications Medications: Current Medications Acetaminophen (Tylenol 325mg Tab) 650 mg PO Q6 PRN PRN Reason: Other Last Admin: 07/02/18 19:02 Dose: 650 mg Aspirin (Aspirin Chewable) 81 mg PO DAILY [facility] Last Admin: 07/12/18 08:51 Dose: 81 mg Atorvastatin Calcium (Lipitor) 40 mg PO DAILY [facility] Last Admin: 07/12/18 08:52 Dose: 40 mg Bismuth Subsalicylate (Pepto-Bismol) 524 mg PO Q6 PRN PRN Reason: Loose stools Last Admin: 07/02/18 19:01 Dose: 524 mg Clopidogrel Bisulfate (Plavix) 75 mg PO DAILY [facility] Last Admin: 07/12/18 08:48 Dose: 75 mg Dextrose (Dextrose 50% Inj) 0 ml IV STAT PRN; Protocol PRN Reason: Hypoglycemia Protocol Dextrose (Glutose 15) 0 gm PO ONCE PRN; Protocol PRN Reason: Hypoglycemia Protocol Diphenoxylate HCl/Atropine (Lomotil 0.025-2.5 Mg Tablet) 1 tab PO Q6 PRN PRN Reason: Diarrhea Last Admin: 07/12/18 05:09 Dose: 1 tab Finasteride (Proscar) 5 mg PO QPM [facility] Last Admin: 07/11/18 18:06 Dose: 5 mg Fluticasone Propionate (Flonase) 1 spr LIANNE DAILY [facility] Last Admin: 07/12/18 08:49 Dose: 1 spr Glucagon (Glucagen Diagnostic Kit) 0 mg IM STAT PRN; Protocol PRN Reason: Hypoglycemia Protocol Guaifenesin (Robitussin) 100 mg PO Q6 PRN PRN Reason: Cough Last Admin: 07/08/18 05:42 Dose: 100 mg Insulin Detemir (Levemir) 50 units SC HS [facility] Last Admin: 07/11/18 22:23 Dose: 50 units Insulin Human Lispro (Humalog) 24 units SC ACTID [facility] Last Admin: 07/12/18 08:51 Dose: 24 units Insulin Human Lispro (Humalog) 0 units SC ACHS [facility] Last Admin: 07/12/18 06:30 Dose: Not Given Loratadine (Claritin) 10 mg PO DAILY [facility] Last Admin: 07/12/18 08:50 Dose: 10 mg Metformin HCl (Glucophage) 500 mg PO BID [facility] Last Admin: 07/12/18 08:49 Dose: 500 mg Nicotine (Nicoderm Cq) 1 patch TD DAILY [facility] Last Admin: 07/12/18 08:53 Dose: 1 patch Pantoprazole Sodium (Protonix Ec Tab) 40 mg PO DAILY [facility] Last Admin: 07/12/18 08:50 Dose: 40 mg Pregabalin (Lyrica) 100 mg PO Q8 [facility] Last Admin: 07/12/18 05:09 Dose: 100 mg Ramipril (Altace) 2.5 mg PO DAILY [facility] Last Admin: 07/12/18 08:49 Dose: 2.5 mg Sertraline HCl (Zoloft) 25 mg PO DAILY [facility] Last Admin: 07/12/18 08:50 Dose: 25 mg Tamsulosin HCl (Flomax) 0.4 mg PO QPM [facility] Last Admin: 07/11/18 18:06 Dose: 0.4 mg Zolpidem Tartrate (Ambien) 5 mg PO HS PRN PRN Reason: Insomnia Last Admin: 07/10/18 21:51 Dose: 5 mg - Labs Labs: 07/11/18 07:00 07/11/18 07:00 - Head Exam Head Exam: ATRAUMATIC - Eye Exam Eye Exam: Normal appearance - ENT Exam ENT Exam: Mucous Membranes Moist - Neck Exam Neck Exam: Full ROM - Respiratory Exam Respiratory Exam: Clear to Ausculation Bilateral - Cardiovascular Exam Cardiovascular Exam: REGULAR RHYTHM - GI/Abdominal Exam GI & Abdominal Exam: Soft. absent: Tenderness Assessment and Plan (1) Diarrhea Assessment & Plan: Stool studies so far negative. Better now. Will reduce metformin to 500 mg BID and reduce fat and lactose in diet. Status: Acute
[2018-07-12] MEDS ORDERED: Insulin Detemir 100 Units/ml Inj SC ONE (21:00)
[2018-07-12] MEDS: Insulin Detemir 100 Units/ml Inj SC SCH (21:31)
[2018-07-13] MEDS: Insulin Lispro (humaLOG) 100 Units/ml Inj SC SCH ×7 (06:33→21:33)
[2018-07-13] MEDS: Pantoprazole 40 mg EC Tab PO SCH (07:59)
--- NOTE | 2018-07-13 10:38 | CP.PCM.PN ---
Subjective - Date & Time of Evaluation Date of Evaluation: 07/13/18 Time of Evaluation: 10:36 - Subjective Subjective: Podiatry progress note - Dr. Rivera 63M seen and evaluated at bedside for left fourth digit redness. Patients nails were cut two days ago by podiatry team. Denies pain to LEs and has no acute complaints today. Resting comfortably in wheelchair at bedside, will be partaking in PT today. Denies n/v/f/c/sob. Objective - Vital Signs/Intake and Output Vital Signs (last 24 hours): Temp Pulse Resp BP Pulse Ox 97.3 F L 67 19 128/64 95 07/13/18 08:08 07/13/18 08:08 07/13/18 08:08 07/13/18 08:08 07/13/18 08:08 - Medications Medications: Current Medications Acetaminophen (Tylenol 325mg Tab) 650 mg PO Q6 PRN PRN Reason: Other Last Admin: 07/02/18 19:02 Dose: 650 mg Aspirin (Aspirin Chewable) 81 mg PO DAILY [facility] Last Admin: 07/13/18 08:01 Dose: 81 mg Atorvastatin Calcium (Lipitor) 40 mg PO DAILY [facility] Last Admin: 07/12/18 08:52 Dose: 40 mg Bismuth Subsalicylate (Pepto-Bismol) 524 mg PO Q6 PRN PRN Reason: Loose stools Last Admin: 07/02/18 19:01 Dose: 524 mg Clopidogrel Bisulfate (Plavix) 75 mg PO DAILY [facility] Last Admin: 07/13/18 08:00 Dose: 75 mg Dextrose (Dextrose 50% Inj) 0 ml IV STAT PRN; Protocol PRN Reason: Hypoglycemia Protocol Dextrose (Glutose 15) 0 gm PO ONCE PRN; Protocol PRN Reason: Hypoglycemia Protocol Diphenoxylate HCl/Atropine (Lomotil 0.025-2.5 Mg Tablet) 1 tab PO Q6 PRN PRN Reason: Diarrhea Last Admin: 07/12/18 05:09 Dose: 1 tab Finasteride (Proscar) 5 mg PO QPM [facility] Last Admin: 07/12/18 18:01 Dose: 5 mg Fluticasone Propionate (Flonase) 1 spr LIANNE DAILY [facility] Last Admin: 07/13/18 08:02 Dose: 1 spr Glucagon (Glucagen Diagnostic Kit) 0 mg IM STAT PRN; Protocol PRN Reason: Hypoglycemia Protocol Guaifenesin (Robitussin) 100 mg PO Q6 PRN PRN Reason: Cough Last Admin: 07/08/18 05:42 Dose: 100 mg Insulin Detemir (Levemir) 50 units SC HS [facility] Last Admin: 07/12/18 21:31 Dose: Not Given Insulin Human Lispro (Humalog) 24 units SC ACTID [facility] Last Admin: 07/12/18 17:56 Dose: 24 units Insulin Human Lispro (Humalog) 0 units SC ACHS [facility] Last Admin: 07/13/18 06:33 Dose: Not Given Loratadine (Claritin) 10 mg PO DAILY [facility] Last Admin: 07/13/18 08:00 Dose: 10 mg Metformin HCl (Glucophage) 500 mg PO BID [facility] Last Admin: 07/13/18 07:59 Dose: 500 mg Nicotine (Nicoderm Cq) 1 patch TD DAILY [facility] Last Admin: 07/13/18 07:59 Dose: 1 patch Pantoprazole Sodium (Protonix Ec Tab) 40 mg PO DAILY [facility] Last Admin: 07/13/18 07:59 Dose: 40 mg Pregabalin (Lyrica) 100 mg PO Q8 [facility] Last Admin: 07/13/18 06:46 Dose: 100 mg Ramipril (Altace) 2.5 mg PO DAILY [facility] Last Admin: 07/13/18 08:00 Dose: 2.5 mg Sertraline HCl (Zoloft) 25 mg PO DAILY [facility] Last Admin: 07/13/18 08:01 Dose: 25 mg Tamsulosin HCl (Flomax) 0.4 mg PO QPM [facility] Last Admin: 07/12/18 17:50 Dose: 0.4 mg Zolpidem Tartrate (Ambien) 5 mg PO HS PRN PRN Reason: Insomnia Last Admin: 07/10/18 21:51 Dose: 5 mg - Labs Labs: 07/11/18 07:00 07/11/18 07:00 - Constitutional Appears: Non-toxic - Head Exam Head Exam: ATRAUMATIC - Extremities Exam Additional comments: VASC: DP and PT pulses palpable 2/4. CFT <3 seconds to all digits x5 b/l. Temperature gradient warm to warm. No edema noted. NEURO: Light touch and protective sensation diminished b/l. DERM: Erythema noted to be greatly improved to 4th digit. No drainage, purulence, fluctuance noted to left 4th digit. ORTHO: No gross deformities present. No pain on palpation noted to left 4th digit. - Neurological Exam Neurological Exam: Alert, Awake, Oriented x3 - Psychiatric Exam Psychiatric exam: Normal Affect Assessment and Plan - Assessment and Plan (Free Text) Assessment: 63M with left fourth digit erythema, resolved Plan: Patient seen and evaluated Discussed with Dr. Rivera Patients left fourth digit erythema resolved No other podiatric intervention necessary Podiatry to sign off on patient Please reconsult if other acute problems present
--- NOTE | 2018-07-13 11:27 | CP.PCM.PN ---
Subjective - Date & Time of Evaluation Date of Evaluation: 07/13/18 Time of Evaluation: 09:10 - Subjective Subjective: no acute complaints at present Objective - Vital Signs/Intake and Output Vital Signs (last 24 hours): Temp Pulse Resp BP Pulse Ox 97.3 F L 67 19 128/64 95 07/13/18 08:08 07/13/18 08:08 07/13/18 08:08 07/13/18 08:08 07/13/18 08:08 - Medications Medications: Current Medications Acetaminophen (Tylenol 325mg Tab) 650 mg PO Q6 PRN PRN Reason: Other Last Admin: 07/02/18 19:02 Dose: 650 mg Aspirin (Aspirin Chewable) 81 mg PO DAILY [facility] Last Admin: 07/13/18 08:01 Dose: 81 mg Atorvastatin Calcium (Lipitor) 40 mg PO DAILY [facility] Last Admin: 07/12/18 08:52 Dose: 40 mg Bismuth Subsalicylate (Pepto-Bismol) 524 mg PO Q6 PRN PRN Reason: Loose stools Last Admin: 07/02/18 19:01 Dose: 524 mg Clopidogrel Bisulfate (Plavix) 75 mg PO DAILY [facility] Last Admin: 07/13/18 08:00 Dose: 75 mg Dextrose (Dextrose 50% Inj) 0 ml IV STAT PRN; Protocol PRN Reason: Hypoglycemia Protocol Dextrose (Glutose 15) 0 gm PO ONCE PRN; Protocol PRN Reason: Hypoglycemia Protocol Diphenoxylate HCl/Atropine (Lomotil 0.025-2.5 Mg Tablet) 1 tab PO Q6 PRN PRN Reason: Diarrhea Last Admin: 07/12/18 05:09 Dose: 1 tab Finasteride (Proscar) 5 mg PO QPM [facility] Last Admin: 07/12/18 18:01 Dose: 5 mg Fluticasone Propionate (Flonase) 1 spr LIANNE DAILY [facility] Last Admin: 07/13/18 08:02 Dose: 1 spr Glucagon (Glucagen Diagnostic Kit) 0 mg IM STAT PRN; Protocol PRN Reason: Hypoglycemia Protocol Guaifenesin (Robitussin) 100 mg PO Q6 PRN PRN Reason: Cough Last Admin: 07/08/18 05:42 Dose: 100 mg Insulin Detemir (Levemir) 50 units SC [facility] Last Admin: 07/12/18 21:31 Dose: Not Given Insulin Human Lispro (Humalog) 24 units SC ACTID [facility] Last Admin: 07/12/18 17:56 Dose: 24 units Insulin Human Lispro (Humalog) 0 units SC ACHS [facility] Last Admin: 07/13/18 06:33 Dose: Not Given Loratadine (Claritin) 10 mg PO DAILY [facility] Last Admin: 07/13/18 08:00 Dose: 10 mg Metformin HCl (Glucophage) 500 mg PO BID [facility] Last Admin: 07/13/18 07:59 Dose: 500 mg Nicotine (Nicoderm Cq) 1 patch TD DAILY [facility] Last Admin: 07/13/18 07:59 Dose: 1 patch Pantoprazole Sodium (Protonix Ec Tab) 40 mg PO DAILY [facility] Last Admin: 07/13/18 07:59 Dose: 40 mg Pregabalin (Lyrica) 100 mg PO Q8 [facility] Last Admin: 07/13/18 06:46 Dose: 100 mg Ramipril (Altace) 2.5 mg PO DAILY [facility] Last Admin: 07/13/18 08:00 Dose: 2.5 mg Sertraline HCl (Zoloft) 25 mg PO DAILY [facility] Last Admin: 07/13/18 08:01 Dose: 25 mg Tamsulosin HCl (Flomax) 0.4 mg PO QPM [facility] Last Admin: 07/12/18 17:50 Dose: 0.4 mg Zolpidem Tartrate (Ambien) 5 mg PO HS PRN PRN Reason: Insomnia Last Admin: 07/10/18 21:51 Dose: 5 mg - Labs Labs: 07/11/18 07:00 07/11/18 07:00 - Constitutional Appears: Well - Head Exam Head Exam: ATRAUMATIC, NORMAL INSPECTION, NORMOCEPHALIC - Eye Exam Eye Exam: EOMI, Normal appearance, PERRL Pupil Exam: NORMAL ACCOMODATION, PERRL - ENT Exam ENT Exam: Mucous Membranes Moist, Normal Exam - Neck Exam Neck Exam: Full ROM - Respiratory Exam Respiratory Exam: Clear to Ausculation Bilateral, NORMAL BREATHING PATTERN - Cardiovascular Exam Cardiovascular Exam: REGULAR RHYTHM - GI/Abdominal Exam GI & Abdominal Exam: Soft, Normal Bowel Sounds - Rectal Exam Rectal Exam: NORMAL INSPECTION - Exam External exam: NORMAL EXTERNAL EXAM - Extremities Exam Extremities Exam: Full ROM, Normal Capillary Refill - Back Exam Back Exam: NORMAL INSPECTION - Neurological Exam Neurological Exam: Alert - Psychiatric Exam Psychiatric exam: Normal Affect - Skin Skin Exam: Normal Color Assessment and Plan (1) CVA (cerebral vascular accident) Assessment & Plan: covering for Dr Trevino, to continue with physical, occupational, rec therapy. Status: Acute (2) Diabetic gastroparesis Status: Acute (3) Headache Status: Acute (4) History of CVA with residual deficit Status: Acute (5) Hyperglycemia due to type 2 diabetes mellitus Status: Acute (6) Left-sided weakness Status: Acute
--- NOTE | 2018-07-13 13:54 | PN ---
DATE: 07/13/2018 SUBJECTIVE: The patient seen and examined. Interim events noted. The patient remains in acute rehab unit, consults noted and appreciated. Gastroenterology followup and intervention noted and appreciated. The patient also had episodes of hypoglycemia and telephone orders were given. Currently, the patient feels okay. Denies any chest pain, shortness of breath, abdominal pain. No diarrhea. PHYSICAL EXAMINATION: GENERAL: The patient is in no acute distress. VITAL SIGNS: Stable. HEART: S1, S2 normal, regular. LUNGS: Good bilateral air exchange. ABDOMEN: Soft, nontender. EXTREMITIES: No edema. No calf swelling. No tenderness. No acute ischemia. CENTRAL NERVOUS SYSTEM: Essentially unchanged and the patient . DIAGNOSTIC DATA: Available diagnostic data reviewed. Accu-Cheks are acceptable. ASSESSMENT AND PLAN: Overall, the patient's general medical condition is stable. Plan as ordered. Gomez Castle MD
[2018-07-13] MEDS: Atropine-Diphenoxylate 0.025-2.5 mg Tab PO PRN (21:32)
[2018-07-13] MEDS: Insulin Detemir 100 Units/ml Inj SC SCH (21:32)
[2018-07-14] MEDS: Insulin Lispro (humaLOG) 100 Units/ml Inj SC SCH ×7 (06:57→21:20)
[2018-07-14] MEDS: Pantoprazole 40 mg EC Tab PO SCH (08:13)
[2018-07-14 08:45] LABS: HEMOGLOBIN 12.9 g/dL (12.0-18.0); MEAN CELL VOLUME 86.1 fl (80.0-94.0); MEAN CORPUSCULAR HGB CONC 32.6 g/dL (33.0-37.0); RBC 4.61 Mil/uL (4.40-5.90); RED CELL DISTRIBUTION WIDTH 13.9 % (11.5-14.5)
[2018-07-14 08:53] LABS: BLOOD UREA NITROGEN 27 mg/dl (9-20); CALCIUM 8.8 mg/dL (8.4-10.2); GFR NON-AFRICAN AMERICAN > 60
--- NOTE | 2018-07-14 10:33 | PN ---
DATE: 07/14/2018 SUBJECTIVE: The patient is seen and examined. Interim events noted. The patient remains in acute rehab unit. Feels okay. Denies any specific complaints other than recurrence of diarrhea. Nursing staff also reported the same issue. No abdominal pain. No nausea. No vomiting. PHYSICAL EXAMINATION: GENERAL: The patient is in no acute distress. VITAL SIGNS: Stable. HEART: S1, S2, normal and regular. LUNGS: Good bilateral air exchange. ABDOMEN: Soft, nontender. No organomegaly. No fluid. Bowel sounds are present and normal. No sign of acute abdomen. No guarding. No rigidity. No rebound. EXTREMITIES: No edema. No calf swelling. No tenderness. No acute ischemia. CENTRAL NERVOUS SYSTEM: Essentially unchanged. The patient verbalizes that in the past, similar diarrheal episode, was better controlled with Imodium. We will try the Imodium tablets. DIAGNOSTIC DATA: Available diagnostic data reviewed. ASSESSMENT AND PLAN: Overall, the patient is getting acute rehab, but still has persistent diarrhea. Plan as ordered. Case and plan discussed with the patient. Gomez Castle MD
--- NOTE | 2018-07-14 13:17 | CP.PCM.PN ---
Subjective - Date & Time of Evaluation Date of Evaluation: 07/14/18 Time of Evaluation: 13:15 - Subjective Subjective: Patient with multple watery BMs overnight. Stools now are soft brown. On prn Lomotil Objective - Vital Signs/Intake and Output Vital Signs (last 24 hours): Temp Pulse Resp BP Pulse Ox 97.0 F L 75 22 141/85 96 07/14/18 08:48 07/14/18 08:48 07/14/18 08:48 07/14/18 08:48 07/14/18 08:48 - Medications Medications: Current Medications Acetaminophen (Tylenol 325mg Tab) 650 mg PO Q6 PRN PRN Reason: Other Last Admin: 07/13/18 12:17 Dose: 650 mg Aspirin (Aspirin Chewable) 81 mg PO DAILY [facility] Last Admin: 07/14/18 08:13 Dose: 81 mg Atorvastatin Calcium (Lipitor) 40 mg PO DAILY [facility] Last Admin: 07/14/18 08:12 Dose: 40 mg Bismuth Subsalicylate (Pepto-Bismol) 524 mg PO Q6 PRN PRN Reason: Loose stools Last Admin: 07/02/18 19:01 Dose: 524 mg Clopidogrel Bisulfate (Plavix) 75 mg PO DAILY [facility] Last Admin: 07/14/18 08:12 Dose: 75 mg Dextrose (Dextrose 50% Inj) 0 ml IV STAT PRN; Protocol PRN Reason: Hypoglycemia Protocol Dextrose (Glutose 15) 0 gm PO ONCE PRN; Protocol PRN Reason: Hypoglycemia Protocol Finasteride (Proscar) 5 mg PO QPM [facility] Last Admin: 07/13/18 17:49 Dose: 5 mg Fluticasone Propionate (Flonase) 1 spr LIANNE DAILY [facility] Last Admin: 07/14/18 08:15 Dose: 1 spr Glucagon (Glucagen Diagnostic Kit) 0 mg IM STAT PRN; Protocol PRN Reason: Hypoglycemia Protocol Guaifenesin (Robitussin) 100 mg PO Q6 PRN PRN Reason: Cough Last Admin: 07/08/18 05:42 Dose: 100 mg Insulin Detemir (Levemir) 50 units SC HS [facility] Last Admin: 07/13/18 21:32 Dose: 50 units Insulin Human Lispro (Humalog) 24 units SC ACTID [facility] Last Admin: 07/14/18 11:35 Dose: 24 units Insulin Human Lispro (Humalog) 0 units SC ACHS [facility] Last Admin: 07/14/18 11:36 Dose: Not Given Loperamide HCl (Imodium) 2 mg PO BID [facility] Stop: 07/17/18 09:01 Last Admin: 07/14/18 08:13 Dose: 2 mg Loratadine (Claritin) 10 mg PO DAILY [facility] Last Admin: 07/14/18 08:13 Dose: 10 mg Metformin HCl (Glucophage) 500 mg PO BID [facility] Last Admin: 07/14/18 08:12 Dose: 500 mg Nicotine (Nicoderm Cq) 1 patch TD DAILY [facility] Last Admin: 07/14/18 08:48 Dose: 1 patch Pantoprazole Sodium (Protonix Ec Tab) 40 mg PO DAILY [facility] Last Admin: 07/14/18 08:13 Dose: 40 mg Pregabalin (Lyrica) 100 mg PO Q8 [facility] Last Admin: 07/14/18 06:26 Dose: 100 mg Ramipril (Altace) 2.5 mg PO DAILY [facility] Last Admin: 07/14/18 08:14 Dose: 2.5 mg Sertraline HCl (Zoloft) 25 mg PO DAILY [facility] Last Admin: 07/14/18 08:13 Dose: 25 mg Tamsulosin HCl (Flomax) 0.4 mg PO QPM [facility] Last Admin: 07/13/18 17:49 Dose: 0.4 mg Zolpidem Tartrate (Ambien) 5 mg PO HS PRN PRN Reason: Insomnia Last Admin: 07/13/18 21:47 Dose: 5 mg - Labs Labs: 07/14/18 08:30 07/14/18 08:30 - Head Exam Head Exam: ATRAUMATIC - Eye Exam Eye Exam: Normal appearance - ENT Exam ENT Exam: Mucous Membranes Moist - Neck Exam Neck Exam: Full ROM - Respiratory Exam Respiratory Exam: Clear to Ausculation Bilateral - Cardiovascular Exam Cardiovascular Exam: REGULAR RHYTHM - GI/Abdominal Exam GI & Abdominal Exam: Distended, Soft Additional comments: somewhat distended. Assessment and Plan (1) Diarrhea Assessment & Plan: Has had another episode of loose stools. C. diff remains negative. Will get KUB. Status: Acute
--- NOTE | 2018-07-14 16:41 | RAD ---
Date of service: 07/14/2018 HISTORY: abdominal distention COMPARISON: None available. TECHNIQUE: 1 view obtained. FINDINGS: BOWEL: Multiple air-filled loops of small bowel with air seen throughout the large bowel is well. Findings likely represent ileus however repeat radiographs in 12-24 hours recommended to assess for improvement and to exclude the possibility of early small-bowel obstruction BONES: Normal. OTHER FINDINGS: None. IMPRESSION: Multiple air-filled loops of small bowel with air seen throughout the large bowel is well. Findings likely represent ileus however repeat radiographs in 12-24 hours recommended to assess for improvement and to exclude the possibility of early small-bowel obstruction
[2018-07-14] MEDS: guaiFENesin 100 mg/5 ml Syrup UD PO PRN (18:44)
[2018-07-14] MEDS: Insulin Detemir 100 Units/ml Inj SC SCH (21:19)
[2018-07-15] MEDS: Insulin Lispro (humaLOG) 100 Units/ml Inj SC SCH ×7 (06:39→21:28)
[2018-07-15] MEDS: Pantoprazole 40 mg EC Tab PO SCH (08:05)
--- NOTE | 2018-07-15 09:37 | PN ---
DATE: 07/15/2018 SUBJECTIVE: The patient seen and examined. Interim events noted. Consults noted and appreciated. Gastroenterology followup and interventions noted and appreciated. The patient remains in acute rehab unit, awake, responsive, feels okay. Denies any specific complaint. Diarrhea resolved. No bowel movement overnight. PHYSICAL EXAMINATION: GENERAL: The patient is in no acute distress. VITAL SIGNS: Stable. HEART: S1 and S2 normal and regular. LUNGS: Good bilateral air exchange. ABDOMEN: Soft, nontender. No sign of acute abdomen. No guarding, no rigidity, no rebound. Bowel sounds are present and normal. EXTREMITIES: No edema, no calf swelling. No tenderness, no acute ischemia. CENTRAL NERVOUS SYSTEM: Essentially unchanged. DIAGNOSTIC DATA: Available diagnostic data reviewed. Stool for C. difficile is negative. Overall, the patient is clinically improving. Diarrhea resolved. Plan as ordered. Gomez Castle MD
--- NOTE | 2018-07-15 17:34 | CP.PCM.PN ---
Subjective - Date & Time of Evaluation Date of Evaluation: 07/15/18 Time of Evaluation: 17:32 - Subjective Subjective: Ranjeet Mendosa, born 1955, who has been admitted to [facility] for acute inpatient rehabilitation following a second CVA with left HP. He also appears to have a history of dementia and had sundowning initially that responded well to medication. He remains much better with compliance and behaviour Objective - Vital Signs/Intake and Output Vital Signs (last 24 hours): Temp Pulse Resp BP Pulse Ox 96.6 F L 64 18 119/77 98 07/15/18 07:31 07/15/18 07:31 07/15/18 07:31 07/15/18 08:04 07/15/18 07:31 - Medications Medications: Current Medications Acetaminophen (Tylenol 325mg Tab) 650 mg PO Q6 PRN PRN Reason: Other Last Admin: 07/13/18 12:17 Dose: 650 mg Aspirin (Aspirin Chewable) 81 mg PO DAILY [facility] Last Admin: 07/15/18 08:05 Dose: 81 mg Atorvastatin Calcium (Lipitor) 40 mg PO DAILY [facility] Last Admin: 07/15/18 08:04 Dose: 40 mg Bismuth Subsalicylate (Pepto-Bismol) 524 mg PO Q6 PRN PRN Reason: Loose stools Last Admin: 07/02/18 19:01 Dose: 524 mg Clopidogrel Bisulfate (Plavix) 75 mg PO DAILY [facility] Last Admin: 07/15/18 08:05 Dose: 75 mg Dextrose (Dextrose 50% Inj) 0 ml IV STAT PRN; Protocol PRN Reason: Hypoglycemia Protocol Dextrose (Glutose 15) 0 gm PO ONCE PRN; Protocol PRN Reason: Hypoglycemia Protocol Finasteride (Proscar) 5 mg PO QPM [facility] Last Admin: 07/15/18 17:04 Dose: 5 mg Fluticasone Propionate (Flonase) 1 spr LIANNE DAILY [facility] Last Admin: 07/15/18 08:06 Dose: 1 spr Glucagon (Glucagen Diagnostic Kit) 0 mg IM STAT PRN; Protocol PRN Reason: Hypoglycemia Protocol Guaifenesin (Robitussin) 100 mg PO Q6 PRN PRN Reason: Cough Last Admin: 07/14/18 18:44 Dose: 100 mg Insulin Detemir (Levemir) 50 units SC [facility] Last Admin: 07/14/18 21:19 Dose: 50 units Insulin Human Lispro (Humalog) 0 units SC ACHS [facility] Last Admin: 07/15/18 17:02 Dose: Not Given Insulin Human Lispro (Humalog) 20 units SC ACTID [facility] Last Admin: 07/15/18 17:06 Dose: 20 u Loperamide HCl (Imodium) 2 mg PO BID [facility] Stop: 07/17/18 09:01 Last Admin: 07/15/18 17:05 Dose: 2 mg Loratadine (Claritin) 10 mg PO DAILY [facility] Last Admin: 07/15/18 08:06 Dose: 10 mg Metformin HCl (Glucophage) 500 mg PO BID [facility] Last Admin: 07/15/18 17:04 Dose: 500 mg Nicotine (Nicoderm Cq) 1 patch TD DAILY [facility] Last Admin: 07/15/18 08:14 Dose: 1 patch Pantoprazole Sodium (Protonix Ec Tab) 40 mg PO DAILY [facility] Last Admin: 07/15/18 08:05 Dose: 40 mg Pregabalin (Lyrica) 100 mg PO Q8 [facility] Last Admin: 07/15/18 13:59 Dose: 100 mg Ramipril (Altace) 2.5 mg PO DAILY [facility] Last Admin: 07/15/18 08:04 Dose: 2.5 mg Sertraline HCl (Zoloft) 25 mg PO DAILY [facility] Last Admin: 07/15/18 08:08 Dose: 25 mg Tamsulosin HCl (Flomax) 0.4 mg PO QPM [facility] Last Admin: 07/15/18 17:04 Dose: 0.4 mg Zolpidem Tartrate (Ambien) 5 mg PO HS PRN PRN Reason: Insomnia Last Admin: 07/13/18 21:47 Dose: 5 mg - Labs Labs: 07/14/18 08:30 07/14/18 08:30 - Constitutional Appears: Non-toxic, No Acute Distress - Head Exam Head Exam: ATRAUMATIC, NORMAL INSPECTION, NORMOCEPHALIC - Eye Exam Eye Exam: EOMI - ENT Exam ENT Exam: Mucous Membranes Moist - Respiratory Exam Respiratory Exam: NORMAL BREATHING PATTERN. absent: Rales, Respiratory Distress - Cardiovascular Exam Cardiovascular Exam: REGULAR RHYTHM - GI/Abdominal Exam GI & Abdominal Exam: absent: Distended, Firm - Extremities Exam Extremities Exam: absent: Calf Tenderness - Neurological Exam Neurological Exam: Alert Neuro motor strength exam: Left Upper Extremity: 3 (3-/5), Right Upper Extremity: 5, Right Lower Extremity: 5 - Psychiatric Exam Psychiatric exam: Flat Affect - Skin Skin Exam: Warm Assessment and Plan - Assessment and Plan (Free Text) Assessment: PT/OT to continue to help increase functional independence Team conference for d/c planning Pain: controlled Vascular: no evidence of DVT GI: No evidence of constipation or diarrhea Patient continues to be an excellent acute rehabilitation candidate and will have continued focused speech, PT, OT and recreational therapy to help facilitate a safe and appropriate d/c plan
[2018-07-15] MEDS: Insulin Detemir 100 Units/ml Inj SC SCH (21:21)
--- NOTE | 2018-07-15 22:03 | CP.PCM.PN ---
Subjective - Date & Time of Evaluation Date of Evaluation: 07/15/18 Time of Evaluation: 12:00 - Subjective Subjective: Patient w/o complaint. No BMs since yesteday. Objective - Vital Signs/Intake and Output Vital Signs (last 24 hours): Temp Pulse Resp BP Pulse Ox 97.9 F 92 H 20 138/82 100 07/15/18 20:10 07/15/18 20:10 07/15/18 20:10 07/15/18 20:10 07/15/18 20:10 - Medications Medications: Current Medications Acetaminophen (Tylenol 325mg Tab) 650 mg PO Q6 PRN PRN Reason: Other Last Admin: 07/13/18 12:17 Dose: 650 mg Aspirin (Aspirin Chewable) 81 mg PO DAILY [facility] Last Admin: 07/15/18 08:05 Dose: 81 mg Atorvastatin Calcium (Lipitor) 40 mg PO DAILY [facility] Last Admin: 07/15/18 08:04 Dose: 40 mg Bismuth Subsalicylate (Pepto-Bismol) 524 mg PO Q6 PRN PRN Reason: Loose stools Last Admin: 07/02/18 19:01 Dose: 524 mg Clopidogrel Bisulfate (Plavix) 75 mg PO DAILY [facility] Last Admin: 07/15/18 08:05 Dose: 75 mg Dextrose (Dextrose 50% Inj) 0 ml IV STAT PRN; Protocol PRN Reason: Hypoglycemia Protocol Dextrose (Glutose 15) 0 gm PO ONCE PRN; Protocol PRN Reason: Hypoglycemia Protocol Finasteride (Proscar) 5 mg PO QPM [facility] Last Admin: 07/15/18 17:04 Dose: 5 mg Fluticasone Propionate (Flonase) 1 spr LIANNE DAILY [facility] Last Admin: 07/15/18 08:06 Dose: 1 spr Glucagon (Glucagen Diagnostic Kit) 0 mg IM STAT PRN; Protocol PRN Reason: Hypoglycemia Protocol Guaifenesin (Robitussin) 100 mg PO Q6 PRN PRN Reason: Cough Last Admin: 07/14/18 18:44 Dose: 100 mg Insulin Detemir (Levemir) 50 units SC HS [facility] Last Admin: 07/15/18 21:21 Dose: 50 units Insulin Human Lispro (Humalog) 0 units SC ACHS [facility] Last Admin: 07/15/18 21:28 Dose: Not Given Insulin Human Lispro (Humalog) 20 units SC ACTID [facility] Last Admin: 07/15/18 17:06 Dose: 20 u Loperamide HCl (Imodium) 2 mg PO BID [facility] Stop: 07/17/18 09:01 Last Admin: 07/15/18 17:05 Dose: 2 mg Loratadine (Claritin) 10 mg PO DAILY [facility] Last Admin: 07/15/18 08:06 Dose: 10 mg Metformin HCl (Glucophage) 500 mg PO BID [facility] Last Admin: 07/15/18 17:04 Dose: 500 mg Nicotine (Nicoderm Cq) 1 patch TD DAILY [facility] Last Admin: 07/15/18 08:14 Dose: 1 patch Pantoprazole Sodium (Protonix Ec Tab) 40 mg PO DAILY [facility] Last Admin: 07/15/18 08:05 Dose: 40 mg Pregabalin (Lyrica) 100 mg PO Q8 [facility] Last Admin: 07/15/18 21:21 Dose: 100 mg Ramipril (Altace) 2.5 mg PO DAILY [facility] Last Admin: 07/15/18 08:04 Dose: 2.5 mg Sertraline HCl (Zoloft) 25 mg PO DAILY [facility] Last Admin: 07/15/18 08:08 Dose: 25 mg Tamsulosin HCl (Flomax) 0.4 mg PO QPM [facility] Last Admin: 07/15/18 17:04 Dose: 0.4 mg Zolpidem Tartrate (Ambien) 5 mg PO HS PRN PRN Reason: Insomnia Last Admin: 07/13/18 21:47 Dose: 5 mg - Labs Labs: 07/14/18 08:30 07/14/18 08:30 - Head Exam Head Exam: ATRAUMATIC - Eye Exam Eye Exam: Normal appearance Pupil Exam: NORMAL ACCOMODATION - ENT Exam ENT Exam: Normal Exam - Neck Exam Neck Exam: Full ROM - Respiratory Exam Respiratory Exam: Clear to Ausculation Bilateral - Cardiovascular Exam Cardiovascular Exam: REGULAR RHYTHM, +S1, +S2 - GI/Abdominal Exam GI & Abdominal Exam: Soft. absent: Tenderness Assessment and Plan (1) Diarrhea Assessment & Plan: Diarrhea not currently present and abdomen nondistended. Gas filled bowel on yesteday's KUB. will continue to follow with you. Status: Acute
[2018-07-16] MEDS: Insulin Lispro (humaLOG) 100 Units/ml Inj SC SCH ×7 (06:36→21:00)
--- NOTE | 2018-07-16 07:38 | CP.PCM.PN ---
<Keli Lozano - Last Filed: 07/16/18 07:44> Subjective - Date & Time of Evaluation Date of Evaluation: 07/16/18 Time of Evaluation: 07:36 - Subjective Subjective: Patient seen and examined this morning with Dr. Castle. NAD, comfortable on bad, No BM in last >24 hours, No acute event reported overnight. Patient continues with PT/Exercise, good progress but still weak. Objective - Vital Signs/Intake and Output Vital Signs (last 24 hours): Temp Pulse Resp BP Pulse Ox 97.9 F 92 H 20 138/82 100 07/15/18 20:10 07/15/18 20:10 07/15/18 20:10 07/15/18 20:10 07/15/18 20:10 - Medications Medications: Current Medications Acetaminophen (Tylenol 325mg Tab) 650 mg PO Q6 PRN PRN Reason: Other Last Admin: 07/13/18 12:17 Dose: 650 mg Aspirin (Aspirin Chewable) 81 mg PO DAILY [facility] Last Admin: 07/15/18 08:05 Dose: 81 mg Atorvastatin Calcium (Lipitor) 40 mg PO DAILY [facility] Last Admin: 07/15/18 08:04 Dose: 40 mg Bismuth Subsalicylate (Pepto-Bismol) 524 mg PO Q6 PRN PRN Reason: Loose stools Last Admin: 07/02/18 19:01 Dose: 524 mg Clopidogrel Bisulfate (Plavix) 75 mg PO DAILY [facility] Last Admin: 07/15/18 08:05 Dose: 75 mg Dextrose (Dextrose 50% Inj) 0 ml IV STAT PRN; Protocol PRN Reason: Hypoglycemia Protocol Dextrose (Glutose 15) 0 gm PO ONCE PRN; Protocol PRN Reason: Hypoglycemia Protocol Finasteride (Proscar) 5 mg PO QPM [facility] Last Admin: 07/15/18 17:04 Dose: 5 mg Fluticasone Propionate (Flonase) 1 spr LIANNE DAILY [facility] Last Admin: 07/15/18 08:06 Dose: 1 spr Glucagon (Glucagen Diagnostic Kit) 0 mg IM STAT PRN; Protocol PRN Reason: Hypoglycemia Protocol Guaifenesin (Robitussin) 100 mg PO Q6 PRN PRN Reason: Cough Last Admin: 07/14/18 18:44 Dose: 100 mg Insulin Detemir (Levemir) 50 units SC HS [facility] Last Admin: 07/15/18 21:21 Dose: 50 units Insulin Human Lispro (Humalog) 0 units SC ACHS [facility] Last Admin: 07/16/18 06:36 Dose: Not Given Insulin Human Lispro (Humalog) 20 units SC ACTID [facility] Last Admin: 07/15/18 17:06 Dose: 20 u Loratadine (Claritin) 10 mg PO DAILY [facility] Last Admin: 07/15/18 08:06 Dose: 10 mg Metformin HCl (Glucophage) 500 mg PO BID [facility] Last Admin: 07/15/18 17:04 Dose: 500 mg Nicotine (Nicoderm Cq) 1 patch TD DAILY [facility] Last Admin: 07/15/18 08:14 Dose: 1 patch Pantoprazole Sodium (Protonix Ec Tab) 40 mg PO DAILY [facility] Last Admin: 07/15/18 08:05 Dose: 40 mg Pregabalin (Lyrica) 100 mg PO Q8 [facility] Last Admin: 07/16/18 05:50 Dose: 100 mg Ramipril (Altace) 2.5 mg PO DAILY [facility] Last Admin: 07/15/18 08:04 Dose: 2.5 mg Sertraline HCl (Zoloft) 25 mg PO DAILY [facility] Last Admin: 07/15/18 08:08 Dose: 25 mg Tamsulosin HCl (Flomax) 0.4 mg PO QPM [facility] Last Admin: 07/15/18 17:04 Dose: 0.4 mg Zolpidem Tartrate (Ambien) 5 mg PO HS PRN PRN Reason: Insomnia Last Admin: 07/15/18 22:20 Dose: 5 mg - Labs Labs: 07/14/18 08:30 07/14/18 08:30 - Constitutional Appears: No Acute Distress (Left facial droop ) - Head Exam Head Exam: NORMAL INSPECTION - Eye Exam Eye Exam: Normal appearance Pupil Exam: NORMAL ACCOMODATION - ENT Exam ENT Exam: Mucous Membranes Moist - Neck Exam Neck Exam: Normal Inspection - Respiratory Exam Respiratory Exam: Clear to Ausculation Bilateral, NORMAL BREATHING PATTERN - Cardiovascular Exam Cardiovascular Exam: REGULAR RHYTHM, +S1, +S2 - GI/Abdominal Exam GI & Abdominal Exam: Soft, Normal Bowel Sounds. absent: Tenderness - Extremities Exam Extremities Exam: absent: Tenderness - Back Exam Back Exam: NORMAL INSPECTION - Neurological Exam Neurological Exam: Alert, Awake, Oriented x3 Neuro motor strength exam: Left Upper Extremity: 3, Right Upper Extremity: 4, Left Lower Extremity: 3, Right Lower Extremity: 4 - Psychiatric Exam Psychiatric exam: Normal Affect - Skin Skin Exam: Normal Color Assessment and Plan - Assessment and Plan (Free Text) Assessment: A/P: 63 y/o M with a PMHx of HTN, DM, HLD, previous CVA with residual left side weakness was admitted to rehabilitation unit due to aggravating L sided weakness. Left sided weakness, Hx of CVA --Neurology on board, Dr Portillo. --Continue PT and management as per acute rehab --c/w ASA/plavix and Lipitor --deposition: possible [facility] Diarrhea --Resolved, No BM in last >24hrs --D/c Lomotil, c/w decreased dose of metformin --GI consult, recommendations appreciated --Stool leuk negative, KUB with bowel gas Post-stroke depression --Psychiatry on board, Dr Wellington --On Zoloft. HTN --Controlled --Heart healthy diet. --Ramipril 2.5mg PO daily DM-II --Home meds resumed. --Accucheck ACHS --Insulin sliding scale and hypoglycemia protocol --C/w home Lyrica HLD --Home meds resumed Urinary Retention/BPH --C/w home medications: Flomax/Proscar DVT Prophylaxis --Lovenox Sc daily <Gomez Castle K - Last Filed: 07/17/18 11:58> Objective - Vital Signs/Intake and Output Vital Signs (last 24 hours): Temp Pulse Resp BP Pulse Ox 97.3 F L 65 19 117/61 97 07/17/18 07:52 07/17/18 07:52 07/17/18 07:52 07/17/18 08:46 07/17/18 07:52 - Medications Medications: Current Medications Acetaminophen (Tylenol 325mg Tab) 650 mg PO Q6 PRN PRN Reason: Other Last Admin: 07/13/18 12:17 Dose: 650 mg Aspirin (Aspirin Chewable) 81 mg PO DAILY [facility] Last Admin: 07/17/18 08:46 Dose: 81 mg Atorvastatin Calcium (Lipitor) 40 mg PO DAILY [facility] Last Admin: 07/17/18 08:46 Dose: 40 mg Bismuth Subsalicylate (Pepto-Bismol) 524 mg PO Q6 PRN PRN Reason: Loose stools Last Admin: 07/02/18 19:01 Dose: 524 mg Cholestyramine Resin (Questran) 4 gm PO DAILY [facility] Last Admin: 07/17/18 08:45 Dose: 4 gm Clopidogrel Bisulfate (Plavix) 75 mg PO DAILY [facility] Last Admin: 07/17/18 08:46 Dose: 75 mg Dextrose (Dextrose 50% Inj) 0 ml IV STAT PRN; Protocol PRN Reason: Hypoglycemia Protocol Dextrose (Glutose 15) 0 gm PO ONCE PRN; Protocol PRN Reason: Hypoglycemia Protocol Finasteride (Proscar) 5 mg PO QPM [facility] Last Admin: 07/16/18 17:19 Dose: 5 mg Fluticasone Propionate (Flonase) 1 spr LIANNE DAILY [facility] Last Admin: 07/17/18 08:46 Dose: 1 spr Glucagon (Glucagen Diagnostic Kit) 0 mg IM STAT PRN; Protocol PRN Reason: Hypoglycemia Protocol Guaifenesin (Robitussin) 100 mg PO Q6 PRN PRN Reason: Cough Last Admin: 07/14/18 18:44 Dose: 100 mg Insulin Detemir (Levemir) 50 units SC HS [facility] Last Admin: 07/16/18 21:27 Dose: 50 units Insulin Human Lispro (Humalog) 0 units SC ACHS [facility] Last Admin: 07/17/18 11:51 Dose: Not Given Insulin Human Lispro (Humalog) 20 units SC ACTID [facility] Last Admin: 07/17/18 11:50 Dose: 20 u Loratadine (Claritin) 10 mg PO DAILY [facility] Last Admin: 07/17/18 08:46 Dose: 10 mg Metformin HCl (Glucophage) 500 mg PO BID [facility] Last Admin: 07/17/18 08:46 Dose: 500 mg Nicotine (Nicoderm Cq) 1 patch TD DAILY [facility] Last Admin: 07/17/18 08:45 Dose: 1 patch Pantoprazole Sodium (Protonix Ec Tab) 40 mg PO DAILY [facility] Last Admin: 07/17/18 08:46 Dose: 40 mg Pregabalin (Lyrica) 100 mg PO Q8 [facility] Last Admin: 07/17/18 06:11 Dose: 100 mg Ramipril (Altace) 2.5 mg PO DAILY [facility] Last Admin: 07/17/18 08:46 Dose: 2.5 mg Sertraline HCl (Zoloft) 25 mg PO DAILY [facility] Last Admin: 07/17/18 08:45 Dose: 25 mg Tamsulosin HCl (Flomax) 0.4 mg PO QPM [facility] Last Admin: 07/16/18 17:19 Dose: 0.4 mg Zolpidem Tartrate (Ambien) 5 mg PO HS PRN PRN Reason: Insomnia Last Admin: 07/15/18 22:20 Dose: 5 mg - Labs Labs: 07/17/18 05:32 07/17/18 05:32 Assessment and Plan - Assessment and Plan (Free Text) Assessment: Patient was personally seen and examined by me in rounds with residents. Available labs and diagnostic data reviewed. Case, Patient's condition and management plan discussed with residents in rounds. Agree with resident's progress note. Plan: As ordered.
[2018-07-16] MEDS: Pantoprazole 40 mg EC Tab PO SCH (08:41)
--- NOTE | 2018-07-16 13:31 | PCM.PSYTMC ---
Acute Rehab Team Conference - - Vital Signs: Vital Signs (Last 8 Hours): Vital Signs 07/16/18 07/16/18 07/16/18 08:20 08:40 09:00 Temperature 97.5 F L 97.5 F L Pulse Rate 73 73 Respiratory 19 19 Rate Blood Pressure 144/76 140/78 144/76 O2 Sat by Pulse 97 Oximetry Pain: 0 - Precautions: Precautions: Fall Prevention - Medications/Other Issues: Comment: Dicontinued Immodium - Consults: Comment: Dr. Castle - Skin: Incision Site: NA - Toileting: Toileting: Minimal Assistance - Bladder Management: Bladder Pattern: Normal Voiding Method: Toilet, Urinal, Diaper Bladder Management: Minimal Assistance - Transfers: Transfers: Minimal Assistance - ADL's: ADL's: Minimal Assistance - Pain Management: Other Intervention:: Acetaminophen 325 mg 2 tabs as needed. - Patient/Family Teaching: Other Intervention:: Fall precaution, Medication regimen - Goals/Time Frame: Comment: Patient will be more independent with ADL's. - Provider: Registered Nurse:: Genia Cameron Physical Therapy - Bed Mobility Bed Mobility: Verbal Cues, Minimal Assistance - Transfers Wheelchair to Mat: Verbal Cues, Minimal Assistance Sit to Stand: Verbal Cues, Contact Guard - Ambulation Level of Assistance: Minimal Assistance, Moderate Assistance Distance (ft.): 125 Assistive Devices: Wide base quad cane Orthoses: utilize L ankle air cast and LLE dorsiflexor assist DIMITRI wrap during mobility - Stair Negotiation Stairs: Level of Assistance: Minimal Assistance, Moderate Assistance Number of Stairs: 4 Stairs: Assistive Devices: Left Handrail, Right Handrail - Standing Balance Static Stand: Minimal Assistance - Pain Pain (assessed during therapy session): 0 - Insight/Carryover Insight/Carryover: Good - Patient/Family Education Comment: CVA recovery, safety, POC - Assessment/Plan Assessment: Pt actively participates in PT tx sessions focusing on BLE strengthening exercises, balance and endurance activities, and functional mobility training. Pt rrequires min A for bed mobility, min A for transfers, min/mod A for ambulating with WBQC, and mod A for stair negotiation. Pt is highly motivated to participate throughout sessions. pt will continue to benefit from skilled PT interventions to address deficits, reduce fall risk, and maximize functional independence. - Goals Timeframe: 2 weeks Goals: Sit < > supine mod I. Sit < > stand transfers with supervision. Pt will ambulate 300 ft with NBQC and supervision. Pt will negotiate 6 stairs with handrails and supervision - Provider Physical Therapist:: Claudia Gee License Number:: [id number] Occupational Therapy - Arousal/Attention/Orientation Level of Consciousness: Awake, Alert, Confused Patient Orientation: Person, Place, Time - ADL/IADL Self Feeding: Set-up Help Grooming: Set-up Help Bathing-Upper Ext: Minimal Assistance Bathing-Lower Ext: Minimal Assistance Dressing-Upper Ext: Supervision Dressing-Lower Ext: Minimal Assistance - Sitting Balance Static Sitting: Independent without upper extremity support Dynamic Sitting: Requires supervision, Contact Guard Assist - Transfers Wheelchair to Bed Transfers: Contact Guard, Minimal Assistance Toilet Transfers: Contact Guard, Minimal Assistance Tub Transfers: Minimal Assistance Comment: patient uses left lower extremity air cast during transfers - Wheelchair Management Level of Assistance: Minimal Assistance Distance (ft.): 150 - Upper Extremity Status Right Upper Extremity Comment: WFLs Left Upper Extremity Comment: AROM shoulder flexion approx 70 degrees. PROM WFLs. -impaired gross/FM coordination as per finger to nose test. -impaired opposition between digits. -impaired grasp stregth - Pain Pain (assessed during therapy session): 0 - Insight/Carryover Insight/Carryover: Fair - Patient/Family Education Comment: CVA recovery, plan of care, dme/ae education, role of OT, goals in therapy - Assessment/Plan Assessment: Patient is a 63 yo male presenting to [facility] s/p acute cva. patient presents with impaired strength, coordination and fm dexterity in LUE as well as impaired coordination/strength in LLE, impaired dynamic standing balance, impaired activity tolerance and impaired safety awareness/insight . These aforementioned defecits impact pt's ability to complete adls, transfers , mobility and self care safely and effectively. patient is doing well is progressing towards set goals in therapy thus far. patient completes ub adls with overall S , lb adls with min A, pt completes transfers with min A + LLE air cast donned and w/c propulsion with min A. pt's LUE coordination/strength and fm dexterity is improving but still remains a barrier to progress. recommend d/c to [facility] post IP stay - Goals Timeframe: 10 days - Provider Occupational Therapist:: Bridgette Mascorro License Number: [id number] Speech Therapy - Consult Information Patient on Program: Yes Medical Diagnosis: CVA Treatment Diagnosis: Cognitive Communication Deficit - Assessment Problem Solving Impairment: Moderate Memory Impairment: Moderate - Plan Plan: Continue Speech/Language Therapy Frequency: 3-5 times per week Duration: 1 week - Provider Therapist: Olga Pop License Number: [id number] Recreational Therapy - Participation Participation: Participates in Individual and/or Group Sessions - Attendance Attendance: 3-5 times per week - Activities Leisure Activities: Cards and Games - Socialization Level of Socialization: Initiates/interacts freely with care givers and peer - Diversional Time Diversional Time: television, reading - Assessment Assessment/Plan: Pt is agreeable to participate in 1:1 and group recreation therapy sessions following encouragement. Pt requires supervision-min A throughout all sessions 2' pt carrying over 50% of task rules. Pt requires min verbal cues for error recognition and for command following. Pt is independent with bingo task following setup and enjoys participating in task with peers. Pt will benefit from continued education for post-stroke recovery and diabetes self-care. Pt will continue to benefit from participating in recreation therapy sessions throughout stay on unit. Problems Currently Limiting Participation: L side UE and LE weakness, impaired safety awareness, impaired problem solving Goals and Time Frame: Pt will require 50% of verbal cues to complete leisure task at supervision level by date of discharge. - Provider Therapist: Ade Estrada Nutrition - Current Diet Current Diet/Supplement/Feedings: Moderate consistent CHO heart healthy lactose restricted low fat - Appetite Percent Meal Consumed: 75-100% - Assessment/Goals/Time Frame Assessments/Goals/Time Frame: Pt at moderate nutritional risk. goals: 1. Pt to consume 75-100% of meals(met, continue). 2. Blood glucoses to be between 70- 180 mg/dl(HgbA1C to trend downward over next few months)(partially met, continue). Follow-up due on 07/17/2018 - Provider Provider: Ilda Zambrano Case Management - Psychosocial Assessment Support Systems: Jb Crews (friend) - [phone] Psychological Interventions/Needs: Patient is AAO with periods of agitation and confusion. Discharge Concerns: Patient lives alone with no family support and would be unsafe to return to his previous set up at this time. Patient/Family Meeting: KARON met with patient and rehab team. Intervention/Goal/Outcome: 1. Goal: 24hr supervision/care 2. Plan: [facility] at [facility] 3. initiate referral to [facility] 4. continued emotional support - Discharge Plan Discharge Plan: Subacute care - Provider Provider: Louisa Casey License Number: [id number] Rehabilitation Plan - Treatment Plan Treatment Plan: Physical Therapy, Occupational Therapy, Speech, Dietary, Patient/Family Education - Discharge Plan Estimated Date of Discharge: 07/25/18 Discharge to: Subacute
--- NOTE | 2018-07-16 14:59 | RAD ---
Date of service: 07/15/2018 HISTORY: as per recommended by radiologist COMPARISON: None available. TECHNIQUE: 1 view obtained. FINDINGS: BOWEL: Nonobstructive bowel gas pattern. No gross free intra peritoneal gas collection identified. Diminished gas seen throughout large and small bowel in the interval with retained fecal material identified at the ascending colon, somewhat increased in the interval. BONES: Severe fracture at L2 is identified identified initially in prior CT lumbar spine 03/30/2017. No prominent signal change compared prior abdomen radiograph 07/14/2018. OTHER FINDINGS: None. IMPRESSION: Diminishing gas within bowel including both large and small bowel loops. No bowel obstruction appreciable.
--- NOTE | 2018-07-16 16:49 | CP.PCM.PN ---
Subjective - Date & Time of Evaluation Date of Evaluation: 07/16/18 Time of Evaluation: 16:49 - Subjective Subjective: Patient seen in the room doing ok denies sob/cp behaviour and interaction was appropriate understands will need LAURIE and is requesting Apolonia Ghotra Objective - Vital Signs/Intake and Output Vital Signs (last 24 hours): Temp Pulse Resp BP Pulse Ox 97.5 F L 73 19 144/76 97 07/16/18 09:00 07/16/18 09:00 07/16/18 09:00 07/16/18 09:00 07/16/18 08:20 - Medications Medications: Current Medications Acetaminophen (Tylenol 325mg Tab) 650 mg PO Q6 PRN PRN Reason: Other Last Admin: 07/13/18 12:17 Dose: 650 mg Aspirin (Aspirin Chewable) 81 mg PO DAILY [facility] Last Admin: 07/16/18 08:41 Dose: 81 mg Atorvastatin Calcium (Lipitor) 40 mg PO DAILY [facility] Last Admin: 07/16/18 08:41 Dose: 40 mg Bismuth Subsalicylate (Pepto-Bismol) 524 mg PO Q6 PRN PRN Reason: Loose stools Last Admin: 07/02/18 19:01 Dose: 524 mg Clopidogrel Bisulfate (Plavix) 75 mg PO DAILY [facility] Last Admin: 07/16/18 08:41 Dose: 75 mg Dextrose (Dextrose 50% Inj) 0 ml IV STAT PRN; Protocol PRN Reason: Hypoglycemia Protocol Dextrose (Glutose 15) 0 gm PO ONCE PRN; Protocol PRN Reason: Hypoglycemia Protocol Finasteride (Proscar) 5 mg PO QPM [facility] Last Admin: 07/15/18 17:04 Dose: 5 mg Fluticasone Propionate (Flonase) 1 spr LIANNE DAILY [facility] Last Admin: 07/16/18 08:41 Dose: 1 spr Glucagon (Glucagen Diagnostic Kit) 0 mg IM STAT PRN; Protocol PRN Reason: Hypoglycemia Protocol Guaifenesin (Robitussin) 100 mg PO Q6 PRN PRN Reason: Cough Last Admin: 07/14/18 18:44 Dose: 100 mg Insulin Detemir (Levemir) 50 units SC HS [facility] Last Admin: 07/15/18 21:21 Dose: 50 units Insulin Human Lispro (Humalog) 0 units SC ACHS [facility] Last Admin: 07/16/18 16:26 Dose: Not Given Insulin Human Lispro (Humalog) 20 units SC ACTID [facility] Last Admin: 07/16/18 16:29 Dose: 20 u Loratadine (Claritin) 10 mg PO DAILY [facility] Last Admin: 07/16/18 08:41 Dose: 10 mg Metformin HCl (Glucophage) 500 mg PO BID [facility] Last Admin: 07/16/18 16:31 Dose: 500 mg Nicotine (Nicoderm Cq) 1 patch TD DAILY [facility] Last Admin: 07/16/18 08:43 Dose: 1 patch Pantoprazole Sodium (Protonix Ec Tab) 40 mg PO DAILY [facility] Last Admin: 07/16/18 08:41 Dose: 40 mg Pregabalin (Lyrica) 100 mg PO Q8 [facility] Last Admin: 07/16/18 13:19 Dose: 100 mg Ramipril (Altace) 2.5 mg PO DAILY [facility] Last Admin: 07/16/18 08:40 Dose: 2.5 mg Sertraline HCl (Zoloft) 25 mg PO DAILY [facility] Last Admin: 07/16/18 08:44 Dose: 25 mg Tamsulosin HCl (Flomax) 0.4 mg PO QPM [facility] Last Admin: 07/15/18 17:04 Dose: 0.4 mg Zolpidem Tartrate (Ambien) 5 mg PO HS PRN PRN Reason: Insomnia Last Admin: 07/15/18 22:20 Dose: 5 mg - Labs Labs: 07/14/18 08:30 07/14/18 08:30
--- NOTE | 2018-07-16 19:51 | CP.PCM.PN ---
Subjective - Date & Time of Evaluation Date of Evaluation: 07/16/18 Time of Evaluation: 19:48 - Subjective Subjective: Patient states he had a couple of loose stools today. KUB from yesterday reviewed. Objective - Vital Signs/Intake and Output Vital Signs (last 24 hours): Temp Pulse Resp BP Pulse Ox 97.5 F L 73 19 144/76 97 07/16/18 09:00 07/16/18 09:00 07/16/18 09:00 07/16/18 09:00 07/16/18 08:20 - Medications Medications: Current Medications Acetaminophen (Tylenol 325mg Tab) 650 mg PO Q6 PRN PRN Reason: Other Last Admin: 07/13/18 12:17 Dose: 650 mg Aspirin (Aspirin Chewable) 81 mg PO DAILY [facility] Last Admin: 07/16/18 08:41 Dose: 81 mg Atorvastatin Calcium (Lipitor) 40 mg PO DAILY [facility] Last Admin: 07/16/18 08:41 Dose: 40 mg Bismuth Subsalicylate (Pepto-Bismol) 524 mg PO Q6 PRN PRN Reason: Loose stools Last Admin: 07/02/18 19:01 Dose: 524 mg Cholestyramine Resin (Questran) 4 gm PO DAILY [facility] Clopidogrel Bisulfate (Plavix) 75 mg PO DAILY [facility] Last Admin: 07/16/18 08:41 Dose: 75 mg Dextrose (Dextrose 50% Inj) 0 ml IV STAT PRN; Protocol PRN Reason: Hypoglycemia Protocol Dextrose (Glutose 15) 0 gm PO ONCE PRN; Protocol PRN Reason: Hypoglycemia Protocol Finasteride (Proscar) 5 mg PO QPM [facility] Last Admin: 07/16/18 17:19 Dose: 5 mg Fluticasone Propionate (Flonase) 1 spr LIANNE DAILY [facility] Last Admin: 07/16/18 08:41 Dose: 1 spr Glucagon (Glucagen Diagnostic Kit) 0 mg IM STAT PRN; Protocol PRN Reason: Hypoglycemia Protocol Guaifenesin (Robitussin) 100 mg PO Q6 PRN PRN Reason: Cough Last Admin: 07/14/18 18:44 Dose: 100 mg Insulin Detemir (Levemir) 50 units SC HS [facility] Last Admin: 07/15/18 21:21 Dose: 50 units Insulin Human Lispro (Humalog) 0 units SC [facility] Last Admin: 07/16/18 16:26 Dose: Not Given Insulin Human Lispro (Humalog) 20 units SC ACTID [facility] Last Admin: 07/16/18 16:29 Dose: 20 u Loratadine (Claritin) 10 mg PO DAILY [facility] Last Admin: 07/16/18 08:41 Dose: 10 mg Metformin HCl (Glucophage) 500 mg PO BID [facility] Last Admin: 07/16/18 16:31 Dose: 500 mg Nicotine (Nicoderm Cq) 1 patch TD DAILY [facility] Last Admin: 07/16/18 08:43 Dose: 1 patch Pantoprazole Sodium (Protonix Ec Tab) 40 mg PO DAILY [facility] Last Admin: 07/16/18 08:41 Dose: 40 mg Pregabalin (Lyrica) 100 mg PO Q8 [facility] Last Admin: 07/16/18 13:19 Dose: 100 mg Ramipril (Altace) 2.5 mg PO DAILY [facility] Last Admin: 07/16/18 08:40 Dose: 2.5 mg Sertraline HCl (Zoloft) 25 mg PO DAILY [facility] Last Admin: 07/16/18 08:44 Dose: 25 mg Tamsulosin HCl (Flomax) 0.4 mg PO QPM [facility] Last Admin: 07/16/18 17:19 Dose: 0.4 mg Zolpidem Tartrate (Ambien) 5 mg PO HS PRN PRN Reason: Insomnia Last Admin: 07/15/18 22:20 Dose: 5 mg - Labs Labs: 07/14/18 08:30 07/14/18 08:30 - Head Exam Head Exam: ATRAUMATIC - Eye Exam Eye Exam: Normal appearance Pupil Exam: PERRL - Neck Exam Neck Exam: Full ROM - Respiratory Exam Respiratory Exam: Clear to Ausculation Bilateral - Cardiovascular Exam Cardiovascular Exam: REGULAR RHYTHM - GI/Abdominal Exam GI & Abdominal Exam: Soft, Hyperactive Bowel Sounds. absent: Tenderness Assessment and Plan (1) Diarrhea Assessment & Plan: KUB from yesterday showed improvement in gaseous distention. Stools somewhat loose today. Will start cholestyramine. Status: Acute
[2018-07-16] MEDS: Insulin Detemir 100 Units/ml Inj SC SCH (21:27)
[2018-07-17] MEDS: Insulin Lispro (humaLOG) 100 Units/ml Inj SC SCH ×7 (06:30→21:00)
[2018-07-17 06:39] LABS: BASO # 0.1 K/uL (0.0-0.2); BASO % 0.8 % (0.0-2.0); EOS % 12.4 % (0.0-4.0); HEMOGLOBIN 12.8 g/dL (12.0-18.0); LYMPH # 2.2 K/uL (1.0-4.3); LYMPH % 26.1 % (20.0-40.0); MEAN CELL VOLUME 85.4 fl (80.0-94.0); MEAN CORPUSCULAR HEMOGLOBIN 28.3 pg (27.0-31.0); MEAN CORPUSCULAR HGB CONC 33.2 g/dL (33.0-37.0); MEAN PLATELET VOLUME 8.5 fl (7.2-11.7); MONO # 0.8 K/uL (0.0-0.8); MONO % 9.4 % (0.0-10.0); NEUT # 4.3 K/uL (1.8-7.0); NEUT % 51.3 % (50.0-75.0); RBC 4.51 Mil/uL (4.40-5.90); RED CELL DISTRIBUTION WIDTH 13.4 % (11.5-14.5); WHITE BLOOD COUNT 8.4 K/uL (4.8-10.8)
[2018-07-17 08:39] LABS: BLOOD UREA NITROGEN 36 mg/dl (9-20); CALCIUM 8.5 mg/dL (8.4-10.2); GFR NON-AFRICAN AMERICAN 52
[2018-07-17] MEDS: Cholestyramine 4 gm/Pkt UD PO SCH (08:45)
[2018-07-17] MEDS: Pantoprazole 40 mg EC Tab PO SCH (08:46)
--- NOTE | 2018-07-17 16:15 | CP.PCM.PN ---
<Keli Lozano - Last Filed: 07/17/18 16:13> Subjective - Date & Time of Evaluation Date of Evaluation: 07/17/18 Time of Evaluation: 07:15 - Subjective Subjective: Patient seen and examined this morning with Dr. Castle. NAD, + loose stool overnigh, no other acute events reported, continues with PT/Exercise, good progress but still weak. Objective - Vital Signs/Intake and Output Vital Signs (last 24 hours): Temp Pulse Resp BP Pulse Ox 97.3 F L 75 19 117/61 97 07/17/18 07:52 07/17/18 15:52 07/17/18 07:52 07/17/18 08:46 07/17/18 07:52 - Medications Medications: Current Medications Acetaminophen (Tylenol 325mg Tab) 650 mg PO Q6 PRN PRN Reason: Other Last Admin: 07/13/18 12:17 Dose: 650 mg Aspirin (Aspirin Chewable) 81 mg PO DAILY [facility] Last Admin: 07/17/18 08:46 Dose: 81 mg Atorvastatin Calcium (Lipitor) 40 mg PO DAILY [facility] Last Admin: 07/17/18 08:46 Dose: 40 mg Bismuth Subsalicylate (Pepto-Bismol) 524 mg PO Q6 PRN PRN Reason: Loose stools Last Admin: 07/02/18 19:01 Dose: 524 mg Cholestyramine Resin (Questran) 4 gm PO DAILY [facility] Last Admin: 07/17/18 08:45 Dose: 4 gm Clopidogrel Bisulfate (Plavix) 75 mg PO DAILY [facility] Last Admin: 07/17/18 08:46 Dose: 75 mg Dextrose (Dextrose 50% Inj) 0 ml IV STAT PRN; Protocol PRN Reason: Hypoglycemia Protocol Dextrose (Glutose 15) 0 gm PO ONCE PRN; Protocol PRN Reason: Hypoglycemia Protocol Finasteride (Proscar) 5 mg PO QPM [facility] Last Admin: 07/16/18 17:19 Dose: 5 mg Fluticasone Propionate (Flonase) 1 spr LIANNE DAILY [facility] Last Admin: 07/17/18 08:46 Dose: 1 spr Glucagon (Glucagen Diagnostic Kit) 0 mg IM STAT PRN; Protocol PRN Reason: Hypoglycemia Protocol Guaifenesin (Robitussin) 100 mg PO Q6 PRN PRN Reason: Cough Last Admin: 07/14/18 18:44 Dose: 100 mg Insulin Detemir (Levemir) 50 units SC HS [facility] Last Admin: 07/16/18 21:27 Dose: 50 units Insulin Human Lispro (Humalog) 0 units SC ACHS [facility] Last Admin: 07/17/18 11:51 Dose: Not Given Insulin Human Lispro (Humalog) 20 units SC ACTID [facility] Last Admin: 07/17/18 11:50 Dose: 20 u Loratadine (Claritin) 10 mg PO DAILY [facility] Last Admin: 07/17/18 08:46 Dose: 10 mg Metformin HCl (Glucophage) 500 mg PO BID [facility] Last Admin: 07/17/18 08:46 Dose: 500 mg Nicotine (Nicoderm Cq) 1 patch TD DAILY [facility] Last Admin: 07/17/18 08:45 Dose: 1 patch Pantoprazole Sodium (Protonix Ec Tab) 40 mg PO DAILY [facility] Last Admin: 07/17/18 08:46 Dose: 40 mg Pregabalin (Lyrica) 100 mg PO Q8 [facility] Last Admin: 07/17/18 13:10 Dose: 100 mg Ramipril (Altace) 2.5 mg PO DAILY [facility] Last Admin: 07/17/18 08:46 Dose: 2.5 mg Sertraline HCl (Zoloft) 25 mg PO DAILY [facility] Last Admin: 07/17/18 08:45 Dose: 25 mg Tamsulosin HCl (Flomax) 0.4 mg PO QPM [facility] Last Admin: 07/16/18 17:19 Dose: 0.4 mg Zolpidem Tartrate (Ambien) 5 mg PO HS PRN PRN Reason: Insomnia Last Admin: 07/15/18 22:20 Dose: 5 mg - Labs Labs: 07/17/18 05:32 07/17/18 05:32 - Constitutional Appears: No Acute Distress (left facial droop ) - Head Exam Head Exam: NORMAL INSPECTION - Eye Exam Eye Exam: Normal appearance Pupil Exam: NORMAL ACCOMODATION - ENT Exam ENT Exam: Mucous Membranes Moist - Neck Exam Neck Exam: Full ROM - Respiratory Exam Respiratory Exam: Clear to Ausculation Bilateral, NORMAL BREATHING PATTERN - Cardiovascular Exam Cardiovascular Exam: REGULAR RHYTHM, +S1, +S2 - GI/Abdominal Exam GI & Abdominal Exam: Soft, Normal Bowel Sounds. absent: Tenderness - Extremities Exam Extremities Exam: absent: Tenderness - Back Exam Back Exam: absent: CVA tenderness (L), CVA tenderness (R) - Neurological Exam Neurological Exam: Alert, Awake, Oriented x3 Neuro motor strength exam: Left Upper Extremity: 3, Right Upper Extremity: 4, Left Lower Extremity: 3, Right Lower Extremity: 4 - Psychiatric Exam Psychiatric exam: Normal Affect - Skin Skin Exam: Normal Color Assessment and Plan - Assessment and Plan (Free Text) Assessment: A/P: 63 y/o M with a PMHx of HTN, DM, HLD, previous CVA with residual left side weakness was admitted to rehabilitation unit due to aggravating L sided weakness. Left sided weakness, Hx of CVA --Neurology on board, Dr Portillo. --Continue PT and management as per acute rehab --c/w ASA/plavix and Lipitor --deposition: possible LAURIE Diarrhea --Continues --START cholestyramine, c/w decreased dose of metformin --GI consult, recommendations appreciated --Stool leuk and c.diff negative, KUB with bowel gas, improved in recent KUB Post-stroke depression --Psychiatry on board, Dr Wellington --On Zoloft. HTN --Controlled --Heart healthy diet. --Ramipril 2.5mg PO daily DM-II --Home meds resumed. --Accucheck ACHS --Insulin sliding scale and hypoglycemia protocol --C/w home Lyrica HLD --Home meds resumed Urinary Retention/BPH --C/w home medications: Flomax/Proscar DVT Prophylaxis --Lovenox Sc daily <Gomez Castle K - Last Filed: 07/26/18 08:59> Objective - Vital Signs/Intake and Output Vital Signs (last 24 hours): Temp Pulse Resp BP Pulse Ox 97.2 F L 65 18 130/75 97 07/25/18 07:57 07/25/18 07:57 07/25/18 07:57 07/25/18 08:27 07/25/18 07:57 - Labs Labs: 07/24/18 05:40 07/24/18 05:40 Assessment and Plan - Assessment and Plan (Free Text) Assessment: Patient was personally seen and examined by me in rounds with residents. Available labs and diagnostic data reviewed. Case, Patient's condition and management plan discussed with residents in rounds. Agree with resident's progress note. Plan: As ordered.
[2018-07-17] MEDS: Insulin Detemir 100 Units/ml Inj SC SCH (21:15)
[2018-07-18] MEDS: Insulin Lispro (humaLOG) 100 Units/ml Inj SC SCH ×7 (06:30→21:56)
[2018-07-18] MEDS: Cholestyramine 4 gm/Pkt UD PO SCH (08:02)
[2018-07-18] MEDS: Pantoprazole 40 mg EC Tab PO SCH (08:03)
--- NOTE | 2018-07-18 08:25 | CP.PCM.PN ---
<Keli Lozano - Last Filed: 07/18/18 08:49> Subjective - Date & Time of Evaluation Date of Evaluation: 07/18/18 Time of Evaluation: 07:15 - Subjective Subjective: Patient seen and examined this morning with Dr. Castle. YURI, AAOx3, VS reviewed: STABLE No acute event overnight, NAD Improved diarrhea continues with PT/Exercise, good progress but still weak. Objective - Vital Signs/Intake and Output Vital Signs (last 24 hours): Temp Pulse Resp BP Pulse Ox 97.6 F 64 22 121/68 97 07/18/18 08:22 07/18/18 08:22 07/18/18 08:22 07/18/18 08:22 07/18/18 08:22 - Medications Medications: Current Medications Acetaminophen (Tylenol 325mg Tab) 650 mg PO Q6 PRN PRN Reason: Other Last Admin: 07/13/18 12:17 Dose: 650 mg Aspirin (Aspirin Chewable) 81 mg PO DAILY [facility] Last Admin: 07/18/18 08:04 Dose: 81 mg Atorvastatin Calcium (Lipitor) 40 mg PO DAILY [facility] Last Admin: 07/18/18 08:06 Dose: 40 mg Bismuth Subsalicylate (Pepto-Bismol) 524 mg PO Q6 PRN PRN Reason: Loose stools Last Admin: 07/02/18 19:01 Dose: 524 mg Cholestyramine Resin (Questran) 4 gm PO DAILY [facility] Last Admin: 07/18/18 08:02 Dose: 4 gm Clopidogrel Bisulfate (Plavix) 75 mg PO DAILY [facility] Last Admin: 07/18/18 08:03 Dose: 75 mg Dextrose (Dextrose 50% Inj) 0 ml IV STAT PRN; Protocol PRN Reason: Hypoglycemia Protocol Dextrose (Glutose 15) 0 gm PO ONCE PRN; Protocol PRN Reason: Hypoglycemia Protocol Finasteride (Proscar) 5 mg PO QPM [facility] Last Admin: 07/17/18 17:01 Dose: 5 mg Fluticasone Propionate (Flonase) 1 spr LIANNE DAILY [facility] Last Admin: 07/18/18 08:02 Dose: 1 spr Glucagon (Glucagen Diagnostic Kit) 0 mg IM STAT PRN; Protocol PRN Reason: Hypoglycemia Protocol Guaifenesin (Robitussin) 100 mg PO Q6 PRN PRN Reason: Cough Last Admin: 07/14/18 18:44 Dose: 100 mg Insulin Detemir (Levemir) 50 units SC HS [facility] Last Admin: 07/17/18 21:15 Dose: 50 units Insulin Human Lispro (Humalog) 0 units SC ACHS [facility] Last Admin: 07/18/18 06:30 Dose: Not Given Insulin Human Lispro (Humalog) 20 units SC ACTID [facility] Last Admin: 07/18/18 08:05 Dose: 20 u Loratadine (Claritin) 10 mg PO DAILY [facility] Last Admin: 07/18/18 08:04 Dose: 10 mg Metformin HCl (Glucophage) 500 mg PO BID [facility] Last Admin: 07/18/18 08:04 Dose: 500 mg Nicotine (Nicoderm Cq) 1 patch TD DAILY [facility] Last Admin: 07/18/18 08:01 Dose: 1 patch Pantoprazole Sodium (Protonix Ec Tab) 40 mg PO DAILY [facility] Last Admin: 07/18/18 08:03 Dose: 40 mg Pregabalin (Lyrica) 100 mg PO Q8 [facility] Last Admin: 07/18/18 06:00 Dose: 100 mg Ramipril (Altace) 2.5 mg PO DAILY [facility] Last Admin: 07/18/18 08:03 Dose: 2.5 mg Sertraline HCl (Zoloft) 25 mg PO DAILY [facility] Last Admin: 07/18/18 08:03 Dose: 25 mg Tamsulosin HCl (Flomax) 0.4 mg PO QPM [facility] Last Admin: 07/17/18 17:01 Dose: 0.4 mg Zolpidem Tartrate (Ambien) 5 mg PO HS PRN PRN Reason: Insomnia Last Admin: 07/15/18 22:20 Dose: 5 mg - Labs Labs: 07/17/18 05:32 07/17/18 05:32 - Constitutional Appears: No Acute Distress - Head Exam Head Exam: NORMAL INSPECTION - Eye Exam Eye Exam: Normal appearance - ENT Exam ENT Exam: Mucous Membranes Moist - Respiratory Exam Respiratory Exam: Clear to Ausculation Bilateral - Cardiovascular Exam Cardiovascular Exam: REGULAR RHYTHM - GI/Abdominal Exam GI & Abdominal Exam: Soft, Normal Bowel Sounds. absent: Tenderness - Extremities Exam Extremities Exam: absent: Tenderness - Back Exam Back Exam: absent: CVA tenderness (L), CVA tenderness (R) - Neurological Exam Neurological Exam: Alert, Awake, Oriented x3 Neuro motor strength exam: Left Upper Extremity: 3, Right Upper Extremity: 4, Left Lower Extremity: 3, Right Lower Extremity: 4 - Psychiatric Exam Psychiatric exam: Normal Affect - Skin Skin Exam: Normal Color Assessment and Plan - Assessment and Plan (Free Text) Assessment: A/P: 63 y/o M with a PMHx of HTN, DM, HLD, previous CVA with residual left side weakness was admitted to rehabilitation unit due to aggravating L sided weakness. Left sided weakness, Hx of CVA --Neurology on board, Dr Portillo. --Continue PT and management as per acute rehab --c/w ASA/plavix and Lipitor --deposition: possible LAURIE Diarrhea --Improved --STARTed cholestyramine, c/w decreased dose of metformin --GI consult, recommendations appreciated --Stool leuk and c.diff negative, KUB with bowel gas, improved in recent KUB Post-stroke depression --Psychiatry on board, Dr Wellington --On Zoloft. HTN --Controlled --Heart healthy diet. --Ramipril 2.5mg PO daily DM-II --Home meds resumed. --Accucheck ACHS --Insulin sliding scale and hypoglycemia protocol --C/w home Lyrica HLD --Home meds resumed Urinary Retention/BPH --C/w home medications: Flomax/Proscar DVT Prophylaxis --Lovenox Sc daily <Gomez Castle K - Last Filed: 07/26/18 09:01> Objective - Vital Signs/Intake and Output Vital Signs (last 24 hours): Temp Pulse Resp BP Pulse Ox 97.2 F L 65 18 130/75 97 07/25/18 07:57 07/25/18 07:57 07/25/18 07:57 07/25/18 08:27 07/25/18 07:57 - Labs Labs: 07/24/18 05:40 07/24/18 05:40 Assessment and Plan - Assessment and Plan (Free Text) Assessment: Patient was personally seen and examined by me in rounds with residents. Available labs and diagnostic data reviewed. Case, Patient's condition and management plan discussed with residents in rounds. Agree with resident's progress note. Plan: As ordered.
--- NOTE | 2018-07-18 17:29 | CP.PCM.PN ---
Subjective - Date & Time of Evaluation Date of Evaluation: 07/18/18 Time of Evaluation: 17:29 - Subjective Subjective: Patient is stable and no sob/cp continues to be compliant with care and better mood/affect continue current care Objective - Vital Signs/Intake and Output Vital Signs (last 24 hours): Temp Pulse Resp BP Pulse Ox 97.6 F 64 22 121/68 97 07/18/18 08:22 07/18/18 08:22 07/18/18 08:22 07/18/18 08:22 07/18/18 08:22 - Medications Medications: Current Medications Acetaminophen (Tylenol 325mg Tab) 650 mg PO Q6 PRN PRN Reason: Other Last Admin: 07/13/18 12:17 Dose: 650 mg Aspirin (Aspirin Chewable) 81 mg PO DAILY [facility] Last Admin: 07/18/18 08:04 Dose: 81 mg Atorvastatin Calcium (Lipitor) 40 mg PO DAILY [facility] Last Admin: 07/18/18 08:06 Dose: 40 mg Bismuth Subsalicylate (Pepto-Bismol) 524 mg PO Q6 PRN PRN Reason: Loose stools Last Admin: 07/02/18 19:01 Dose: 524 mg Cholestyramine Resin (Questran) 4 gm PO DAILY [facility] Last Admin: 07/18/18 08:02 Dose: 4 gm Clopidogrel Bisulfate (Plavix) 75 mg PO DAILY [facility] Last Admin: 07/18/18 08:03 Dose: 75 mg Dextrose (Dextrose 50% Inj) 0 ml IV STAT PRN; Protocol PRN Reason: Hypoglycemia Protocol Dextrose (Glutose 15) 0 gm PO ONCE PRN; Protocol PRN Reason: Hypoglycemia Protocol Finasteride (Proscar) 5 mg PO QPM [facility] Last Admin: 07/18/18 17:27 Dose: 5 mg Fluticasone Propionate (Flonase) 1 spr LIANNE DAILY [facility] Last Admin: 07/18/18 08:02 Dose: 1 spr Glucagon (Glucagen Diagnostic Kit) 0 mg IM STAT PRN; Protocol PRN Reason: Hypoglycemia Protocol Guaifenesin (Robitussin) 100 mg PO Q6 PRN PRN Reason: Cough Last Admin: 07/14/18 18:44 Dose: 100 mg Insulin Detemir (Levemir) 50 units SC HS [facility] Last Admin: 07/17/18 21:15 Dose: 50 units Insulin Human Lispro (Humalog) 0 units SC ACHS [facility] Last Admin: 07/18/18 16:41 Dose: Not Given Insulin Human Lispro (Humalog) 20 units SC ACTID [facility] Last Admin: 07/18/18 17:27 Dose: 20 u Loratadine (Claritin) 10 mg PO DAILY [facility] Last Admin: 07/18/18 08:04 Dose: 10 mg Metformin HCl (Glucophage) 500 mg PO BID [facility] Last Admin: 07/18/18 17:27 Dose: 500 mg Nicotine (Nicoderm Cq) 1 patch TD DAILY [facility] Last Admin: 07/18/18 08:01 Dose: 1 patch Pantoprazole Sodium (Protonix Ec Tab) 40 mg PO DAILY [facility] Last Admin: 07/18/18 08:03 Dose: 40 mg Pregabalin (Lyrica) 100 mg PO Q8 [facility] Last Admin: 07/18/18 13:37 Dose: 100 mg Ramipril (Altace) 2.5 mg PO DAILY [facility] Last Admin: 07/18/18 08:03 Dose: 2.5 mg Sertraline HCl (Zoloft) 25 mg PO DAILY [facility] Last Admin: 07/18/18 08:03 Dose: 25 mg Tamsulosin HCl (Flomax) 0.4 mg PO QPM [facility] Last Admin: 07/18/18 17:27 Dose: 0.4 mg Zolpidem Tartrate (Ambien) 5 mg PO HS PRN PRN Reason: Insomnia Last Admin: 07/15/18 22:20 Dose: 5 mg - Labs Labs: 07/17/18 05:32 07/17/18 05:32
--- NOTE | 2018-07-18 20:32 | CP.PCM.PN ---
Subjective - Date & Time of Evaluation Date of Evaluation: 07/18/18 Time of Evaluation: 09:00 - Subjective Subjective: Patient w/o complaint. No diarrhea currently. Objective - Vital Signs/Intake and Output Vital Signs (last 24 hours): Temp Pulse Resp BP Pulse Ox 97.4 F L 70 20 129/74 97 07/18/18 20:13 07/18/18 20:13 07/18/18 20:13 07/18/18 20:13 07/18/18 20:13 - Medications Medications: Current Medications Acetaminophen (Tylenol 325mg Tab) 650 mg PO Q6 PRN PRN Reason: Other Last Admin: 07/13/18 12:17 Dose: 650 mg Aspirin (Aspirin Chewable) 81 mg PO DAILY [facility] Last Admin: 07/18/18 08:04 Dose: 81 mg Atorvastatin Calcium (Lipitor) 40 mg PO DAILY [facility] Last Admin: 07/18/18 08:06 Dose: 40 mg Bismuth Subsalicylate (Pepto-Bismol) 524 mg PO Q6 PRN PRN Reason: Loose stools Last Admin: 07/02/18 19:01 Dose: 524 mg Cholestyramine Resin (Questran) 4 gm PO DAILY [facility] Last Admin: 07/18/18 08:02 Dose: 4 gm Clopidogrel Bisulfate (Plavix) 75 mg PO DAILY [facility] Last Admin: 07/18/18 08:03 Dose: 75 mg Dextrose (Dextrose 50% Inj) 0 ml IV STAT PRN; Protocol PRN Reason: Hypoglycemia Protocol Dextrose (Glutose 15) 0 gm PO ONCE PRN; Protocol PRN Reason: Hypoglycemia Protocol Finasteride (Proscar) 5 mg PO QPM [facility] Last Admin: 07/18/18 17:27 Dose: 5 mg Fluticasone Propionate (Flonase) 1 spr LIANNE DAILY [facility] Last Admin: 07/18/18 08:02 Dose: 1 spr Glucagon (Glucagen Diagnostic Kit) 0 mg IM STAT PRN; Protocol PRN Reason: Hypoglycemia Protocol Guaifenesin (Robitussin) 100 mg PO Q6 PRN PRN Reason: Cough Last Admin: 07/14/18 18:44 Dose: 100 mg Insulin Detemir (Levemir) 50 units SC HS [facility] Last Admin: 07/17/18 21:15 Dose: 50 units Insulin Human Lispro (Humalog) 0 units SC ACHS [facility] Last Admin: 07/18/18 16:41 Dose: Not Given Insulin Human Lispro (Humalog) 20 units SC ACTID [facility] Last Admin: 07/18/18 17:27 Dose: 20 u Loratadine (Claritin) 10 mg PO DAILY [facility] Last Admin: 07/18/18 08:04 Dose: 10 mg Metformin HCl (Glucophage) 500 mg PO BID [facility] Last Admin: 07/18/18 17:27 Dose: 500 mg Nicotine (Nicoderm Cq) 1 patch TD DAILY [facility] Last Admin: 07/18/18 08:01 Dose: 1 patch Pantoprazole Sodium (Protonix Ec Tab) 40 mg PO DAILY [facility] Last Admin: 07/18/18 08:03 Dose: 40 mg Pregabalin (Lyrica) 100 mg PO Q8 [facility] Last Admin: 07/18/18 13:37 Dose: 100 mg Ramipril (Altace) 2.5 mg PO DAILY [facility] Last Admin: 07/18/18 08:03 Dose: 2.5 mg Sertraline HCl (Zoloft) 25 mg PO DAILY [facility] Last Admin: 07/18/18 08:03 Dose: 25 mg Tamsulosin HCl (Flomax) 0.4 mg PO QPM [facility] Last Admin: 07/18/18 17:27 Dose: 0.4 mg Zolpidem Tartrate (Ambien) 5 mg PO HS PRN PRN Reason: Insomnia Last Admin: 07/15/18 22:20 Dose: 5 mg - Labs Labs: 07/17/18 05:32 07/17/18 05:32 - Head Exam Head Exam: ATRAUMATIC - Eye Exam Eye Exam: Normal appearance - ENT Exam ENT Exam: Normal Exam - Neck Exam Neck Exam: Full ROM - Respiratory Exam Respiratory Exam: Clear to Ausculation Bilateral - Cardiovascular Exam Cardiovascular Exam: REGULAR RHYTHM, +S1, +S2 - GI/Abdominal Exam GI & Abdominal Exam: Soft, Normal Bowel Sounds. absent: Tenderness Assessment and Plan (1) Diarrhea Assessment & Plan: Diarrhea improved with cholestyramine and change in diet. Will continue to folllow with you.. Status: Acute
[2018-07-18] MEDS ORDERED: Insulin Detemir 100 Units/ml Inj SC ONE (22:31)
[2018-07-18] MEDS: Insulin Detemir 100 Units/ml Inj SC SCH (22:46)
[2018-07-19] MEDS: Insulin Lispro (humaLOG) 100 Units/ml Inj SC SCH ×8 (06:52→21:53)
--- NOTE | 2018-07-19 07:52 | CP.PCM.CON ---
History of Present Illness - History of Present Illness History of Present Illness: Pt seen for sup therapy 7:22-7:40. Pt discussed continued gains of therapy. Pt spoke of looking forward to going to [place] for continued rehab- to building close to his home. Pt discussed emotional stability at present, pt denied significant distress or agitation. Pt spoke of positive treatment by others, pt adjusting well. Plan: Continued Sup therapy when in [facility]. Past Patient History - Infectious Disease Hx of Infectious Diseases: None - Past Medical History & Family History Past Medical History?: Yes - Past Social History Smoking Status: Heavy Smoker > 10 Cigarettes Daily Home Situation {Lives}: Alone (3rd floor) - CARDIAC Hx Atrial Fibrillation: No - PULMONARY Hx Respiratory Disorders: No - NEUROLOGICAL Hx Neurological Disorder: Yes HX Cerebrovascular Accident: Yes (10/22/17) Other/Comment: neuropathy - HEENT Hx HEENT Problems: No - RENAL Hx Chronic Kidney Disease: No - ENDOCRINE/METABOLIC Hx Endocrine Disorders: Yes Hx Diabetes Mellitus Type 2: Yes - HEMATOLOGICAL/ONCOLOGICAL Hx Human Immunodeficiency Virus (HIV): No - INTEGUMENTARY Hx Dermatological Problems: No - MUSCULOSKELETAL/RHEUMATOLOGICAL Hx Falls: Yes - GASTROINTESTINAL Hx Gastrointestinal Disorders: Yes Hx Colostomy: Yes (2012) - GENITOURINARY/GYNECOLOGICAL Hx Genitourinary Disorders: Yes Hx Prostate Problems: Yes - PSYCHIATRIC Hx Substance Use: No - SURGICAL HISTORY Hx Surgeries: Yes Other/Comment: COLOSTOMY 2012 - ANESTHESIA Hx Anesthesia: Yes Hx Anesthesia Reactions: No Hx Malignant Hyperthermia: No Meds Allergies/Adverse Reactions: Allergies Allergy/AdvReac Type Severity Reaction Status Date / Time No Known Allergies Allergy Verified 10/18/17 14:17 - Medications Medications: Current Medications Acetaminophen (Tylenol 325mg Tab) 650 mg PO Q6 PRN PRN Reason: Other Last Admin: 07/13/18 12:17 Dose: 650 mg Aspirin (Aspirin Chewable) 81 mg PO DAILY [facility] Last Admin: 07/18/18 08:04 Dose: 81 mg Atorvastatin Calcium (Lipitor) 40 mg PO DAILY [facility] Last Admin: 07/18/18 08:06 Dose: 40 mg Bismuth Subsalicylate (Pepto-Bismol) 524 mg PO Q6 PRN PRN Reason: Loose stools Last Admin: 07/02/18 19:01 Dose: 524 mg Cholestyramine Resin (Questran) 4 gm PO DAILY [facility] Last Admin: 07/18/18 08:02 Dose: 4 gm Clopidogrel Bisulfate (Plavix) 75 mg PO DAILY [facility] Last Admin: 07/18/18 08:03 Dose: 75 mg Dextrose (Dextrose 50% Inj) 0 ml IV STAT PRN; Protocol PRN Reason: Hypoglycemia Protocol Dextrose (Glutose 15) 0 gm PO ONCE PRN; Protocol PRN Reason: Hypoglycemia Protocol Finasteride (Proscar) 5 mg PO QPM [facility] Last Admin: 07/18/18 17:27 Dose: 5 mg Fluticasone Propionate (Flonase) 1 spr LIANNE DAILY [facility] Last Admin: 07/18/18 08:02 Dose: 1 spr Glucagon (Glucagen Diagnostic Kit) 0 mg IM STAT PRN; Protocol PRN Reason: Hypoglycemia Protocol Guaifenesin (Robitussin) 100 mg PO Q6 PRN PRN Reason: Cough Last Admin: 07/14/18 18:44 Dose: 100 mg Insulin Detemir (Levemir) 50 units SC HS [facility] Last Admin: 07/18/18 22:46 Dose: Not Given Insulin Human Lispro (Humalog) 0 units SC ACHS [facility] Last Admin: 07/19/18 06:52 Dose: Not Given Insulin Human Lispro (Humalog) 20 units SC ACTID [facility] Last Admin: 07/18/18 17:27 Dose: 20 u Loratadine (Claritin) 10 mg PO DAILY [facility] Last Admin: 07/18/18 08:04 Dose: 10 mg Metformin HCl (Glucophage) 500 mg PO BID [facility] Last Admin: 07/18/18 17:27 Dose: 500 mg Nicotine (Nicoderm Cq) 1 patch TD DAILY [facility] Last Admin: 07/18/18 08:01 Dose: 1 patch Pantoprazole Sodium (Protonix Ec Tab) 40 mg PO DAILY [facility] Last Admin: 07/18/18 08:03 Dose: 40 mg Pregabalin (Lyrica) 100 mg PO Q8 [facility] Last Admin: 07/19/18 06:34 Dose: 100 mg Ramipril (Altace) 2.5 mg PO DAILY [facility] Last Admin: 07/18/18 08:03 Dose: 2.5 mg Sertraline HCl (Zoloft) 25 mg PO DAILY [facility] Last Admin: 07/18/18 08:03 Dose: 25 mg Tamsulosin HCl (Flomax) 0.4 mg PO QPM [facility] Last Admin: 07/18/18 17:27 Dose: 0.4 mg Zolpidem Tartrate (Ambien) 5 mg PO HS PRN PRN Reason: Insomnia Last Admin: 07/18/18 21:53 Dose: 5 mg Results - Vital Signs Recent Vital Signs: Last Vital Signs Temp 97.4 F L 07/18/18 20:13 Pulse 70 07/18/18 20:13 Resp 20 07/18/18 20:13 BP 129/74 07/18/18 20:13 Pulse Ox 97 07/18/18 20:13 - Labs Result Diagrams: 07/17/18 05:32 07/17/18 05:32 Labs: Laboratory Results - last 24 hr 07/18/18 07/18/18 07/18/18 12:12 16:01 20:31 POC Glucose (mg/dL) 100 91 95 07/18/18 07/19/18 07/19/18 21:34 02:12 05:56 POC Glucose (mg/dL) 90 246 H 290 H
[2018-07-19] MEDS: Cholestyramine 4 gm/Pkt UD PO SCH (08:46)
[2018-07-19] MEDS: Pantoprazole 40 mg EC Tab PO SCH (08:46)
--- NOTE | 2018-07-19 11:24 | CP.PCM.PN ---
Subjective - Date & Time of Evaluation Date of Evaluation: 07/19/18 Time of Evaluation: 07:30 - Subjective Subjective: Patient seen and examined this morning with Dr. Castle. NAD, AAOx3, VS reviewed: STABLE No acute event overnight, NAD Improved diarrhea on med Continues with PT Objective - Vital Signs/Intake and Output Vital Signs (last 24 hours): Temp Pulse Resp BP Pulse Ox 97.3 F L 83 19 136/80 97 07/19/18 08:08 07/19/18 08:08 07/19/18 08:08 07/19/18 08:45 07/19/18 08:08 - Medications Medications: Current Medications Acetaminophen (Tylenol 325mg Tab) 650 mg PO Q6 PRN PRN Reason: Other Last Admin: 07/13/18 12:17 Dose: 650 mg Aspirin (Aspirin Chewable) 81 mg PO DAILY [facility] Last Admin: 07/19/18 08:44 Dose: 81 mg Atorvastatin Calcium (Lipitor) 40 mg PO DAILY [facility] Last Admin: 07/19/18 08:46 Dose: 40 mg Bismuth Subsalicylate (Pepto-Bismol) 524 mg PO Q6 PRN PRN Reason: Loose stools Last Admin: 07/02/18 19:01 Dose: 524 mg Cholestyramine Resin (Questran) 4 gm PO DAILY [facility] Last Admin: 07/19/18 08:46 Dose: 4 gm Clopidogrel Bisulfate (Plavix) 75 mg PO DAILY [facility] Last Admin: 07/19/18 08:44 Dose: 75 mg Dextrose (Dextrose 50% Inj) 0 ml IV STAT PRN; Protocol PRN Reason: Hypoglycemia Protocol Dextrose (Glutose 15) 0 gm PO ONCE PRN; Protocol PRN Reason: Hypoglycemia Protocol Finasteride (Proscar) 5 mg PO QPM [facility] Last Admin: 07/18/18 17:27 Dose: 5 mg Fluticasone Propionate (Flonase) 1 spr LIANNE DAILY [facility] Last Admin: 07/19/18 08:47 Dose: 1 spr Glucagon (Glucagen Diagnostic Kit) 0 mg IM STAT PRN; Protocol PRN Reason: Hypoglycemia Protocol Guaifenesin (Robitussin) 100 mg PO Q6 PRN PRN Reason: Cough Last Admin: 07/14/18 18:44 Dose: 100 mg Insulin Detemir (Levemir) 40 units SC [facility] Insulin Human Lispro (Humalog) 0 units SC ACHS [facility] Last Admin: 07/19/18 06:52 Dose: Not Given Insulin Human Lispro (Humalog) 20 units SC ACTID [facility] Last Admin: 07/19/18 08:47 Dose: 20 u Loratadine (Claritin) 10 mg PO DAILY [facility] Last Admin: 07/19/18 08:47 Dose: 10 mg Metformin HCl (Glucophage) 500 mg PO BID [facility] Last Admin: 07/19/18 08:45 Dose: 500 mg Nicotine (Nicoderm Cq) 1 patch TD DAILY [facility] Last Admin: 07/19/18 08:48 Dose: 1 patch Pantoprazole Sodium (Protonix Ec Tab) 40 mg PO DAILY [facility] Last Admin: 07/19/18 08:46 Dose: 40 mg Pregabalin (Lyrica) 100 mg PO Q8 [facility] Last Admin: 07/19/18 06:34 Dose: 100 mg Ramipril (Altace) 2.5 mg PO DAILY [facility] Last Admin: 07/19/18 08:45 Dose: 2.5 mg Sertraline HCl (Zoloft) 25 mg PO DAILY [facility] Last Admin: 07/19/18 08:45 Dose: 25 mg Tamsulosin HCl (Flomax) 0.4 mg PO QPM [facility] Last Admin: 07/18/18 17:27 Dose: 0.4 mg Zolpidem Tartrate (Ambien) 5 mg PO HS PRN PRN Reason: Insomnia Last Admin: 07/18/18 21:53 Dose: 5 mg - Labs Labs: 07/17/18 05:32 07/17/18 05:32 - Constitutional Appears: No Acute Distress - Head Exam Head Exam: NORMAL INSPECTION - Eye Exam Eye Exam: Normal appearance Pupil Exam: NORMAL ACCOMODATION - ENT Exam ENT Exam: Mucous Membranes Moist - Neck Exam Neck Exam: Normal Inspection - Respiratory Exam Respiratory Exam: Clear to Ausculation Bilateral, NORMAL BREATHING PATTERN - Cardiovascular Exam Cardiovascular Exam: REGULAR RHYTHM - GI/Abdominal Exam GI & Abdominal Exam: Soft, Normal Bowel Sounds. absent: Tenderness - Extremities Exam Extremities Exam: absent: Tenderness - Back Exam Back Exam: NORMAL INSPECTION - Neurological Exam Neurological Exam: Alert, Awake, Oriented x3 Neuro motor strength exam: Left Upper Extremity: 3, Right Upper Extremity: 4, Left Lower Extremity: 3, Right Lower Extremity: 4 - Psychiatric Exam Psychiatric exam: Normal Affect - Skin Skin Exam: Normal Color Assessment and Plan - Assessment and Plan (Free Text) Assessment: A/P: 63 y/o M with a PMHx of HTN, DM, HLD, previous CVA with residual left side weakness was admitted to rehabilitation unit due to aggravating L sided weakness. 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 HTN --Controlled --Heart healthy diet. --Ramipril 2.5mg PO daily DM-II --Home meds resumed/Adjust according to BS --Accucheck ACHS --Insulin sliding scale and hypoglycemia protocol --C/w home Lyrica HLD --Home meds resumed Urinary Retention/BPH --C/w home medications: Flomax/Proscar DVT Prophylaxis --Lovenox Sc daily
[2018-07-19] MEDS: Insulin Detemir 100 Units/ml Inj SC SCH (21:54)
[2018-07-20] MEDS: Insulin Lispro (humaLOG) 100 Units/ml Inj SC SCH ×7 (06:45→21:00)
[2018-07-20 07:11] LABS: MEAN CELL VOLUME 85.2 fl (80.0-94.0); MEAN CORPUSCULAR HEMOGLOBIN 28.2 pg (27.0-31.0); MEAN CORPUSCULAR HGB CONC 33.1 g/dL (33.0-37.0); RBC 4.62 Mil/uL (4.40-5.90); RED CELL DISTRIBUTION WIDTH 13.8 % (11.5-14.5); WHITE BLOOD COUNT 7.8 K/uL (4.8-10.8)
[2018-07-20 07:34] LABS: BLOOD UREA NITROGEN 31 mg/dl (9-20); CALCIUM 8.9 mg/dL (8.4-10.2); GFR NON-AFRICAN AMERICAN > 60
[2018-07-20] MEDS: Cholestyramine 4 gm/Pkt UD PO SCH (08:55)
[2018-07-20] MEDS: Pantoprazole 40 mg EC Tab PO SCH (08:55)
--- NOTE | 2018-07-20 12:32 | PN ---
DATE: 07/20/2018 SUBJECTIVE: The patient seen and examined. Interim events noted. Consults noted and appreciated. The patient remains in acute rehab unit, feels okay. Denies any specific complaint. No chest pain, no shortness of breath. No abdominal pain or diarrhea. No specific issue reported by nursing staff. PHYSICAL EXAMINATION: GENERAL: The patient is in no acute distress. VITAL SIGNS: Stable. HEART: S1 and S2 normal and regular. LUNGS: Good bilateral air exchange. ABDOMEN: Soft, nontender. EXTREMITIES: No edema, no calf swelling, no tenderness, no acute ischemia. CENTRAL NERVOUS SYSTEM: Exam is essentially unchanged. DIAGNOSTICS DATA: Available diagnostic data reviewed. Overall, the patient's general medical condition is stable. Plan as ordered. Gomez Castle MD
[2018-07-20] MEDS: Insulin Detemir 100 Units/ml Inj SC SCH (21:47)
[2018-07-21 06:26] LABS: MEAN CELL VOLUME 85.4 fl (80.0-94.0); MEAN CORPUSCULAR HEMOGLOBIN 28.4 pg (27.0-31.0); MEAN CORPUSCULAR HGB CONC 33.3 g/dL (33.0-37.0); RBC 4.58 Mil/uL (4.40-5.90); RED CELL DISTRIBUTION WIDTH 13.8 % (11.5-14.5); WHITE BLOOD COUNT 8.1 K/uL (4.8-10.8)
[2018-07-21] MEDS: Insulin Lispro (humaLOG) 100 Units/ml Inj SC SCH ×7 (06:30→21:00)
[2018-07-21 06:38] LABS: ALB/GLOB RATIO 1.2 (1.0-2.1); ALBUMIN 3.8 g/dL (3.5-5.0); ALT/SGPT 21 U/L (21-72); AST/SGOT 15 U/L (17-59); BLOOD UREA NITROGEN 34 mg/dl (9-20); CALCIUM 8.7 mg/dL (8.4-10.2); GFR NON-AFRICAN AMERICAN 56
[2018-07-21] MEDS: Enoxaparin 40 mg Syringe SC SCH (08:13)
[2018-07-21] MEDS: Pantoprazole 40 mg EC Tab PO SCH (08:15)
[2018-07-21] MEDS: Cholestyramine 4 gm/Pkt UD PO SCH (08:15)
--- NOTE | 2018-07-21 14:18 | PN ---
DATE: 07/21/2018 SUBJECTIVE: The patient seen and examined. Interim events noted. The patient remains in acute rehab unit, sleeping, arousable. Denies any specific complaint. Diarrhea resolved. PHYSICAL EXAMINATION: GENERAL: The patient is in no acute distress. VITAL SIGNS: Stable. HEART: S1 and S2 normal and regular. LUNGS: Good bilateral air exchange. ABDOMEN: Soft, nontender. EXTREMITIES: No edema, no calf swelling, no tenderness, no acute ischemia. CENTRAL NERVOUS SYSTEM: Exam is essentially unchanged. DIAGNOSTIC DATA: Available diagnostic data reviewed. Accu-Cheks are acceptable. Overall, the patient's general medical condition is stable. Plan as ordered. Gomez Castle MD
[2018-07-21] MEDS: Insulin Detemir 100 Units/ml Inj SC SCH (21:48)
[2018-07-21] MEDS ORDERED: Atropine-Diphenoxylate 0.025-2.5mg/5 mL Oral Liq (60 ml) PO ONE (22:48)
[2018-07-21] MEDS ORDERED: Atropine-Diphenoxylate 0.025-2.5 mg Tab PO ONE ×2 (23:13→23:16)
[2018-07-22] MEDS: Insulin Lispro (humaLOG) 100 Units/ml Inj SC SCH ×6 (06:30→21:19)
--- NOTE | 2018-07-22 09:04 | PN ---
DATE: 07/20/2018 SUBJECTIVE: The patient seen and examined. Interim events noted. The patient remains in acute rehab unit, awake, responsive, feels okay. Denies any chest pain or shortness of breath. PHYSICAL EXAMINATION: GENERAL: The patient is in no acute distress. VITAL SIGNS: Stable. HEART: S1 and S2 normal and regular. LUNGS: Good bilateral air exchange. ABDOMEN: Soft, nontender. Gomez Castle MD
[2018-07-22] MEDS: Enoxaparin 40 mg Syringe SC SCH (09:43)
[2018-07-22] MEDS: Pantoprazole 40 mg EC Tab PO SCH (09:46)
[2018-07-22] MEDS: Cholestyramine 4 gm/Pkt UD PO SCH (09:46)
[2018-07-22] MEDS: guaiFENesin 100 mg/5 ml Syrup UD PO PRN (09:47)
--- NOTE | 2018-07-22 11:59 | PN ---
DATE: 07/22/2018 SUBJECTIVE: The patient was seen and examined. Interim events noted. The patient remains in acute rehab unit, feels better. She has a pasty stool with frequency and requesting Lomotil on p.r.n. basis. No chest pain or shortness of breath. Feels stronger and physical therapy seems to be helping very well. PHYSICAL EXAMINATION: GENERAL: The patient is in no acute distress. VITAL SIGNS: Stable. HEART: S1, S2, normal and regular. LUNGS: Good bilateral air exchange. ABDOMEN: Soft, nontender. No sign of acute abdomen. No guarding, no rigidity, no rebound. Bowel sounds are present and normal. EXTREMITIES: Some edema, calf swelling. No tenderness, no acute ischemia. CENTRAL NERVOUS SYSTEM: Essentially unchanged. DIAGNOSTIC DATA: Available diagnostic data reviewed. Overall, the patient's general medical condition is stable. Plan as ordered. Gomez Castle MD
[2018-07-22] MEDS ORDERED: Dextrose 50% SYRINGE Inj (50 ml) ONE (14:23)
--- NOTE | 2018-07-22 14:34 | PCM.RRT ---
<Tung Vanegas - Last Filed: 07/22/18 14:56> I.Reason for [facility] - A) Acute Change in Patient: Subjective: [facility] arrival time: 2:12PM S: [facility]IM [facility]ER called by RN after c/o of lightheadedness while going to the toilet, patient was also noted diaphoretic by RN. Patient is a 63y/o M with a PMHx of HTN, DM, HLD, Left hemisphere CVA, HTN. RN report that patient had received insulin prior to the onset of symptoms. VS: BP 157/105, HR 102, T 98.4 BS was found to be 41 severe hypoglycemia. O: GEN: AAOx3 HEENT: Normal inspection. RESP: CTA bilateral CV: RRR, S1S2 present EXT: No edema A/P and [facility] BRIM [facility] interventions IMpression : Severe hypoglycemic episode Patient was given 1-[place] juice, 2- Glucagon x1 shot, 3-D50 IV x1 At the end of [facility]IM [facility] patient reports feeling better, denies GIRARD, lightheadedness, CP, SOB. Patient c/o of feeling hungry. VS at the end of [facility]IM [facility]: BP 143/79, HR 89, O2 Sat 96% BS 193 Continue monitoring status and VS. <Nicolás Frederick - Last Filed: 07/22/18 17:53> [facility]IM [facility] Nurse Assessment - Vital Signs Vital Signs: Rapid Response Vital Sign Blood Pressure 157/105 Pulse Rate 101 Respiratory Rate 18 Temperature 98.4 F Oxygen Saturation 95 - Vital Signs at end of [facility]IM [facility] Vital Signs at end of HAND [facility]IM [facility]: Rapid Response End Vital Sign Blood Pressure 143/79 Pulse Rate 88 Respiratory Rate 14 Temperature 98.4 F O2 Sat by Pulse Oximetry 95 Attending/Attestation - Attestation I have personally seen and examined this patient.: Yes I have fully participated in the care of the patient.: Yes I have reviewed all pertinent clinical information, including history, physical exam and plan: Yes Notes (Text): 07/22/18 17:52 Patient seen and examined with resident during [facility] for hypoglycemia. Case discussed and agreed with assessment and management.
[2018-07-22] MEDS ORDERED: Insulin Lispro (humaLOG) 100 Units/ml Inj SC SCH (16:30)
[2018-07-22] MEDS ORDERED: Insulin Lispro (humaLOG) 100 Units/ml Inj SC ONE (17:45)
[2018-07-22] MEDS: Insulin Detemir 100 Units/ml Inj SC SCH (21:20)
[2018-07-22] MEDS: Atropine-Diphenoxylate 0.025-2.5 mg Tab PO PRN (22:55)
[2018-07-23] MEDS: Bismuth Subsalicylate 262 mg/15 ml Sus (240 ml) PO PRN (00:01)
[2018-07-23] MEDS ORDERED: Glucagon Recombinant 1 mg Inj IM PRN (06:25)
[2018-07-23] MEDS ORDERED: Dextrose 50% SYRINGE Inj (50 ml) IV PRN (06:25)
[2018-07-23] MEDS: Insulin Lispro (humaLOG) 100 Units/ml Inj SC SCH ×3 (07:09→17:56)
--- NOTE | 2018-07-23 07:19 | CP.PCM.PN ---
Subjective - Date & Time of Evaluation Date of Evaluation: 07/23/18 Time of Evaluation: 07:00 - Subjective Subjective: Patient seen and examined this morning with Dr. Castle. COW RIDER event due to hypoglycemia reviewed. No acute event overnight Patient denies any dizziness/sweating/palpiations/chest pain/SOB or any abdominal pain. Objective - Vital Signs/Intake and Output Vital Signs (last 24 hours): Temp Pulse Resp BP Pulse Ox 98.4 F 87 20 140/75 96 07/22/18 20:00 07/22/18 20:00 07/22/18 20:00 07/22/18 20:00 07/22/18 20:00 - Medications Medications: Current Medications Acetaminophen (Tylenol 325mg Tab) 650 mg PO Q6 PRN PRN Reason: Other Last Admin: 07/13/18 12:17 Dose: 650 mg Aspirin (Aspirin Chewable) 81 mg PO DAILY [facility] Last Admin: 07/22/18 09:38 Dose: 81 mg Atorvastatin Calcium (Lipitor) 40 mg PO DAILY [facility] Last Admin: 07/22/18 09:43 Dose: 40 mg Bismuth Subsalicylate (Pepto-Bismol) 524 mg PO Q6 PRN PRN Reason: Loose stools Last Admin: 07/23/18 00:01 Dose: 524 mg Cholestyramine Resin (Questran) 4 gm PO DAILY [facility] Last Admin: 07/22/18 09:46 Dose: Not Given Clopidogrel Bisulfate (Plavix) 75 mg PO DAILY [facility] Last Admin: 07/22/18 09:46 Dose: 75 mg Dextrose (Dextrose 50% Inj) 0 ml IV STAT PRN; Protocol PRN Reason: Hypoglycemia Protocol Last Admin: 07/22/18 14:30 Dose: 50 ml Dextrose (Glutose 15) 0 gm PO ONCE PRN; Protocol PRN Reason: Hypoglycemia Protocol Dextrose (Dextrose 50% Inj) 0 ml IV STAT PRN; Protocol PRN Reason: Hypoglycemia Protocol Dextrose (Glutose 15) 0 gm PO ONCE PRN; Protocol PRN Reason: Hypoglycemia Protocol Diphenoxylate HCl/Atropine (Lomotil 0.025-2.5 Mg Tablet) 1 tab PO DAILY PRN PRN Reason: Diarrhea Last Admin: 07/22/18 22:55 Dose: 1 tab Enoxaparin Sodium (Lovenox) 40 mg SC DAILY [facility]; Protocol Last Admin: 07/22/18 09:43 Dose: 40 mg Finasteride (Proscar) 5 mg PO QPM [facility] Last Admin: 07/22/18 18:30 Dose: 5 mg Fluticasone Propionate (Flonase) 1 spr LIANNE DAILY [facility] Last Admin: 07/22/18 09:38 Dose: 1 spr Glucagon (Glucagen Diagnostic Kit) 0 mg IM STAT PRN; Protocol PRN Reason: Hypoglycemia Protocol Last Admin: 07/22/18 14:20 Dose: 1 mg Glucagon (Glucagen Diagnostic Kit) 0 mg IM STAT PRN; Protocol PRN Reason: Hypoglycemia Protocol Guaifenesin (Robitussin) 100 mg PO Q6 PRN PRN Reason: Cough Last Admin: 07/22/18 09:47 Dose: 100 mg Insulin Detemir (Levemir) 30 units SC HS [facility] Insulin Human Lispro (Humalog) 0 units SC Q6H [facility]; Protocol Last Admin: 07/23/18 07:09 Dose: 2 unit Loratadine (Claritin) 10 mg PO DAILY [facility] Last Admin: 07/22/18 09:38 Dose: 10 mg Metformin HCl (Glucophage) 500 mg PO BID [facility] Last Admin: 07/22/18 18:29 Dose: 500 mg Nicotine (Nicoderm Cq) 1 patch TD DAILY [facility] Last Admin: 07/22/18 09:44 Dose: 1 patch Pantoprazole Sodium (Protonix Ec Tab) 40 mg PO DAILY [facility] Last Admin: 07/22/18 09:46 Dose: 40 mg Pregabalin (Lyrica) 100 mg PO Q8 [facility] Last Admin: 07/23/18 05:58 Dose: 100 mg Ramipril (Altace) 2.5 mg PO DAILY [facility] Last Admin: 07/22/18 09:37 Dose: 2.5 mg Sertraline HCl (Zoloft) 25 mg PO DAILY [facility] Last Admin: 07/22/18 09:47 Dose: 25 mg Tamsulosin HCl (Flomax) 0.4 mg PO QPM [facility] Last Admin: 07/22/18 18:28 Dose: 0.4 mg Zolpidem Tartrate (Ambien) 5 mg PO HS PRN PRN Reason: Insomnia Last Admin: 07/18/18 21:53 Dose: 5 mg - Labs Labs: 07/21/18 05:50 07/21/18 05:50 - Constitutional Appears: No Acute Distress (Left facial droop ) - Head Exam Head Exam: NORMAL INSPECTION - Eye Exam Eye Exam: Normal appearance - ENT Exam ENT Exam: Mucous Membranes Moist - Respiratory Exam Respiratory Exam: Clear to Ausculation Bilateral, NORMAL BREATHING PATTERN - Cardiovascular Exam Cardiovascular Exam: REGULAR RHYTHM - GI/Abdominal Exam GI & Abdominal Exam: Soft, Normal Bowel Sounds. absent: Tenderness - Extremities Exam Extremities Exam: Full ROM. absent: Tenderness - Back Exam Back Exam: absent: CVA tenderness (L), CVA tenderness (R) - Neurological Exam Neurological Exam: Alert, Awake, Oriented x3 Neuro motor strength exam: Left Upper Extremity: 3, Right Upper Extremity: 4, Left Lower Extremity: 3, Right Lower Extremity: 4 - Psychiatric Exam Psychiatric exam: Normal Affect - Skin Skin Exam: Normal Color Assessment and Plan - Assessment and Plan (Free Text) Assessment: A/P: 63 y/o M with a PMHx of HTN, DM, HLD, previous CVA with residual left side weakness was admitted to rehabilitation unit due to aggravating L sided weakness. 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 HTN --Controlled --Heart healthy diet. --Ramipril 2.5mg PO daily DM-II --Home meds resumed/Adjust according to BS --Accucheck ACHS --Insulin sliding scale and hypoglycemia protocol --C/w home Lyrica HLD --Home meds resumed Urinary Retention/BPH --C/w home medications: Flomax/Proscar DVT Prophylaxis --Lovenox Sc daily
[2018-07-23] MEDS: Enoxaparin 40 mg Syringe SC SCH (08:49)
[2018-07-23] MEDS: Pantoprazole 40 mg EC Tab PO SCH (08:50)
[2018-07-23] MEDS: Cholestyramine 4 gm/Pkt UD PO SCH (08:50)
[2018-07-23] MEDS: Bacitracin 500 Units/gm Oint Foilpak UD TOP SCH ×3 (10:07→16:59)
--- NOTE | 2018-07-23 13:09 | PCM.PSYTMC ---
Acute Rehab Team Conference - - Vital Signs: Vital Signs (Last 8 Hours): Vital Signs 07/23/18 07/23/18 07/23/18 08:00 08:53 10:02 Temperature 97.3 F L 97.3 F L Pulse Rate 72 72 Respiratory 20 20 Rate Blood Pressure 130/70 130/70 130/70 O2 Sat by Pulse 97 Oximetry Pain: 0 - Precautions: Precautions: Fall Prevention, Aspiration - Medications/Other Issues: Comment: small elevated skin area in the rt thigh red hard sligtly painful to touch bacitracin ordered,. very labile blood sugar post port drier 07/22/2018 - Consults: Comment: Dr Trevino, (Dish Maker) DR Hernandez (Psychology),Dr Wellington (Psych),Dr Bergeron (GI) - Skin: Incision Site: NA - Toileting: Toileting: Minimal Assistance - Bladder Management: Bladder Pattern: Normal, Incontinent Voiding Method: Toilet, Urinal, Diaper Bladder Management: Minimal Assistance - Transfers: Transfers: Contact Guard - ADL's: ADL's: Minimal Assistance - Pain Management: Other Intervention:: on tylenol for pain - Patient/Family Teaching: Other Intervention:: post stroke care,medication teaching safety fall precaution - Goals/Time Frame: Comment: as per multidiciplinary plan of care - Provider: Registered Nurse:: Amparo Law Physical Therapy - Bed Mobility Bed Mobility: Verbal Cues, Contact Guard - Transfers Wheelchair to Mat: Verbal Cues, Contact Guard, Minimal Assistance Sit to Stand: Verbal Cues, Contact Guard Comment: cues for appropriate positoin of LLE prior to completion of transfers - Ambulation Level of Assistance: Verbal Cues, Contact Guard, Minimal Assistance Distance (ft.): 140 Assistive Devices: Narrow base quad cane Orthoses: L foot air cast Comment: 110 feet, 140 feet x 2. -L air fast only (DF wrap not utilized at this time). -NBQC (RUE). -step to pattern with VCs from therapist to attempt to progress patient to more reciprocal and fluid pattern. -patient with impaired L heel to toe pattern but improved swing phase of gait. -patient with poor midline control with leaning towards left side depending on therapist. -VCS for upright gaze during gait to improve patterns & control. -rest breaks between trials - Stair Negotiation Stairs: Level of Assistance: Moderate Assistance, Maximum Assistance Stairs: Assistive Devices: Right Handrail Comment: 1 flight 8 inch steps with R rail with mod A on ascent and mod/max A on descent - Standing Balance Static Stand: Contact Guard Assist Comment: with cane support - Pain Pain (assessed during therapy session): 0 Comment: pt denies - Insight/Carryover Insight/Carryover: Fair - Patient/Family Education Comment: safety, therapy schedule, therapy goals, mobility, POC, stroke recovery - Assessment/Plan Assessment: Mr. Mendosa continues to make good progress in therapy. Patient progressed to use of NBQC and did well with use of this device during ambulation. PT also removed use of dorsiflexion wrap during therapy today to continue progressing maximization of recovery; patient able to attain LLE heel strike intermittently during gait. Patient continues to require prolonged rest breaks after gait due to fatigue but he has fair carry-over with prior educated techniques. Patient continues to make progress in therapy s/p CVA and PT continues to recommend skilled rehab to continue addressing impairments. PT recommend discharge to [facility] at completion of full length of stay in acute rehab to maximize safety and independence with all mobility and emphasis on reduction of burden of care. - Goals Timeframe: 7 days Goals: Sit < > supine supervisoin. Sit < > stand transfers with supervision. Pt will ambulate 200 ft with NBQC and supervision. Pt will negotiate 1 flight of steps with single rail and min A - Provider Physical Therapist:: Noni Eduardo License Number:: [id number] Occupational Therapy - Arousal/Attention/Orientation Level of Consciousness: Awake, Alert, Confused Patient Orientation: Person, Place, Time Assessment Comment: +intermittent confusion/forgetfulness - ADL/IADL Self Feeding: Set-up Help Grooming: Set-up Help Bathing-Upper Ext: Minimal Assistance Bathing-Lower Ext: Minimal Assistance Dressing-Upper Ext: Supervision, Verbal Cues Dressing-Lower Ext: Minimal Assistance Homemaking: Dependent - Sitting Balance Static Sitting: Independent without upper extremity support Dynamic Sitting: Requires supervision - Transfers Wheelchair to Bed Transfers: Contact Guard, Minimal Assistance Toilet Transfers: Minimal Assistance Tub Transfers: Minimal Assistance - Wheelchair Management Level of Assistance: Minimal Assistance Distance (ft.): 150 - Upper Extremity Status Right Upper Extremity Comment: AROM WFLs Left Upper Extremity Comment: PROM WFLs. AROM shoulder flexion approx 90 degrees. impaired grasp strength, impaired opposition between digits, impaired gross motor and fine motor coordination - Pain Pain (assessed during therapy session): 0 - Insight/Carryover Insight/Carryover: Good - Patient/Family Education Comment: CVA recovery, DME/AE education, safety awareness, role of OT, goals of therapy - Assessment/Plan Assessment: Patient is a 63 year old male presents to [facility] s/p acute CVA, patient presents with impaired dynamic standing balance, imapired acitvity tolerance, impaired strength, fine motor and gross motor coordination in L UE/LE, and impaired insight, judgement and safety awareness. At present time pt completes ub adls with S , lb adls with min A and transfers with min A using LLE aircast. pt's LUE strength, fm and gm coordination is improving as well. patient is limited by impaired insight, poor carryover and intermittent bouts of agitation. recommend d/c to [facility] post IP stay - Goals Timeframe: 1 week Comment: goal: intermittent supervision for adls - Provider Occupational Therapist:: Bridgette Mascorro License Number: [id number] Speech Therapy - Consult Information Patient on Program: Yes Medical Diagnosis: CVA Treatment Diagnosis: Cognitive Communication Impairment - Assessment Problem Solving Impairment: Moderate Memory Impairment: Moderate - Plan Assessment: Pt currently presents with a moderate cognitive communication impairment characterized by deficits in the areas of attention, memory, problem solving, and recall. A suspected left sided inattention is currently a barrier to learning. Plan: Continue Speech/Language Therapy Frequency: 3-5 times per week Duration: 1 week - Provider Therapist: Olga Pop License Number: [id number] Recreational Therapy - Participation Participation: Participates in Individual and/or Group Sessions - Attendance Attendance: 3-5 times per week - Activities Leisure Activities: Cards and Games - Socialization Level of Socialization: Initiates/interacts freely with care givers and peer - Diversional Time Diversional Time: television, reading - Assessment Assessment/Plan: Pt is agreeable to participate in 1:1 and group recreation therapy sessions following encouragement. Pt requires supervision-min A throughout all sessions 2' pt carrying over 50% of task rules. Pt requires min verbal cues for error recognition and for command following. Pt has participated in spot-it matching task, memory card task, as well as other tasks. Pt is independent with bingo task following setup and enjoys participating in task with peers. Pt darcie continue to benefit from participating in recreation therapy sessions throughout stay on unit. Problems Currently Limiting Participation: L side UE and LE weakness, impaired safety awareness, impaired problem solving Goals and Time Frame: Pt will require 25% of verbal cues to complete leisure task at supervision level by date of discharge. - Provider Therapist: Ade Estrada Nutrition - Current Diet Current Diet/Supplement/Feedings: Heart Healthy Moderate Consistent CHO Lactose Restricted Low Fat - Appetite Percent Meal Consumed: 50-74% - Assessment/Goals/Time Frame Assessments/Goals/Time Frame: Pt at moderate nutritional risk. goals: 1. Pt to consume 75-100% of meals(met, continue). 2. Blood glucoses to be between 70- 180 mg/dl(HgbA1C to trend downward over next few months)(partially met, continue). Follow-up due on 07/24/2018 - Provider Provider: Ilda Zambrano Case Management - Psychosocial Assessment Support Systems: Jb Crews ([place]) - [phone] Psychological Interventions/Needs: Patient AAO and able to verbalize needs. Patient has episodes of sundowning with accompanied agitation, but can be redirected. Discharge Concerns: Patient requiring 24hr supervision at this time. Patient lives alone. Patient/Family Meeting: CM met with patient and rehab team. Intervention/Goal/Outcome: 1. Goal: 24hr supervision/care 2. Plan: [facility] at [place] 3. f/u with [place] referral 4. continued emotional support - Discharge Plan Discharge Plan: Subacute care - Provider Provider: Louisa Casey License Number: [id number] Rehabilitation Plan - Treatment Plan Treatment Plan: Physical Therapy, Occupational Therapy, Speech, Dietary, Patient/Family Education - Discharge Plan Estimated Date of Discharge: 07/25/18 Discharge to: Subacute
--- NOTE | 2018-07-23 13:25 | CP.PCM.PN ---
Subjective - Date & Time of Evaluation Date of Evaluation: 07/23/18 Time of Evaluation: 13:24 - Subjective Subjective: patient seen in the room doing ok denies sob/cp denies fever set for d/c to [facility] 07/25/18 Objective - Vital Signs/Intake and Output Vital Signs (last 24 hours): Temp Pulse Resp BP Pulse Ox 97.3 F L 72 20 130/70 97 07/23/18 10:02 07/23/18 10:02 07/23/18 10:02 07/23/18 10:02 07/23/18 08:00 - Medications Medications: Current Medications Acetaminophen (Tylenol 325mg Tab) 650 mg PO Q6 PRN PRN Reason: Other Last Admin: 07/13/18 12:17 Dose: 650 mg Aspirin (Aspirin Chewable) 81 mg PO DAILY [facility] Last Admin: 07/23/18 08:52 Dose: 81 mg Atorvastatin Calcium (Lipitor) 40 mg PO DAILY [facility] Last Admin: 07/23/18 08:51 Dose: 40 mg Bacitracin (Bacitracin) 1 ea TOP TID [facility] Last Admin: 07/23/18 12:33 Dose: 1 ea Bismuth Subsalicylate (Pepto-Bismol) 524 mg PO Q6 PRN PRN Reason: Loose stools Last Admin: 07/23/18 00:01 Dose: 524 mg Cholestyramine Resin (Questran) 4 gm PO DAILY [facility] Last Admin: 07/23/18 08:50 Dose: 4 gm Clopidogrel Bisulfate (Plavix) 75 mg PO DAILY [facility] Last Admin: 07/23/18 08:51 Dose: 75 mg Dextrose (Dextrose 50% Inj) 0 ml IV STAT PRN; Protocol PRN Reason: Hypoglycemia Protocol Last Admin: 07/22/18 14:30 Dose: 50 ml Dextrose (Glutose 15) 0 gm PO ONCE PRN; Protocol PRN Reason: Hypoglycemia Protocol Dextrose (Dextrose 50% Inj) 0 ml IV STAT PRN; Protocol PRN Reason: Hypoglycemia Protocol Dextrose (Glutose 15) 0 gm PO ONCE PRN; Protocol PRN Reason: Hypoglycemia Protocol Diphenoxylate HCl/Atropine (Lomotil 0.025-2.5 Mg Tablet) 1 tab PO DAILY PRN PRN Reason: Diarrhea Last Admin: 07/22/18 22:55 Dose: 1 tab Enoxaparin Sodium (Lovenox) 40 mg SC DAILY [facility]; Protocol Last Admin: 07/23/18 08:49 Dose: 40 mg Finasteride (Proscar) 5 mg PO QPM [facility] Last Admin: 07/22/18 18:30 Dose: 5 mg Fluticasone Propionate (Flonase) 1 spr LIANNE DAILY [facility] Last Admin: 07/23/18 08:49 Dose: 1 spr Glucagon (Glucagen Diagnostic Kit) 0 mg IM STAT PRN; Protocol PRN Reason: Hypoglycemia Protocol Last Admin: 07/22/18 14:20 Dose: 1 mg Glucagon (Glucagen Diagnostic Kit) 0 mg IM STAT PRN; Protocol PRN Reason: Hypoglycemia Protocol Guaifenesin (Robitussin) 100 mg PO Q6 PRN PRN Reason: Cough Last Admin: 07/22/18 09:47 Dose: 100 mg Insulin Detemir (Levemir) 30 units SC HS [facility] Insulin Human Lispro (Humalog) 0 units SC Q6H [facility]; Protocol Last Admin: 07/23/18 12:32 Dose: 3 unit Loratadine (Claritin) 10 mg PO DAILY [facility] Last Admin: 07/23/18 08:52 Dose: 10 mg Metformin HCl (Glucophage) 500 mg PO BID [facility] Last Admin: 07/23/18 08:51 Dose: 500 mg Nicotine (Nicoderm Cq) 1 patch TD DAILY [facility] Last Admin: 07/23/18 08:49 Dose: 1 patch Pantoprazole Sodium (Protonix Ec Tab) 40 mg PO DAILY [facility] Last Admin: 07/23/18 08:50 Dose: 40 mg Pregabalin (Lyrica) 100 mg PO Q8 [facility] Last Admin: 07/23/18 05:58 Dose: 100 mg Ramipril (Altace) 2.5 mg PO DAILY [facility] Last Admin: 07/23/18 08:53 Dose: 2.5 mg Sertraline HCl (Zoloft) 25 mg PO DAILY [facility] Last Admin: 07/23/18 08:51 Dose: 25 mg Tamsulosin HCl (Flomax) 0.4 mg PO QPM [facility] Last Admin: 07/22/18 18:28 Dose: 0.4 mg Zolpidem Tartrate (Ambien) 5 mg PO HS PRN PRN Reason: Insomnia Last Admin: 07/18/18 21:53 Dose: 5 mg - Labs Labs: 07/21/18 05:50 07/21/18 05:50
[2018-07-23] MEDS: Insulin Detemir 100 Units/ml Inj SC SCH (22:27)
[2018-07-24] MEDS: Insulin Lispro (humaLOG) 100 Units/ml Inj SC SCH ×5 (00:24→17:36)
[2018-07-24 05:49] LABS: HEMOGLOBIN 12.6 g/dL (12.0-18.0); MEAN CELL VOLUME 83.8 fl (80.0-94.0); MEAN CORPUSCULAR HEMOGLOBIN 28.2 pg (27.0-31.0); MEAN CORPUSCULAR HGB CONC 33.7 g/dL (33.0-37.0); RBC 4.46 Mil/uL (4.40-5.90); RED CELL DISTRIBUTION WIDTH 13.5 % (11.5-14.5); WHITE BLOOD COUNT 8.8 K/uL (4.8-10.8)
[2018-07-24 06:08] LABS: BLOOD UREA NITROGEN 29 mg/dl (9-20); CALCIUM 8.8 mg/dL (8.4-10.2); GFR NON-AFRICAN AMERICAN > 60
--- NOTE | 2018-07-24 06:39 | CP.PCM.PN ---
Subjective - Date & Time of Evaluation Date of Evaluation: 07/24/18 Time of Evaluation: 07:00 - Subjective Subjective: Patient seen and examined this morning with Dr. Castle No acute event overnight Patient denies any dizziness/sweating/palpiations/chest pain/SOB or any abdominal pain/fever/diarrhea. Objective - Vital Signs/Intake and Output Vital Signs (last 24 hours): Temp Pulse Resp BP Pulse Ox 99.5 F 95 H 20 159/89 H 100 07/23/18 20:00 07/23/18 20:00 07/23/18 20:00 07/23/18 20:00 07/23/18 20:00 - Medications Medications: Current Medications Acetaminophen (Tylenol 325mg Tab) 650 mg PO Q6 PRN PRN Reason: Other Last Admin: 07/13/18 12:17 Dose: 650 mg Aspirin (Aspirin Chewable) 81 mg PO DAILY [facility] Last Admin: 07/23/18 08:52 Dose: 81 mg Atorvastatin Calcium (Lipitor) 40 mg PO DAILY [facility] Last Admin: 07/23/18 08:51 Dose: 40 mg Bacitracin (Bacitracin) 1 ea TOP TID [facility] Last Admin: 07/23/18 16:59 Dose: 1 ea Bismuth Subsalicylate (Pepto-Bismol) 524 mg PO Q6 PRN PRN Reason: Loose stools Last Admin: 07/23/18 00:01 Dose: 524 mg Cholestyramine Resin (Questran) 4 gm PO DAILY [facility] Last Admin: 07/23/18 08:50 Dose: 4 gm Clopidogrel Bisulfate (Plavix) 75 mg PO DAILY [facility] Last Admin: 07/23/18 08:51 Dose: 75 mg Dextrose (Dextrose 50% Inj) 0 ml IV STAT PRN; Protocol PRN Reason: Hypoglycemia Protocol Last Admin: 07/22/18 14:30 Dose: 50 ml Dextrose (Glutose 15) 0 gm PO ONCE PRN; Protocol PRN Reason: Hypoglycemia Protocol Dextrose (Dextrose 50% Inj) 0 ml IV STAT PRN; Protocol PRN Reason: Hypoglycemia Protocol Dextrose (Glutose 15) 0 gm PO ONCE PRN; Protocol PRN Reason: Hypoglycemia Protocol Diphenoxylate HCl/Atropine (Lomotil 0.025-2.5 Mg Tablet) 1 tab PO DAILY PRN PRN Reason: Diarrhea Last Admin: 07/22/18 22:55 Dose: 1 tab Enoxaparin Sodium (Lovenox) 40 mg SC DAILY [facility]; Protocol Last Admin: 07/23/18 08:49 Dose: 40 mg Finasteride (Proscar) 5 mg PO QPM [facility] Last Admin: 07/23/18 17:57 Dose: 5 mg Fluticasone Propionate (Flonase) 1 spr LIANNE DAILY [facility] Last Admin: 07/23/18 08:49 Dose: 1 spr Glucagon (Glucagen Diagnostic Kit) 0 mg IM STAT PRN; Protocol PRN Reason: Hypoglycemia Protocol Last Admin: 07/22/18 14:20 Dose: 1 mg Glucagon (Glucagen Diagnostic Kit) 0 mg IM STAT PRN; Protocol PRN Reason: Hypoglycemia Protocol Guaifenesin (Robitussin) 100 mg PO Q6 PRN PRN Reason: Cough Last Admin: 07/22/18 09:47 Dose: 100 mg Insulin Detemir (Levemir) 30 units SC HS [facility] Last Admin: 07/23/18 22:27 Dose: 30 units Insulin Human Lispro (Humalog) 0 units SC Q6H [facility]; Protocol Last Admin: 07/24/18 00:24 Dose: Not Given Loratadine (Claritin) 10 mg PO DAILY [facility] Last Admin: 07/23/18 08:52 Dose: 10 mg Metformin HCl (Glucophage) 500 mg PO BID [facility] Last Admin: 07/23/18 17:00 Dose: 500 mg Nicotine (Nicoderm Cq) 1 patch TD DAILY [facility] Last Admin: 07/23/18 08:49 Dose: 1 patch Pantoprazole Sodium (Protonix Ec Tab) 40 mg PO DAILY [facility] Last Admin: 07/23/18 08:50 Dose: 40 mg Pregabalin (Lyrica) 100 mg PO Q8 [facility] Last Admin: 07/23/18 21:20 Dose: 100 mg Ramipril (Altace) 2.5 mg PO DAILY [facility] Last Admin: 07/23/18 08:53 Dose: 2.5 mg Sertraline HCl (Zoloft) 25 mg PO DAILY [facility] Last Admin: 07/23/18 08:51 Dose: 25 mg Tamsulosin HCl (Flomax) 0.4 mg PO QPM [facility] Last Admin: 07/23/18 17:56 Dose: 0.4 mg Zolpidem Tartrate (Ambien) 5 mg PO HS PRN PRN Reason: Insomnia Last Admin: 07/18/18 21:53 Dose: 5 mg - Labs Labs: 07/24/18 05:40 07/24/18 05:40 - Constitutional Appears: No Acute Distress (Left facial droop ) - Head Exam Head Exam: NORMAL INSPECTION - Eye Exam Eye Exam: Normal appearance - ENT Exam ENT Exam: Mucous Membranes Moist - Neck Exam Neck Exam: Normal Inspection - Respiratory Exam Respiratory Exam: Clear to Ausculation Bilateral, NORMAL BREATHING PATTERN - Cardiovascular Exam Cardiovascular Exam: REGULAR RHYTHM, +S1, +S2 - GI/Abdominal Exam GI & Abdominal Exam: Soft, Normal Bowel Sounds. absent: Tenderness - Rectal Exam Rectal Exam: Deferred - Extremities Exam Extremities Exam: Normal Inspection - Back Exam Back Exam: NORMAL INSPECTION. absent: CVA tenderness (L), CVA tenderness (R) - Neurological Exam Neurological Exam: Alert, Awake, Oriented x3 Neuro motor strength exam: Left Upper Extremity: 3, Right Upper Extremity: 4, Left Lower Extremity: 3, Right Lower Extremity: 4 - Psychiatric Exam Psychiatric exam: Normal Affect - Skin Skin Exam: Normal Color Assessment and Plan - Assessment and Plan (Free Text) Assessment: A/P: 63 y/o M with a PMHx of HTN, DM, HLD, previous CVA with residual left side weakness was admitted to rehabilitation unit due to aggravating L sided weakness. Left sided weakness, Hx of CVA --Continue PT and management as per acute rehab --c/w ASA/plavix and Lipitor --deposition: possible [facility] tomorrow -- Improved strength Hypoglycemia - Acute - Insulin was adjusted - C/w Accu Checks Q6H - Decreased Long acting insulin - Sliding scale Q6H/Hypoglycemic protocol Diarrhea --Improved --STARTed cholestyramine, c/w decreased dose of metformin --GI consult, recommendations appreciated --Stool leuk and c.diff negative, KUB with bowel gas, improved in recent KUB Post-stroke depression --Psychiatry on board, Dr Wellington --On Zoloft. HTN --Controlled --Heart healthy diet. --Ramipril 2.5mg PO daily DM-II --Home meds resumed/Adjust according to BS --Accucheck ACHS --Insulin sliding scale and hypoglycemia protocol --C/w home Lyrica HLD --Home meds resumed Urinary Retention/BPH --C/w home medications: Flomax/Proscar DVT Prophylaxis --Lovenox Sc daily
[2018-07-24] MEDS: Enoxaparin 40 mg Syringe SC SCH (08:05)
[2018-07-24] MEDS: Bacitracin 500 Units/gm Oint Foilpak UD TOP SCH ×3 (08:06→17:35)
[2018-07-24] MEDS: Cholestyramine 4 gm/Pkt UD PO SCH (08:07)
[2018-07-24] MEDS: Pantoprazole 40 mg EC Tab PO SCH (08:07)
--- NOTE | 2018-07-24 18:22 | CP.PCM.PN ---
Subjective - Date & Time of Evaluation Date of Evaluation: 07/24/18 Time of Evaluation: 18:21 - Subjective Subjective: Patient seen in the room getting aggravated with staff and is set for d/c to [facility] tomorrow He is impulsive with poor insight and safety concern Objective - Vital Signs/Intake and Output Vital Signs (last 24 hours): Temp Pulse Resp BP Pulse Ox 98 F 87 20 130/80 98 07/24/18 08:00 07/24/18 08:00 07/24/18 08:00 07/24/18 08:05 07/24/18 08:00 - Medications Medications: Current Medications Acetaminophen (Tylenol 325mg Tab) 650 mg PO Q6 PRN PRN Reason: Other Last Admin: 07/13/18 12:17 Dose: 650 mg Aspirin (Aspirin Chewable) 81 mg PO DAILY [facility] Last Admin: 07/24/18 08:06 Dose: 81 mg Atorvastatin Calcium (Lipitor) 40 mg PO DAILY [facility] Last Admin: 07/24/18 08:08 Dose: 40 mg Bacitracin (Bacitracin) 1 ea TOP TID [facility] Last Admin: 07/24/18 17:35 Dose: 1 ea Bismuth Subsalicylate (Pepto-Bismol) 524 mg PO Q6 PRN PRN Reason: Loose stools Last Admin: 07/23/18 00:01 Dose: 524 mg Cholestyramine Resin (Questran) 4 gm PO DAILY [facility] Last Admin: 07/24/18 08:07 Dose: Not Given Clopidogrel Bisulfate (Plavix) 75 mg PO DAILY [facility] Last Admin: 07/24/18 08:07 Dose: 75 mg Dextrose (Dextrose 50% Inj) 0 ml IV STAT PRN; Protocol PRN Reason: Hypoglycemia Protocol Last Admin: 07/22/18 14:30 Dose: 50 ml Dextrose (Glutose 15) 0 gm PO ONCE PRN; Protocol PRN Reason: Hypoglycemia Protocol Dextrose (Dextrose 50% Inj) 0 ml IV STAT PRN; Protocol PRN Reason: Hypoglycemia Protocol Dextrose (Glutose 15) 0 gm PO ONCE PRN; Protocol PRN Reason: Hypoglycemia Protocol Diphenoxylate HCl/Atropine (Lomotil 0.025-2.5 Mg Tablet) 1 tab PO DAILY PRN PRN Reason: Diarrhea Last Admin: 07/22/18 22:55 Dose: 1 tab Enoxaparin Sodium (Lovenox) 40 mg SC DAILY [facility]; Protocol Last Admin: 07/24/18 08:05 Dose: 40 mg Finasteride (Proscar) 5 mg PO QPM [facility] Last Admin: 07/24/18 17:35 Dose: 5 mg Fluticasone Propionate (Flonase) 1 spr LIANNE DAILY [facility] Last Admin: 07/24/18 08:08 Dose: 1 spr Glucagon (Glucagen Diagnostic Kit) 0 mg IM STAT PRN; Protocol PRN Reason: Hypoglycemia Protocol Last Admin: 07/22/18 14:20 Dose: 1 mg Glucagon (Glucagen Diagnostic Kit) 0 mg IM STAT PRN; Protocol PRN Reason: Hypoglycemia Protocol Guaifenesin (Robitussin) 100 mg PO Q6 PRN PRN Reason: Cough Last Admin: 07/22/18 09:47 Dose: 100 mg Insulin Detemir (Levemir) 30 units SC HS [facility] Last Admin: 07/23/18 22:27 Dose: 30 units Insulin Human Lispro (Humalog) 0 units SC Q6H [facility]; Protocol Last Admin: 07/24/18 17:36 Dose: Not Given Loratadine (Claritin) 10 mg PO DAILY [facility] Last Admin: 07/24/18 08:09 Dose: 10 mg Metformin HCl (Glucophage) 500 mg PO BID [facility] Last Admin: 07/24/18 17:36 Dose: 500 mg Nicotine (Nicoderm Cq) 1 patch TD DAILY [facility] Last Admin: 07/24/18 08:06 Dose: 1 patch Pantoprazole Sodium (Protonix Ec Tab) 40 mg PO DAILY [facility] Last Admin: 07/24/18 08:07 Dose: 40 mg Pregabalin (Lyrica) 100 mg PO Q8 [facility] Last Admin: 07/24/18 14:00 Dose: 100 mg Ramipril (Altace) 2.5 mg PO DAILY [facility] Last Admin: 07/24/18 08:05 Dose: 2.5 mg Sertraline HCl (Zoloft) 25 mg PO DAILY [facility] Last Admin: 07/24/18 08:07 Dose: 25 mg Tamsulosin HCl (Flomax) 0.4 mg PO QPM [facility] Last Admin: 07/24/18 17:36 Dose: 0.4 mg Zolpidem Tartrate (Ambien) 5 mg PO HS PRN PRN Reason: Insomnia Last Admin: 07/18/18 21:53 Dose: 5 mg - Labs Labs: 07/24/18 05:40 07/24/18 05:40
[2018-07-24] MEDS: Atropine-Diphenoxylate 0.025-2.5 mg Tab PO PRN (21:21)
[2018-07-24] MEDS: Insulin Detemir 100 Units/ml Inj SC SCH (21:21)
[2018-07-25] MEDS: Insulin Lispro (humaLOG) 100 Units/ml Inj SC SCH ×3 (00:19→12:34)
[2018-07-25 07:58] VITALS: PULSE 65; RESP 18; TEMP 97.2; O2SAT 97
[2018-07-25] MEDS: Pantoprazole 40 mg EC Tab PO SCH (08:21)
[2018-07-25] MEDS: Cholestyramine 4 gm/Pkt UD PO SCH (08:22)
[2018-07-25] MEDS: Enoxaparin 40 mg Syringe SC SCH (08:23)
[2018-07-25] MEDS: Bacitracin 500 Units/gm Oint Foilpak UD TOP SCH ×2 (08:26→12:35)
[2018-07-25 08:28] VITALS: BP 130/75
[2018-07-25] MEDS ORDERED: Amoxicillin-Clav 875-125 mg Tab PO SCH (09:00)
--- NOTE | 2018-07-25 12:54 | PN ---
DATE: 07/25/2018 SUBJECTIVE: The patient was seen and examined. Interim events noted. The patient remains in acute rehab unit, complains of right thigh pain and swelling. The patient had a small boil a couple of days ago and was treated with local Bactroban, but now swelling is more with increasingly painful. Review of systems otherwise is unremarkable. PHYSICAL EXAMINATION: GENERAL: The patient is in no acute distress. VITAL SIGNS: Stable. HEART: S1, S2, normal and regular. LUNGS: Good bilateral air exchange. ABDOMEN: Soft, nontender. EXTREMITIES: The patient now has small cellulitis on right thigh about a quarter size with some induration, but no sign of distal complications. No edema. No calf swelling. No tenderness. No acute ischemia. CENTRAL NERVOUS SYSTEM: Essentially unchanged. DIAGNOSTIC DATA: Available diagnostic data reviewed. Accu-Cheks are slightly higher. ASSESSMENT AND PLAN: Overall, the patient is medically stable. Plan as ordered. Gomez Castle MD
== END 2018-07-25 14:10 | DRG 57 ==
PROVIDERS: ADMIT Internal Medicine; ATTEND Internal Medicine
PROC: F07Z9FZ Gait Training/Functional Ambulation Treatment using Assistive, Adaptive, Supportive or Protective Equipment (ICD-10-PCS; principal; 2018-07-02)
PROC: F08Z4FZ Home Management Treatment using Assistive, Adaptive, Supportive or Protective Equipment (ICD-10-PCS; 2018-07-02)
PROC: F07L6FZ Therapeutic Exercise Treatment of Musculoskeletal System - Lower Back / Lower Extremity using Assistive, Adaptive, Supportive or Protective Equipment (ICD-10-PCS; 2018-07-03)
PROC: 0HBRXZZ Excision of Toe Nail, External Approach (ICD-10-PCS; 2018-07-11)
PROC: 0HBRXZZ Excision of Toe Nail, External Approach (ICD-10-PCS; 2018-07-11)
PROC: 0HBRXZZ Excision of Toe Nail, External Approach (ICD-10-PCS; 2018-07-11)
PROC: 0HBRXZZ Excision of Toe Nail, External Approach (ICD-10-PCS; 2018-07-11)
PROC: 0HBRXZZ Excision of Toe Nail, External Approach (ICD-10-PCS; 2018-07-11)
PROC: 0HBRXZZ Excision of Toe Nail, External Approach (ICD-10-PCS; 2018-07-11)
PROC: 0HBRXZZ Excision of Toe Nail, External Approach (ICD-10-PCS; 2018-07-11)
PROC: 0HBRXZZ Excision of Toe Nail, External Approach (ICD-10-PCS; 2018-07-11)
PROC: 0HBRXZZ Excision of Toe Nail, External Approach (ICD-10-PCS; 2018-07-11)
PROC: 0HBRXZZ Excision of Toe Nail, External Approach (ICD-10-PCS; 2018-07-11)
DX: I69.354 Hemiplegia and hemiparesis following cerebral infarction affecting left non-dominant side (principal); F05 Delirium due to known physiological condition; I69.398 Other sequelae of cerebral infarction; F06.31 Mood disorder due to known physiological condition with depressive features; E11.43 Type 2 diabetes mellitus with diabetic autonomic (poly)neuropathy; E11.65 Type 2 diabetes mellitus with hyperglycemia; E11.649 Type 2 diabetes mellitus with hypoglycemia without coma; K31.84 Gastroparesis; R33.8 Other retention of urine; B35.1 Tinea unguium; L60.8 Other nail disorders; R19.7 Diarrhea, unspecified; E78.5 Hyperlipidemia, unspecified; I10 Essential (primary) hypertension; N40.1 Benign prostatic hyperplasia with lower urinary tract symptoms; F17.210 Nicotine dependence, cigarettes, uncomplicated; Z93.3 Colostomy status; Z79.4 Long term (current) use of insulin; Z79.84 Long term (current) use of oral hypoglycemic drugs